=== PATIENT | male | born 1955 | race Caucasian/White ===

== ENCOUNTER 2023-10-15 09:10 | Emergency (ER) | payer MEDICARE, OTHER, SELFPAY ==
[2023-10-15] VITALS (14 sets, daily range): BP systolic 119–156; BP diastolic 63–76; PULSE 56–73; RESP 12–16; TEMP 36.8–36.9; O2SAT 98–100
--- NOTE | ~2023-10-15 | XR_ITS ---
EXAMINATION: XR ankle LT min 3V DATE: 10/15/2023 12:26 INDICATION: Left ankle injury. Fall. TECHNIQUE: 4 views of left ankle were obtained. COMPARISON: None. FINDINGS: Bone alignment is normal. No fracture. There is mild osteoarthritis of talonavicular joint. There are enthesophytes at the posterior and plantar aspects of calcaneal tuberosity. IMPRESSION: 1. No fracture. Reviewed, dictated and finalized at location A. IMPRESSION: 1. No fracture.
--- NOTE | ~2023-10-15 | CT_ITS ---
NAME: Gigi Cortes DATE OF : 59 EXAMINATION: HEAD CT WO DATE: 10/15/2023 at 9:45 AM INDICATION: Seizure. Fall. Head injury. TECHNIQUE: Computed tomography (CT) of the head was performed without intravenous contrast. The mA wa s adjusted according to patient size. Iterative reconstruction technique was employed. The dose-lengt h product was 605 mGy-cm. COMPARISON: None FINDINGS: There is no intracranial hemorrhage, acute infarction, or abnormal intracranial mass lesion . The ventricles are normal in size. The orbits are normal. There is mild mucosal thickening in the p aranasal sinuses. The mastoid air cells are normal. There is right frontal scalp soft tissue swelling . IMPRESSION: 1. Normal brain. Reviewed, dictated and finalized at location A. IMPRESSION: 1. Normal brain.
--- NOTE | ~2023-10-15 | CT_ITS ---
NAME: Gigi Cortes DATE OF : 59 EXAMINATION: CT CERVICAL SPINE WO DATE: 10/15/2023 at 9:47 AM INDICATION: Head injury. TECHNIQUE: Computed tomography (CT) of the cervical spine was performed without intravenous contrast. Automated exposure control and iterative reconstruction technique were employed. The dose-length pro duct was 476 mGy-cm. COMPARISON: None FINDINGS: There is 2 mm anterolisthesis of C7 on T1. Vertebral body heights are normal. There is inte rbody fusion at C3-C4. There is severely decreased disc height from C4-C5 through C6-C7 and mildly de creased disc height at C7-T1. There is mucous in the trachea. The following disc levels are specifica lly discussed: C2-C3: There is moderate right and severe left uncovertebral joint osteoarthritis. There is severe bi lateral facet joint osteoarthritis. There is mild left neural foraminal stenosis. There is no central canal stenosis. C3-C4: There is mild bilateral uncovertebral joint hypertrophy. There is ankylosis of the facet joint s with mild right and moderate left hypertrophy. There is mild bilateral neural foraminal stenosis. T here is mild central canal stenosis. C4-C5: There is severe bilateral uncovertebral joint osteoarthritis. There is severe bilateral facet joint osteoarthritis. There is moderate right and mild left neural foraminal stenosis. There is mild central canal stenosis. C5-C6: There is severe bilateral uncovertebral joint osteoarthritis. There is moderate right and mild left facet joint osteoarthritis. There is mild right neural foraminal stenosis. There is mild centra l canal stenosis. C6-C7: There is severe bilateral uncovertebral joint osteoarthritis. There is moderate right and mild left facet joint osteoarthritis. There is mild bilateral neural foraminal stenosis. There is mild ce ntral canal stenosis. C7-T1: There is no uncovertebral joint osteoarthritis. There is severe left facet joint osteoarthriti s.. There is ankylosis of the right facet joint with moderate hypertrophy. There is mild bilateral ne ural foraminal stenosis. There is no central canal stenosis. IMPRESSION: 1. No fracture. 2. Severe cervical spondylosis. Reviewed, dictated and finalized at location A.
--- NOTE | 2023-10-15 09:14 | ECG_ITS ---
Measurements Intervals [place] Rate: 68 P: 11 MD: 147 QRS: 48 QRSD: 99 T: 65 QT: 419 QTc: 447 Interpretive Statements SINUS RHYTHM ATRIAL COUPLET AND ATRIAL PREMATURE COMPLEXES VOLTAGE CRITERIA FOR LVH ABNORMAL ECG NO PREVIOUS ECG AVAILABLE FOR COMPARISON Electronically Signed On 10-15-2023 11:07:24 CDT by Sony Delong D.O.
[2023-10-15 09:26] LABS: Basophils Percent Auto 0.5 % (0.2-1.2); Eosinophils Absolute Auto 0.5 K/mm3 (0-0.3); Eosinophils Percent Auto 8.6 % (0-4.4); Hematocrit 42.7 % (42.0-52.0); Hemoglobin 14.1 g/dL (14.0-18.0); Immature Granulocyte Absolute 0.02 K/mm3 (0.00-0.031); Immature Granulocyte Percent A 0.3 % (0-0.5); Lymphocytes Percent Auto 24.5 % (18.3-44.2); Mean Corpuscular Hemoglobin 30.9 pg (26-34); Mean Corpuscular Volume 93.6 fl (80-100); Mean Platelet Volume 10.8 fl (7.4-10.4); Monocytes Absolute Auto 0.4 K/mm3 (0.1-0.6); Monocytes Percent Auto 7.7 % (2.6-8.5); Neutrophils Absolute Auto 3.3 K/mm3 (1.3-6.7); Neutrophils Percent Auto 58.4 % (45.5-73.1); Platelet Count Result 184 k/mm3 (150-375); Red Blood Count 4.56 M/mm3 (4.6-6.20); Red Cell Distribution Width 11.8 % (11.5-14.5); White Blood Count 5.7 K/mm3 (4.5-10.0)
[2023-10-15 09:37] LABS: Alanine Aminotransferase 34 U/L (6-50); Albumin Level 4.3 g/dL (3.5-5.1); Alkaline Phosphatase 80 U/L (38-126); Anion Gap 10 mmol/L (8-16); Aspartate Amino Transferase 41 U/L (17-59); Bilirubin,Total 0.8 mg/dL (0.2-1.3); Blood Urea Nitrogen 19 mg/dL (9-20); Calcium 9.1 mg/dL (8.4-10.2); Carbon Dioxide 25 mmol/L (22-30); Chloride 99 mmol/L (98-107); Estimated CRCL calculation 86 ml/min; Estimated Glomerular Filt Rate > 60; Glucose 138 mg/dL (65-110); Potassium 3.7 mmol/L (3.4-5.0); Sodium 134 mmol/L (137-145)
[2023-10-15] MEDS: levETIRAcetam 1000MG/NACL100ML 1,000 MG/100 ML BAG 400 MG IVPB (09:37)
[2023-10-15] MEDS: LORazepam INJ (*CRX) 2 MG/ML VIAL IV PUSH (09:38)
--- NOTE | 2023-10-15 15:10 | ED.SEIZURE ---
HPI - Seizure General Chief Complaint: Seizure Stated Complaint: fall, seizure Time Seen by Provider: 10/15/23 09:14 Source: EMS Mode of arrival: EMS Limitations: clinical condition History of Present Illness HPI Narrative: 68-year-old otherwise healthy was brought in by EMS with complaints of fall from a ladder. This patient had a 3 minute seizure soon after the fall upon arrival to the ER patient was in a postictal state few minutes after that he had another tonic-clonic seizure lasted for few minutes. As per the family there is no previous history of seizure disorder. MD complaint: seizure Onset (ago): minute(s) Description of Episode: loss of consciousness and tonic-clonic movement Witnessed: Yes - by Bystander Seizure History: No Place: work Possible Precipitating Event: none Associated symptoms: denies other symptoms Treatments prior to arrival: none Related Data Allergies Allergy/AdvReac Type Severity Reaction Status Date / Time NA Allergy Uncoded 11/14/08 12:28 Review of Systems Review of Systems: ROS unobtainable: Yes unobtainable due to mental status Exam Narrative: GENERAL:, well-nourished, unresponsive post ictal HEAD: Normocephalic, atraumatic. small lac on the forehead EYES: PERRLA and EOMI. ENT: Nares clear, no rhinorrhea or epistaxis. Mucous membranes moist. NECK: Supple. CHEST: Clear to auscultation. No respiratory distress. HEART: Regular rate and rhythm. No murmur heard. Normal peripheral pulses. ABDOMEN: Soft, nontender, nondistended, normal active bowel sounds. EXTREMITIES: Normal range of motion. No edema. SKIN: Warm, dry, no rash. NEURO: No focal deficits. . Course Course Emergency Course: Patient had another seizure soon after arrival he was given 2 mg of Ativan and IV Keppra 1000 mg. About 1/2 hour later patient became alert complaining of left ankle pain and did obtain an x-ray which showed no evidence of fracture informed patient and the family about his lab work, CT findings. Agreeable with transfer with [facility] do not have Neurology discussed with Dr. Felix at [facility] accepted the pt in transfer Reevaluation(s) Reevaluation #1: Patient resting well no further seizure activity. Informed patient about the lab work, CT findings agreeable for transfer to [facility] Vital Signs Vital signs: Vital Signs Temperature 36.8 C 10/15/23 09:10 Pulse Rate 66 10/15/23 09:10 Respiratory Rate 13 10/15/23 09:10 Blood Pressure 156/66 H 10/15/23 09:10 Pulse Oximetry 100 10/15/23 09:10 Oxygen Delivery Room Air 10/15/23 09:10 Temperature 36.9 C 10/15/23 12:31 Pulse Rate 59 L 10/15/23 12:31 Respiratory Rate 13 10/15/23 12:31 Blood Pressure 126/73 10/15/23 12:31 Pulse Oximetry 98 10/15/23 12:31 Oxygen Delivery Room Air 10/15/23 09:41 MDM - Seizure MDM Narrative Medical decision making narrative: 68-year-old posttraumatic the obvious head injury with seizures will obtain CT of the head and C-spine and labwork control his seizures with IV Keppra. Differential Diagnosis Differential diagnosis: Likely new onset seizure and other (Head injury) Medical Records Attestation: I reviewed the patient's medical records. Lab Data Attestation: I reviewed the patient's lab results. 10/15/23 09:20 10/15/23 09:20 Labs: Lab Results 10/15/23 Range/Units 09:20 WBC 5.7 (4.5-10.0) K/mm3 RBC 4.56 L (4.6-6.20) M/mm3 Hgb 14.1 (14.0-18.0) g/dL Hct 42.7 (42.0-52.0) % MCV 93.6 (80-100) fl MCH 30.9 (26-34) pg MCHC 33.0 (32-36) g/dl RDW 11.8 (11.5-14.5) % Plt Count 184 (150-375) k/mm3 MPV 10.8 H (7.4-10.4) fl Immature Gran % (Auto) 0.3 (0-0.5) % Neut % (Auto) 58.4 (45.5-73.1) % Lymph % (Auto) 24.5 (18.3-44.2) % [place] % (Auto) 7.7 (2.6-8.5) % Eos % (Auto) 8.6 H (0-4.4) % Baso % (Auto) 0.5 (0.2-1.2) % Lymph # (Auto) 1.40 (0.9-3.2) K/mm3 [place] # (Auto) 0.4 (0.1-0.6) K/mm3 Eos # (Auto) 0.5 H (0-0.3) K/mm3 Baso # (Auto) 0.0 (0.0-0.1) K/mm3 Abs Immat Gran (auto) 0.02 (0.00-0.031) K/mm3 Absolute Neuts (auto) 3.3 (1.3-6.7) K/mm3 Absolute Nucleated RBC 0.000 (0.0-0.012) K/mm3 Nucleated RBC % 0.0 (0.0-0.2) % Sodium 134 L (137-145) mmol/L Potassium 3.7 (3.4-5.0) mmol/L Chloride 99 (98-107) mmol/L Carbon Dioxide 25 (22-30) mmol/L Anion Gap 10 (8-16) mmol/L BUN 19 (9-20) mg/dL Creatinine 0.70 (0.7-1.3) mg/dL Estim Creat Clear Calc 86 ml/min Estimated GFR > 60 (59 - ) Glucose 138 H (65-110) mg/dL Calcium 9.1 (8.4-10.2) mg/dL Total Bilirubin 0.8 (0.2-1.3) mg/dL AST 41 (17-59) U/L ALT 34 (6-50) U/L Alkaline Phosphatase 80 (38-126) U/L Total Protein 7.0 (6.3-8.2) g/dL Albumin 4.3 (3.5-5.1) g/dL Imaging Data Radiologist's impression: ITS Impressions Head CT 10/15/23 10:31 IMPRESSION: 1. Normal brain. Cervical Spine CT 10/15/23 10:33 IMPRESSION: 1. No fracture. 2. Severe cervical spondylosis. Ankle X-Ray 10/15/23 12:29 IMPRESSION: 1. No fracture. ECG Data EKG #1: ECG completion date: 10/15/23 ECG completion time: 09:15 EKG Interpretation: normal rate (69), sinus rhythm, no ectopy, no ST changes and no acute changes Discharge Plan Discharge Clinical Impression: Head injury, New onset seizure Patient Disposition: Acute Care Hospital Condition: Stable Follow-up/Referrals: PHYSICIAN,AGRONOMY TEACHER [Primary Care Provider] - Time of Disposition: 15:19
--- NOTE | 2023-10-15 15:27 | PC.NURSE ---
Patient accepted to [facility]. Report given to Terri CAMARENA in [facility].
== END 2023-10-15 15:57 | disposition short-term general hospital (02) ==
PROVIDERS: Emergency Provider Family Medicine
DX: S09.90XA Unspecified injury of head, initial encounter (principal); R56.9 Unspecified convulsions; S99.912A Unspecified injury of left ankle, initial encounter; M47.812 Spondylosis without myelopathy or radiculopathy, cervical region; R00.8 Other abnormalities of heart beat; I49.1 Atrial premature depolarization; W11.XXXA Fall on and from ladder, initial encounter
CPT/HCPCS: 36415; 70450; 72125; 73610; 80053; 85025; 93005; 96374; 96375; 99285; J1953; J2060

== ENCOUNTER 2024-04-12 15:10 | Outpatient (CLI) | payer MEDICARE, OTHER, SELFPAY ==
[2024-04-12 15:23] LABS: Basophils Percent Auto 0.2 % (0.2-1.2); Eosinophils Percent Auto 0.1 % (0-4.4); Hematocrit 37.6 % (42.0-52.0); Hemoglobin 12.5 g/dL (14.0-18.0); Immature Granulocyte Absolute 0.21 K/mm3 (0.00-0.031); Immature Granulocyte Percent A 2.1 % (0-0.5); Lymphocytes Absolute Auto 0.72 K/mm3 (0.9-3.2); Lymphocytes Percent Auto 7.3 % (18.3-44.2); Mean Corpuscular HGB Conc 33.2 g/dl (32-36); Mean Corpuscular Hemoglobin 31.6 pg (26-34); Mean Corpuscular Volume 95.2 fl (80-100); Mean Platelet Volume 9.6 fl (7.4-10.4); Monocytes Absolute Auto 0.7 K/mm3 (0.1-0.6); Monocytes Percent Auto 6.7 % (2.6-8.5); Neutrophils Absolute Auto 8.2 K/mm3 (1.3-6.7); Neutrophils Percent Auto 83.6 % (45.5-73.1); Platelet Count Result 183 k/mm3 (150-375); Red Blood Count 3.95 M/mm3 (4.6-6.20); Red Cell Distribution Width 13.8 % (11.5-14.5); White Blood Count 9.8 K/mm3 (4.5-10.0)
[2024-04-12 15:27] LABS: Blood Urea Nitrogen 25 mg/dL (8-26); Carbon Dioxide 26 mmol/L (22-30); Chloride 99 mmol/L (98-109); Estimated Glomerular Filt Rate > 60; Glucose 139 mg/dL (70-105); Ionized Calcium (POC) 1.19 mmol/L (1.11-1.31); Sodium 137 mmol/L (138-146)
[2024-04-12 16:33] LABS: Alanine Aminotransferase 46 U/L (6-50); Albumin Level 3.5 g/dL (3.5-5.1); Alkaline Phosphatase 55 U/L (38-126); Anion Gap 4 mmol/L (4-12); Aspartate Amino Transferase 33 U/L (17-59); Bilirubin,Total 0.3 mg/dL (0.2-1.3); Blood Urea Nitrogen 26 mg/dL (9-20); Calcium 8.9 mg/dL (8.4-10.2); Carbon Dioxide 30 mmol/L (22-30); Chloride 99 mmol/L (98-107); Estimated Glomerular Filt Rate > 60; Glucose 135 mg/dL (65-110); Potassium 3.9 mmol/L (3.4-5.0); Sodium 133 mmol/L (137-145)
== END 2024-04-12 15:11 | disposition home or self-care (01) ==
LOC: ANHLAB 15:12
PROVIDERS: Visit Provider Internal Medicine Hematology & Oncology
DX: C71.9 Malignant neoplasm of brain, unspecified (principal)
CPT/HCPCS: 36415; 80047; 80053; 85025

== ENCOUNTER 2024-05-01 09:53 | Outpatient (CLI) | payer MEDICARE, OTHER, SELFPAY ==
[2024-05-01 10:10] LABS: Basophils Percent Auto 0.5 % (0.2-1.2); Eosinophils Absolute Auto 0.1 K/mm3 (0-0.3); Eosinophils Percent Auto 2.8 % (0-4.4); Hematocrit 37.5 % (42.0-52.0); Hemoglobin 12.6 g/dL (14.0-18.0); Immature Granulocyte Absolute 0.02 K/mm3 (0.00-0.031); Immature Granulocyte Percent A 0.5 % (0-0.5); Lymphocytes Percent Auto 22.6 % (18.3-44.2); Mean Corpuscular HGB Conc 33.6 g/dl (32-36); Mean Corpuscular Hemoglobin 31.3 pg (26-34); Mean Corpuscular Volume 93.3 fl (80-100); Mean Platelet Volume 8.9 fl (7.4-10.4); Monocytes Absolute Auto 0.4 K/mm3 (0.1-0.6); Monocytes Percent Auto 8.8 % (2.6-8.5); Neutrophils Absolute Auto 2.6 K/mm3 (1.3-6.7); Neutrophils Percent Auto 64.8 % (45.5-73.1); Platelet Count Result 187 k/mm3 (150-375); Red Blood Count 4.02 M/mm3 (4.6-6.20); Red Cell Distribution Width 12.6 % (11.5-14.5)
[2024-05-01 11:32] LABS: Anion Gap 2 mmol/L (4-12); Blood Urea Nitrogen 18 mg/dL (9-20); Calcium 8.8 mg/dL (8.4-10.2); Carbon Dioxide 34 mmol/L (22-30); Chloride 101 mmol/L (98-107); Estimated Glomerular Filt Rate > 60; Glucose 96 mg/dL (65-110); Potassium 4.3 mmol/L (3.4-5.0); Sodium 137 mmol/L (137-145)
== END 2024-05-01 09:54 | disposition home or self-care (01) ==
LOC: ANHLAB 09:57
PROVIDERS: Visit Provider Internal Medicine Hematology & Oncology
DX: C71.9 Malignant neoplasm of brain, unspecified (principal)
CPT/HCPCS: 36415; 80048; 85025

== ENCOUNTER 2024-05-24 13:07 | Outpatient (CLI) | payer MEDICARE, OTHER, SELFPAY ==
[2024-05-24 13:59] LABS: Basophils Percent Auto 0.7 % (0.2-1.2); Eosinophils Absolute Auto 0.3 K/mm3 (0-0.3); Eosinophils Percent Auto 4.4 % (0-4.4); Hematocrit 38.4 % (42.0-52.0); Hemoglobin 12.9 g/dL (14.0-18.0); Immature Granulocyte Absolute 0.02 K/mm3 (0.00-0.031); Immature Granulocyte Percent A 0.3 % (0-0.5); Immature Platelet Fraction Pct 2.9 % (0.9-11.2); Lymphocytes Percent Auto 15.7 % (18.3-44.2); Mean Corpuscular HGB Conc 33.6 g/dl (32-36); Mean Corpuscular Hemoglobin 30.8 pg (26-34); Mean Corpuscular Volume 91.6 fl (80-100); Mean Platelet Volume 11.9 fl (7.4-10.4); Monocytes Absolute Auto 0.6 K/mm3 (0.1-0.6); Monocytes Percent Auto 10.8 % (2.6-8.5); Neutrophils Absolute Auto 3.9 K/mm3 (1.3-6.7); Neutrophils Percent Auto 68.1 % (45.5-73.1); Platelet Count Result 206 k/mm3 (150-375); Red Blood Count 4.19 M/mm3 (4.6-6.20); Red Cell Distribution Width 12.6 % (11.5-14.5); White Blood Count 5.7 K/mm3 (4.5-10.0)
[2024-05-24 17:04] LABS: Potassium 3.5 mmol/L (3.4-5.0)
[2024-05-24 17:08] LABS: Anion Gap 10 mmol/L (4-12); Blood Urea Nitrogen 12 mg/dL (9-20); Calcium 9.6 mg/dL (8.4-10.2); Carbon Dioxide 30 mmol/L (22-30); Chloride 98 mmol/L (98-107); Estimated Glomerular Filt Rate > 60; Glucose 91 mg/dL (65-110); Sodium 138 mmol/L (137-145)
== END 2024-05-24 13:08 | disposition home or self-care (01) ==
PROVIDERS: Visit Provider Internal Medicine Hematology & Oncology
DX: C71.9 Malignant neoplasm of brain, unspecified (principal)
CPT/HCPCS: 36415; 80048; 85025; 85055

== ENCOUNTER 2024-06-14 09:59 | Outpatient (CLI) | payer MEDICARE, OTHER, SELFPAY ==
[2024-06-14 10:15] LABS: Basophils Percent Auto 0.6 % (0.2-1.2); Eosinophils Absolute Auto 0.2 K/mm3 (0-0.3); Eosinophils Percent Auto 4.9 % (0-4.4); Hematocrit 35.7 % (42.0-52.0); Hemoglobin 11.9 g/dL (14.0-18.0); Lymphocytes Absolute Auto 0.62 K/mm3 (0.9-3.2); Mean Corpuscular HGB Conc 33.3 g/dl (32-36); Mean Corpuscular Hemoglobin 30.5 pg (26-34); Mean Corpuscular Volume 91.5 fl (80-100); Mean Platelet Volume 9.4 fl (7.4-10.4); Monocytes Absolute Auto 0.3 K/mm3 (0.1-0.6); Monocytes Percent Auto 9.5 % (2.6-8.5); Neutrophils Absolute Auto 2.2 K/mm3 (1.3-6.7); Platelet Count Result 138 k/mm3 (150-375); Red Cell Distribution Width 12.5 % (11.5-14.5); White Blood Count 3.3 K/mm3 (4.5-10.0)
[2024-06-14 10:21] LABS: Blood Urea Nitrogen 15 mg/dL (8-26); Carbon Dioxide 29 mmol/L (22-30); Chloride 101 mmol/L (98-109); Estimated Glomerular Filt Rate > 60; Glucose 94 mg/dL (70-105); Ionized Calcium (POC) 1.19 mmol/L (1.11-1.31); Potassium 4.2 mmol/L (3.5-4.9); Sodium 140 mmol/L (138-146)
== END 2024-06-14 10:00 | disposition home or self-care (01) ==
LOC: ANHLAB 10:00
PROVIDERS: Visit Provider Internal Medicine Hematology & Oncology
DX: C71.9 Malignant neoplasm of brain, unspecified (principal)
CPT/HCPCS: 36415; 80047; 85025

== ENCOUNTER 2024-06-15 06:51 | Outpatient (CLI) | payer MEDICARE, OTHER, SELFPAY ==
--- NOTE | ~2024-06-15 | MR_ITS ---
EXAMINATION: MR brain/brain stem wo/w con DATE: 06/15/2024 07:30 INDICATION: Glioblastoma. TECHNIQUE: Magnetic resonance imaging (MRI) of the brain and brainstem was performed without and with 13 mL MultiHance intravenous contrast. COMPARISON: Head CT 10/15/2023 FINDINGS: There is chronic encephalomalacia in anterior left temporal lobe. There are scattered areas of nonspecific increased T2-weighted signal intensity in the cerebral white matter, which is within normal limits for the patient's age. There is no intracranial hemorrhage, acute infarction, or abnorm al intracranial mass lesion. There is ex vacuo dilatation of temporal horn of left lateral ventricle. There are changes of left-sided craniotomy. There is mucosal thickening in the paranasal sinuses. Th e orbits are normal. There is a trace left mastoid effusion. IMPRESSION: 1. Chronic encephalomalacia in anterior left temporal lobe. Reviewed, dictated and finalized at location A. AL NURSE
== END 2024-06-15 06:52 | disposition home or self-care (01) ==
PROVIDERS: PCP Internal Medicine Hematology & Oncology; Visit Provider Radiology Radiation Oncology
DX: C71.0 Malignant neoplasm of cerebrum, except lobes and ventricles (principal); G93.89 Other specified disorders of brain
CPT/HCPCS: 70553; A9577

== ENCOUNTER 2024-08-09 08:57 | Outpatient (CLI) | payer MEDICARE, OTHER, SELFPAY ==
[2024-08-09 09:09] LABS: Basophils Percent Auto 0.7 % (0.2-1.2); Eosinophils Absolute Auto 0.1 K/mm3 (0-0.3); Eosinophils Percent Auto 4.8 % (0-4.4); Hematocrit 37.9 % (42.0-52.0); Hemoglobin 12.6 g/dL (14.0-18.0); Lymphocytes Absolute Auto 0.83 K/mm3 (0.9-3.2); Lymphocytes Percent Auto 28.4 % (18.3-44.2); Mean Corpuscular HGB Conc 33.2 g/dl (32-36); Mean Corpuscular Hemoglobin 30.5 pg (26-34); Mean Corpuscular Volume 91.8 fl (80-100); Mean Platelet Volume 9.6 fl (7.4-10.4); Monocytes Absolute Auto 0.3 K/mm3 (0.1-0.6); Monocytes Percent Auto 8.9 % (2.6-8.5); Neutrophils Absolute Auto 1.7 K/mm3 (1.3-6.7); Neutrophils Percent Auto 57.2 % (45.5-73.1); Platelet Count Result 126 k/mm3 (150-375); Red Blood Count 4.13 M/mm3 (4.6-6.20); Red Cell Distribution Width 11.9 % (11.5-14.5); White Blood Count 2.9 K/mm3 (4.5-10.0)
[2024-08-09 09:19] LABS: Blood Urea Nitrogen 16 mg/dL (8-26); Carbon Dioxide 28 mmol/L (22-30); Chloride 100 mmol/L (98-109); Estimated Glomerular Filt Rate > 60; Glucose 88 mg/dL (70-105); Ionized Calcium (POC) 1.23 mmol/L (1.11-1.31); Potassium 4.3 mmol/L (3.5-4.9); Sodium 138 mmol/L (138-146)
== END 2024-08-09 08:58 | disposition home or self-care (01) ==
LOC: ANHLAB 08:58
PROVIDERS: PCP Internal Medicine Hematology & Oncology; Visit Provider Internal Medicine Hematology & Oncology
DX: C71.9 Malignant neoplasm of brain, unspecified (principal)
CPT/HCPCS: 36415; 80047; 85025

== ENCOUNTER 2024-08-21 13:18 | Outpatient (CLI) | payer MEDICARE, OTHER, SELFPAY ==
--- NOTE | ~2024-08-21 | MR_ITS ---
EXAMINATION: MR brain/brain stem wo/w con DATE: 08/21/2024 14:26 INDICATION: Glioblastoma. TECHNIQUE: Magnetic resonance imaging (MRI) of the brain and brainstem was performed without and with 13 mL MultiHance intravenous contrast. COMPARISON: Brain MRI 06/15/2024, head CT 10/15/2023 FINDINGS: There are changes of left-sided craniotomy. There is chronic encephalomalacia in anterior l eft temporal lobe. There are scattered areas of nonspecific increased T2-weighted signal intensity in the cerebral white matter, which is within normal limits for the patient's age. There is no intracra nial hemorrhage, acute infarction, or abnormal intracranial mass lesion. There is ex vacuo dilatation of temporal horn of left lateral ventricle. The orbits are normal. There is mucosal thickening in th e paranasal sinuses. There is a trace left mastoid effusion. IMPRESSION: 1. Chronic encephalomalacia in anterior left temporal lobe. Reviewed, dictated and finalized at location B. [facility] SOCIAL WORKER
== END 2024-08-21 13:19 | disposition home or self-care (01) ==
LOC: MICIMG 13:19
PROVIDERS: PCP Internal Medicine Hematology & Oncology; Visit Provider Internal Medicine Hematology & Oncology
DX: C71.9 Malignant neoplasm of brain, unspecified (principal)
CPT/HCPCS: 70553; A9577

== ENCOUNTER 2024-09-06 12:22 | Outpatient (CLI) | payer MEDICARE, OTHER, SELFPAY ==
[2024-09-06 12:50] LABS: Blood Urea Nitrogen 11 mg/dL (8-26); Carbon Dioxide 30 mmol/L (22-30); Chloride 99 mmol/L (98-109); Estimated Glomerular Filt Rate > 60; Glucose 94 mg/dL (70-105); Ionized Calcium (POC) 1.25 mmol/L (1.11-1.31); Sodium 138 mmol/L (138-146)
[2024-09-06 12:50] LABS: Basophils Percent Auto 0.7 % (0.2-1.2); Eosinophils Absolute Auto 0.1 K/mm3 (0-0.3); Eosinophils Percent Auto 3.8 % (0-4.4); Hematocrit 39.4 % (42.0-52.0); Hemoglobin 13.4 g/dL (14.0-18.0); Immature Granulocyte Absolute 0.01 K/mm3 (0.00-0.031); Immature Granulocyte Percent A 0.3 % (0-0.5); Immature Platelet Fraction Pct 2.6 % (0.9-11.2); Lymphocytes Absolute Auto 0.69 K/mm3 (0.9-3.2); Lymphocytes Percent Auto 23.9 % (18.3-44.2); Mean Corpuscular Volume 88.1 fl (80-100); Monocytes Absolute Auto 0.3 K/mm3 (0.1-0.6); Monocytes Percent Auto 9.3 % (2.6-8.5); Neutrophils Absolute Auto 1.8 K/mm3 (1.3-6.7); Platelet Count Result 157 k/mm3 (150-375); Red Blood Count 4.47 M/mm3 (4.6-6.20); Red Cell Distribution Width 11.8 % (11.5-14.5); White Blood Count 2.9 K/mm3 (4.5-10.0)
--- OUTSIDE RECORDS SUMMARY | 2024-09-06 13:29 | XMS_ITS | Encounter Summary ---
Author Organization [facility] Address [address] [place] [address] Care Team Providers Care Diagnostic Sales Specialist Name Role Phone Ajay Rhodes MD Primary Care Provider [phone] Encounter Details Date Type Department Care Team (Late Contact Info) Description 10/25/[address] 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 Oncology and Hematology - [place] [address] [place] [address] [facility] [address] [place] [address] [place] [address] [place] [address] [address] [place] [address] 12/13/2024 10:00 AM CDT Office Visit [facility] Primary Care [address] [place] [address] Ajay Rhodes MD [address] [place] [address] documented as of this encounter Visit Diagnoses Not on filedocumented in this encounter Care Teams Diagnostic Sales Specialist Relationship Specialty Start Date End Date Ajay Rhodes MD PCP - General 01/19/08 documented as of this encounter
--- OUTSIDE RECORDS SUMMARY | 2024-09-06 13:29 | XMS_ITS | Encounter Summary ---
Author Organization [facility] Address 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 Gender Identity Not on file Sexual Orientation Not on file documented as of this encounter Last Filed Vital Signs Vital Sign Reading Time Taken Comments Blood Pressure 130/78 04/06/2007 2:45 PM CDT Pulse - - Temperature - - Respiratory Rate - - Oxygen Saturation - - Inhaled Oxygen Concentration - - Weight 97.1 kg (214 lb) 04/06/2007 2:45 PM CDT Height - - Body Mass Index - - documented in this encounter Plan of Treatment Upcoming Encounters Date Type Department Care Team (Late Contact Info) Description 10/09/2024 1:00 PM CDT Office Visit [facility] Oncology and Hematology - [place] [address] [facility] [address] [place] [address] Randall Triplett MD 9 [facility] [address] [place] [phone] 12/13/2024 10:00 AM CDT Office Visit [facility] Primary Care [address] [place] [address] Ajya Rhodes MD [address] [place] [address] [address] [place] [address] documented as of this encounter Visit Diagnoses Not on filedocumented in this encounter Care Teams Activities Attendant Relationship Specialty Start Date End Date Ajay Rhodes MD PCP - General 01/19/08 documented as of this encounter
--- OUTSIDE RECORDS SUMMARY | 2024-09-06 13:29 | XMS_ITS | Encounter Summary ---
Author Organization [facility] Address 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 CHIEF COMPLAINT follow up neck pain. HISTORY: sinus worse around mold at work some improvement with zyrtec, still needing vicodin PHYSICAL EXAMINATION: CONSTITUTIONAL: GENERAL APPEARANCE: Healthy appearing patient in no distress. EARS, NOSE, MOUTH AND THROAT: EARS: EFFUSION PRESENT BILATERALLY. ORAL: Inspection of gums, lips, palate, and teeth normal. No scars, lesions, or masses. Oral mucosaunremarkable with non-inflamed posterior pharynx. NECK/THYROID: Trachea midline. No thyroid enlargement, tenderness, or mass. No supraclavicular or cervical adenopathy. RESPIRATORY: Clear to auscultation and percussion. Normal respiratory effort. CARDIOVASCULAR: CARDIAC: Regular rhythm. No murmurs, rubs, or gallops. ARTERIAL: No aortic bruits. EDEMA/VARICOSITIES OF EXTREMITIES: No edema or varicosities. GASTROINTESTINAL: ABDOMEN: Soft, non-tender, without masses. Bowel sounds active. LIVER/SPLEEN/KIDNEY: No hepatosplenomegaly, tenderness or nodularity. Kidneys not palpable. ASSESSMENT/PLAN: 461.9-SINUSITIS UNSPECIFIED add med MEDICATIONS: FLONASE NASAL SUSPENSION 50 MCG/ACT, 2 Every Morning, 1 Dispensed, 6 Fills, status: NEW PRESCRIPTION, 10/25/2007. ASTELIN NASAL SOLUTION 137 MCG/SPRAY, 2 Two Times A Day, 1 Dispensed, 6 Fills, status: NEW PRESCRIPTION, 10/25/2007. 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 LAB ORDERS: 3 mo Order number: [id number] Test Ordered: COMPREHENSIVE METABOLIC PANEL & GFR 1112 Order number: [id number] Test Ordered: LIPID PANEL 1078 Order number: [id number] Test Ordered: PSA, TOTAL 1002 Patient Education: Risks, benefits, and possible side effects of medication(s) were reviewed with the patient. The patient was allowed to ask questions to stated satisfaction. RETURN VISIT : Patient instructed to return in 3 months. Electronically Signed by: Ajay Rhodes MD on Thursday, October 25, 2007 documented in this encounter Plan of Treatment Upcoming Encounters Date Type Department Care Team (Late st Contact Info) Description 10/09/2024 1:00 PM CDT Office Visit [facility] Oncology and Hematology [place] [address] [place] [address] [address] [place] [address] Randall Triplett MD [address] [facility] [address] [place] [address] 12/13/2024 10:00 AM CDT Office Visit [facility] Primary Care [address] [place] [address] Ajay Rhodes MD [address] [place] [address] [place] [address] documented as of this encounter Visit Diagnoses Not on filedocumented in this encounter Care Teams Cover Machine Operator Relationship Specialty Start Date End Date Ajay Rhodes MD PCP - General 01/19/08 documented as of this encounter
--- OUTSIDE RECORDS SUMMARY | 2024-09-06 13:29 | XMS_ITS | Encounter Summary ---
Author Organization [facility] Address 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 PHARMACY NUMBER: [phone] 02/04/07 request refill of Hydrocodone/APAP 7.5/750 mg #60 LF 12/28/06 SECTION 1: DOCTOR`S RESPONSE: debby 02/04/07 at 09:32 am MEDICATIONS: VICODIN ES ORAL TABLET 7.5-750 MG, 1 Every Six Hours, As Needed, 90 Dispensed, status: CONTINUED, 02/04/2007. FINAL ACTION: licasl 02/04/07 at 12:27 pm Called pharmacy at 02/04/07 at 12:27 pm. Electronically Signed by: Meagan Lechuga on Sunday, February 04, 2007 documented in this encounter Plan of Treatment Upcoming Encounters Date Type Department Care Team (Late st Contact Info) Description 10/09/2024 1:00 PM CDT Office Visit [facility] Oncology and Hematology - [place] [address] [facility] [address] [place] [phone] Randall Triplett MD [address] [facility] [address] [place] [address] 12/13/2024 10:00 AM CDT Office Visit [facility] Primary Care [address] [place] [address] Ajay Rhodes MD [address] [place] [address] [address] [place] [address] documented as of this encounter Visit Diagnoses Not on filedocumented in this encounter Care Teams Outside Property Agent Relationship Specialty Start Date End Date Ajay Rhodes MD PCP - General 01/19/08 documented as of this encounter
--- OUTSIDE RECORDS SUMMARY | 2024-09-06 13:29 | XMS_ITS | Encounter Summary ---
Author Organization [facility] Address 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 Gender Identity Not on file Sexual Orientation Not on file documented as of this encounter Plan of Treatment Upcoming Encounters Date Type Department Care Team (Late st Contact Info) Description 10/09/2024 1:00 PM CDT Office Visit [facility] Oncology and Hematology - [place] [address] [place] [address] [facility] [address] [place] [address] [place] [address] [place] [address] [address] [place] [address] 12/13/2024 10:00 AM CDT Office Visit [facility] Primary Care [address] [place] [address] Ajay Rhodes MD [address] [place] [address] documented as of this encounter Visit Diagnoses Not on filedocumented in this encounter Care Teams Agricultural And Forestry Supervisor Relationship Specialty Start Date End Date Ajay Rhodes MD PCP - General 01/19/08 documented as of this encounter
--- OUTSIDE RECORDS SUMMARY | 2024-09-06 13:29 | XMS_ITS | Encounter Summary ---
Author Organization [facility] Address 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 [address] D.O.B: 1955 SSN: [id number] Parent/Guardian if applicable: Patient Insurance: [facility] Policy#: [id number] Group #: Best To Call : [phone] Best Time to Call : ANYTIME. May We Leave Message At That Number : YES, LEAVE MESSAGE. Referring to: GASTROENTEROLOGY Dr. Khanh Hatfield ph: [phone] fax: [phone]. Dr. Rosana Noyola ph: [phone] fax: [phone]. Reason for referral: colonoscopy ORDERING PHYSICIAN : PHIL HANCOCK MD PRIORITY OF REFERRAL: AT PATIENT'S CONVENIENCE. OFFICE CHIEF ENGINEER RESEARCH & PHONE: Seema Jiang C FOR SCHEDULING USE ONLY FIRST ATTEMPT Date:AUG 08, 2007 Sharif Farah J 02:54 p Spoke with Patient.and he wants us to call back at 4pm SECOND ATTEMPT: Date:AUG 09, 2007 Macy Haley 09:29 a Spoke with Patient. on cell. Called Specialist office - they request that referral request be faxed directly to their office and they will have one of their schedulers call pt directly to schedule appointment. Pt aware that he will be getting a call directly from the Specialist office to schedule. Wrote on request to please contact pt before 3:00pm today to schedule (per pt request). LETTER SENT: Date AUG 12, 2007 Dilma Benton L 12:34 p Letter Sent to Patient. test was completed on 08-19-07. * Phil Hancock MD - 12/14/2007 4:48 PM CDT WEIGHT: 215lbs BLOOD PRESSURE: 120/70 Right Arm Sitting NURSE NAME: Priyanka Marcelino R TOBACCO USE Patient does not currently use tobacco. CHIEF COMPLAINT back pain. HISTORY: flare djd back, chronic sinus --improved with claritin PHYSICAL EXAMINATION: CONSTITUTIONAL: GENERAL APPEARANCE: Healthy appearing patient in no distress. NECK/THYROID: Trachea midline. No thyroid enlargement, tenderness, or mass. No supraclavicular or cervical adenopathy. RESPIRATORY: Clear to auscultation and percussion. Normal respiratory effort. CARDIOVASCULAR: CARDIAC: Regular rhythm. No murmurs, rubs, or gallops. ARTERIAL: No aortic bruits. EDEMA/VARICOSITIES OF EXTREMITIES: No edema or varicosities. GASTROINTESTINAL: ABDOMEN: Soft, non-tender, without masses. Bowel sounds active. LIVER/SPLEEN/KIDNEY: No hepatosplenomegaly, tenderness or nodularity. Kidneys not palpable. MUSCULOSKELETAL EXAM: ls tender ASSESSMENT/PLAN: 461.9-SINUSITIS UNSPECIFIED ok claritin 715.90-OSTEOARTHROSIS UNSPECIFIED try celebrex, cont med MEDICATIONS: VICODIN ES ORAL TABLET 7.5-750 MG, 1 Every Six Hours, As Needed, 90 Dispensed, 2 Fills, status: CONTINUED, 08/05/2007. CELEBREX ORAL CAPSULE CONVENTIONAL 200 MG, 1 Every Day, 30 Dispensed, 3 Fills, status: NEW PRESCRIPTION, 08/05/2007. SPECIALTY REFERRAL: GASTROENTEROLOGY Dr. Rosana Noyola ph: [phone] fax: [phone]. Dr[address] Khanh Hatfield ph: [phone] fax: [phone].colonoscopy Patient Education: Risks, benefits, and possible side effects of medication(s) were reviewed with the patient. The patient was allowed to ask questions to stated satisfaction. RETURN VISIT : Patient instructed to return in 3 months. Electronically Signed by: Phil Hancock MD on Sunday, August 05, 2007 documented in this encounter Plan of Treatment Upcoming Encounters Date Type Department Care Team (Late st Contact Info) Description 10/09/2024 1:00 PM CDT Office Visit [facility] Oncology and Hematology - [place] [address] [place] [address] [address] [place] [address] [place] [address] [place] [address] [address] [place] [address] 12/13/2024 10:00 AM CDT Office Visit [facility] Primary Care [place] [address] [place] [address] Phil Hancock MD [address] [place] [address] [address] [place] [address] documented as of this encounter Visit Diagnoses Not on filedocumented in this encounter Care Teams Dam Worker Relationship Specialty Start Date End Date Phil Hancock MD PCP - General 01/19/08 documented as of this encounter
--- OUTSIDE RECORDS SUMMARY | 2024-09-06 13:29 | XMS_ITS | Encounter Summary ---
Author Organization [facility] Address 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 Gender Identity Not on file Sexual Orientation Not on file documented as of this encounter Plan of Treatment Upcoming Encounters Date Type Department Care Team (Late st Contact Info) Description 10/09/2024 1:00 PM CDT Office Visit [facility] Oncology and Hematology - [place] [address] [place] [address] [facility] [address] [place] [address] [place] [address] [place] [address] [address] [place] [address] 12/13/2024 10:00 AM CDT Office Visit [facility] Primary Care [address] [place] [address] Ajay Rhodes MD [address] [place] [address] documented as of this encounter Visit Diagnoses Not on filedocumented in this encounter Care Teams Fountain Supervisor Relationship Specialty Start Date End Date Ajay Rhodes MD PCP - General 01/19/08 documented as of this encounter
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
--- OUTSIDE RECORDS SUMMARY | 2024-09-06 13:29 | XMS_ITS | Encounter Summary ---
Author Organization [facility] Address 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 Gender Identity Not on file Sexual Orientation Not on file documented as of this encounter Plan of Treatment Upcoming Encounters Date Type Department Care Team (Late st Contact Info) Description 10/09/2024 1:00 PM CDT Office Visit [facility] Oncology and Hematology - [place] [address] [place] [address] [facility] [address] [place] [address] [place] [address] [place] [address] [address] [place] [address] 12/13/2024 10:00 AM CDT Office Visit [facility] Primary Care [address] [place] [address] Ajay Rhodes MD [address] [place] [address] documented as of this encounter Visit Diagnoses Not on filedocumented in this encounter Care Teams Supervising Nurse Relationship Specialty Start Date End Date Ajay Rhodes MD PCP - General 01/19/08 documented as of this encounter
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
--- OUTSIDE RECORDS SUMMARY | 2024-09-06 13:29 | XMS_ITS | Encounter Summary ---
Author Organization [facility] Address 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 PHARMACY NUMBER: [phone] SECTION 1: REQUESTED ACTION issa 02/28/07 at 10:41 am: MEDICATION REQUEST: MEDICATION REQUEST: Patient requests a refill. gen vicodin #60 LF 02/04/07 DOCTOR`S RESPONSE: debby 02/28/07 at 12:40 pm prev note * Ajay Rhodes MD - 12/21/2007 1:22 PM CDT TIME:11:57 am PATIENT`S HOME PHONE: PATIENT`S WORK PHONE: PATIENT`S INSURANCE: [employer] WHO TOOK THE CALL: Lorrie Lynch C GENERAL INFORMATION WHO CALLED: Patient called. PHARMACY NUMBER: [phone] SECTION 1: PT NEVER TOOK SCRIPT IN OF VICODEN #90 WITH 2 REFILLS in Pt still has it REQUESTED ACTION sylvester 02/28/07 at 11:57 am: MEDICATION REQUEST: MEDICATION REQUEST: Patient requests a refill. Also Pt would like Viagra called in was given samples DOCTOR`S RESPONSE: debby 02/28/07 at 12:19 pm MEDICATIONS: VICODIN ES ORAL TABLET 7.5-750 MG, 1 Every Six Hours, As Needed, 90 Dispensed, status: CONTINUED, 02/28/2007. VIAGRA ORAL TABLET 50 MG, 1 Every Day, 5 Dispensed, 6 Fills, status: CONTINUED, 02/28/2007. Electronically Signed by: Lorrie Lynch on Wednesday, February 28, 2007 documented in this encounter Plan of Treatment Upcoming Encounters Date Type Department Care Team (Late st Contact Info) Description 10/09/2024 1:00 PM CDT Office Visit [facility] Oncology and Hematology - [place] [address] [place] [address] [address] [place] [address] [place] [address] [place] [address] [address] [place] [address] 12/13/2024 10:00 AM CDT Office Visit [facility] Primary Care [address] [place] [address] Ajay Rhodes MD [address] [place] [address] [address] [place] [address] documented as of this encounter Visit Diagnoses Not on filedocumented in this encounter Care Teams Accountant Auditor Relationship Specialty Start Date End Date Ajay Rhodes MD PCP - General 01/19/08 documented as of this encounter
--- OUTSIDE RECORDS SUMMARY | 2024-09-06 13:29 | XMS_ITS | Encounter Summary ---
Author Organization [facility] Address 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 FACILITY 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 Gender Identity Not on file Sexual Orientation Not on file documented as of this encounter Last Filed Vital Signs Vital Sign Reading Time Taken Comments Blood Pressure 122/72 01/20/2007 2:15 PM CDT Pulse - - Temperature - - Respiratory Rate - - Oxygen Saturation - - Inhaled Oxygen Concentration - - Weight 93.4 kg (206 lb) 01/20/2007 2:15 PM CDT Height - - Body Mass Index - - documented in this encounter Plan of Treatment Upcoming Encounters Date Type Department Care Team (Late Contact Info) Description 10/09/2024 1:00 PM CDT Office Visit [facility] Oncology and Hematology - [place] [address] [facility] [address] [place] [address] Randall Triplett MD [address] [facility] [address] [place] [address] 12/13/2024 10:00 AM CDT Office Visit [facility] Primary Care [address] [place] [address] Ajay Rhodes MD [address] [place] [address] [address] [place] [address] documented as of this encounter Visit Diagnoses Not on filedocumented in this encounter Care Teams Bicycle Messenger Relationship Specialty Start Date End Date Ajay Rhodes MD PCP - General 01/19/08 documented as of this encounter
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
--- OUTSIDE RECORDS SUMMARY | 2024-09-06 13:30 | XMS_ITS | Clinical Summary ---
Author Organization [facility] Address [address] [place] [address] Care Team Providers Care Health Promotion Specialist Name Role Phone Ajay Rhodes MD Primary Care Provider [phone] Allergies Active Allergy Reactions Criticality Noted Date Comments No Known Allergies 05/12/2004 Medications azelastine (ASTELIN) 137 mcg/actuation nasal spray ADMINISTER 2 SPRAYS IN EACH NOSTRIL 2 TIMES DAILY. 30 mL 3 023 Active sildenafiL (VIAGRA) 100 mg tablet TAKE 1 TABLET BY MOUTH 1 TIME DAILY NEEDED FOR ERECTILE DYSFUNCTION. 6 Tablet 3 024 Active pantoprazole (PROTONIX) 40 mg Tablet, Delayed Release (E.C.) Take 1 Tablet (40 mg) by mouth daily. 90 Tablet 3 024 Active cyclobenzaprine (FLEXERIL) 10 mg tablet TAKE 1 TABLET BY MOUTH 3 TIMES DAILY NEEDED FOR SPASM. 30 Tablet 3 024 Active levETIRAcetam (KEPPRA) 1,000 mg tabletIndication s:Seizures (CMS/HCC),Gliobl astoma multiforme of brain (CMS/HCC) Take 1 Tablet (1,000 mg) by mouth 2 times daily. 60 Tablet 3 024 Active ondansetron (ZOFRAN ODT) 8 mg Tablet, Rapid Dissolve Dissolve 1 tablet on top of tongue then swallow with saliva every 8 hours as needed for nausea or vomiting 30 Tablet 1 024 Active mometasone (ELOCON) 0.1 % Cream Apply to affected area daily. 45 Gram 1 Active neomycin-bacitra veto-polymyxin (Triple Antibiotic) 3.5mg-400 unit- 5,000 unit/gram Ointment Apply to affected area 2 times daily. Active azelastine (ASTELIN) 137 mcg/actuation nasal spray Administer 2 Sprays in each nostril 2 times daily. 30 mL 6 Active temozolomide (TEMODAR) 20 mg capsule Take 1 capsule (20 mg) by mouth daily before breakfast with 2 other temozolomide prescriptions for 275 mg total. Take for 5 days every 28 day cycle. 5 Capsule 5 Active temozolomide (TEMODAR) 5 mg capsule Take 1 capsule (5 mg) by mouth daily before breakfast with 2 other temozolomide prescriptions for 275 mg total. Take for 5 days every 4 weeks. 5 Capsule 5 Active temozolomide (TEMODAR) 250 mg capsule Take 1 capsule (250 mg) by mouth daily before breakfast with 2 other temozolomide prescriptions for 275 mg total. Take for 5 days every 28 days. 5 Capsule 5 Active silver sulfADIAZINE (SILVADENE) 1 % Cream Apply to affected area daily. 50 Gram 3 Active HYDROcodone-acet aminophen (NORCO) 10-325 mg TabletIndication s:Other osteoarthritis involving multiple joints Take 1 Tablet by mouth every 4 hours as needed (as needed for pain). DX Osteoarthritis multiple joints Max Daily Amount: 6 Tablets 180 Tablet Active temozolomide (TEMODAR) 5 mg capsule Take 1 capsule (5 mg) by mouth daily before breakfast with 2 other temozolomide prescriptions for 275 mg total. Take for 5 days every 4 weeks. 5 Capsule 5 07/24/20 24 3:16 PM FIELD MARKETER 024 2024 Discontinued temozolomide (TEMODAR) 20 mg capsule Take 1 capsule (20 mg) by mouth daily before breakfast with 2 other temozolomide prescriptions for 275 mg total. Take for 5 days every 28 day cycle. 5 Capsule 5 07/24/20 24 3:16 PM FIELD MARKETER 024 2024 Discontinued(R eorder) temozolomide (TEMODAR) 250 mg capsule Take 1 capsule (250 mg) by mouth daily before breakfast with 2 other temozolomide prescriptions for 275 mg total. Take for 5 days every 28 days. 5 Capsule 5 07/24/20 24 3:16 PM FIELD MARKETER 024 2024 Discontinued HYDROcodone-acet aminophen (NORCO) 10-325 mg TabletIndication s:Other osteoarthritis involving multiple joints Take 1 Tablet by mouth every 6 hours as needed (as needed for pain). DX Osteoarthritis multiple joints Max Daily Amount: 4 Tablets 120 Tablet 024 2024 Discontinued(R eorder) respiratory syncytial virus recombinant,adju vanted vaccine (Arexvy, PF,) 120 mcg/0.5 mL Suspension for Reconstitution Inject 0.5 mL (120 mcg) by intramuscular injection one time only for 1 dose. 1 Each 025 2024 Active Problems Patient Care Coordination No te Formatting of this note migh t be different from the original. [id number] 08/15/24 Problem Noted Date Diagnosed Date Palliative care encounter 03/06/2024 Seizures 03/04/2024 Brain mass 02/29/2024 Vasogenic edema 02/29/2024 Combined receptive and expressive aphasia 2023 Esophagitis 11/23/2022 Complex tear of medial menis cus of left knee as current injury 02/23/2020 Atherosclerosis of aorta 10/13/2017 Other hyperlipidemia 10/13/2017 Cervicalgia 01/20/2007 Allergic sinusitis 01/20/2007 Calculus of kidney 07/05/2006 Osteoarthritis 05/12/2004 Impotence of organic origin 05/12/2004 Resolved Problems Problem Noted Date Diagnosed Date Resolved Date Routine general medical exam ination at a health care facility 07/05/2006 06/16/2010 Screening for thyroid disorder 07/05/2006 06/16/2010 Screening for lipoid disorders 07/05/2006 06/16/2010 Screening for malignant neop lasm of the rectum 07/05/2006 06/16/2010 Encounters Date Type Department Care Team Description 09/06/2024 1:00 PM FIELD MARKETER Office Visit [facility] [place] [address] [place] [address] Randall Triplett MD GBM (glioblastoma multiforme) ([facility]) (Primary Dx) 08/29/2024 External Device Data STL ABSTRACTION Provider, Abstract 08/29/2024 Chart Note [facility] Emergency Department - [address] [place] [phone] Gume Dailey MD 08/24/2024 External Device Data STL ABSTRACTION Provider, Abstract 08/22/2024 Orders Only [facility] - [place] [address] [place] [address] Randall Triplett MD 08/18/2024 Results Follow-Up [facility] Primary [address] [place] [phone] Ajay Rhodes MD COMPREHENSIVE METABOLIC PANEL, LIPID PANEL, TSH, Additional followed-up results: 3 08/18/2024 Orders Only [facility] [address] [place] [address] [address] [place] [phone] Ajay Rhodes MD Other osteoarthritis involving multiple joints 08/15/2024 10:00 AM FIELD MARKETER Office Visit [facility] [address] [facility] [address] [place] [phone] Ajay Rhodes MD Glioblastoma multiforme of brain (CMS/HCC) (Primary Dx); Vitamin D deficiency; Other hyperlipidemia; Seizure-like activity (CMS/HCC); Myalgia; Abnormal glucose; Need for assistance with personal care 08/15/2024 External Device Data STL ABSTRACTION Provider, Abstract 08/15/2024 External Device Data STL ABSTRACTION Provider, Abstract 08/10/2024 Specialty Pharmacy [facility] [place] [phone] Marguerite Lemus, PHARMACIST 08/10/2024 Refill [facility] [place] [address] [place] [phone] Randall Triplett MD 08/09/2024 9:30 AM FIELD MARKETER Office Visit [facility] [place] [address] [place] [address] Randall Triplett MD GBM (glioblastoma multiforme) ([facility]) (Primary Dx) 08/07/2024 Telephone [facility] [address] [place] [address] [place] [phone] Ajay Rhodes MD Medication Assistance 07/21/2024 Refill [facility] [address] [facility] [address] [place] [address] Ajay Rhodes MD Other osteoarthritis involving multiple joints 07/18/2024 Specialty Pharmacy [facility] [address] [place] [address] Bernadine Strauss, PHARMACIST Specialty Pharmacy Refill Coordination 07/06/2024 Orders Only [facility] Rad[facility] Therapy [address] [place] [phone] Bri Steele MD 07/04/2024 External Device Data STL ABSTRACTION Provider, Abstract 07/03/2024 Refill [facility] [address] [place] [address] Randall Triplett MD 06/26/2024 4:30 PM FIELD MARKETER Telephone Check Up [facility] [address] [place] [address] Randall Triplett MD GBM (glioblastoma multiforme) ([facility]) (Primary Dx) 06/26/2024 Specialty Pharmacy [facility] [address] [place] [phone] Elma Oliveira, PHARMACIST Specialty Pharmacy Refill Coordination 06/23/2024 Specialty Pharmacy [facility] [address] [place] [phone] Bernadine Strauss PHARMACIST 06/23/2024 Refill [facility] [address] [place] [address] Randall Triplett MD 06/21/2024 4:30 PM FIELD MARKETER Telephone Check Up [facility] [address] [place] [address] Randall Triplett MD 06/16/2024 Orders Only [facility] [address] [place] [address] Randall Triplett MD 06/16/2024 Refill [facility] - [facility] [address] [facility] [address] [place] [address] Chelsey Bowens MD Seizures ([facility]); Glioblastoma multiforme of brain ([facility]); Other osteoarthritis involving multiple joints 06/14/2024 10:15 AM FIELD MARKETER Office Visit [facility] [address] [place] [address] Randall Triplett MD GBM (glioblastoma multiforme) ([facility]) (Primary Dx) 06/12/2024 Refill [facility] [address] [address] Ajay Rhodes MD from Last 3 Months Immunizations Immunization Administration Dates Next Due (ACTHIB/HIBERIX)(2 MOS-5 YRS /6 WKS-4 YRS) HAEMOPHILUS INFLUENZAE TYPE B VACCINE (HIB), PRP-T CONJUGATE, 4 DOSE, 0.5 ML IM 03/19/2021 (ADACEL/BOOSTRIX)(10 YR UP) TDAP VACCINE, 0.5ML, IM 03/24/2021,08/27/2011 (BEXSERO)(10-25 YR) MENINGOC OCCAL RECOMBIANT PROTEIN AND OUTER MEMBRANE VESICLE VACCINE, SEROGROUP B MENB-4C, 2 DOSE IM 03/19/2021 (PFIZER)(12 YR UP) COVID-19 VACCINE - EMERGENCY USE AUTHORIZATION, MRNA, [id number](PF) 30 MCG/0.3 ML IM SUSP 03/22/2021,11/18/2020 12/09/2020 (PREVNAR 20)(6 WKS UP) PNEUM OCOCCAL CONJUGATE VACCINE 20-VALENT (PCV20), POLYSACCHARIDE [id number] CONJUGATE, ADJUVANT 0.5 ML (PF) IM 05/25/2022 (SHINGRIX)(50 YRS UP) ZOSTER VACCINE RECOMBINANT, 0.5 ML, IM 03/15/2023,11/26/2018 INFLUENZA VACCINE HIGH DOSE QUADRIVALENT 65 YR UP PF IM 03/31/2023,05/25/2022 INFLUENZA VACCINE HIGH DOSE TRIVALENT SPLIT VIRUS, (65 YR UP), 0.5ML (PF), IM 04/11/2024 INFLUENZA VACCINE QUADRIVALENT 3 YR UP PF IM INFLUENZA VACCINE QUADRIVALENT 6 MOS UP PF IM ,05/03/2019 Influenza Seasonal Unspecified Formulation IM Influenza, Unspecified Formulation 05/02/2021 Meningococcal A Conjugate Vaccine IM 03/19/2021 Pneumococcal Polysaccharide Vacc 23-kristen IM SCHIP 03/19/2021 Family History Medical History Relation Name Comments Skin Cancer Neg Hx Social History Tobacco Use Types Packs/Day Years Used Date Smoking Tobacco: Never Passive Smoke Exposure: Never Smokeless Tobacco: Never Tobacco Cessation:Counseling Given: Not Answered Alcohol Use Standard Drinks/Week Comments Yes 0 [...] on file Legal Sex Male 4:14 AM FIELD MARKETER Gender Identity Not on file Sexual Orientation Not on file Last Filed Vital Signs Vital Sign Reading Time Taken Comments Blood Pressure 126/73 09/06/2024 1:05 PM FIELD MARKETER Pulse 55 09/06/2024 1:05 PM FIELD MARKETER Temperature 37.6 ??C (99.7 ??F) 09/06/2024 1:05 PM CS T Respiratory Rate 16 09/06/2024 1:05 PM FIELD MARKETER Oxygen Saturation 96% 09/06/2024 1:05 PM FIELD MARKETER Inhaled Oxygen Concentration - - Weight 69.9 kg (154 lb) 09/06/2024 1:05 PM FIELD MARKETER Height 177.8 cm (5' 10 ) 08/15/2024 9:33 AM FIELD MARKETER Body Mass Index 22.1 08/15/2024 9:33 AM FIELD MARKETER Plan of Treatment Upcoming Encounters Date Type Department Care Team (Late st Contact Info) Description 10/09/2024 1:00 PM CDT Office Visit [facility] [place] [address] [place] [address] [address] [place] [address] Randall Triplett MD [address] [facility] [address] [place] [address] 12/13/2024 10:00 AM CDT Office Visit [facility] [place] [address] [place] [address] Ajay Rhodes MD [address] [place] [address] [address] [place] [address] Health Maintenance Due Date Last Done Comments FIT-DNA Q 3 years 2002 Flex Sig/CT Colonography Q 5 years 2002 FIT/FOBT Q 1 year 06/16/2011 06/16/2010, 07/05/2006 RSV VACCINE (60+ or ) (1 - Risk 60-74 years 1-dose series) 2017 COVID-19 Vaccine (3 - 2023-2 5 season) 2024 03/22/2021, 11/18/2020 COLORECTAL SCREENING 06/21/2025 06/21/2015, 06/21/2015, 06/21/2015, Additional history exists Colorectal Cancer Screening 06/21/2025 DTAP/TDAP/TD VACCINES (3 - T d or Tdap) 03/24/2031 03/24/2021, 08/27/2011 PNEUMOCOCCAL VACCINE 65+ YEARS Completed 05/25/2022 , 03/19/2021 ZOSTER VACCINE Completed 03/15/2023, 11/26/2018 INFLUENZA VACCINE Completed 04/11/2024, , 05/25/2022, Additional history exists Medical Devices Implanted Type Area Roustabout Crew Pusher Device Identifier Shelf Expiration Date Model / Serial / Lot Duragen + 3x3in Dp-1033 - [id number] Implanted:Qty : 1 on 03/02/2024 by Chelsey Bowens MD at [facility] Graft Left: Cranial [employer] [id number] 09/29/2026 [id number] / / [id number] Hemostatic Surgiflo 8ml W/ Thrombin 2994 - [id number] Implanted:Qty : 1 on 03/02/2024 by Chelsey Bowens MD at [facility] Hemostatic Left: Brain J&J- [employer] [id number] 05/01/2025 2994 / / [id number] Hemostatic Surgiflo 8ml W/ Thrombin 2994 - [id number] Implanted:Qty : 1 on 03/02/2024 by Chelsey Bowens MD at [facility] Hemostatic Left: Brain J&J- [employer] [id number] 04/01/2025 2994 / / [id number] Agent Hemostat Surgicel 4x8in 1952s - [id number] Implanted:Qty : 1 on 03/02/2024 by Chelsey Bowens MD at [facility] Hemostatic Left: Brain J&J- [employer] 07/01/2028 1952S / / [id number] Hemostatic Surgicel 1x2in 1960 - [id number] Implanted:Qty : 1 on 03/02/2024 by Chelsey Bowens MD at [facility] Hemostatic Left: Brain J&J- [employer] 09/01/20261960 / / [id number] Hemostatic Surgifoam Sz100 1973 - [id number] Implanted:Qty : 1 on 03/02/2024 by Chelsey Bowens MD at [facility] Hemostatic Left: Brain J&J- [employer] 12/02/20271973 / / [id number] Mesh Ventralex 1.7in Sm Circ [id number] - [id number] Implanted:Qty : 1 on 01/21/2024 by Jimenez Linares MD at [facility] Mesh N/A: Umbilical BARD DAVOL [id number] 08/29/2025 [id number] / / [id number] Plate Matrxneuro Bur Hl Cvr 04.502.021 - Sno Load Or Sterilized Date On [place] Implanted:Qty : 1 on 03/02/2024 by Chelsey Bowens MD at [facility] Plate Left: Cranial J&J- DEPUY SYNTHES 04.502.021 / NO LOAD OR STERILIZED DATE ON TRINIDAD / Plate Matrxneuro Cranial 04.502.062 - Sno Load Or Sterilized Date On [place] Implanted:Qty : 2 on 03/02/2024 by Chelsey Bowens MD at [facility] Plate Left: Cranial J&J- DEPUY SYNTHES 04.502.062 / NO LOAD OR STERILIZED DATE ON TRINIDAD / Screw Matrixneuro Sd 04.503.103.01 - Sno Load Or Sterilized Date On [place] Implanted:Qty : 2 on 03/02/2024 by Chelsey Bowens MD at [facility] Screw Left: Cranial J&J- DEPUY SYNTHES 04.503.103. 01 / NO LOAD OR STERILIZED DATE ON TRINIDAD / Description:All Synthes cran ial hardware, Requisition, [id number]. Screw Matrixneuro Sd 04.503.104.01 - Sno Load Or Sterilized Date On [place] Implanted:Qty : 4 on 03/02/2024 by Chelsey Bowens MD at [facility] Screw Left: Cranial J&J- DEPUY SYNTHES 04.503.104. 01 / NO LOAD OR STERILIZED DATE ON TRINIDAD / Procedures Procedure Name Priority Date/Time Associated Diagnosis Comments MRI BRAIN W WO CONTRAST Routine 08/21/2024 7:54 AM FIELD MARKETER HEMOGLOBIN A1C Routine 08/17/2024 10:10 AM FIELD MARKETER Abnormal glucose VITAMIN B12 LEVEL Routine 08/17/2024 10: 10 AM FIELD MARKETER Myalgia VITAMIN D 25 HYDROXY Routine 08/17/2024 10:10 AM FIELD MARKETER Vitamin D deficiency TSH Routine 08/17/2024 10:10 AM FIELD MARKETER Other hyperlipidemia LIPID PANEL Routine 08/17/2024 10:10 AM FIELD MARKETER Other hyperlipidemia COMPREHENSIVE METABOLIC PANEL Routine 08/17/2024 10:10 AM FIELD MARKETER Other hyperlipidemia MRI BRAIN W WO CONTRAST Routine 06/15/2024 12:01 PM FIELD MARKETER ENDOSCOPY, COLON, SCREENING Routine 06/21/2015 POC OCCULT BLOOD UP TO 3 CARDS Routine 06/16/2010 Abdominal pain from Last 3 Months or Most Recently Relevant to Health Maintenance Results * MRI BRAIN W WO CONTRAST (08/21/2024 7:54 AM FIELD MARKETER) Only the most recent of2 resultswithin the time period is included. Anatomical Region Laterality Modality Head Other Randall Triplett MD MR ORDERABLES Final Result * (ABNORMAL) VITAMIN D 25 HYDROXY (08/17/2024 10:10 AM FIELD MARKETER) VITAMIN D, 25 OH, TOTAL 26(L) 30 - 100 ng/mL [facility] Comment: Vitamin D Status ? 25-OH Vitamin D: Deficiency: ?<20 ng/mL Insufficiency: ? 20 - 29 ng/mL Optimal: ? > or = 30 ng/mL For 25-OH Vitamin D testing on patients on D2-supplementation and patients for whom quantitation of D2 and D3 fractions is required, the Quest[facility](TM) 25-OH VIT D, (D2,D3), LC/MS/MS is recommended: order code 71227 (patients >2yrs). See Note 1 Note 1 For additional information, please refer to http://education.PayEase/faq/RLT402 (This link is being provided for informational/ educational purposes only.) FASTING:YES FASTING: YES Test [facility]formed at: [facility] ??[phone] Vik Ceja MD Blood 08/17/2024 10:1 0 AM FIELD MARKETER 08/17/2024 10:11 AM FIELD MARKETER Ajay Rhodes MD CHEMISTRY ORDERABLES Final Re sult Performing Organization Address City/[facility] Co de Phone Number [facility] [phone] [address] * TSH (08/17/2024 10:10 AM FIELD MARKETER) Pathologist [facility] TSH 1.58 0.40 - 4.50 mIU/L [facility] Comment: Test Performed at: [facility] [address] [place] [address] ??[phone] Vik Ceja MD Blood 08/17/2024 10:1 0 AM FIELD MARKETER 08/17/2024 10:11 AM FIELD MARKETER Ajay Rhodes MD CHEMISTRY ORDERABLES Final Re sult Performing Organization Address City/[facility]/ZIP Co de Phone Number [facility] [phone] [address] * HEMOGLOBIN A1C (08/17/2024 10:10 AM FIELD MARKETER) HEMOGLOBIN A1C 5.5 <5.7 % of total Hgb [facility] Comment: For the purpose of screening for the presence of diabetes: <5.7% ? Consistent with the absence of diabetes 5.7-6.4% ?Consistent with increased risk for diabetes ?(prediabetes) > or =6.5% ??Consistent with diabetes This assay result is consistent with a decreased risk of diabetes. Currently, no consensus exists regarding use of hemoglobin A1c for diagnosis of diabetes in children. According to [place] Diabetes Association (ADA) guidelines, hemoglobin A1c <7.0% represents optimal control in non- diabetic patients. Different metrics may apply to specific patient populations. Standards of Medical Care in Diabetes(ADA). ?? ESTIMATED AVERAGE GLUCOSE (MG/DL) 111 mg/dL [facility] ESTIMATED AVERAGE GLUCOSE (MMOL/L) 6.2 mmol/L [facility] Comment: FASTING:YES FASTING: YES Test Performed at: [facility] [address] [place] ??[address] Vik Ceja Blood 08/17/2024 10:1 0 AM FIELD MARKETER 08/17/2024 10:11 AM FIELD MARKETER us Ajay Rhodes MD CHEMISTRY ORDERABLES Final Re sult [facility] [phone] [facility] [address] [place] [address] * VITAMIN B12 LEVEL (08/17/2024 10:10 AM FIELD MARKETER) VITAMIN B12 283 200 - 1100 pg/mL [facility] Comment: Please Note: Although the reference range for vitamin B12 is 200-1100 pg/mL, it has been reported that between 5 and 10% of patients with values between 200 and 400 pg/mL may experience neuropsychiatric and hematologic abnormalities due to occult B12 deficiency; less than 1% of patients with values above 400 pg/mL will have symptoms. FASTING:YES FASTING: YES Test Performed at: [facility] [address] ??[phone] Vik Ceja MD Blood 08/17/2024 10:1 0 AM FIELD MARKETER 08/17/2024 10:11 AM FIELD MARKETER Ajay Rhodes MD CHEMISTRY ORDERABLES Final Re sult [facility] [phone] [facility] [address] [place] [address] * (ABNORMAL) LIPID PANEL (08/17/2024 10:10 AM FIELD MARKETER) CHOLESTEROL 214(H) <200 mg/dL [facility] HDL 66 > OR = 40 mg/dL [facility] TRIGLYCERIDE 55 <150 mg/dL [facility] LDL CALCULATED 133(H) mg/dL (calc) [facility] Comment: Reference range: <100 Desirable range <100 mg/dL for primary prevention; ?? <70 mg/dL for patients with CHD or diabetic patients with > or = 2 CHD risk factors. LDL-C is now calculated using the Lico-Shah calculation, which is a validated novel method providing better accuracy than the Friedewald equation in the estimation of LDL-C. Lico SS et al. AVEL. 2013;310(19): 3812-0475 (http://education.PayEase/faq/MBJ317) CHOL/HDL RATIO 3.2 <5.0 (calc) [facility] NON-HDL CHOLESTEROL 148(H) <130 mg/dL (calc) [facility] Comment: For patients with diabetes plus 1 major ASCVD risk factor, treating to a non-HDL-C goal of <100 mg/dL (LDL-C of <70 mg/dL) is considered a therapeutic option. Test Performed at: [facility] [address] [place] ??[phone] Vik Ceja MD Blood 08/17/2024 10:1 0 AM FIELD MARKETER 08/17/2024 10:11 AM FIELD MARKETER Ajay Rhodes MD CHEMISTRY ORDERABLES Final Re sult [facility] [phone] [facility] [address] [place] [address] * (ABNORMAL) COMPREHENSIVE METABOLIC PANEL (08/17/2024 10:10 AM FIELD MARKETER) GLUCOSE 84 65 - 99 mg/dL [facility] Comment: ? Fasting reference interval BUN 14 7 - 25 mg/dL [facility] CREATININE 0.83 0.70 - 1.35 mg/dL [facility] GFR 96 > OR = 60 mL/min/1. 73m2 [facility] BUN/CREAT RATIO SEE NOTE: 6 - (calc) [facility] Comment: ?? Not Reported: BUN and Creatinine are within ?? reference range. ? SODIUM 140 135 - 146 mmol/L [facility] POTASSIUM 4.2 3.5 - 5.3 mmol/L [facility] CHLORIDE 102 98 - 110 mmol/L [facility] CO2 33(H) 20 - 32 mmol/L [facility] CALCIUM 9.2 8.6 - 10.3 mg/dL [facility] TOTAL PROTEIN 6.4 6.1 - 8.1 g/dL [facility] ALBUMIN 4.3 3.6 - 5.1 g/dL [facility] GLOBULIN 2.1 1.9 - 3.7 g/dL (calc) [facility] ALBUMIN/GLOBULIN RATIO 2.0 1.0 - 2.5 (calc) [facility] BILIRUBIN TOTAL 0.5 0.2 - 1.2 mg/dL [facility] ALKALINE PHOSPHATASE 85 35 - 144 U/L [facility] AST 14 10 - 35 U/L [facility] ALT 11 9 - 46 U/L [facility] Comment: FASTING:YES FASTING: YES Test Performed at: [facility] [address] [place] ??[phone] Vik Ceja MD Blood 08/17/2024 10:1 0 AM FIELD MARKETER 08/17/2024 10:11 AM FIELD MARKETER Ajay Rhodes MD CHEMISTRY ORDERABLES Final Re sult [facility] [phone] [facility] [address] [place] [address] * ENDOSCOPY, COLON, SCREENING (06/21/2015) Abstract Provider GI PROCEDURE ORDERABLES Edited Result - Final [facility] * POC OCCULT BLOOD UP TO 3 CARDS (06/16/2010) OCCULT BLOOD #1 [facility] OCCULT BLOOD #2 [facility] OCCULT BLOOD #3 [facility] Stool specimen (specimen) us Ajay Rhodes MD POINT OF CARE TESTING Final R esult Performing Organization Address City/[facility]/ZIP Co de Phone Number [facility] from Last 3 Months or Most Recently Relevant to Health Maintenance Insurance MEDICARE PART A AND B [facility] [place] [address] RX [employer]ES PLANS (INTERNAL) [facility] RX GENERIC COMMERCIAL Commercial RX ALLWIN DATA Medicare Part B MEDICARE PART A AND B [facility] SUPP Advance Directives For more information, please contact: [phone] Documents on File Type Date Recorded Patient Farmer Diversified Crops Expl anation Advance Directive POA 03/07/2024 1:53 PM Ad gee Directive POA * NO CPR (In Event of Cardiopulmonary Arrest) (Latest Code Status on File) Date Activated Date Inactivated Comments 04/11/2024 9:21 AM Question Answer Comments Mechanical Ventilation (for respiratory distress) - Invasive (i.e. intubation): No * Full Code Date Activated Date Inactivated Comments 02/29/2024 6:24 PM 03/06/2024 5:17 PM * Full Code Date Activated Date Inactivated Comments 01/21/2024 8:05 AM 01/21/2024 12:21 PM * Full Code Date Activated Date Inactivated Comments 01/21/2024 6:00 AM 01/21/2024 8:05 AM * Full Code Date Activated Date Inactivated Comments 03/18/2020 6:59 AM 03/18/2020 2:16 PM Care Teams Health Promotion Specialist Relationship Specialty Start Date End Date Ajay Rhodes MD PCP - General 01/19/08
--- OUTSIDE RECORDS SUMMARY | 2024-09-06 13:30 | XMS_ITS | Encounter Summary ---
Author Organization [facility] Address 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 Gender Identity Not on file Sexual Orientation Not on file documented as of this encounter Miscellaneous Notes * Telephone Encounter - Chelsey Singleton RN - 02/28/2024 11:53 AM CDT Date of last visit addressing condition(s) being treated: 02/23/24 Recent Visits Date Type Provider Dept 02/23/24 Office Visit Ajay Rhodes MD [facility] 10/21/23 Office Visit Ajay Rhodes MD [facility] 10/04/23 Office Visit Ajay Rhodes MD [facility] 03/31/23 Office Visit Ajay Rhodes MD [facility] 11/23/22 Office Visit Ajay Rhodes MD [facility] Showing recent visits within past 540 days with a meds authorizing provider and meeting all other requirements Future Appointments Date Type Provider Dept 04/11/24 Appointment Ajay Rhodes MD [facility] 05/17/24 Appointment Ajay Rhodes MD [facility] Showing future appointments within next 365 days with a meds authorizing provider and meeting all other requirements Correct Pharmacy: Yes Medication below pended for you. Medication (Ask patient/caregiver to spell if possible): HYDROcodone- acetaminophen (NORCO) 10-325 mg Tablet Preferred Pharmacy: [facility] [id number] [place] [address] Patient/Caregiver Callback Number: [phone] (home) Call Notes: Requesting refill early will be leaving to go out of town this Wednesday please advise request HYDROcodone-acetaminophen (NORCO) 10-325 mg Tablet [facility] [id number] [place] [address] only this location Chelsey Singleton, RN * Telephone Encounter - Maira Lopez - 02/28/2024 11:24 AM CDT Copied from [facility] #[id number]. Topic: Medication Request >> Feb 28, 2024 11:22 AM Maira Yeh wrote: Caller is requesting: Medication - New Request (Not Currently Taking) Medication (Ask patient/caregiver to spell if possible): HYDROcodone- acetaminophen (NORCO) 10-325 mg Tablet Preferred Pharmacy: [facility] [id number] [place] [address] Patient/Caregiver Callback Number: [phone] (home) Call Notes: Requesting refill early will be leaving to go out of town this Wednesday please advise request HYDROcodone-acetaminophen (NORCO) 10-325 mg Tablet [facility] [address] [place] [address] only this location documented in this encounter Plan of Treatment Upcoming Encounters Date Type Department Care Team (Late st Contact Info) Description 10/09/2024 1:00 PM CDT Office Visit [facility] Oncology and Hematology [place] [address] [place] [address] [address] [place] [phone] Randall Triplett MD [address] [facility] [address] [place] [address] 12/13/2024 10:00 AM CDT Office Visit [facility] Primary Care [address] [place] [address] Ajay Rhodes MD [address] [place] [address] documented as of this encounter Visit Diagnoses Diagnosis Other osteoarthritis involving multiple joints documented in this encounter Care Teams Signing Teacher Relationship Specialty Start Date End Date Ajay Rhodes MD PCP - General 01/19/08 documented as of this encounter
--- OUTSIDE RECORDS SUMMARY | 2024-09-06 13:30 | XMS_ITS | Encounter Summary ---
Author Organization [facility] Address [address] [place] [address] Care Team Providers Care Senior Research Executive Name Role Phone Ajay Rhodes MD Primary Care Provider [phone] Reason for Visit * Reason Comments Cancer Chemotherapy Encounter Details Date Type Department Care Team (Late st Contact Info) Description 09/06/2024 1:00 PM SLAB PULLER Office Visit [facility] Oncology and Hematology - [place] [address] [place] [address] [facility] [address] [place] [address] Randall Triplett MD [address] [facility] [address] [place] [address] GBM (glioblastoma multiforme) (CMS/HCC) (Primary Dx) Social History Tobacco Use Types Packs/Day Years [...] on file 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 Gender Identity Not on file Sexual Orientation Not on file documented as of this encounter Last Filed Vital Signs Vital Sign Reading Time Taken Comments Blood Pressure 126/73 09/06/2024 1:05 PM SLAB PULLER Pulse 55 09/06/2024 1:05 PM SLAB PULLER Temperature 37.6 ??C (99.7 ??F) 09/06/2024 1:05 PM CS T Respiratory Rate 16 09/06/2024 1:05 PM SLAB PULLER Oxygen Saturation 96% 09/06/2024 1:05 PM SLAB PULLER Inhaled Oxygen Concentration - - Weight 69.9 kg (154 lb) 09/06/2024 1:05 PM SLAB PULLER Height - - Body Mass Index 22.1 08/15/2024 9:33 AM SLAB PULLER documented in this encounter Progress Notes * Randall Triplett MD - 09/06/2024 12:54 PM CST HEMATOLOGY / ONCOLOGY PROGRESS NOTE Patient Identification: Name: Gigi Cortes Age: 69 y.o. 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 MGMT gene promoter methylation detected CURRENT TREATMENT Maintenance treatment with Temodar started cycle 1 in June 2024. TREATMENT HISTORY Concurrent chemoradiation therapy with Temodar started April 04, 2024. Completed on May 15, 2024. SUBJECTIVE Patient came to the office for follow-up visit after the brain MRI was performed. He denies any headaches and seizures. He has generalized arthralgia especially in the knee joint. Denies any other new complaints. Review of system Constitutional: Patient did not mention fevers, sweats, weight and appetite stable, denies any tiredness and fatigue HEENT: Patient did not mention sinus congestion, hearing or vision problems Respiratory: Patient did not mention cough, dyspnea, wheeze Cardiovascular: Patient did not mention chest pain, exertional chest pressure/discomfort, nausea, syncope, shortness of breath GI: Patient did not mention constipation, diarrhea, dsyphagia, reflux symptoms, vomiting, melena : Patient did not mention dysuria, frequency, incontinence, urgency Integumentary system: no lymphadenopathy, sweats, flushing Musculoskeletal: Patient not mention: myalgia, complain of knee arthralgia Neurological: Patient did not mention blurry or disturbed vision, numbness/weakness, dizziness Skin: No lumps, bumps or rashes. 12 point review of system was reviewed Objective: Vital signs in last 24 hours: As per nursing note Exam: General appearance: alert, cooperative, no distress, appears stated age Head: normocephalic, without obvious abnormality, atraumatic Eyes: conjunctivae/corneas clear, EOM's intact Ears: normal external ear canals AU Nose: Nares normal. Septum midline. Mucosa normal. No drainage or sinus tenderness Throat: Lips, mucosa, and tongue normal. Teeth and gums normal Neck: supple, symmetrical, trachea midline. Lungs: clear to auscultation bilaterally Heart: regular rate and rhythm, S1, S2 normal, no murmur, click, rub or gallop Abdomen: soft, non-tender. Bowel sounds normal. No masses, No organomegaly Extremities: extremities normal, atraumatic, no cyanosis or edema Skin: Skin color, texture, turgor normal. No rashes or lesions Lymph nodes: No lymphadenopathy Neuro: No obvious focal deficit Exam as above PATH LABS Labs from April 12 showed WBC 9.8 hemoglobin 12.5 platelet 183,000 creatinine 0.9 Labs from May 01 showed creatinine 0.7 WBC 4.0 hemoglobin 12.6 platelet 187,000 Labs from 14 June showed WBC 3.3 hemoglobin 11.9 platelet 138,000 creatinine 0.8 Labs from August 09 showed WBC 2.9 hemoglobin 12.6 platelet 126,000 creatinine 0.8 Labs from September 06 showed hemoglobin 13.4 WBC 2.9 platelet 1 57,000 neutrophils 62% Assessment: Plan: Patient Active Problem List Diagnosis Date Noted Palliative care encounter 03/06/2024 Seizures (CMS/HCC) 03/04/2024 Brain mass 02/29/2024 Vasogenic edema (CMS/HCC) 02/29/2024 Combined receptive and expressive aphasia 02/29/2024 Esophagitis 11/23/2022 Complex tear of medial meniscus of left knee as current injury 02/23/2020 Atherosclerosis of aorta 10/13/2017 Other hyperlipidemia 10/13/2017 Cervicalgia 01/20/2007 Allergic sinusitis 01/20/2007 Calculus of kidney 07/05/2006 Osteoarthritis 05/12/2004 Impotence of organic origin 05/12/2004 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 MGMT gene promoter methylation detected.. Patient started concurrent chemoradiation therapy in an adjuvant setting with Temodar on April 04, 2024. Patient completed concurrent chemoradiation therapy with Temodar on May 15, 2024. MRI brain done on June 15 showed chronic encephalomalacia with no evidence of recurrence of disease. Patient started maintenance treatment with Temodar cycle 1 in June 2024. Labs noted. WBC count is slightly low secondary to chemotherapy. Brain MRI done on August 21, 2024showed no evidence of relapse of disease. Repeat brain MRI will be done in 2 months. He will start maintenance chemotherapy with Temodar cycle #4 in 3 weeks. Follow-up with me in 4 weeks. Seizure prophylaxis. Patient is asymptomatic. I will reduce Keppra dose to 500 mg once a day until next visit and then we will discontinue. Follow-up in 4 weeks. 09/06/2024 Randall Triplett MD PULLER documented in this encounter Plan of Treatment Upcoming Encounters Date Type Department Care Team (Late st Contact Info) Description 10/09/2024 1:00 PM CDT Office Visit [facility] Oncology and Hematology - [place] [address] [facility] [address] [place] [address] Randall Triplett MD [address] [facility] [address] [place] [address] 12/13/2024 10:00 AM CDT Office Visit [facility] Primary Care [facility] [address] [place] [address] [address] [place] [address] Ajay Rhodes MD [address] [facility] [address] [place] [address] Scheduled Orders Name Type Priority Associated Diagnoses Orde r Schedule CBC WITH DIFFERENTIAL Lab Stat GBM (glioblastoma multiforme) (CMS/HCC) Expected: 10/14/2024, Expires: 09/06/2025 COMPREHENSIVE METABOLIC PANEL Lab Stat GBM (glioblastoma multiforme) (CMS/HCC) Expected: 10/14/2024, Expires: 09/06/2025 BASIC METABOLIC PANEL Lab Stat GBM (glioblastoma multiforme) (CMS/HCC) Expected: 10/04/2024, Expires: 09/06/2025 CBC WITH DIFFERENTIAL Lab Stat GBM (glioblastoma multiforme) (CMS/HCC) Expected: 10/04/2024, Expires: 09/06/2025 documented as of this encounter Visit Diagnoses Diagnosis GBM (glioblastoma multiforme) (CMS/HCC)- Primary Malignant neoplasm of brain, unspecified site documented in this encounter Care Teams Senior Research Executive Relationship Specialty Start Date End Date Ajay Rhodes MD PCP - General 01/19/08 documented as of this encounter
--- OUTSIDE RECORDS SUMMARY | 2024-09-06 13:30 | XMS_ITS | Encounter Summary ---
Author Organization [facility] Address [address] [place] [address] Care Team Providers Care Entry Writer Name Role Phone Ajay Rhodes MD Primary Care Provider [phone] Reason for Visit * Reason Comments Question Encounter Details Date Type Department Care Team (Late st Contact Info) Description 02/17/2024 Telephone [facility] Primary Care [address] [place] [address] Ajay Rhodes MD [address] [facility] [address] [place] [address] Question Social History Tobacco Use Types Packs/Day Years [...] emotionally and/or physically? 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 Topic: Patient or Caregiver Communication Request >> Feb 17, 2024 9:25 AM Tiffanie Sapp wrote: Patient or Caregiver requesting advice Caller: Vinita gentile Patient/Caregiver Callback Number: [phone] Call Notes: Caller states the patient had hernia procedure January 20 and after that his memory has not been the same the daughter n law is concerned and she is not on PHI. She would like to know if he can be seen sooner than his appointment in April. She does not want him to know that she is calling. Memory is fuzzy. documented in this encounter Plan of Treatment Upcoming Encounters Date Type Department Care Team (Late st Contact Info) Description 10/09/2024 1:00 PM CDT Office Visit [facility] Oncology and Hematology - [place] [address] [facility] [address] [place] [address] Randall Triplett MD [address] [facility] [address] [place] [address] 12/13/2024 10:00 AM CDT Office Visit [facility] Primary Care [address] [place] [address] [place] [address] Ajay Rhodes MD [address] [place] [address] documented as of this encounter Visit Diagnoses Not on filedocumented in this encounter Care Teams Entry Writer Relationship Specialty Start Date End Date Ajay Rhodes MD PCP - General 01/19/08 documented as of this encounter
--- OUTSIDE RECORDS SUMMARY | 2024-09-06 13:30 | XMS_ITS | Encounter Summary ---
Author Organization [facility] Address 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 pain. 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 Current treatments include: phosphodiesterase inhibitor. 715.90-OSTEOARTHROSIS UNSPECIFIED The patient has had a recent flare, denies inflammation of the joints, has mild joint pain, has moderate limitation of motion, has moderate stiffness. Currently the patient is off all medication. 592.0-KIDNEY STONE reccent 8/10 pain occ worse, lower abd discomfort, suprapubic discomfirt V70.0-ROUTINE GENERAL MEDICAL EXAMINATION ROS: ENDOCRINE: No heat or cold intolerance, no excessive thirst. CARDIAC: No chest pain, palpitations, orthopnea, dyspnea on exertion, or paroxysmal nocturnal dyspnea. RESPIRATORY: No dyspnea, cough, hemoptysis or wheezing. : See HISTORY OF PRESENT ILLNESS. GI: See HISTORY OF PRESENT ILLNESS. MUSCULOSKELETAL: See HISTORY OF PRESENT ILLNESS. PAST MEDICAL HISTORY: reviewed SOCIAL HISTORY: TOBACCO USE: Has no significant smoking history. OCCUPATION: . [employer] ALCOHOL: Does not give any significant history of alcohol usage. PHYSICAL EXAMINATION: CONSTITUTIONAL: GENERAL APPEARANCE: Healthy appearing [...] hepatosplenomegaly, tenderness or nodularity. Kidneys not palpable. RECTAL: STOOL/HEMOCCULT: Stool is hemoccult negative. Stool is normal. GENITOURINARY: PROSTATE: 1+ ENLARGED, BOGGY. MUSCULOSKELETAL EXAM: SPINE/RIBS/PELVIS: ls spine tenderness SKIN: SKIN: Warm, dry, no diaphoresis, no significant lesions, irritation, rashes or ulcers. No induration, obvious subcutaneous nodules or tightening. OFFICE PROCEDURES: URINALYSIS RESULTS WBC: WBC`s were negative. NITRITE: nitrites were negative. UROBILINOGEN urobilinogen was normal. PROTEIN: protein was negative. pH: . U/A BLOOD: blood was non-hem moderate. SPECIFIC GRAVITY: specific gravity was 1.020. KETONES: ketones were negative. BILIRUBIN: bilirubin was negative. GLUCOSE: glucose was negative. 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 715.90-OSTEOARTHROSIS UNSPECIFIED med prn 592.0-KIDNEY STONE discussed, CT if sx x 48 hrs MEDICATIONS: CIPRO ORAL TABLET 500 MG, 1 Two Times A Day, 14 Dispensed, status: NEW PRESCRIPTION, 07/05/2006. VICODIN ES ORAL TABLET 7.5-750 MG, 1 Every Six Hours, As Needed, 60 Dispensed, 1 Fills, status: NEWPRESCRIPTION, 07/05/2006. LAB ORDERS: 1 week Order number: [id number] Test Ordered: COMPREHENSIVE METABOLIC PANEL W/ GLOMERULAR FILTRATION RATE, ESTIMATED (EGFR) 45223 Order number: [id number] Test Ordered: LIPID PANEL 7600 Order number: [id number] Test Ordered: PSA 5363 Order number: [id number] Test Ordered: TSH 899 Order number: [id number] Test Ordered: CBC (INCLUDES DIFF/PLT) 6399 Order number: [id number] Test Ordered: URINALYSIS, COMPLETE W/REFLEX TO CULTURE 3020 Order number: [id number] Test Ordered: HEMOCCULT SINGLE 33169 Order number: [id number] Test Ordered: URINALYSIS W/O MICRO 25895 V70.0-ROUTINE GENERAL MEDICAL EXAMINATION discussed, check lab RETURN VISIT : Instructed to call if not improving. Electronically Signed by: Ajay Rhodes MD on Wednesday, July 05, 2006 * Ajay Rhodes MD - 2008 1:44 AM CDT NURSE NAME: Luisa Brown J documented in this encounter Plan of Treatment Upcoming Encounters Date Type Department Care Team (Late st Contact Info) Description 10/09/2024 1:00 PM CDT Office Visit [facility] Oncology and Hematology - [place] [address] [place] [address] [address] [place] [address] Randall Triplett MD [address] [facility] [address] [place] [address] 12/13/2024 10:00 AM CDT Office Visit [facility] Primary Care [place] [address] [place] [address] Ajay Rhodes MD [address] [place] [id number] documented as of this encounter Visit Diagnoses Not on filedocumented in this encounter Care Teams Regulatory Product Manager Relationship Specialty Start Date End Date Ajay Rhodes MD PCP - General 01/19/08 documented as of this encounter
--- OUTSIDE RECORDS SUMMARY | 2024-09-06 13:30 | XMS_ITS | Encounter Summary ---
Author Organization [facility] Address [address] [place] [address] Care Team Providers Care Set Up Mechanic Stamping Machines Name Role Phone Ajay Rhodes MD Primary Care Provider [phone] Reason for Visit * Auth/Cert Specialty Diagnoses / Procedures Referred By Nithin t Referred [place] [address] [place] [address] Phone: tel: fax: [facility] Injury Unit [address] [place] [address] Phone: tel: fax: Referral ID Status Reason Start Date Expiration Date Visits Re quested Visits Authorized [id number] 1 1 Encounter Details Date Type Department Care Team (Late st Contact Info) Description 03/05/2024 Hospital Encounter [facility] Brain Injury Unit [address] [place] [address] [place] [address] [place] [address] Social History Tobacco Use Types Packs/Day Years [...] on file Legal Sex Male 4:14 AM [employer] Gender Identity Not on file Sexual Orientation Not on file documented as of this encounter Consult Notes * Siri Denis NP - 03/06/2024 9:45 AM CDT [facility] PALLIATIVE CARE INITIAL ASSESSMENT Patient Name: Gigi Cortes : 1955 Hospital Day #: LOS: 0 days Primary Care Physician: Ajay Rhodes MD Reason for Consultation: We are asked to see patient by Dr. Machado for symptom management and to discuss future goals of care. Assessment: Gigi Cortes is a 68 y.o. gentleman with ~1 mo progressive word finding/speech issues, behavioral outbursts, SNELL's who was admitted on 02/29/24 for incidental bleeding brain tumor identified on MRI. Recommendations based on goals of care, assessment of risk/benefit of treatments, best evidence, and pt/family preferences. Discussed with patient, family (, children) and staff.. Problems Being Addressed & Management Recommendations: Elise guided Resection of L-sided Temporal Lobe Brain Tumor: Underwent surgery on 03/[address] Bowens and seen by Oncologist, Dr. 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 Pathology is pending.Pt anticipating to follow up with OP Rad Onc/Oncologist for chemoradiation at [facility] Fatigue, weakness: PT/OT involved; mobility has improved since surgery. Pt/family working with for discharge today - home with to follow/24-h supervision Assessment of decision-making capacity Palliative care encounter: Educated pt/family on IP vs OP Palliative Care.Information on OP [facility] if desired Advance care planning and goals of care discussion: Encouraged creation of advance directive. Goals of care discussion: - Gigi perceives feeling better - speech/mobility improved since his surgery. He/family has been told that his brain cancer is likely advanced. He is anticipating discharge home to [place] today and to follow up with his cancer treatment at [facility] for chemoradiation once this is coordinated. In meantime, we talked about the importance of creating a adv directive. Gigi is interested in creating this and provided him a adv directive form to review. Code Status: Full Code Advance Directive: - Patient does not have an advanced directive but expressing an interest in completing this document while hospitalized. Discussed with patient/family. MPOA/relationship: Abner Cortes (): [phone] Social History/ Caregiver Assessment: . Has two children -All emotionally involved and available to support Gigi as needed. 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 How to contact our staff during and after business hours. Community resources that are available to meet their health care needs as appropriate Disease process, prognosis and treatment options as appropriate Chief Complaint: Encounter for Palliative Care Primary Palliative Diagnosis: Malignancy, Non-hematologic is the primary palliative care diagnosis HPI and Subjective Assessment: Gigi Cortes is a 68 year old gentleman with HLD, OA, PUD, renal calculi with ~1 mo s/s of progressive word finding/speech issues, behavioral outbursts, SNELL's following his recent umbilical hernia surgery who was admitted on 02/29/24 for incidental bleeding brain tumor identified on MRI. Neurosurgery consulted and underwent left sided teporal Current medications reviewed. Allergies Allergen Reactions No Known Allergies Opioid requirement: patient required a total of 30 mg PO Morphine equivalent dose over the past 24 hours for pain control. Bowel regimen: Last BM constipation Active Problems: Brain Mass Fatigue Constipation Palliative Care encounter HISTORY Past Medical History: Diagnosis Date Chronic, continuous use of opioids chronic shoulder pain Hyperlipidemia Kidney calculus Osteoarthritis PUD (peptic ulcer disease) 01/2020 GASTRIC Tonic clonic seizures [id number] 2023-CT NEG/TESTING @ [place] Past Surgical History: Procedure Laterality Date HX COLONOSCOPY AGE 61 HX CRANIOTOMY FOR STEREOTACTIC GUIDED SURGERY Left 03/02/2024 CRANIOTOMY STEREOTACTIC performed by Chelsey Bowens MD at [facility] OR [facility] HX KNEE ARTHROSCOPY W/ MENISCAL REPAIR Right 2018 HX VASECTOMY OK ARTHROSCOPY KNEE SYNOVECTOMY LIMITED SPX 03/18/2020 KNEE SYNOVECTOMY ARTHROSCOPIC performed by Pancho Barfield MD at [facility] OR [facility] [place] ARTHRS KNE SURG W/MENISCECTOMY MED/LAT W/SHVG Left 03/18/2020 KNEE ARTHROSCOPY performed by Pancho Barfield MD at [facility] OR [facility] [place] ARTHRS KNE SURG W/MENISCECTOMY MED/LAT W/SHVG 03/18/2020 PARTIAL MEDIAL MENISCECTOMY KNEE ARTHROSCOPIC performed by Pancho Barfield MD at [facility] OR [facility] ARTHRS KNEE ABRASION ARTHRP/ZANJERO DRLG/MICROFX 03/18/2020 KNEE CHONDROPLASTY ARTHROSCOPIC performed by Pancho Barfield MD at [facility] OR [facility] [place] RPR AA HERNIA 1ST 3-10 CM REDUCIBLE N/A 01/21/2024 HERNIA UMBILICAL REPAIR performed by Jimenez Linares MD at [facility] OR [facility] Family History Problem Relation Name Age of Onset Skin Cancer Neg Hx Social History Socioeconomic History Marital status: Spouse name: Not on file Number of children: Not on file Years of education: Not on file Highest education level: Not on file Occupational History Not on file Tobacco Use Smoking status: Never Passive exposure: Never Smokeless tobacco: Never Vaping Use Vaping status: Never Used Substance and Sexual Activity Alcohol use: Yes Alcohol/week: 0.0 - 0.8 standard drinks of alcohol Drug use: Never Sexual activity: Not Currently Other Topics Concern Not on file Social History Narrative Not on file Social Determinants of Health Financial Resource Strain: Low Risk (05/25/2022) Financial Resource Strain Difficulty of Paying Living Expenses: Not hard at all Food Insecurity: No Food Insecurity (02/29/2024) Food Insecurity Patient needs follow up regarding:: No concerns Transportation Needs: No Transportation Needs (02/29/2024) Transportation Needs Patient needs follow up regarding:: No concerns Social Connections: Not on file Intimate Partner Violence: Patient Unable To Answer (03/02/2024) Intimate Partner Violence Patient has indicated abuse: : Patient unable to answer Housing Stability: Low Risk (02/29/2024) Housing Stability Patient needs follow up regarding:: No concerns [place] Symptom Assessment Scale (ESAS-r) Pain: 0 (03/06/24999) Tiredness: 2 (03/06/24999) Drowsiness: 0 - no drowsiness (03/06/24999) Nausea: 0 - no nausea (03/06/24999) Lack of Appetite: 0 - no lack of appetite (03/06/24999) Shortness of Breath: 0 - normal respiration with no distress (03/06/24999) Depression: 0 - no symptom(s) of depression (03/06/24999) Anxiety: 0 - no signs or symptoms of anxiety (03/06/24999) Wellbein - no symptoms(s) or signs of distress related to maladaptive coping (03/06/24999) Completed by: Patient (03/06/24999) ECOG ECOG Status (0 - 5): 2, Ambulatory and capable of all selfcare but unable to carry out any work activities. Up and about more than 50% of waking hours (03/06/24999) Spiritual: Pastoral Care following patient and will complete detailed assessment as part of palliative care consult. Psychosocial Assessment The following patient/family concerns have been identified: 1. Emotional distress: no 2. Social distress: no 3. Caregiver Distress: yes 4. Cognitive or intellectual impairment: no 5. Cultural factors affecting care: no 6. Spiritual distress: no 7. History or current substance abuse: no 8. Pre-existing psychological/psychiatric diagnoses: no 9. Assistance with Advance Directive: yes Based on assessment, no PCSW intervention needed at this time. Plan to continue to discuss patient status during IDT rounds and PCSW is available for consultation as further needs arise. Chart was reviewed, patient examined with family/caregiver present. ROS History obtained from chart review, the patient, and General: Fatigue HEENT: No recent vision change, no nasal congestion, no difficulty swallowing Respiratory: No shortness of breath, no cough, no hemoptysis Cardiovascular: No chest pain, no palpitations, no edema Gastrointestinal: Normal PO intake, no nausea, no diarrhea, no constipation Genito-Urinary: No dysuria, no hematuria Musculoskeletal: No joint pain, no joint swelling Neurological: No headaches, no numbness/tingling, no focal weakness Dermatological: No rashes, no ulcerations, no pressure sores Hematological and Lymphatic: No anemia, no abnormal bruising, no bleeding Endocrine: No thyroid disease, blood sugars normal. Psychological: Mood stable, no anxiety, no depression. All other systems are negative except as noted above or in the history of present illness PHYSICAL EXAM There were no vitals taken for this visit. General: Ill appearing Head: Normocephalic; scalp wound EENT: conjunctiva clear, no scleral icterus, no nasal congestion, MMM. Neck: trachea midline, no JVD. Lungs: normal respiratory rate and effort, lungs clear to auscultation bilaterally. Heart: RRR, no murmur Abdomen: soft, non-tender, non-distended, bowel sounds normal Extremities: warm, well-perfused, no edema Skin: warm and dry Neurologic: alert, speech clear and fluent, moves all extremities spontaneously, no obvious focal deficits Psych: mood and affect appropriate for situation Pertinent lab and diagnostic studies reviewed. Interdisciplinary collaboration was completed with the appropriate clinical staff. Thank you for allowing us to participate in the care of this patient. Siri Denis NP [facility] Palliative Care [phone] Routed to: Ajay Rhodes MD Total time spent with patient/family face to face care today, including examination, review of results, discussion with IDT team, nursing and/or consultants, symptom management, care planning and care coordination was 65 minutes . Additional 16 minutes spent on Advance Care Planning, including discussions of GOC with patient/family. Advance Care Planning Primary Emergency Contact: ABNER CORTES, Relation: Spouse Is the person(s) listed above who you would want to be your trusted decision maker? Yes Have you discussed your healthcare wishes with them? yes TREATMENT WISHES Gigi perceives feeling better - speech/mobility improved since his surgery. He/family has been told that his brain cancer is likely advanced. He is anticipating discharge home to [place] today and to follow up with his cancer treatment at [facility] for chemoradiation once this is coordinated to extend his life as long as possible to be/interact/participate in family activities. In meantime, we talked about the importance of creating a adv directive. Gigi is interested in creating this and provided him a adv directive form to review. CODE STATUS @CODESTATUS@ Most Recent Code Statuses Not Including Current Date Active Date Inactive Code Status Order ID Comments User Context 02/29/2024 1824 03/06/2024 1717 Full Code [id number] Shun Youngblood MD ED 01/21/2024 0805 01/21/2024 1221 Full Code [id number] Jimenez Linares MD Inpatient Only showing the last 2 code statuses. Active code status is correct, no changes. Discussed 03/09/2024 with patient and . Participation was voluntary, and the nature of Advance Directives was part of the discussion. Next steps : Revisit this discussion if there is a new diagnosis, decline in functional abilities, or hospitalization Siri Denis NP Cosigned by Ruben White MD at 03/09/2024 10:24 PM CDT documented in this encounter Plan of Treatment Upcoming Encounters Date Type Department Care Team (Late st Contact Info) Description 10/09/2024 1:00 PM CDT Office Visit [facility] Oncology and Hematology - [place] [address] [place] [address] [address] [place] [address] Randall Triplett MD [address] [facility] [address] [place] [address] 12/13/2024 10:00 AM CDT Office Visit [facility] Primary Care [address] [place] [address] Ajay Rhodes MD [address] [place] [address] [place] [place] [address] documented as of this encounter Visit Diagnoses Not on filedocumented in this encounter Care Teams Set Up Mechanic Stamping Machines Relationship Specialty Start Date End Date Ajay Rhodes MD PCP - General 01/19/08 documented as of this encounter
--- OUTSIDE RECORDS SUMMARY | 2024-09-06 13:30 | XMS_ITS | Clinical Summary ---
Author Organization [facility] Address [address] [place] [address] Care Team Providers Care Distance Learning Unit Leader Name Role Phone Ajay Rhodes MD Primary Care Provider + Rosana Noyola MD Unavailable [phone] Allergies No known active allergies Medications fentaNYL (DURAGESIC) 25 mcg/hrIndicatio ns:Chronic Pain with Opioid Tolerance Place 1 patch on the skin every third day Applied home patch Wednesday12/19/19 Active montelukast (SINGULAIR) 10 mg tabletIndicatio ns:Seasonal Allergic Rhinitis Take 10 mg by mouth nightly 04/29/2021 Active oxyCODONE (ROXICODONE) 5 mg immediate release tabletIndicatio ns:Pain Take 1 tablet (5 mg total) by mouth every 4 (four) hours as needed for pain 40 tablet 06/03/2021 Active Active Problems Problem Noted Date Diagnosed Date Syncope, unspecified syncope type 10/15/2023 Assessment & Plan (10/17/2023 9:26 AM CDT): Patient with new onset syncope x2 without prodromal nor post-ictal symptoms. Suspicion of cardiogenic syncope vs less likely orthostatic vs neurocardiogenic. EKG initial with sinus bradycardia to 46 with occasional PAC's and notched P waves, but no overt blocks or intraventricular conduction abnormalities Orthostatic vitals negative, sinus arrhythmia on telemetry otherwise NSR, no significant findings on echocardiogram, 30 day case monitor on discharge HLD (hyperlipidemia) 06/02/2021 Risk factors for obstructive sleep apnea 021 Primary osteoarthritis, left shoulder 04/30/2021 Overview (04/30/2021): Added automatically from request for surgery [id number] Multiple closed fractures of ribs of left side 0 03/17/2021 OA (osteoarthritis) 12/20/2019 Assessment & Plan (10/16/2023 5:19 AM CDT): History of osteoarthritis of shoulders s/p replacement. On chronic pain medications at baseline. - Home fentanyl patch 12mcg/h (last replaced 10/14) - APAP 1g q8h scheduled, oxycodone 5mg QID PRN Leukocytosis 12/20/2019 Acute blood loss anemia 12/20/2019 Mild protein-calorie malnutrition (CMS/HCC) 12/01 Upper GI bleed 12/19/2019 Overview (12/19/2019): Added automatically from request for surgery [id number] Arthralgia of shoulder 08/26/2012 Duodenal ulcer Immunizations Name Administration Dates Next Due Hib (PRP-T) 03/19/2021 Influenza, Unspecified 05/02/2021 Meningococcal B, OMV (Bexsero) 03/19/2021 Meningococcal Conjugate (Menveo) 03/19/2021 Pneumococcal Polysaccharide PPV23 03/19/2021 Surgical History Surgery Date Site/Laterality Comments EMBOLIZATION VASCULAR EXTRAV ASATION ARTERIAL VENOUS OR LYMPHATIC 03/17/2021 N/A Medical History Medical History Date Comments History of right knee surgery Arthritis Umbilical hernia Social History Tobacco Use Types Packs/Day Years Used Date Smoking Tobacco: Never Smokeless Tobacco: Never Tobacco Cessation:Counseling Given: Not Answered Alcohol Use Standard Drinks/Week Comments Yes 0 (1 standard drink = 0.6 oz pur e alcohol) AUDIT-C Answer Date Recorded Q1: How often do you have a drink containing alc ohol? 2-3 times a week 06/03/2021 Q2: How many drinks containi ng alcohol do you have on a typical day when you are drinking? 1 or 2 06/03/2021 Q3: How often do you have si x or more drinks on one occasion? Never 06/03/2021 Personal Safety Answer Date Recorded Have you ever been in or are you currently in a harmful physical or emotional relationship or is someone making you feel afraid or unsafe? 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 Gender Identity Not on file Sexual Orientation Not on file Obstetrics History Last Filed Vital Signs Vital Sign Reading Time Taken Comments Blood Pressure 156/83 10/18/2023 6:05 AM CDT Pulse 72 10/18/2023 6:05 AM CDT Temperature 36.6 ??C (97.9 ??F) 10/18/2023 6:05 AM CD T Respiratory Rate 18 10/18/2023 6:05 AM CDT Oxygen Saturation 98% 10/18/2023 6:05 AM CDT Inhaled Oxygen Concentration - - Weight 65.7 kg (144 lb 12.8 oz) 024 12:55 PM CDT Height 177.8 cm (5' 10 ) 10/16/2023 12: 55 PM CDT Body Mass Index 20.78 10/16/2023 12:55 PM CDT Plan of Treatment Health Maintenance Due Date Last Done Comments Depression Screening 1955 Fall Risk Assessment 1955 Hepatitis C Screening 1955 Prostate Cancer Screening-PSA 1955 Hepatitis B Screening 1975 Pneumococcal vaccine 65+ (2 of 2 - PCV) 2022 03/19/2021 Well Visit 65+ 2022 Covid-19 Vaccine (3 - 2023-2 5 season) 2024 03/25/2021, 11/18/2020 Influenza Vaccine (#1) 2024 , 04/24/2021, 04/09/2020, Additional history exists Colon Cancer Screening-Colonoscopy 06/21/2025 06/21/2015, 06/21/2015 DTaP/Tdap/Td Vaccine (3 - Td or Tdap) 03/24/2031 03/24/2021, 08/27/2011 Colon Cancer Screening-CT Colonography Discontinued 06/21/2015, 06/21/2015 Colon Cancer Screening-DNA Stool Discontinued 06/21/20 15, 06/21/2015 Colon Cancer Screening-FIT Discontinued 06/21/2015, Colon Cancer Screening-Sigmoidoscopy Discontinued 06/21/2015, 06/21/2015 Zoster Vaccine Completed 03/15/2023, 11/26/2018 Medical Devices Implanted Type Area Solar Energy Engineer Device Identifier Shelf Expiration Date Model / Serial / Lot [employer] 6191-1-010 Simplex P Radiopaque Full Dose Cement Bone Sterile - [id number] Implanted:Qty: 1 on 06/03/2021 by Lino Granger MD at [facility] Bone Cement Left: Shoulder [employer] 09/01/2022 6191-1-0 10 / / [id number] Sldr 27x6mm Pegs Circular Glenoid W/ In-Line Peripheral - [id number] Implanted:Qty: 1 on 06/03/2021 by Lino Granger MD at [facility] Other - see comments Left: Shoulder Shoulder Vitryn [id number] 10/10/2025 [id number] / / [id number] Plug Azur Vascular Embolization Medium - [id number] Implanted:Qty: 1 on 03/17/2021 at [facility] [employer] [id number] 09/01/2023 [id number] / / [id number] Rabixo [id number] Debby Pod 8mm 60cm Complex Occulusion Device Coil Embolization - [id number] Implanted:Qty: 1 on 03/17/2021 at [facility] Rabixo 04/23/2028 [id number] / / [id number] [employer] Kclt-06 Device 6fr Closure Celt Acd Vascular Sterile Latex Free Disposable Ashkan - [id number] Implanted:Qty: 1 on 03/17/2021 at [facility] [employer] [id number] 08/12/2023 KCLT -06 / / [id number] Shoulder Ikonopedia [id number] Head Shoulder Offset Humeral 18mm X 44mm - [id number] Implanted:Qty: 1 on 06/03/2021 by Lino Granger MD at [facility] Left: Shoulder Shoulder [employer]ations [employer] [id number] 09/26/2025 [id number] / / [id number] Shoulder Innovations Llc [id number] Stem Shoulder Porous Titanium Humeral Small - [id number] Implanted:Qty: 1 on 06/03/2021 by Lino Granger MD at [facility] Left: Shoulder Shoulder [employer] [id number] 03/10/2026 [id number] / / [id number] Procedures Procedure Name Priority Date/Time Associated Diagnosis Comments COLONOSCOPY IMAGES 06/21/2015 from Last 3 Months or Most Recently Relevant to Health Maintenance Results * COLONOSCOPY IMAGES (06/21/2015) Anatomical Region Laterality Modality Other Narrative 06/21/2015 Ordered by an unspecified provider. us Historical Provider GI PROCEDURE ORDERABLES F inal Result from Last 3 Months or Most Recently Relevant to Health Maintenance Insurance [facility] MEDICARE [facility] MEDICARE [facility] Advance Directives For more information, please contact: [phone] * Full Code (Latest Code Status on File) Date Activated Date Inactivated Comments 10/16/2023 5:04 AM 10/18/2023 2:01 PM * Full Code Date Activated Date Inactivated Comments 06/03/2021 1:51 PM 06/04/2021 3:16 PM * Full Code Date Activated Date Inactivated Comments 03/17/2021 6:55 AM 03/19/2021 8:08 PM * Full Code Date Activated Date Inactivated Comments 12/20/2019 10:02 AM 12/21/2019 7:52 PM * Full Code Date Activated Date Inactivated Comments 12/19/2019 6:44 PM 12/20/2019 10:02 AM Care Teams Distance Learning Unit Leader Relationship Specialty Start Date End Date Ajay Rhodes MD [address] [place] [address] PCP - General 12/19/19 Rosana Noyola MD [address] [place] [address] Consulting Physician Gastroenterology 12/21/19
--- OUTSIDE RECORDS SUMMARY | 2024-09-06 13:30 | XMS_ITS | Encounter Summary ---
Author Organization [facility] Address 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 Gender Identity Not on file Sexual Orientation Not on file documented as of this encounter Plan of Treatment Upcoming Encounters Date Type Department Care Team (Late st Contact Info) Description 10/09/2024 1:00 PM CDT Office Visit [facility] Oncology and Hematology - [place] [address] [place] [address] [facility] [address] [place] [address] [place] [address] [place] [address] [address] [place] [address] 12/13/2024 10:00 AM CDT Office Visit [facility] Primary Care [address] [place] [address] Ajay Rhodes MD [address] [place] [address] documented as of this encounter Visit Diagnoses Not on filedocumented in this encounter Care Teams Splunk Dashboard Developer Relationship Specialty Start Date End Date Ajay Rhodes MD PCP - General 01/19/08 documented as of this encounter
--- OUTSIDE RECORDS SUMMARY | 2024-09-06 13:30 | XMS_ITS | Encounter Summary ---
Author Organization [facility] Address 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 Gender Identity Not on file Sexual Orientation Not on file documented as of this encounter Plan of Treatment Upcoming Encounters Date Type Department Care Team (Late st Contact Info) Description 10/09/2024 1:00 PM CDT Office Visit [facility] [place] Oncology and Hematology - [place] [address] [place] [address] [facility] [address] [place] [address] [place] [address] [place] [address] [address] [place] [address] 12/13/2024 10:00 AM CDT Office Visit [facility] [place] Primary Care [address] [place] [address] Ajay Rhodes MD [address] [place] [address] documented as of this encounter Visit Diagnoses Not on filedocumented in this encounter Care Teams Condenser Winder Relationship Specialty Start Date End Date Ajay Rhodes MD PCP - General 01/19/08 documented as of this encounter
--- OUTSIDE RECORDS SUMMARY | 2024-09-06 13:30 | XMS_ITS | Referral Summary ---
Author Organization [facility] Address [address] [place] [address] Care Team Providers Care Brand Inspector Name Role Phone Ajay Rhodes MD Primary Care Provider + Rosana Noyola MD Unavailable [phone] Allergies No known active allergies Medications fentaNYL [...] no significant findings on echocardiogram, 30 day clinical research monitor on discharge HLD (hyperlipidemia) 06/02/2021 Risk factors for obstructive sleep apnea 021 Primary osteoarthritis, left shoulder 04/30/2021 Overview (04/30/2021): Added automatically from request for surgery [id number] Multiple closed fractures of ribs of left [...] (12/19/2019): Added automatically from request for surgery [id number] Arthralgia of shoulder 08/26/2012 Duodenal ulcer Immunizations Name Administration Dates Next Due Hib (PRP-T) 03/19/2021 Influenza, Unspecified 05/02/2021 Meningococcal B, OMV (Bexsero) 03/19/2021 Meningococcal Conjugate (Menveo) 03/19/2021 Pneumococcal Polysaccharide PPV23 03/19/2021 Social History Tobacco Use Types Packs/Day Years [...] on file 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 Gender Identity Not on file Sexual Orientation [...] 10/16/2023 12:55 PM CDT Plan of Treatment Not on file Medical Devices Implanted Type Area Ship Self Defense System Mk1 Operator Device Identifier Shelf Expiration Date Model / Serial / Lot [employer] 6191-1-010 Simplex P Radiopaque Full Dose Cement Bone Sterile - [id number] Implanted:Qty: 1 on 06/03/2021 by Lino Granger MD at [facility] Bone Cement Left: Shoulder [employer] 09/01/2022 6191-1-0 10 / / [id number] Sldr 27x6mm Pegs Circular Glenoid W/ In-Line Peripheral - [id number] Implanted:Qty: 1 on 06/03/2021 by Lino Granger MD at [facility] Other - see comments Left: Shoulder Shoulder [employer] [id number] 10/10/2025 [id number] / / [id number] Plug Azur Vascular Embolization Medium - [id number] Implanted:Qty: 1 on 03/17/2021 at [facility] [employer] [id number] 09/01/2023 [id number] 0 / / [id number] Pen[employer] Inc Rbypod8 Debby Pod 8mm 60cm Complex Occulusion Device Coil Embolization - [id number] Implanted:Qty: 1 on 03/17/2021 at [facility] [employer] 04/23/2028 [id number] / / [id number] Vas[employer] Ltd Kclt-06 Device 6fr Closure Celt Acd Vascular Sterile Latex Free Disposable Ashkan - [id number] Implanted:Qty: 1 on 03/17/2021 at [facility] [employer] [id number] 08/12/2023 KCLT -06 / / [id number] Shoulder [employer]ations Llc [id number] Head Shoulder Offset Humeral 18mm X 44mm - [id number] Implanted:Qty: 1 on 06/03/2021 by Lino Granger MD at [facility] Left: Shoulder Shoulder [employer] [id number] 09/26/2025 [id number] / / [id number] Shoulder [employer] [id number] Stem Shoulder Porous Titanium Humeral Small - [id number] Implanted:Qty: 1 on 06/03/2021 by Lino Granger MD at [facility] Left: Shoulder Shoulder [employer] [id number] 03/10/2026 [id number] / / [id number] Procedures Procedure Name [...] Most Recently Relevant to Health Maintenance Insurance [facility] MEDICARE [employer] [place] MEDICARE [employer] [place] Advance Directives For more information, please contact: [phone] * Full Code (Latest Code Status on [...] 6:44 PM 12/20/2019 10:02 AM Care Teams Brand Inspector Relationship Specialty Start Date End Date Ajay Rhodes MD [address] [facility] [place] [phone] PCP - General 12/19/19 Rosana Noyola MD [address] [place], [place] [address] [place] [phone] Consulting Physician Gastroenterology 12/21/19
--- OUTSIDE RECORDS SUMMARY | 2024-09-06 13:30 | XMS_ITS | Encounter Summary ---
Author Organization [facility] Address 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 Gender Identity Not on file Sexual Orientation Not on file documented as of this encounter Last Filed Vital Signs Vital Sign Reading Time Taken Comments Blood Pressure 130/80 11/18/2006 4:30 PM CDT Pulse - - Temperature - - Respiratory Rate - - Oxygen Saturation - - Inhaled Oxygen Concentration - - Weight 96.2 kg (212 lb) 11/18/2006 4:30 PM CDT Height - - Body Mass Index - - documented in this encounter Plan of Treatment Upcoming Encounters Date Type Department Care Team (Late Contact Info) Description 10/09/2024 1:00 PM CDT Office Visit [facility] Oncology and Hematology - [place] [address] [facility] [address] [place] [address] Randall Triplett MD 6 [facility] [address] [place] [address] 12/13/2024 10:00 AM CDT Office Visit [facility] Primary Care [address] [place] [address] Ajay Rhodes MD [address] [place] [address] [address] [place] [address] documented as of this encounter Visit Diagnoses Not on filedocumented in this encounter Care Teams Chief Of Staff Doctor Relationship Specialty Start Date End Date Ajay Rhodes MD PCP - General 01/19/08 documented as of this encounter
== END 2024-09-06 12:23 | disposition home or self-care (01) ==
LOC: ANHLAB 12:23
PROVIDERS: PCP Internal Medicine Hematology & Oncology; Visit Provider Internal Medicine Hematology & Oncology
DX: C71.9 Malignant neoplasm of brain, unspecified (principal)
CPT/HCPCS: 36415; 80047; 85025; 85055

== ENCOUNTER 2024-10-09 12:15 | Outpatient (CLI) | payer MEDICARE, OTHER, SELFPAY ==
[2024-10-09 12:23] LABS: Basophils Percent Auto 0.6 % (0.2-1.2); Eosinophils Absolute Auto 0.1 K/mm3 (0-0.3); Eosinophils Percent Auto 2.9 % (0-4.4); Hematocrit 39.6 % (42.0-52.0); Hemoglobin 13.2 g/dL (14.0-18.0); Immature Granulocyte Absolute 0.01 K/mm3 (0.00-0.031); Immature Granulocyte Percent A 0.3 % (0-0.5); Lymphocytes Absolute Auto 0.68 K/mm3 (0.9-3.2); Lymphocytes Percent Auto 19.8 % (18.3-44.2); Mean Corpuscular HGB Conc 33.3 g/dl (32-36); Mean Corpuscular Hemoglobin 29.7 pg (26-34); Mean Corpuscular Volume 89.2 fl (80-100); Monocytes Absolute Auto 0.3 K/mm3 (0.1-0.6); Monocytes Percent Auto 8.2 % (2.6-8.5); Neutrophils Absolute Auto 2.3 K/mm3 (1.3-6.7); Neutrophils Percent Auto 68.2 % (45.5-73.1); Platelet Count Result 131 k/mm3 (150-375); Red Blood Count 4.44 M/mm3 (4.6-6.20); Red Cell Distribution Width 11.9 % (11.5-14.5); White Blood Count 3.4 K/mm3 (4.5-10.0)
[2024-10-09 12:26] LABS: Blood Urea Nitrogen 16 mg/dL (8-26); Carbon Dioxide 29 mmol/L (22-30); Chloride 99 mmol/L (98-109); Estimated Glomerular Filt Rate > 60; Glucose 99 mg/dL (70-105); Ionized Calcium (POC) 1.22 mmol/L (1.11-1.31); Potassium 4.1 mmol/L (3.5-4.9); Sodium 138 mmol/L (138-146)
--- OUTSIDE RECORDS SUMMARY | 2024-10-09 14:08 | XMS_ITS | Encounter Summary ---
Author Organization [facility] Address 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 Gender Identity Not on file Sexual Orientation [...] Department Care Team (Late Contact Info) Description 11/13/2024 1:00 PM CDT Office Visit [facility] Oncology and Hematology - [place] [address] [facility] [address] [place] [address] Randall Triplett MD 0 [facility] [address] [place] [address] 12/13/2024 10:00 AM CDT Office Visit [facility] Primary Care [address] [place] [address] Ajay Rhodes MD [address] [place] [address] [address] [place] [address] documented as of this encounter Visit Diagnoses Not on filedocumented in this encounter Care Teams Diversity Intern Relationship Specialty Start Date End Date Ajay Rhodes MD PCP - General 01/19/08 documented as of this encounter
--- OUTSIDE RECORDS SUMMARY | 2024-10-09 14:08 | XMS_ITS | Encounter Summary ---
Author Organization [facility] Address 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 PHARMACY NUMBER: [phone] 04/06/07 Request refill of Hydrocodone 7.5/750 mg. [...] p Patient Name : LIBERTAD CORTES [address]: [address] [place] [address] D.O.B: 1955 SSN: [id number] Parent/Guardian if applicable: Patient Insurance: [facility] Policy#: [id number] Group #: Best To Call : [phone] Best Time to Call : ANYTIME. May We Leave Message At That Number : YES, LEAVE MESSAGE. Referring to: PHYSICAL THERAPY/REHAB [facility]- PH: [phone] PATIENT DIAGNOSIS: . 723.1-NECK PAIN ORDERING PHYSICIAN : PHIL HANCOCK MD PRIORITY OF REFERRAL: AT PATIENT'S CONVENIENCE. OFFICE CHEMICAL PLANT WORKER & PHONE: Seema Jiang C FOR SCHEDULING [...] mri's try PT SPECIALTY REFERRAL: PHYSICAL THERAPY/REHAB [place] [facility] Patient Education: Risks, benefits, and possible side effects of medication(s) were reviewed with the patient. RETURN VISIT : Instructed to call if not improving. Electronically Signed by: Phil Hancock MD on Friday, April 06, 2007 documented in this encounter Plan of Treatment Upcoming Encounters Date Type Department Care Team (Late st Contact Info) Description 11/13/2024 1:00 PM CDT Office Visit [facility] Oncology and Hematology - [place] [address] [facility] 200 [place] [address] Randall Triplett MD [address] [facility] [address] [place] [phone] 12/13/2024 10:00 AM CDT Office Visit [facility] Primary Care [address] [place] [address] Phil Hancock MD [address] [place] [address] [place] [address] [place] [address] documented as of this encounter Visit Diagnoses Not on filedocumented in this encounter Care Teams Internal Communications Writer Relationship Specialty Start Date End Date Phil Hancock MD PCP - General 01/19/08 documented as of this encounter
--- OUTSIDE RECORDS SUMMARY | 2024-10-09 14:08 | XMS_ITS | Encounter Summary ---
Author Organization [facility] Address [address] [place] [address] Care Team Providers Care Wireless Store Manager Name Role Phone Phil Hancock MD Primary Care Provider [phone] Encounter Details Date Type Department Care Team (Late st Contact Info) Description 08/05/[address] 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 [address] D.O.B: 1955 SSN: [id number] Parent/Guardian if applicable: Patient Insurance: [facility] Policy#: [id number] Group #: Best To Call : [phone] Best Time to Call : ANYTIME. May We Leave Message At That Number : YES, LEAVE MESSAGE. Referring to: GASTROENTEROLOGY Dr. Khanh Hatfield ph: [phone] fax: [phone]. Dr. Rosana Noyola ph: [phone] fax: [phone]. Reason for referral: colonoscopy ORDERING PHYSICIAN : PHIL HANCOCK MD PRIORITY OF REFERRAL: AT PATIENT'S CONVENIENCE. OFFICE OUT PATIENT THERAPIST & PHONE: Seema Jiang C FOR SCHEDULING [...] SPECIALTY REFERRAL: GASTROENTEROLOGY Dr. Rosana Noyola ph: [phone] fax: [phone]. Dr. Khanh Hatfield ph: [phone] fax: [phone].colonoscopy Patient Education: Risks, benefits, and possible side [...] Description 11/13/2024 1:00 PM CDT Office Visit [facility] Oncology and Hematology - [place] [address] [place] [address] 200 [place] [address] [place] [address] [place] [address] [address] [place] [address] 12/13/2024 10:00 AM CDT Office Visit [facility] Primary Care [address] [place] [address] Phil Hancock MD [address] [place] [address] [address] [place] [address] documented as of this encounter Visit Diagnoses Not on filedocumented in this encounter Care Teams Wireless Store Manager Relationship Specialty Start Date End Date Phil Hancock MD PCP - General 01/19/08 documented as of this encounter
--- OUTSIDE RECORDS SUMMARY | 2024-10-09 14:08 | XMS_ITS | Encounter Summary ---
Author Organization [facility] Address [address] [place] [address] Care Team Providers Care Hat Block Maker Name Role Phone Ajay Rhodes MD Primary Care Provider [phone] Encounter Details Date Type Department Care Team (Late st Contact Info) Description 02/28/2007 Orders Only [facility] Internal Medicine [address] [address] Ajay Rhoeds MD [address] [place] [address] Social History Tobacco Use Types Packs/Day Years Used Date Smoking Tobacco: Never Assessed Sex and Gender Information Value Date Recorded Sex Assigned at Not on file Legal Sex Male 4:14 AM DOCTOR OF AUDIOLOGY Gender Identity Not on file Sexual Orientation Not on file documented as of this encounter Progress Notes * Ajay Rhodes MD - 12/21/2007 1:25 PM CDT TIME:10:40 am PATIENT`S HOME PHONE: PATIENT`S WORK PHONE: PATIENT`S INSURANCE: [place] [employer] BL[employer] [facility] WHO TOOK THE CALL: Luisa Brown J GENERAL INFORMATION LAST VISIT: 01/20/07 WHO CALLED: Pharmacy called. PHARMACY NUMBER: [phone] SECTION 1: REQUESTED ACTION issa 02/28/07 at 10:41 am: MEDICATION REQUEST: MEDICATION REQUEST: Patient requests a refill. gen vicodin #[id number] 02/04/07 DOCTOR`S RESPONSE: debby 02/28/07 at 12:40 pm prev note * Ajay Rhodes MD - 12/21/2007 1:22 PM CDT TIME:11:57 am PATIENT`S HOME PHONE: PATIENT`S WORK PHONE: PATIENT`S INSURANCE: [employer] WHO TOOK THE CALL: Lorrie Lynch C GENERAL INFORMATION WHO CALLED: Patient called. PHARMACY NUMBER: [phone] SECTION 1: PT NEVER TOOK SCRIPT IN [...] Description 11/13/2024 1:00 PM CDT Office Visit [facility] Oncology and Hematology - [place] [address] [place] [address] 200 [place] [address] [place] [address] [place] [address] [address] [place] [address] 12/13/2024 10:00 AM CDT Office Visit [facility] Primary Care [address] [place] [address] Ajay Rhodes MD [address] [place] [address] [address] [place] [address] documented as of this encounter Visit Diagnoses Not on filedocumented in this encounter Care Teams Hat Block Maker Relationship Specialty Start Date End Date Ajay Rhodes MD PCP - General 01/19/08 documented as of this encounter
--- OUTSIDE RECORDS SUMMARY | 2024-10-09 14:08 | XMS_ITS | Encounter Summary ---
Author Organization [facility] Address 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 PHARMACY NUMBER: [phone] 02/04/07 request refill of Hydrocodone/APAP 7.5/750 mg [...] Description 11/13/2024 1:00 PM CDT Office Visit [facility] Oncology and Hematology - [place] [address] [facility] 200 [place] [address] Randall Triplett MD [address] [facility] [address] [place] [address] 12/13/2024 10:00 AM CDT Office Visit [facility] Primary Care [address] [place] [address] Ajay Rhodes MD [address] [place] [address] [address] [place] [address] documented as of this encounter Visit Diagnoses Not on filedocumented in this encounter Care Teams Senior Procurement Manager Relationship Specialty Start Date End Date Ajay Rhodes MD PCP - General 01/19/08 documented as of this encounter
--- OUTSIDE RECORDS SUMMARY | 2024-10-09 14:08 | XMS_ITS | Encounter Summary ---
Author Organization [facility] Address 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 Gender Identity Not on file Sexual Orientation Not on file documented as of this encounter Plan of Treatment Upcoming Encounters Date Type Department Care Team (Late st Contact Info) Description 11/13/2024 1:00 PM CDT Office Visit [facility] Oncology and Hematology - [place] [address] [place] [address] [facility] 200 [place] [address] [place] [address] [place] [address] [address] [place] [address] 12/13/2024 10:00 AM CDT Office Visit [facility] Primary Care [address] [place] [address] Ajay Rhodes MD [address] [place] [address] documented as of this encounter Visit Diagnoses Not on filedocumented in this encounter Care Teams Tube Builder Relationship Specialty Start Date End Date Ajay Rhodes MD PCP - General 01/19/08 documented as of this encounter
--- OUTSIDE RECORDS SUMMARY | 2024-10-09 14:08 | XMS_ITS | Encounter Summary ---
Author Organization [facility] Address [address] [place] [address] Care Team Providers Care Mathematician Name Role Phone Phil Hancock MD Primary Care Provider [phone] Encounter Details Date Type Department Care Team (Late st Contact Info) Description 01/20/2007 Orders Only [facility] Internal Medicine [address] [address] Phil Hancock MD [address] [place] [address] Social History Tobacco Use Types Packs/Day Years Used Date Smoking Tobacco: Never Assessed Sex and Gender Information Value Date Recorded Sex Assigned at Not on file Legal Sex Male 4:14 AM MANAGER FINE Gender Identity Not on file Sexual Orientation Not on file documented as of this encounter Progress Notes * Phil Hancock MD - 12/21/2007 4:44 PM CDT CENTRAL TEST SCHEDULING DATE: JAN 20, 2007 Note created by: Shruthi Hart E 03:13 p Patient Name : LIBERTAD CORTES Address: [address] [place] [address] [facility]. [address] D.O.B: 1955 SSN: [id number] Parent/Guardian if applicable: Patient Insurance: BLUE CROSS BLUE SHIELD ID#: [id number] Group#: ORDER(S) #: [id number] mri c spine BEST TO CALL CELL. [phone] BEST TIME TO CALL: ANYTIME. MAY WE LEAVE MESSAGE AT THAT NUMBER: YES, LEAVE MESSAGE. PLEASE SCHEDULE THE APPOINTMENT AT THE FOLLOWING LOCATION: [place] [phone]. TEST PRIORITY: 2 - 7 DAYS. SPECIAL SCHEDULING INSTRUCTIONS: needs prep ORDERING PHYSICIAN: PHIL HANCOCK MD OFFICE SUPERVISOR DRIED YEAST & PHONE: Shruthi Hart E ORDER PRINTED BY: Courtney Meza L FOR SCHEDULING USE ONLY: FIRST ATTEMPT Date:JAN 24, 2007 Norma Medrano T 03:02 p Left message on Recorder. SECOND ATTEMPT: Date:JAN 25, 2007 Noa Valentino 01:31 p Spoke with Patient. [place] [phone]. APPOINTMENT DATE : 02/03/2007 ( @ 4:00 pm) The appointment was scheduled by Noa Valentino at [phone] [facility] * Phil Hancock MD - 12/21/2007 4:44 PM CDT SPECIALIST REFERRAL REQUEST DATE: JAN 20, 2007 Note created by: Seema Jiang C 03:16 p Patient Name : LIBERTAD CORTES Address: [address] [place] [address]. [address] D.O.B: 1955 SSN: [id number] Parent/Guardian if applicable: Patient Insurance: [employer] Policy#: [id number] Group #: Best To Call : [phone] Best Time to Call : ANYTIME. May We Leave Message At That Number : YES, LEAVE MESSAGE. Referring to: PAIN MANAGEMENT Dr. Marcos Gorman ph: [phone]. Dr. Edmund Manriquez ph: [phone]. PATIENT DIAGNOSIS: . 723.1-NECK PAIN ORDERING PHYSICIAN : PHIL HANCOCK MD PRIORITY OF REFERRAL: AT PATIENT'S CONVENIENCE. OFFICE SUPERVISOR DRIED YEAST & PHONE: Seema Jiang C FOR SCHEDULING [...] PRESSURE: 122/72 Right Arm Sitting NURSE NAME: Lillian Lg, N CHIEF COMPLAINT Shoulders and lower [...] palpable. 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 LAB ORDERS: Order number: [id number] Test Ordered: MRI [facility] 461.9-SINUSITIS UNSPECIFIED add med MEDICATIONS: ZYRTEC ORAL TABLET 10 MG, 1 Every Day, 20 Dispensed, status: NEW PRESCRIPTION, 01/20/2007. NASONEX NASAL SUSPENSION 50 MCG/ACT, 2 Every Morning, 2 Dispensed, status: NEW PRESCRIPTION, 01/20/2007. SPECIALTY REFERRAL: PAIN MANAGEMENT Dr. Marcos Gorman ph: [phone]. Dr. Edmund Manriquez ph: [phone].[facility] RETURN VISIT : Instructed to call if not improving. Electronically Signed by: Phil Hancock MD on December documented in this encounter Plan of Treatment Upcoming Encounters Date Type Department Care Team (Late st Contact Info) Description 11/13/2024 1:00 PM CDT Office Visit [facility] Oncology and Hematology [place] [address] [place] [address] [address] [place] [address] [place] [address] [place] [address] [address] [place] [address] 12/13/2024 10:00 AM CDT Office Visit [facility] Primary Care [place] [address] [place] [address] Phil Hancock MD [address] [place] [address] [address] [place] [address] documented as of this encounter Visit Diagnoses Not on filedocumented in this encounter Care Teams Mathematician Relationship Specialty Start Date End Date Phil Hancock MD PCP - General 01/19/08 documented as of this encounter
--- OUTSIDE RECORDS SUMMARY | 2024-10-09 14:08 | XMS_ITS | Encounter Summary ---
Author Organization [facility] Address 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 Gender Identity Not on file Sexual Orientation Not on file documented as of this encounter Plan of Treatment Upcoming Encounters Date Type Department Care Team (Late st Contact Info) Description 11/13/2024 1:00 PM CDT Office Visit [facility] Oncology and Hematology [place] [address] [place] [address] [facility] [address] [place] [address] [place] [address] [place] [address] [address] [place] [address] 12/13/2024 10:00 AM CDT Office Visit [facility] Primary Care [address] [place] [address] Ajay Rhodes MD [address] [place] [address] documented as of this encounter Visit Diagnoses Not on filedocumented in this encounter Care Teams Mine Foreman Relationship Specialty Start Date End Date Ajay Rhodes MD PCP - General 01/19/08 documented as of this encounter
--- OUTSIDE RECORDS SUMMARY | 2024-10-09 14:08 | XMS_ITS | Encounter Summary ---
Author Organization [facility] Address 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 Gender Identity Not on file Sexual Orientation Not on file documented as of this encounter Plan of Treatment Upcoming Encounters Date Type Department Care Team (Late st Contact Info) Description 11/13/2024 1:00 PM CDT Office Visit [facility] Oncology and Hematology [place] [address] [place] [address] [facility] [address] [place] [address] [place] [address] [place] [address] [address] [place] [address] 12/13/2024 10:00 AM CDT Office Visit [facility] Primary Care [address] [place] [address] Ajay Rhodes MD [address] [place] [address] documented as of this encounter Visit Diagnoses Not on filedocumented in this encounter Care Teams Car Restorer Relationship Specialty Start Date End Date Ajay Rhodes MD PCP - General 01/19/08 documented as of this encounter
--- OUTSIDE RECORDS SUMMARY | 2024-10-09 14:08 | XMS_ITS | Encounter Summary ---
Author Organization [facility] Address 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 Gender Identity Not on file Sexual Orientation [...] Description 11/13/2024 1:00 PM CDT Office Visit [facility] Oncology and Hematology - [place] [address] [facility] [address] [place] [address] Randall Triplett MD 5 [facility] [address] [place] [address] 12/13/2024 10:00 AM CDT Office Visit [facility] Primary Care [address] [place] [address] Ajay Rhodes MD [address] [place] [address] [address] [place] [address] documented as of this encounter Visit Diagnoses Not on filedocumented in this encounter Care Teams File Keeper Relationship Specialty Start Date End Date Ajay Rhodes MD PCP - General 01/19/08 documented as of this encounter
--- OUTSIDE RECORDS SUMMARY | 2024-10-09 14:08 | XMS_ITS | Encounter Summary ---
Author Organization [facility] Address 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 LAB ORDERS: 3 mo Order number: [id number] Test Ordered: COMPREHENSIVE METABOLIC PANEL & GFR 1112 Order number: [id number] Test Ordered: LIPID PANEL 1078 Order number: [id number] Test Ordered: PSA, TOTAL 1002 Patient Education: [...] Description 11/13/2024 1:00 PM CDT Office Visit [facility] Oncology and Hematology [place] [address] [place] [address] Dr [address] [place] [address] Randall Triplett MD [address] [facility] [address] [place] [address] 12/13/2024 10:00 AM CDT Office Visit [facility] Primary Care [address] [place] [address] Ajay Rhodes MD [address] [place] [address] [place] [address] documented as of this encounter Visit Diagnoses Not on filedocumented in this encounter Care Teams Php Web Developer Relationship Specialty Start Date End Date Ajay Rhodes MD PCP - General 01/19/08 documented as of this encounter
--- OUTSIDE RECORDS SUMMARY | 2024-10-09 14:08 | XMS_ITS | Encounter Summary ---
Author Organization [facility] Address 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 Gender Identity Not on file Sexual Orientation Not on file documented as of this encounter Plan of Treatment Upcoming Encounters Date Type Department Care Team (Late st Contact Info) Description 11/13/2024 1:00 PM CDT Office Visit [facility] Oncology and Hematology [place] [address] [place] [address] [facility] [address] [place] [address] [place] [address] [place] [address] [address] [place] [address] 12/13/2024 10:00 AM CDT Office Visit [facility] Primary Care [address] [place] [address] [place] [address] Ajay Rhodes MD [address] [place] [address] documented as of this encounter Visit Diagnoses Not on filedocumented in this encounter Care Teams Extrusion Supervisor Relationship Specialty Start Date End Date Ajay Rhodes MD PCP - General 01/19/08 documented as of this encounter
--- OUTSIDE RECORDS SUMMARY | 2024-10-09 14:09 | XMS_ITS | Encounter Summary ---
Author Organization [facility] Address 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 [address] D.O.B: 1955 SSN: [id number] Parent/Guardian if applicable: Patient Insurance: [employer] CROSS BLUE SHIELD ID#: [id number] Group#: ORDER(S) #: [id number] xray c spine PLEASE SCHEDULE THE APPOINTMENT AT THE FOLLOWING LOCATION: [facility] [phone]. SPECIAL SCHEDULING INSTRUCTIONS: walkin ORDERING PHYSICIAN: PHIL HANCOCK MD OFFICE SENIOR VISUAL DESIGNER & PHONE: Shruthi Hart E * Phil [...] NECK: lat m tender, no central tender, online marketing manager ok EXTREMITIES: BILATERAL LOWER EXTREMITIES: No misalignment [...] status: CONTINUED, 11/18/2006. LAB ORDERS: Order number: [id number] Test Ordered: XRAY C SPINES, ROUTINE (5 VIEWS) W/OBL V70.0-ROUTINE GENERAL MEDICAL EXAMINATION check lab discussed LAB ORDERS: Order number: [id number] Test Ordered: CBC W/ DIFFERENTIAL 3150 Order number: [id number] Test Ordered: COMPREHENSIVE METABOLIC PANEL & GFR 1112 Order number: [id number] Test Ordered: LIPID PANEL 1078 Order number: [id number] Test Ordered: TSH 1720 Order number: [id number] Test Ordered: PSA, TOTAL 1002 RETURN VISIT : Instructed to call if not improving. Electronically Signed by: Phil Hancock MD on October documented in this encounter Plan of Treatment Upcoming Encounters Date Type Department Care Team (Late st Contact Info) Description 11/13/2024 1:00 PM CDT Office Visit [facility] Oncology and Hematology - [place] [address] [facility] [facility] [address] [place] [address] Randall Triplett MD [address] [facility] [address] [place] [address] 12/13/2024 10:00 AM CDT Office Visit [facility] Primary Care [address] [place] [place] [place] [address] Phil Hancock MD [address] [place] [address] [place] [address] documented as of this encounter Visit Diagnoses Not on filedocumented in this encounter Care Teams Crew Dispatcher Relationship Specialty Start Date End Date Phil Hancock MD PCP - General 01/19/08 documented as of this encounter
--- OUTSIDE RECORDS SUMMARY | 2024-10-09 14:09 | XMS_ITS | Referral Summary ---
Author Organization [facility] Address [address] [place] [address] Care Team Providers Care Produce Service Team Member Name Role Phone Ajay Rhodes MD Primary Care Provider + Rosana Noyola MD Unavailable [phone] Allergies No known active allergies Medications fentaNYL [...] no significant findings on echocardiogram, 30 day monitor technician on discharge HLD (hyperlipidemia) 06/02/2021 Risk factors for obstructive sleep apnea 021 Primary osteoarthritis, left shoulder 04/30/2021 Overview (04/30/2021): Added automatically from request for surgery [id number] Multiple closed fractures of ribs of left [...] (12/19/2019): Added automatically from request for surgery [id number] Arthralgia of shoulder 08/26/2012 Duodenal ulcer Immunizations Immunization Administration Dates Next Due Hib (PRP-T) 03/19/2021 [...] on file Legal 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 Male 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 Gender Identity Not on file Sexual Orientation Not on file Last Filed Vital Signs Vital Sign Reading Time Taken Comments Blood Pressure 156/83 10/18/2023 6:05 AM CDT Pulse 72 10/18/2023 6:05 AM CDT Temperature 36.6 C (97.9 F) 10/18/2023 6:05 AM CDT Respiratory Rate 18 10/18/2023 6:05 AM CDT Oxygen Saturation 98% 10/18/2023 6:05 AM CDT Inhaled Oxygen Concentration - - Weight 65.7 kg (144 lb 12.8 oz) 024 12:55 PM CDT Height 177.8 cm (5' 10 ) 10/16/2023 12: 55 PM CDT Body Mass Index 20.78 10/16/2023 12:55 PM CDT Plan of Treatment Not on file Medical Devices Implanted Type Area Diver Pumper Device Identifier Shelf Expiration Date Model / Serial / Lot [employer] 6191-1-010 Simplex P Radiopaque Full Dose Cement Bone Sterile - [id number] Implanted:Qty: 1 on 06/03/2021 by Lino Granger MD at [facility] Bone Cement Left: Shoulder [employer] 09/01/2022 6191-1-0 10 / / [id number] Sldr 27x6mm Pegs Circular Glenoid W/ In-Line Peripheral - [id number] Implanted:Qty: 1 on 06/03/2021 by Lino Granger MD at [facility] Other - see comments Left: Shoulder Shoulder [employer] [id number] 10/10/2025 [id number] 06 / / [id number] Plug Azur Vascular Embolization Medium - [id number] Implanted:Qty: 1 on 03/17/2021 at [facility] [employer] [id number] 09/01/2023 [id number] 0 / / [id number] [employer] Rbypod8 Debby Pod 8mm 60cm Complex Occulusion Device Coil Embolization - [id number] Implanted:Qty: 1 on 03/17/2021 at [facility] [employer] 04/23/2028 [id number] / / [id number] [employer] Kclt-06 Device 6fr Closure Celt Acd Vascular Sterile Latex Free Disposable Ashkan - [id number] Implanted:Qty: 1 on 03/17/2021 at [facility] [employer] [id number] 08/12/2023 KCLT -06 / / [id number] Shoulder [employer] [id number] Head Shoulder Offset Humeral 18mm X 44mm - [id number] Implanted:Qty: 1 on 06/03/2021 by Lino Granger MD at [facility] Left: Shoulder Shoulder [employer] [id number] 09/26/2025 [id number] 44 / / [id number] Shoulder [employer] [id number] Stem Shoulder Porous Titanium Humeral Small - [id number] Implanted:Qty: 1 on 06/03/2021 by Lino Granger MD at [facility] Left: Shoulder Shoulder [employer] [id number] 03/10/2026 [id number] 20 / / [id number] Procedures Procedure Name [...] Most Recently Relevant to Health Maintenance Insurance [employer] [place] [employer] [place] Advance Directives For more information, please contact: [phone] * Full Code (Latest Code Status on [...] 6:44 PM 12/20/2019 10:02 AM Care Teams Produce Service Team Member Relationship Specialty Start Date End Date Ajay Rhodes MD PCP - General 12/19/19 Rosana Noyola MD Consulting Physician Gastroenterology 12/21/19
--- OUTSIDE RECORDS SUMMARY | 2024-10-09 14:09 | XMS_ITS | Encounter Summary ---
Author Organization [facility] Address 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 Gender Identity Not on file Sexual Orientation Not on file documented as of this encounter Plan of Treatment Upcoming Encounters Date Type Department Care Team (Late st Contact Info) Description 11/13/2024 1:00 PM CDT Office Visit [facility] Oncology and Hematology - [place] [address] [place] [address] [facility] [address] [place] [address] [place] [address] [place] [address] [address] [place] [address] 12/13/2024 10:00 AM CDT Office Visit [facility] Primary Care [address] [place] [address] Ajay Rhodes MD [address] [place] [address] documented as of this encounter Visit Diagnoses Not on filedocumented in this encounter Care Teams Registered Occupational Therapist Relationship Specialty Start Date End Date Ajay Rhodes MD PCP - General 01/19/08 documented as of this encounter
--- OUTSIDE RECORDS SUMMARY | 2024-10-09 14:09 | XMS_ITS | Encounter Summary ---
Author Organization [facility] Address [address] [place] [address] Care Team Providers Care Scrap Worker Name Role Phone Ajay Rhodes MD Primary Care Provider Reason for Visit * Auth/Cert Specialty Diagnoses / Procedures Referred By Nithin t [place]erred [place] [address] [place] [address] Phone: tel: fax: [facility] [address] [facility] [address] [place] [address] Phone: tel: fax: Referral ID Status Reason Start Date Expiration Date Visits Re quested Visits Authorized [id number] 1 1 Encounter Details Date Type Department Care Team (Late st Contact Info) Description 03/05/2024 Hospital Encounter [facility] [address] [facility] [address] [place] [address] [place] [address] [place] [address] Social History Tobacco Use Types [...] on file 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 He is anticipating discharge home to [place] today and to follow up with his cancer treatment at [facility] for chemoradiation once this is coordinated. In [...] Discussed with patient/family. MPOA/relationship: Abner Cortes (): [phone] Social History/ Caregiver Assessment: . Has two children -All emotionally involved and available to support Gigi as needed. 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 Education provided on: Palliative Care and services [...] ulcer disease) 01/2020 GASTRIC Tonic clonic seizures A5EWNON 2023-CT NEG/TESTING @ [facility] Past Surgical History: Procedure Laterality Date HX COLONOSCOPY AGE 61 HX CRANIOTOMY FOR STEREOTACTIC GUIDED SURGERY Left 03/02/2024 CRANIOTOMY STEREOTACTIC performed by Chelsey Bowens MD at [facility] [[email or web address] OR [facility] HX KNEE ARTHROSCOPY W/ MENISCAL REPAIR Right 2018 HX VASECTOMY ND ARTHROSCOPY KNEE SYNOVECTOMY LIMITED SPX 03/18/2020 KNEE SYNOVECTOMY ARTHROSCOPIC performed by Pancho Barfield MD at [facility] [[email or web address]] OR [facility] ND ARTHRS KNE SURG W/MENISCECTOMY MED/LAT W/SHVG Left 03/18/2020 KNEE ARTHROSCOPY performed by Pancho Barfield MD at [facility] [[email or web address]] OR [facility] ND ARTHRS KNE SURG W/MENISCECTOMY MED/LAT W/SHVG 03/18/2020 PARTIAL MEDIAL MENISCECTOMY KNEE ARTHROSCOPIC performed by Pancho Barfield MD at [facility] [[email or web address]] OR [facility] ARTHRS KNEE ABRASION ARTHRP/BOTTLE WASHER MACHINE DRLG/MICROFX 03/18/2020 KNEE CHONDROPLASTY ARTHROSCOPIC performed by Pancho Barfield MD at [facility] [[email or web address]] OR [facility] ND RPR AA HERNIA 1ST 3-10 CM REDUCIBLE N/A 01/21/2024 HERNIA UMBILICAL REPAIR performed by Jimenez Linares MD at [facility] [[email or web address]] OR [facility] Family History Problem Relation Name Age [...] Patient needs follow up regarding:: No concerns [place] Symptom Assessment Scale (ESAS-r) Pain: 0 (03/06/24999) [...] care of this patient. Siri Denis NP [facility] Palliative Care [phone] Routed to: Ajay Rhodes MD Total time [...] advanced. He is anticipating discharge home to [place] today and to follow up with his cancer treatment at [facility] for chemoradiation once this is coordinated to [...] Context 02/29/2024 1824 03/06/2024 1717 Full Code [id number] Shun Youngblood MD ED 01/21/2024 0805 01/21/2024 1221 Full Code [id number] Jimenez Linares MD Inpatient Only showing the last 2 code statuses. Active code status is correct, no changes. Discussed 03/09/2024 with patient and . Participation was voluntary, and the nature of Advance Directives was part of the discussion. Next steps : Revisit this discussion if there is a new diagnosis, decline in functional abilities, or hospitalization Siri Densi NP Cosigned by Ruben White MD at 03/09/2024 10:24 PM CDT documented in this encounter Plan of Treatment Upcoming Encounters Date Type Department Care Team (Late st Contact Info) Description 11/13/2024 1:00 PM CDT Office Visit [facility] Oncology and Hematology [place] [address] [place] [address] [address] [place] [address] Randall Triplett MD [address] [facility] [address] [place] [address] 12/13/2024 10:00 AM CDT Office Visit [facility] Primary Care [address] [place] [address] Ajay Rhodes MD [address] [place] [address] [place] [address] [place] [address] documented as of this encounter Visit Diagnoses Not on filedocumented in this encounter Care Teams Scrap Worker Relationship Specialty Start Date End Date Ajay Rhodes MD PCP - General 01/19/08 documented as of this encounter
--- OUTSIDE RECORDS SUMMARY | 2024-10-09 14:09 | XMS_ITS | Encounter Summary ---
Author Organization [facility] Address 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 Gender Identity Not on file Sexual Orientation Not on file documented as of this encounter Plan of Treatment Upcoming Encounters Date Type Department Care Team (Late st Contact Info) Description 11/13/2024 1:00 PM CDT Office Visit [facility] Oncology and Hematology [place] [address] [place] [address] [facility] [address] [place] [address] [place] [address] [place] [address] [address] [place] [address] 12/13/2024 10:00 AM CDT Office Visit [facility] Primary Care [address] [place] [address] Ajay Rhodes MD [address] [place] [address] documented as of this encounter Visit Diagnoses Not on filedocumented in this encounter Care Teams Skate Maker Relationship Specialty Start Date End Date Ajay Rhodes MD PCP - General 01/19/08 documented as of this encounter
--- OUTSIDE RECORDS SUMMARY | 2024-10-09 14:09 | XMS_ITS | Encounter Summary ---
Author Organization [facility] Address 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 OCCUPATION: . [employer] ALCOHOL: Does not give any significant history [...] 07/05/2006. LAB ORDERS: 1 week Order number: [id number] Test Ordered: COMPREHENSIVE METABOLIC PANEL W/ GLOMERULAR FILTRATION RATE, ESTIMATED (EGFR) 55514 Order number: [id number] Test Ordered: LIPID PANEL 7600 Order number: [id number] Test Ordered: PSA 5363 Order number: [id number] Test Ordered: TSH 899 Order number: [id number] Test Ordered: CBC (INCLUDES DIFF/PLT) 6399 Order number: [id number] Test Ordered: URINALYSIS, COMPLETE W/REFLEX TO CULTURE 3020 Order number: [id number] Test Ordered: HEMOCCULT SINGLE 48567 Order number: [id number] Test Ordered: URINALYSIS W/O MICRO 59672 V70.0-ROUTINE GENERAL MEDICAL EXAMINATION discussed, check lab [...] Description 11/13/2024 1:00 PM CDT Office Visit [facility] Oncology and Hematology [place] [address] [place] [address] [address] [place] [address] Randall Triplett MD [address] [facility] [address] [place] [address] 12/13/2024 10:00 AM CDT Office Visit [facility] Primary Care [address] [place] [address] Ajay Rhodes MD [address] [place] [address] documented as of this encounter Visit Diagnoses Not on filedocumented in this encounter Care Teams Buckle Strap Drum Operator Relationship Specialty Start Date End Date Ajay Rhodes MD PCP - General 01/19/08 documented as of this encounter
--- OUTSIDE RECORDS SUMMARY | 2024-10-09 14:09 | XMS_ITS | Encounter Summary ---
Author Organization [id number] Address [address] [place] [address] Care Team Providers Care Azure Architect Name Role Phone Ajay Rhodes MD Primary Care Provider [phone] Reason for Referral * MRI (Routine) - Closed Specialty Diagnoses / Procedures Referred By Contac t Referred To Contact Diagnoses GBM (glioblastoma multiforme) (CMS/HCC) Procedures [place] [address] [place] [address] [employer] [address] [address] Phone: tel: fax: [address] [address] Phone: tel: fax: Referral ID Status Reason Start Date Expiration Date V isits Requested Visits Authorized [id number] Closed [facility] CTS 10/09/2024 11/09/2025 1 1 Encounter Details Date Type Department Care Team (Late st Contact Info) Description 10/09/2024 1:00 PM CDT Office Visit [facility] Oncology and Hematology - [place] [facility] Ajay Carroll [address] [address] Randall Triplett MD [address] [facility] [address] [place] [address] GBM (glioblastoma multiforme) (CMS/HCC) (Primary [...] on file 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 Gender Identity Not on file Sexual Orientation Not on file documented as of this encounter Last Filed Vital Signs Vital Sign Reading Time Taken Comments Blood Pressure 137/74 10/09/2024 1:08 PM CDT Pulse 53 10/09/2024 1:08 PM CDT Temperature 36.6 C (97.9 F) 10/09/2024 1:08 PM CDT Respiratory Rate 15 10/09/2024 1:08 PM CDT Oxygen Saturation 97% 10/09/2024 1:08 PM CDT Inhaled Oxygen Concentration - - Weight 66.3 kg (146 lb 3.2 oz) 10/09/2024 1:08 P M CDT Height - - Body Mass Index 20.98 08/15/2024 9:33 AM CHIEF PETROLEUM ENGINEER documented in this encounter Plan of Treatment Upcoming Encounters Date Type Department Care Team (Late st Contact Info) Description 11/13/2024 1:00 PM CDT Office Visit [facility] Oncology and Hematology - [place] [address] [facility] [address] [place] [address] Randall Triplett MD [address] [facility] [address] [place] [address] 12/13/2024 10:00 AM CDT Office Visit [facility] Primary Care [facility] [address] [place] [address] [address] [place] [address] Ajay Rhodes MD [address] [facility] [place] [address] [place] [address] Scheduled Orders Name Type Priority Associated Diagnoses Orde r Schedule CBC WITH DIFFERENTIAL Lab Stat GBM (glioblastoma multiforme) (CMS/HCC) Expected: 11/06/2024, Expires: 10/09/2025 COMPREHENSIVE METABOLIC PANEL Lab Stat GBM (glioblastoma multiforme) (CMS/HCC) Expected: 11/06/2024, Expires: 10/09/2025 MRI BRAIN W WO CONTRAST Imaging Routine GBM (glioblastoma multiforme) (CMS/HCC) Expected: 10/30/2024, Expires: 10/09/2025 documented as of this encounter Visit Diagnoses Diagnosis GBM (glioblastoma multiforme) (CMS/HCC)- Primary Malignant neoplasm of brain, unspecified site documented in this encounter Care Teams Azure Architect Relationship Specialty Start Date End Date Ajay Rhodes MD PCP - General 01/19/08 documented as of this encounter
--- OUTSIDE RECORDS SUMMARY | 2024-10-09 14:09 | XMS_ITS | Encounter Summary ---
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 Gender Identity Not on file Sexual Orientation Not on file documented as of this encounter Plan of Treatment Upcoming Encounters Date Type Department Care Team (Late st Contact Info) Description 11/13/2024 1:00 PM CDT Office Visit [facility] Oncology and Hematology - [place] [address] [facility] [address] [place] [address] Randall Triplett MD [address] [facility] [address] [place] [address] 12/13/2024 10:00 AM CDT Office Visit [facility] Primary Care [address] [place] [address] Ajay Rhodes MD [address] [place] [address] [address] [place] [address] documented as of this encounter Visit Diagnoses Not on filedocumented in this encounter Care Teams Hand Spring Repairer Relationship Specialty Start Date End Date Ajay Rhodes MD PCP - General 01/19/08 documented as of this encounter
--- OUTSIDE RECORDS SUMMARY | 2024-10-09 14:09 | XMS_ITS | Encounter Summary ---
Author Organization [facility] Address 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 Topic: Patient or Caregiver Communication Request >> Feb 17, 2024 9:25 AM Tiffanie Sapp wrote: Patient or Caregiver requesting advice Caller: Vinita gentile Patient/Caregiver Callback Number: [phone] Call Notes: Caller states the patient had [...] Description 11/13/2024 1:00 PM CDT Office Visit [facility] Oncology and Hematology - [place] [address] [facility] [address] [place] [address] Randall Triplett MD [address] [facility] [address] [place] [address] 12/13/2024 10:00 AM CDT Office Visit [facility] Primary Care [address] [place] [place] [address] Ajay Rhodes MD [address] [place] [address] documented as of this encounter Visit Diagnoses Not on filedocumented in this encounter Care Teams Granulator Machine Operator Relationship Specialty Start Date End Date Ajay Rhodes MD PCP - General 01/19/08 documented as of this encounter
--- OUTSIDE RECORDS SUMMARY | 2024-10-09 14:09 | XMS_ITS | Clinical Summary ---
Author Organization 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 HLD (hyperlipidemia) 06/02/2021 Risk factors for obstructive sleep apnea 021 Primary osteoarthritis, left shoulder 04/30/2021 Overview (04/30/2021): Added automatically from request for surgery [id number] Multiple closed fractures of ribs of left [...] (12/19/2019): Added automatically from request for surgery [id number] Arthralgia of shoulder 08/26/2012 Duodenal ulcer Immunizations [...] on file Legal Sex Male 6:15 PM RN PACU Gender Identity Not on file Sexual Orientation [...] Date Last Done Comments Depression Screening 1957 Hepatitis C Screening 1957 Prostate Cancer Screening-PSA 1957 Hepatitis B Screening 1975 Pneumococcal vaccine 65+ (2 of 2 - PCV) 03/19/2022 03/19/2021 Well Visit 65+ 2022 Covid-19 Vaccine (3 - 2023-2 5 season) 2024 03/25/2021, 11/18/2020 Influenza Vaccine (#1) 2024 , 04/24/2021, 04/09/2020, Additional history exists Fall Risk Assessment 10/17/2024 10/18/2023 Colon Cancer Screening-Colonoscopy 06/21/2025 06/21/2015, 06/21/2015 DTaP/Tdap/Td Vaccine (3 - Td or Tdap) 03/24/2031 03/24/2021, 08/27/2011 Colon Cancer Screening-CT Colonography Discontinued 06/21/2015, 06/21/2015 Colon Cancer Screening-DNA Stool Discontinued 06/21/20 15, 06/21/2015 Colon Cancer Screening-FIT Discontinued 06/21/2015, Colon Cancer Screening-Sigmoidoscopy Discontinued 06/21/2015, 06/21/2015 Zoster Vaccine Completed 03/15/2023, 11/26/2018 Medical Devices Implanted Type Area Trail Construction Worker Device Identifier Shelf Expiration Date Model / Serial / Lot [employer] 6191-1-010 Simplex P Radiopaque Full Dose Cement Bone Sterile - [id number] Implanted:Qty: 1 on 06/03/2021 by Lino Granger MD at [facility] Bone Cement Left: Shoulder [employer] 09/01/2022 6191-1-0 10 / / [id number] Sldr 27x6mm Pegs Circular Glenoid W/ In-Line Peripheral - [id number] Implanted:Qty: 1 on 06/03/2021 by Lino Granger MD at [facility] Other - see comments Left: Shoulder Shoulder [employer] [id number] 10/10/2025 [id number] / / [id number] Plug Azur Vascular Embolization Medium - [id number] Implanted:Qty: 1 on 03/17/2021 at [facility] [employer] [id number] 09/01/2023 [id number] 0 / / [id number] [employer]ista [id number] Debby Pod 8mm 60cm Complex Occulusion Device Coil Embolization - [id number] Implanted:Qty: 1 on 03/17/2021 at [facility] [employer] 04/23/2028 [id number] / / [id number] [employer] Kclt-06 Device 6fr Closure Celt Acd Vascular Sterile Latex Free Disposable Ashkan - [id number] Implanted:Qty: 1 on 03/17/2021 at [facility] [employer] [id number] 08/12/2023 KCLT -06 / / [id number] Shoulder Bass Manager [id number] Head Shoulder Offset Humeral 18mm X 44mm - [id number] Implanted:Qty: 1 on 06/03/2021 by Lino Granger MD at [facility] Left: Shoulder Shoulder [employer] [id number] 09/26/2025 [id number] / / [id number] Shoulder Innovations Llc [id number] Stem Shoulder Porous Titanium Humeral Small - [id number] Implanted:Qty: 1 on 06/03/2021 by Lino Granger MD at [facility] Left: Shoulder Shoulder [employer] [id number] 03/10/2026 [id number] 20 / / [id number] Procedures Procedure Name [...] Most Recently Relevant to Health Maintenance Insurance [facility]ICARE [facility]ICARE [facility] Advance Directives For more information, please contact: [phone] * Full Code (Latest Code Status on [...] 6:44 PM 12/20/2019 10:02 AM Care Teams Residential Designer Relationship Specialty Start Date End Date Ajay Rhodes MD PCP - General 12/19/19 Rosana Noyola MD Consulting Physician Gastroenterology 12/21/19
--- OUTSIDE RECORDS SUMMARY | 2024-10-09 14:09 | XMS_ITS | Encounter Summary ---
Author Organization [facility] Address 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 Gender Identity Not on file Sexual [...] [facility] [place] - [place] [address] Ajay [address] [facility] [address] [place] [address] Randall Triplett MD 0 [facility] [address] [place] [address] 12/13/2024 10:00 AM CDT Office Visit [facility] Primary Care [address] [place] [address] Ajay Rhodes MD [address] [place] [address] [address] [place] [address] documented as of this encounter Visit Diagnoses Not on filedocumented in this encounter Care Teams Artillery Officer Relationship Specialty Start Date End Date Ajay Rhodes MD PCP - General 01/19/08 documented as of this encounter
--- OUTSIDE RECORDS SUMMARY | 2024-10-09 14:09 | XMS_ITS | Encounter Summary ---
Author Organization [facility] Address 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 Gender Identity Not on file Sexual Orientation Not on file documented as of this encounter Plan of Treatment Upcoming Encounters Date Type Department Care Team (Late st Contact Info) Description 11/13/2024 1:00 PM CDT Office Visit [facility] Oncology and Hematology - [place] [address] [place] [address] [facility] [address] [place] [address] [place] [address] [place] [address] [address] [place] [address] 12/13/2024 10:00 AM CDT Office Visit [facility] Primary Care [address] [place] [address] Ajay Rhodes MD [address] [place] [address] documented as of this encounter Visit Diagnoses Not on filedocumented in this encounter Care Teams Final Inspector Movement Assembly Relationship Specialty Start Date End Date Ajay Rhodes MD PCP - General 01/19/08 documented as of this encounter
--- OUTSIDE RECORDS SUMMARY | 2024-10-09 14:09 | XMS_ITS | Encounter Summary ---
Author Organization [facility] Address 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 Gender Identity Not on file Sexual Orientation Not on file documented as of this encounter Last Filed Vital Signs Vital Sign Reading Time Taken Comments Blood Pressure 130/70 05/12/2004 1:30 PM CDT Pulse - - Temperature - - Respiratory Rate - - Oxygen Saturation - - Inhaled Oxygen Concentration - - Weight 94.3 kg (208 lb) 05/12/2004 1:30 PM CDT Height - - Body Mass Index - - documented in this encounter Plan of Treatment Upcoming Encounters Date Type Department Care Team (Late Contact Info) Description 11/13/2024 1:00 PM CDT Office Visit [facility] Oncology and Hematology - [place] [address] [facility] [address] [place] [address] Randall Triplett MD 4 [facility] [address] [place] [phone] 12/13/2024 10:00 AM CDT Office Visit [facility] Primary Care [address] [place] [address] Ajay Rhodes MD [address] [place] [address] [address] [place] [address] documented as of this encounter Visit Diagnoses Not on filedocumented in this encounter Care Teams Clinical Account Liaison Relationship Specialty Start Date End Date Ajay Rhodes MD PCP - General 01/19/08 documented as of this encounter
--- OUTSIDE RECORDS SUMMARY | 2024-10-09 14:09 | XMS_ITS | Clinical Summary ---
Author Organization [facility] Address [address] [place] [address] Care Team Providers Care Engineer Geophysical Laboratory Name Role Phone Ajay Rhodes MD Primary Care Provider [phone] Allergies Active Allergy Reactions Criticality Noted Date [...] mouth daily. 90 Tablet 3 024 Active ondansetron (ZOFRAN ODT) 8 mg Tablet, Rapid Dissolve Dissolve 1 tablet on top of tongue then swallow with saliva every 8 hours as needed for nausea or vomiting 30 Tablet 1 024 Active mometasone (ELOCON) 0.1 % Cream Apply to affected area daily. 45 Gram 1 024 Active neomycin-bacitra veto-polymyxin (Triple Antibiotic) 3.5mg-400 unit- 5,000 unit/gram Ointment Apply to affected area 2 times daily. 024 Active azelastine (ASTELIN) 137 mcg/actuation nasal spray Administer 2 Sprays in each nostril 2 times daily. 30 mL 6 025 Active temozolomide (TEMODAR) 20 mg capsule Take 1 capsule (20 mg) by mouth daily before breakfast with 2 other temozolomide prescriptions for 275 mg total. Take for 5 days every 28 day cycle. 5 Capsule 5 025 Active temozolomide (TEMODAR) 5 mg capsule Take 1 capsule (5 mg) by mouth daily before breakfast with 2 other temozolomide prescriptions for 275 mg total. Take for 5 days every 4 weeks. 5 Capsule 5 025 Active temozolomide (TEMODAR) 250 mg capsule Take 1 capsule (250 mg) by mouth daily before breakfast with 2 other temozolomide prescriptions for 275 mg total. Take for 5 days every 28 days. 5 Capsule 5 025 Active HYDROcodone-acet aminophen (NORCO) 10-325 mg TabletIndication s:Other osteoarthritis involving multiple joints Take 1 Tablet by mouth every 4 hours as needed (as needed for pain). DX Osteoarthritis multiple joints Max Daily Amount: 6 Tablets 180 Tablet 025 Active silver sulfADIAZINE (SILVADENE) 1 % Cream Apply to affected area daily. 50 Gram 3 025 Active cyclobenzaprine (FLEXERIL) 10 mg tablet TAKE 1 TABLET BY MOUTH 3 TIMES DAILY NEEDED FOR SPASM. 30 Tablet 3 025 Active levETIRAcetam (KEPPRA) 1,000 mg tabletIndication s:Seizures (CMS/HCC),Gliobl astoma multiforme of brain (CMS/HCC) TAKE 1 TABLET BY MOUTH TWICE A DAY 180 Tablet 1 025 Active cyclobenzaprine (FLEXERIL) 10 mg tablet TAKE 1 TABLET BY MOUTH 3 TIMES DAILY NEEDED FOR SPASM. 30 Tablet 3 024 2024 Discontinued levETIRAcetam (KEPPRA) 1,000 mg tabletIndication s:Seizures (CMS/HCC),Gliobl astoma multiforme of brain (CMS/HCC) Take 1 Tablet (1,000 mg) by mouth 2 times daily. 60 Tablet 3 024 2024 Discontinued silver sulfADIAZINE (SILVADENE) 1 % Cream Apply to affected area daily. 50 Gram 3 025 2024 Discontinued(R eorder) HYDROcodone-acet aminophen (NORCO) 10-325 mg TabletIndication s:Other osteoarthritis involving multiple joints Take 1 Tablet by mouth every 4 hours as needed (as needed for pain). DX Osteoarthritis multiple joints Max Daily Amount: 6 Tablets 180 Tablet 025 2024 Discontinued(R eorder) Active Problems Patient Care Coordination No te [...] Encounters Date Type Department Care Team Description 10/09/2024 1:00 PM CDT Office Visit [facility]cology [facility] [place] [address] [place] [phone] Randall Triplett MD GBM (glioblastoma multiforme) ([facility]) (Primary Dx) 10/03/2024 External Device Data STL ABSTRACTION Provider, Abstract 09/29/2024 [facility] Neurosurgery - [facility] [address] [facility] [address] [place] [address] Gali Cyr PA-C Seizures ([facility]); Glioblastoma multiforme of brain ([facility]) 09/26/2024 External Device Data STL ABSTRACTION Provider, Abstract 09/26/2024 External Device Data STL ABSTRACTION Provider, Abstract 09/22/2024 Refill [facility] [address] [facility]1] [address] [place] [address] Ajay Rhodes MD 09/19/2024 External Device Data STL ABSTRACTION Provider, Abstract 09/18/2024 Refill [facility] [address] [facility]] [address] [place] [address] Ajay Rhodes MD Other osteoarthritis involving multiple joints 09/06/2024 1:00 PM EXTRACTOR TENDER RAW STOCK Office Visit [facility] - [place] [address] [place] [address] Randall Triplett MD GBM (glioblastoma multiforme) (CMS/HCC) (Primary Dx) 08/29/2024 External Device Data STL ABSTRACTION Provider, Abstract 08/29/[address] [facility] Emergency Department - [address] [phone] Gume Dailey MD 08/24/2024 External Device Data STL ABSTRACTION Provider, Abstract 08/22/2024 Orders Only [facility] [place] [address] [place] [address] Randall Triplett MD 08/18/2024 Results Follow-Up [address] [place] [phone] Ajay Rhodes MD COMPREHENSIVE METABOLIC PANEL, LIPID PANEL, TSH, Additional followed-up results: 3 08/18/2024 Orders Only [facility] [address] [place] [address] [address] [place] [address] Ajay Rhodes MD Other osteoarthritis involving multiple joints 08/15/2024 10:00 AM EXTRACTOR TENDER RAW STOCK Office Visit [address] [place] [address] Ajay Rhodes MD Glioblastoma multiforme of brain (CMS/HCC) (Primary Dx); Vitamin D deficiency; Other hyperlipidemia; Seizure-like activity (CMS/HCC); Myalgia; Abnormal glucose; Need for assistance with personal care 08/15/2024 External Device Data STL ABSTRACTION Provider, Abstract 08/15/2024 External Device Data STL ABSTRACTION Provider, Abstract 08/10/[address] [facility] [address] [place] [address] [place] [phone] Marguerite Lemus, PHARMACIST 08/10/2024 Refill [facility] [address] [place] [address] Randall Triplett MD 08/09/2024 9:30 AM EXTRACTOR TENDER RAW STOCK Office Visit [facility] [address] [place] [phone] Randall Triplett MD GBM (glioblastoma multiforme) ([facility]) (Primary Dx) 08/07/2024 Telephone [facility] [address] [phone] Ajay Rhodes MD Medication Assistance 07/21/2024 Refill [facility] [address] [phone] Ajay Rhodes MD Other osteoarthritis involving multiple joints 07/18/[address] [facility] [address] [place] [address] [place] [phone] Bernadine Strauss, PHARMACIST Specialty Pharmacy Refill Coordination from Last 3 Months Immunizations Immunization Administration [...] COVID-19 VACCINE - EMERGENCY USE AUTHORIZATION, MRNA, [id number](PF) 30 MCG/0.3 ML IM SUSP 03/22/2021,11/18/2020 12/09/2020 (PREVNAR 20)(6 WKS UP) PNEUM OCOCCAL CONJUGATE VACCINE 20-VALENT (PCV20), POLYSACCHARIDE [id number] CONJUGATE, ADJUVANT 0.5 ML (PF) IM 05/25/2022 [...] on file Legal Sex Male 4:14 AM EXTRACTOR TENDER RAW STOCK Gender Identity Not on file Sexual Orientation [...] oz) 10/09/2024 1:08 P M CDT Height 177.8 cm (5' 10 ) 08/15/2024 9:33 AM EXTRACTOR TENDER RAW STOCK Body Mass Index 20.98 08/15/2024 9:33 AM EXTRACTOR TENDER RAW STOCK Plan of Treatment Upcoming Encounters Date Type Department Care Team (Late st Contact Info) Description 11/13/2024 1:00 PM CDT Office Visit [facility]ology - [place] [address] [facility] [address] [place] [phone] Randall Triplett MD [address] [facility] [address] [place] [address] 12/13/2024 10:00 AM CDT Office Visit [facility] [address] [place] [address] Ajay Rhodes MD [address] [place] [address] [address] [place] [address] Health Maintenance Due Date Last Done Comments FIT-DNA Q 3 years 2002 Flex Sig/CT Colonography Q 5 years 2002 FIT/FOBT Q 1 year 06/16/2011 06/16/2010, 07/05/2006 RSV VACCINE (60+ or ) (1 - Risk 60-74 years 1-dose series) 2017 COVID-19 Vaccine ( - 2023-2 5 season) 2024 03/22/2021, 11/18/2020 COLORECTAL SCREENING 06/21/2025 06/21/2015, 06/21/2015, 06/21/2015, Additional history exists Colorectal Cancer Screening 06/21/2025 DTAP/TDAP/TD VACCINES (3 - T d or Tdap) 03/24/2031 03/24/2021, 08/27/2011 PNEUMOCOCCAL VACCINE 50+ YEARS Completed 05/25/2022 , 03/19/2021 ZOSTER VACCINE Completed 03/15/2023, 11/26/2018 INFLUENZA VACCINE Completed 04/11/2024, , 05/25/2022, Additional history exists Medical Devices Implanted Type Area Machine Tack Puller Device Identifier Shelf Expiration Date Model / Serial / Lot Duragen + 3x3in Dp-1033 - [id number] Implanted:Qty : 1 on 03/02/2024 by Chelsey Bowens MD at [facility] Graft Left: Cranial [employer] [id number] 09/29/2026 [id number] / / [id number] Hemostatic Surgiflo 8ml W/ Thrombin 2994 - [id number] Implanted:Qty : 1 on 03/02/2024 by Chelsey Bowens MD at [facility] Hemostatic Left: Brain [employer] [id number] 05/01/2025 2994 / / [id number] Hemostatic Surgiflo 8ml W/ Thrombin 2994 - [id number] Implanted:Qty : 1 on 03/02/2024 by Chelsey Bowens MD at [facility] Hemostatic Left: Brain [employer]- [employer] [id number] 04/01/2025 2994 / / [id number] Agent Hemostat Surgicel 4x8in 1952s - [id number] Implanted:Qty : 1 on 03/02/2024 by Chelsey Bowens MD at [facility] Hemostatic Left: Brain J&J- [employer] 07/01/2028 1952S / / [id number] Hemostatic Surgicel 1x2in 1960 - [id number] Implanted:Qty : 1 on 03/02/2024 by Chelsey Bowens MD at [facility] Hemostatic Left: Brain [employer]- [employer] 09/01/20261960 / / [id number] Hemostatic Surgifoam Sz100 1973 - [id number] Implanted:Qty : 1 on 03/02/2024 by Chelsey Bowens MD at [facility] Hemostatic Left: Brain [employer]- [employer] 12/02/20271973 / / [id number] Mesh Ventralex 1.7in Sm Circ [id number] - [id number] Implanted:Qty : 1 on 01/21/2024 by Jimenez Linares MD at [facility] Mesh N/A: Umbilical BARD DAVOL [id number] 08/29/2025 [id number] / / [id number] Plate Matrxneuro Bur Hl Cvr 04.502.021 - Sno Load Or Sterilized Date On [place] Implanted:Qty : 1 on 03/02/2024 by Chelsey Bowens MD at [facility] Plate Left: Cranial J&J- DEPUY SYNTHES 04.502.021 / NO LOAD OR STERILIZED DATE ON TRINIDAD / Plate Matrxneuro Cranial 04.502.062 - Sno Load Or Sterilized Date On [place] Implanted:Qty : 2 on 03/02/2024 by Chelsey Bowens MD at [facility] Plate Left: Cranial J&J- DEPUY SYNTHES 04.502.062 / NO LOAD OR STERILIZED DATE ON [place]ID[place] / Screw Matrixneuro Sd 04.503.103.01 - Sno Load Or Sterilized Date On [place] Implanted:Qty : 2 on 03/02/2024 by Chelsey Bowens MD at [facility] Screw Left: Cranial J&J- DEPUY SYNTHES .503.103. 01 / NO LOAD OR STERILIZED DATE ON TRINIDAD / Description:All Synthes cran ial hardware, Requisition, [id number]. Screw Matrixneuro Sd . - Sno Load Or Sterilized Date On [place] Implanted:Qty : 4 on 03/02/2024 by Chelsey Bowens MD at [facility] Screw Left: Cranial J&J- DEPUY SYNTHES . 01 / NO LOAD OR STERILIZED DATE ON TRINIDAD / Procedures Procedure Name Priority Date/Time Associated Diagnosis Comments MRI BRAIN W WO CONTRAST Routine 08/21/2024 7:54 AM EXTRACTOR TENDER RAW STOCK HEMOGLOBIN A1C Routine 08/17/2024 10:10 AM EXTRACTOR TENDER RAW STOCK Abnormal glucose VITAMIN B12 LEVEL Routine 08/17/2024 10: 10 AM EXTRACTOR TENDER RAW STOCK Myalgia VITAMIN D 25 HYDROXY Routine 08/17/2024 10:10 AM EXTRACTOR TENDER RAW STOCK Vitamin D deficiency TSH Routine 08/17/2024 10:10 AM EXTRACTOR TENDER RAW STOCK Other hyperlipidemia LIPID PANEL Routine 08/17/2024 10:10 AM EXTRACTOR TENDER RAW STOCK Other hyperlipidemia COMPREHENSIVE METABOLIC PANEL Routine 08/17/2024 10:10 AM EXTRACTOR TENDER RAW STOCK Other hyperlipidemia ENDOSCOPY, COLON, SCREENING Routine 06/21/2015 POC OCCULT BLOOD UP TO 3 CARDS Routine 06/16/2010 Abdominal pain from Last 3 Months or Most Recently Relevant to Health Maintenance Results * MRI BRAIN W WO CONTRAST (08/21/2024 7:54 AM EXTRACTOR TENDER RAW STOCK) Anatomical Region Laterality Modality Head Other Randall Triplett MD MR ORDERABLES Final Result * (ABNORMAL) VITAMIN D 25 HYDROXY (08/17/2024 10:10 AM EXTRACTOR TENDER RAW STOCK) VITAMIN D, 25 OH, TOTAL 26(L) 30 - 100 ng/mL [facility] Comment: Vitamin D Status 25-OH Vitamin D: Deficiency: <20 ng/mL Insufficiency: 20 - 29 ng/mL Optimal: > or = 30 ng/mL For 25-OH Vitamin D testing on patients on D2-supplementation and patients for whom quantitation of D2 and D3 fractions is required, the [facility]() 25-OH VIT D, (D2,D3), LC/MS/MS is recommended: order code 82787 (patients >2yrs). See Note 1 Note 1 For additional information, please refer to http://education.Varthana/faq/HGD398 (This link is being provided for informational/ educational purposes only.) FASTING:YES FASTING: YES Test Performed at: [facility] [address] Vik Ceja MD Blood 08/17/2024 10:1 0 AM EXTRACTOR TENDER RAW STOCK 08/17/2024 10:11 AM EXTRACTOR TENDER RAW STOCK Ajay Rhodes MD CHEMISTRY ORDERABLES Final Re sult Performing Organization Address [facility] Co de Phone Number [facility] [phone] [address] * TSH (08/17/2024 10:10 AM EXTRACTOR TENDER RAW STOCK) TSH 1.58 0.40 - 4.50 mIU/L [facility] Comment: Test Performed at: [facility] [address] Vik Ceja MD Blood 08/17/2024 10:1 0 AM EXTRACTOR TENDER RAW STOCK 08/17/2024 10:11 AM EXTRACTOR TENDER RAW STOCK Ajay Rhodes MD CHEMISTRY ORDERABLES Final Re sult Performing Organization Address [facility]/ZIP Co de Phone Number [facility] [phone] [address] * HEMOGLOBIN A1C (08/17/2024 10:10 AM EXTRACTOR TENDER RAW STOCK) HEMOGLOBIN A1C 5.5 <5.7 % of total Hgb [facility] Comment: For the purpose of screening for the presence of diabetes: <5.7% Consistent with the absence of diabetes 5.7-6.4% Consistent with increased risk for diabetes (prediabetes) > or =6.5% Consistent with diabetes This assay result is consistent with a decreased risk of diabetes. Currently, no consensus exists regarding use of hemoglobin A1c for diagnosis of diabetes in children. According to [place] Diabetes Association (ADA) guidelines, hemoglobin A1c <7.0% represents optimal control in non- diabetic patients. Different metrics may apply to specific patient populations. Standards of Medical Care in Diabetes(ADA). ESTIMATED AVERAGE GLUCOSE (MG/DL) 111 mg/dL [facility] ESTIMATED AVERAGE GLUCOSE (MMOL/L) 6.2 mmol/L [facility] Comment: FASTING:YES FASTING: YES Test Performed at: [place] [address] [place] [address] Vik Ceja Blood 08/17/2024 10:1 0 AM EXTRACTOR TENDER RAW STOCK 08/17/2024 10:11 AM EXTRACTOR TENDER RAW STOCK Ajay Rhodes MD CHEMISTRY ORDERABLES Final Re sult Performing Organization Address City/[facility] Code Phone Number [facility] [phone] [facility] [address] [place] [address] * VITAMIN B12 LEVEL (08/17/2024 10:10 AM EXTRACTOR TENDER RAW STOCK) VITAMIN B12 283 200 - 1100 pg/mL [facility] Comment: Please Note: Although the reference range for vitamin B12 is 200-1100 pg/mL, it has been reported that between 5 and 10% of patients with values between 200 and 400 pg/mL may experience neuropsychiatric and hematologic abnormalities due to occult B12 deficiency; less than 1% of patients with values above 400 pg/mL will have symptoms. FASTING:YES FASTING: YES Test Performed at: [facility] [address] [address] Vik Ceja MD Blood 08/17/2024 10:1 0 AM EXTRACTOR TENDER RAW STOCK 08/17/2024 10:11 AM EXTRACTOR TENDER RAW STOCK Ajay Rhodes MD CHEMISTRY ORDERABLES Final Re sult [facility] [phone] [facility] [address] [address] * (ABNORMAL) LIPID PANEL (08/17/2024 10:10 AM EXTRACTOR TENDER RAW STOCK) CHOLESTEROL 214(H) <200 mg/dL [facility] HDL 66 > OR = 40 mg/dL [facility] TRIGLYCERIDE 55 <150 mg/dL [facility] LDL CALCULATED 133(H) mg/dL (calc) [facility] Comment: Reference range: <100 Desirable range <100 mg/dL for primary prevention; <70 mg/dL for patients with CHD or diabetic patients with > or = 2 CHD risk factors. LDL-C is now calculated using the Lico-Pablo calculation, which is a validated novel method providing better accuracy than the Friedewald equation in the estimation of LDL-C. Lico SS et al. AVEL. 2013;310(19): 0790-4617 (http://education.Varthana/faq/NWC543) CHOL/HDL RATIO 3.2 <5.0 (calc) [facility] NON-HDL CHOLESTEROL 148(H) <130 mg/dL (calc) [facility] Comment: For patients with diabetes plus 1 major ASCVD risk factor, treating to a non-HDL-C goal of <100 mg/dL (LDL-C of <70 mg/dL) is considered a therapeutic option. Test Performed at: [facility] [address] [address] Vik Ceja MD Blood 08/17/2024 10:1 0 AM EXTRACTOR TENDER RAW STOCK 08/17/2024 10:11 AM EXTRACTOR TENDER RAW STOCK us Ajay Rhodes MD CHEMISTRY ORDERABLES Final Re sult [facility] [phone] [facility] [address] [address] [address] * (ABNORMAL) COMPREHENSIVE METABOLIC PANEL (08/17/2024 10:10 AM EXTRACTOR TENDER RAW STOCK) GLUCOSE 84 65 - 99 mg/dL [facility] Comment: Fasting reference interval BUN 14 7 - 25 mg/dL [facility] CREATININE 0.83 0.70 - 1.35 mg/dL [facility] GFR 96 > OR = 60 mL/min/1. 73m2 [facility] BUN/CREAT RATIO SEE NOTE: 6 - 22 (calc) [facility] Comment: Not Reported: BUN and Creatinine are within reference range. SODIUM 140 135 - 146 mmol/L [facility] [...] Comment: FASTING:YES FASTING: YES Test Performed at: [facility] [address] [place] [address] Vik Ceja MD Blood 08/17/2024 10:1 0 AM EXTRACTOR TENDER RAW STOCK 08/17/2024 10:11 AM EXTRACTOR TENDER RAW STOCK us Ajay Rhodes MD CHEMISTRY ORDERABLES Final Re sult [facility] [phone] [facility] [address] [place] [address] * ENDOSCOPY, COLON, SCREENING (06/21/2015) us Abstract Provider GI PROCEDURE ORDERABLES Edited Result - Final [facility] * POC OCCULT BLOOD UP TO 3 CARDS (06/16/2010) OCCULT BLOOD #1 [facility] OCCULT BLOOD #2 [facility] OCCULT BLOOD #3 [facility] Stool specimen (specimen) Ajay Rhodes MD POINT OF CARE TESTING Final R esult [facility] from Last 3 Months or Most Recently Relevant to Health Maintenance Insurance MEDICARE PART A AND B [facility] RX [employer] PLANS (INTERNAL) [facility] Plans RX GENERIC COMMERCIAL Commercial RX ALLWIN DATA Medicare Part B MEDICARE PART A AND [place] [id number] Advance Directives For more information, please contact: [phone] Documents on File Type Date Recorded 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
--- OUTSIDE RECORDS SUMMARY | 2024-10-09 14:09 | XMS_ITS | Encounter Summary ---
Author Organization [facility] Address [address] [place] [address] Care Team Providers Care Mirror Maker Name Role Phone Ajay Rhodes MD Primary Care Provider [phone] Reason for Visit * Reason Comments Medication Assistance Encounter Details Date Type Department Care Team (Late st Contact Info) Description 02/28/2024 Telephone [facility] Primary Care [address] [place] [address] Ajay Rhodes MD [address] [facility] [address] [place] [address] Medication Assistance Social History Tobacco [...] on file Legal Sex Male 4:14 AM FINISHING WIRE SAWYER Gender Identity Not on file Sexual Orientation Not on file documented as of this encounter Miscellaneous Notes * Telephone Encounter - Chelsey Singleton RN - 02/28/2024 11:53 AM CDT Date of last visit addressing condition(s) being treated: 02/23/24 Recent Visits Date Type Provider Dept 02/23/24 Office Visit Ajay Rhodes MD [facility] 10/21/23 Office Visit Ajay Rhodes MD [facility] 10/04/23 Office Visit Ajay Rhodes MD [facility] 03/31/23 Office Visit Ajay Rhodes MD [facility] 11/23/22 Office Visit Ajay Rhodes MD [facility] Showing recent visits within past 540 days with a meds authorizing provider and meeting all other requirements Future Appointments Date Type Provider Dept 04/11/24 Appointment Ajay Rhodes MD [facility] 05/17/24 Appointment Ajay Rhodes MD [facility] Showing future appointments within next 365 days with a meds authorizing provider and meeting all other requirements Correct Pharmacy: Yes Medication below pended for you. Medication (Ask patient/caregiver to spell if possible): HYDROcodone- acetaminophen (NORCO) 10-325 mg Tablet Preferred Pharmacy: [place] [id number] [place] [address] Patient/Caregiver Callback Number: [phone] (home) Call Notes: Requesting refill early will be leaving to go out of town this Wednesday please advise request HYDROcodone-acetaminophen (NORCO) 10-325 mg Tablet [facility] [id number] [place] [address] only this location Chelsey Singleton, RN * Telephone Encounter - Maira Lopez - 02/28/2024 11:24 AM CDT Copied from [facility] #[id number]. Topic: Medication Request >> Feb 28, 2024 11:22 AM Maira Yeh wrote: Caller is requesting: Medication - New Request (Not Currently Taking) Medication (Ask patient/caregiver to spell if possible): HYDROcodone- acetaminophen (NORCO) 10-325 mg Tablet Preferred Pharmacy: [facility] [id number] [place] [address] Patient/Caregiver Callback Number: [phone] (home) Call Notes: Requesting refill early will be leaving to go out of town this Wednesday please advise request HYDROcodone-acetaminophen (NORCO) 10-325 mg Tablet [facility] [id number] [place] [address] only this location documented in this encounter Plan of Treatment Upcoming Encounters Date Type Department Care Team (Late st Contact Info) Description 11/13/2024 1:00 PM CDT Office Visit [facility] Oncology and Hematology - [place] [address] [place] [address] [address] [place] [address] Randall Triplett MD [address] [facility] [address] [place] [address] 12/13/2024 10:00 AM CDT Office Visit [facility] Primary Care [address] [place] [address] Ajay Rhodes MD [address] [place] [address] documented as of this encounter Visit Diagnoses Diagnosis Other osteoarthritis involving multiple joints documented in this encounter Care Teams Mirror Maker Relationship Specialty Start Date End Date Ajay Rhodes MD PCP - General 01/19/08 documented as of this encounter
== END 2024-10-09 12:16 | disposition home or self-care (01) ==
LOC: ANHLAB 12:16
PROVIDERS: PCP Internal Medicine Hematology & Oncology; Visit Provider Internal Medicine Hematology & Oncology
DX: C71.9 Malignant neoplasm of brain, unspecified (principal)
CPT/HCPCS: 36415; 80047; 85025

== ENCOUNTER 2024-11-06 12:58 | Outpatient (CLI) | payer MEDICARE, OTHER, SELFPAY ==
--- NOTE | ~2024-11-06 | MR_ITS ---
EXAMINATION: MR brain/brain stem wo/w con DATE: 11/06/2024 13:58 INDICATION: Glioblastoma multiforme. TECHNIQUE: Magnetic resonance imaging (MRI) of the brain and brainstem was performed without and with 12 mL ProHance intravenous contrast. Sequences included sagittal and axial T1-weighted SE, axial dif fusion-weighted FS SE, , axial T2-weighted FLAIR, and axial T2-weighted FSE. Postcontrast axial, sagi ttal and coronal T1-weighted SE was obtained. Apparent diffusion coefficient (ADC) maps were created. COMPARISON: 08/21/2024 and 06/15/2024 FINDINGS: Postoperative change of prior left frontotemporal craniotomy with encephalomalacia in the anterior le ft temporal lobe. Associated ex vacuo dilation of the temporal horn of the left lateral ventricle. Th ere are no areas of restricted diffusion to suggest acute infarction. No intracranial hemorrhage or a bnormal intracranial mass lesion. Stable appearance of additional mild scattered nonspecific increase d T2-weighted signal intensity in the cerebral white matter, predominantly involving the deep and per iventricular white matter which is within normal chest for age. There are no intraparenchymal signal abnormalities seen on the other pulse sequences. The ventricles are symmetric and normal in size. The re are no abnormal extra-axial fluid collections. Flow voids are seen in the cerebral arteries on the T2-weighted sequences consistent with their expected patency. Visualized orbits and soft tissues are unremarkable. There are no areas of abnormal enhancement on the post contrast images. IMPRESSION: 1. 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 No acute intracr anial process or abnormally enhancing brain lesions. Reviewed, dictated and finalized at location A. IMPRESSION: 1. 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 No acute intracranial process or abnormally enhancing brain lesions.
--- OUTSIDE RECORDS SUMMARY | 2024-11-06 14:45 | XMS_ITS | Clinical Summary ---
Author Organization [facility] Address [address] [place] [address] Care Team Providers Care Manager Garage Name Role Phone Ajay Rhodes MD Primary Care Provider + Rosana Noyola MD Unavailable [phone] Allergies No known active allergies Medications fentaNYL [...] no significant findings on echocardiogram, 30 day cardiac technologist on discharge HLD (hyperlipidemia) 06/02/2021 Risk factors for obstructive sleep apnea 021 Primary osteoarthritis, left shoulder 04/30/2021 Overview (04/30/2021): Added automatically from request for surgery [id number] Multiple closed fractures of ribs of left [...] (12/19/2019): Added automatically from request for surgery [id number] Arthralgia of shoulder 08/26/2012 Duodenal ulcer Immunizations [...] on file Legal Sex 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 Gender Identity Not on file Sexual [...] (2 of 2 - PCV) 03/19/2022 03/19/2021 Abdominal Aortic Aneurysm (A AA) Screen 2022 03/16/2021 Well Visit 65+ 2022 Covid-19 Vaccine (3 - 2023-2 5 season) 2024 03/25/2021, 11/18/2020 Fall Risk Assessment 10/17/2024 10/18/2023 Influenza Vaccine (Season Ended) 2025 05/02/2021, 04/24/2021, 04/09/2020, Additional history exists Colon Cancer Screening-Colonoscopy 06/21/2025 06/21/2015, 06/21/2015 DTaP/Tdap/Td Vaccine (3 - Td or Tdap) 03/24/2031 03/24/2021, 08/27/2011 Colon Cancer Screening-CT Colonography Discontinued 06/21/2015, 06/21/2015 Colon Cancer Screening-DNA Stool Discontinued 06/21/20 15, 06/21/2015 Colon Cancer Screening-FIT Discontinued 06/21/2015, Colon Cancer Screening-Sigmoidoscopy Discontinued 06/21/2015, 06/21/2015 Zoster Vaccine Completed 03/15/2023, 11/26/2018 Medical Devices Implanted Type Area Artisan Plasterer Device Identifier Shelf Expiration Date Model / Serial / Lot [employer]gie [employer] 6191-1-010 Simplex P Radiopaque Full Dose Cement Bone Sterile - [id number] Implanted:Qty: 1 on 06/03/2021 by Lino Granger MD at [facility] Bone Cement Left: Shoulder [employer] 09/01/2022 6191-1-0 10 / / [id number] Sldr 27x6mm Pegs Circular Glenoid W/ In-Line Peripheral - [id number] Implanted:Qty: 1 on 06/03/2021 by Lino Granger MD at [facility] Other - see comments Left: Shoulder Shoulder [employer] [id number] 10/10/2025 [id number] 06 / / [id number] Plug Azur Vascular Embolization Medium - [id number] Implanted:Qty: 1 on 03/17/2021 at [facility] FD9 [employer] [id number] 09/01/2023 [id number] 0 / / [id number] Penumbra Inc Rbypod8 Debby Pod 8mm 60cm Complex Occulusion Device Coil Embolization - [id number] Implanted:Qty: 1 on 03/17/2021 at [facility] [employer] Inc 04/23/2028 [id number] / / [id number] Vasorum Ltd Kclt-06 Device 6fr Closure Celt Acd Vascular Sterile Latex Free Disposable Ashkan - [id number] Implanted:Qty: 1 on 03/17/2021 at [facility] VAS[employer]UM LTD [id number] 08/12/2023 KCLT -06 / / [id number] Shoulder Innovations Llc [id number] Head Shoulder Offset Humeral 18mm X 44mm - [id number] Implanted:Qty: 1 on 06/03/2021 by Lino Granger MD at [facility] Left: Shoulder Shoulder Innovations LLC [id number] 09/26/2025 [id number] 44 / / [id number] Shoulder Innovations Llc [id number] Stem Shoulder Porous Titanium Humeral Small - [id number] Implanted:Qty: 1 on 06/03/2021 by Lino Granger MD at [facility] Left: Shoulder Shoulder Innovations LLC [id number] 03/10/2026 [id number] 20 / / [id number] Procedures Procedure Name Priority Date/Time Associated Diagnosis Comments CT CHEST ABDOMEN PELVIS W CONTRAST ED 03/16/2021 10:48 PM CDT COLONOSCOPY IMAGES 06/21/2015 from Last 3 Months or Most Recently Relevant to Health Maintenance Results * CT Chest Abdomen Pelvis W Contrast (03/16/2021 10:48 PM CDT) Anatomical Region Laterality Modality Body N/A Computed Tomogra phy 03/16/2021 11:1 6 PM CDT Narrative 03/16/2021 11:27 PM CDT EXAM DESCRIPTION: CT CHEST ABDOMEN PELVIS W CONTRAST REASON FOR STUDY: Xkwsy-fnxyvoh-sximqc trauma, blunt, Trauma, left-sided thoracic/LUQ pain Pt arrives by [facility]. Pt was working outside and slid in wet grass. Pt stated he tried to catch himself and ran down a hill and fell. Pt complains of rib pain and neck pain. Pt arrives by [facility]. Pt was working outside and slid in wet grass. Pt stated he tried to catch himself and ran down a hill and fell. Pt complains of bilateral rib pain and neck pain. TECHNIQUE: CT scan of the chest, abdomen, and pelvis performed with intravenous and without oral contrast using helical scanning technique with dynamic intravenous contrast injection. Reconstructed coronal and sagittal MPR images reviewed. All images stored on PACS. Automated exposure control was used as a dose optimization technique for this examination. CONTRAST TYPE/DOSE: 100mL of IOVERSOL 320 MG IODINE/ML INTRAVENOUS SYRINGE injected via intravenous COMPARISON: None FINDINGS: LUNGS: Clear. Trachea and major airways are patent. HEART/MEDIASTINUM/CAMERON: Heart size normal. No enlarged lymph node. Thyroid gland and thoracic inlet unremarkable. CHEST MSK: Rtup-zc-fubhyvdc multilevel disc disease. Moderate shoulder arthritis. Nondisplaced left posterior 7th, 8th rib fractures, left lateral 6th rib fracture. CHEST WALL: Unremarkable. LIVER/BILIARY: Liver unremarkable. Biliary tree normal in caliber. GALLBLADDER: Well distended. No wall thickening or internal debris. SPLEEN: Atrophy with extensive irregularity, presumably laceration of the lower aspect accounting for moderate surrounding hematoma. PANCREAS: Normal. ADRENAL GLANDS: Normal. KIDNEYS/URINARY TRACT: Small cyst upper pole left kidney. Ureters and bladder appear normal. GI: Stomach and small bowel appear normal. Extensive noninflamed sigmoid diverticulosis. Normal appendix. OTHER ABDOMINAL/PELVIS: Major vascular structures are grossly patent and normal in caliber. Small to moderate volume of mixed attenuation free fluid in the pelvis. 4 cm fat containing periumbilical hernia. MSK: Moderate disc disease and facet arthropathy. BODY WALL: Normal. IMPRESSION: 1. Nondisplaced left posterolateral 6th, 7th, 8th rib fractures. No pneumothorax. 2. Splenic laceration with moderate surrounding hematoma extending along left pericolic gutter. Small to moderate volume of mixed attenuation serosanguineous fluid in the pelvis. Findings called at the time of interpretation. THIS IS AN ELECTRONICALLY VERIFIED FINAL REPORT 03/16/2021 11:27 PM - Electronically signed by Rafael Gaona M.D. AR: AFIA Report ID: [id number] Reading Location: [id number] Procedure Note Rafael Gaona MD - 03/16/2021 EXAM DESCRIPTION: CT CHEST ABDOMEN PELVIS W CONTRAST REASON FOR STUDY: Apikw-lsokvoh-apxycs trauma, blunt, Trauma, left-sided thoracic/LUQ pain Pt arrives by [facility]. Pt was working outside and slid in wet grass. Pt stated he tried to catch himself and ran down ahill and fell. Pt complains of rib pain and neck pain. Pt arrives by [facility]. Pt was working outside and slid in wet grass. Pt stated he tried to catch himself and ran down a hill and fell. Pt complains of bilateralrib pain and neck pain. TECHNIQUE: CT scan of the chest, abdomen, and pelvis performed with intravenous and without oral contrast using helical scanning techniquewith dynamic intravenous contrast injection. Reconstructed coronal and sagittalMPR images reviewed. All images stored on PACS. Automated exposure control was used as a dose optimization technique forthis examination. CONTRAST TYPE/DOSE: 100mL of IOVERSOL 320 MG IODINE/ML INTRAVENOUSSYRINGE injected via intravenous COMPARISON: None FINDINGS: LUNGS: Clear. Trachea and major airways are patent. HEART/MEDIASTINUM/CAMERON: Heart size normal. No enlarged lymph node. Thyroid gland and thoracic inlet unremarkable. CHEST MSK: Hfps-tr-ayaaldru multilevel disc disease. Moderate shoulder arthritis. Nondisplaced left posterior 7th, 8th rib fractures, leftlateral 6th rib fracture. CHEST WALL: Unremarkable. LIVER/BILIARY: Liver unremarkable. Biliary tree normal in caliber. GALLBLADDER: Well distended. No wall thickening or internal debris. SPLEEN: Atrophy with extensive irregularity, presumably laceration of the lower aspect accounting for moderate surrounding hematoma. PANCREAS: Normal. ADRENAL GLANDS: Normal. KIDNEYS/URINARY TRACT: Small cyst upper pole left kidney. Ureters andbladder appear normal. GI: Stomach and small bowel appear normal. Extensive noninflamed sigmoid diverticulosis. Normal appendix. OTHER ABDOMINAL/PELVIS: Major vascular structures are grossly patent and normal in caliber. Small to moderate volume of mixed attenuation freefluid in the pelvis. 4 cm fat containing periumbilical hernia. MSK: Moderate disc disease and facet arthropathy. BODY WALL: Normal. IMPRESSION: 1. Nondisplaced left posterolateral 6th, 7th, 8th rib fractures. No pneumothorax. 2. Splenic laceration with moderate surrounding hematoma extending alongleft pericolic gutter. Small to moderate volume of mixed attenuation serosanguineous fluid in the pelvis. Findings called at the time of interpretation. THIS IS AN ELECTRONICALLY VERIFIED FINAL REPORT 03/16/2021 11:27 PM - Electronically signed by Rafael Gaona M.D. AR: AFIA Report ID: [id number] Reading Location: [place] [address] Alexandrea Castano MD IM CT PROCEDURES Final Result * COLONOSCOPY IMAGES (06/21/2015) Anatomical Region Laterality Modality Other Narrative 06/21/2015 Ordered by an unspecified provider. us Historical Provider GI PROCEDURE ORDERABLES F inal Result from Last 3 Months or Most Recently Relevant to Health Maintenance Insurance [facility] MEDICARE [employer] [facility] [place] [id number] Advance Directives For more information, please contact: [phone] * Full Code (Latest Code Status on [...] 6:44 PM 12/20/2019 10:02 AM Care Teams Manager Garage Relationship Specialty Start Date End Date Ajay Rhodes MD PCP - General 12/19/19 Rosana Noyola MD Consulting Physician Gastroenterology 12/21/19
--- OUTSIDE RECORDS SUMMARY | 2024-11-06 14:45 | XMS_ITS | Encounter Summary ---
Author Organization [facility] Address [address] [place] [address] Care Team Providers Care Aviation Program Manager Name Role Phone Ajay Rhodes MD Primary Care Provider Encounter Details Date Type Department Care Team (Late Contact Info) Description 08/05/2007 Outpatient Historical [facility]3] Internal Medicine [address] [address] Ajay Rhodes MD [address] [place] [address] [address] [place] [address] Social History Tobacco Use Types Packs/Day Years Used Date Smoking Tobacco: Never Assessed Sex and Gender Information Value Date Recorded Sex Assigned at Not on file 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 Gender Identity Not on file Sexual Orientation Not on file documented as of this encounter Plan of Treatment Upcoming Encounters Date Type Department Care Team (Late st Contact Info) Description 11/13/2024 1:00 PM CDT Office Visit [facility]3] Oncology and Hematology - [place] [address] [place] [address] [facility] [address] [place] [address] [place] [address] [place] [address] [address] [place] [address] 03/15/2025 10:00 AM CDT Office Visit [facility]3] Primary Care [address] [place] [address] Ajay Rhodes MD [address] [place] [address] documented as of this encounter Visit Diagnoses Not on filedocumented in this encounter Care Teams Aviation Program Manager Relationship Specialty Start Date End Date Ajay Rhodes MD PCP - General 01/19/08 documented as of this encounter
--- OUTSIDE RECORDS SUMMARY | 2024-11-06 14:45 | XMS_ITS | Encounter Summary ---
Author Organization [facility] Address 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 [address] D.O.B: 1955 SSN: [id number] Parent/Guardian if applicable: Patient Insurance: [facility] Policy#: [id number] Group #: Best To Call : [phone] Best Time to Call : ANYTIME. May We Leave Message At That Number : YES, LEAVE MESSAGE. Referring to: GASTROENTEROLOGY Dr. Khanh [place] ph: [phone] fax: [phone]. Dr. Rosana Noyola ph: [phone] fax: [phone]. Reason for referral: colonoscopy ORDERING PHYSICIAN : PHIL HANCOCK MD PRIORITY OF REFERRAL: AT PATIENT'S CONVENIENCE. OFFICE JITTERBUG OPERATOR & PHONE: Seema Jiang C FOR SCHEDULING [...] SPECIALTY REFERRAL: GASTROENTEROLOGY Dr. Rosana Noyola ph: [phone]: [phone]. [address] Khanh [place] ph: [phone] fax: [phone].colonoscopy Patient Education: Risks, benefits, and possible side [...] Description 11/13/2024 1:00 PM CDT Office Visit [facility] Oncology and Hematology - [place] [address] [place] [address] [address] [place] [address] [place] [address] [place] [address] [address] [place] [address] 03/15/2025 10:00 AM CDT Office Visit [facility] Primary Care [place] [address] [place] [address] Phil Hancock MD [address] [place] [address] [address] [place] [address] documented as of this encounter Visit Diagnoses Not on filedocumented in this encounter Care Teams Dredge Pumper Relationship Specialty Start Date End Date Phil Hancock MD PCP - General 01/19/08 documented as of this encounter
--- OUTSIDE RECORDS SUMMARY | 2024-11-06 14:45 | XMS_ITS | Encounter Summary ---
Author Organization [facility] Address 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 Gender Identity Not on file Sexual Orientation Not on file documented as of this encounter Plan of Treatment Upcoming Encounters Date Type Department Care Team (Late st Contact Info) Description 11/13/2024 1:00 PM CDT Office Visit [facility] Oncology and Hematology - [place] [address] [place] [address] [facility] [address] [place] [address] [place] [address] [place] [address] [address] [place] [address] 03/15/2025 10:00 AM CDT Office Visit [facility] Primary Care [address] [place] [address] Ajay Rhodes MD [address] [place] [address] documented as of this encounter Visit Diagnoses Not on filedocumented in this encounter Care Teams Drywall Carrier Relationship Specialty Start Date End Date Ajay Rhodes MD PCP - General 01/19/08 documented as of this encounter
--- OUTSIDE RECORDS SUMMARY | 2024-11-06 14:45 | XMS_ITS | Encounter Summary ---
Author Organization [facility] Address 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 Gender Identity Not on file Sexual Orientation Not on file documented as of this encounter Plan of Treatment Upcoming Encounters Date Type Department Care Team (Late st Contact Info) Description 11/13/2024 1:00 PM CDT Office Visit [facility] Oncology and Hematology - [place] [address] [place] [address] [facility] [address] [place] [address] [place] [address] [place] [address] [address] [place] [address] 03/15/2025 10:00 AM CDT Office Visit [facility] Primary Care [address] [place] [address] Ajay Rhodes MD [address] [place] [address] documented as of this encounter Visit Diagnoses Not on filedocumented in this encounter Care Teams Guest Experience Specialist Relationship Specialty Start Date End Date Ajay Rhodes MD PCP - General 01/19/08 documented as of this encounter
--- OUTSIDE RECORDS SUMMARY | 2024-11-06 14:45 | XMS_ITS | Encounter Summary ---
Author Organization [facility] Address 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 Topic: Patient or Caregiver Communication Request >> Feb 17, 2024 9:25 AM Tiffanie Sapp wrote: Patient or Caregiver requesting advice Caller: Vinita gentile Patient/Caregiver Callback Number: [phone] Call Notes: Caller states the patient had [...] Description 11/13/2024 1:00 PM CDT Office Visit [facility] Oncology and Hematology - [place] [address] [place] [address] Randall Triplett MD [address] [facility] [address] [place] [address] 03/15/2025 10:00 AM CDT Office Visit [facility] Primary Care [address] [place] [address] [place] [address] Ajay Rhodes MD [address] [place] [address] documented as of this encounter Visit Diagnoses Not on filedocumented in this encounter Care Teams Fisheries Officer Relationship Specialty Start Date End Date Ajay Rhodes MD PCP - General 01/19/08 documented as of this encounter
--- OUTSIDE RECORDS SUMMARY | 2024-11-06 14:45 | XMS_ITS | Encounter Summary ---
Author Organization [facility] [place] Address 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 [address] D.O.B: 1955 SSN: [id number] Parent/Guardian if applicable: Patient Insurance: [employer] CROSS BLUE SHIELD ID#: [id number] Group#: ORDER(S) #: [id number] xray c spine PLEASE SCHEDULE THE APPOINTMENT AT THE FOLLOWING LOCATION: [facility] [phone]. SPECIAL SCHEDULING INSTRUCTIONS: walkin ORDERING PHYSICIAN: PHIL HANCOCK MD OFFICE CORNCOB PIPES ASSEMBLER & PHONE: Shruthi Hart E * Phil [...] NECK: lat m tender, no central tender, real estate agency principal ok EXTREMITIES: BILATERAL LOWER EXTREMITIES: No misalignment [...] status: CONTINUED, 11/18/2006. LAB ORDERS: Order number: [id number] Test Ordered: XRAY C SPINES, ROUTINE (5 VIEWS) W/OBL V70.0-ROUTINE GENERAL MEDICAL EXAMINATION check lab discussed LAB ORDERS: Order number: [id number] Test Ordered: CBC W/ DIFFERENTIAL 3150 Order number: [id number] Test Ordered: COMPREHENSIVE METABOLIC PANEL & GFR 1112 Order number: [id number] Test Ordered: LIPID PANEL 1078 Order number: [id number] Test Ordered: TSH 1720 Order number: [id number] Test Ordered: PSA, TOTAL 1002 RETURN VISIT : Instructed to call if not improving. Electronically Signed by: Phil Hancock MD on October documented in this encounter Plan of Treatment Upcoming Encounters Date Type Department Care Team (Late st Contact Info) Description 11/13/2024 1:00 PM CDT Office Visit [facility] Oncology and Hematology - [place] [address] [facility] [address] [place] [address] Randall Triplett MD [address] [facility] [address] [place] [address] 03/15/2025 10:00 AM CDT Office Visit [facility] Primary Care [address] [place] [address] Phil Hancock MD [address] [place] [address] [place] [address] documented as of this encounter Visit Diagnoses Not on filedocumented in this encounter Care Teams Mold Technician Relationship Specialty Start Date End Date Phil Hancock MD PCP - General 01/19/08 documented as of this encounter
--- OUTSIDE RECORDS SUMMARY | 2024-11-06 14:45 | XMS_ITS | Encounter Summary ---
Author Organization [facility] Address 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 Gender Identity Not on file Sexual Orientation Not on file documented as of this encounter Plan of Treatment Upcoming Encounters Date Type Department Care Team (Late st Contact Info) Description 11/13/2024 1:00 PM CDT Office Visit [facility] Oncology and Hematology - [place] [address] [place] [address] [facility] [address] [place] [address] [place] [address] [place] [address] [address] [place] [address] 03/15/2025 10:00 AM CDT Office Visit [facility] Primary Care [address] [place] [address] Ajay Rhodes MD [address] [place] [address] documented as of this encounter Visit Diagnoses Not on filedocumented in this encounter Care Teams Ex Assistant/Program Director Relationship Specialty Start Date End Date Ajay Rhodes MD PCP - General 01/19/08 documented as of this encounter
--- OUTSIDE RECORDS SUMMARY | 2024-11-06 14:45 | XMS_ITS | Encounter Summary ---
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 Gender Identity Not on file Sexual Orientation Not on file documented as of this encounter Plan of Treatment Upcoming Encounters Date Type Department Care Team (Late st Contact Info) Description 11/13/2024 1:00 PM CDT Office Visit [facility] Oncology and Hematology - [place] [address] [facility] 200 [place] [address] Randall Triplett MD [address] [facility] [address] [place] [address] 03/15/2025 10:00 AM CDT Office Visit [facility] Primary Care [address] [place] [address] Ajay Rhodes MD [address] [place] [address] [address] [place] [address] documented as of this encounter Visit Diagnoses Not on filedocumented in this encounter Care Teams Nozzle Worker Relationship Specialty Start Date End Date Ajay Rhodes MD PCP - General 01/19/08 documented as of this encounter
--- OUTSIDE RECORDS SUMMARY | 2024-11-06 14:45 | XMS_ITS | Encounter Summary ---
Author Organization [facility] Address 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 Gender Identity Not on file Sexual Orientation Not on file documented as of this encounter Plan of Treatment Upcoming Encounters Date Type Department Care Team (Late st Contact Info) Description 11/13/2024 1:00 PM CDT Office Visit [facility] Oncology and Hematology - [place] [address] [place] [address] [facility] [address] [place] [address] [place] [address] [place] [address] [address] [place] [address] 03/15/2025 10:00 AM CDT Office Visit [facility] Primary Care [address] [place] [address] Ajay Rhodes MD [address] [place] [address] documented as of this encounter Visit Diagnoses Not on filedocumented in this encounter Care Teams Optometry Teacher Relationship Specialty Start Date End Date Ajay Rhodes MD PCP - General 01/19/08 documented as of this encounter
--- OUTSIDE RECORDS SUMMARY | 2024-11-06 14:45 | XMS_ITS | Encounter Summary ---
Author Organization [facility] Address 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 Gender Identity Not on file Sexual Orientation [...] Description 11/13/2024 1:00 PM CDT Office Visit [facility] Oncology and Hematology - [place] [address] [facility] [address] [place] [address] Randall Triplett MD 1 [facility] [address] [place] [address] 03/15/2025 10:00 AM CDT Office Visit [facility] Primary Care [address] [place] [address] Ajay Rhodes MD [address] [place] [address] [address] [place] [address] documented as of this encounter Visit Diagnoses Not on filedocumented in this encounter Care Teams Application Systems Architect Relationship Specialty Start Date End Date Ajay Rhodes MD PCP - General 01/19/08 documented as of this encounter
--- OUTSIDE RECORDS SUMMARY | 2024-11-06 14:45 | XMS_ITS | Encounter Summary ---
Author Organization [facility] Address [address] [place] [address] Care Team Providers Care Methods Specialist Engineer Name Role Phone Ajay Rhodes MD Primary Care Provider Encounter Details Date Type Department Care Team (Late Contact Info) Description 10/25/[address] 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 Oncology and Hematology - [place] [address] [place] [address] [facility] [address] [place] [address] [place] [address] [place] [address] [address] [place] [address] 03/15/2025 10:00 AM CDT Office Visit [facility] Primary Care [address] [place] [address] Ajay Rhodes MD [address] [place] [address] documented as of this encounter Visit Diagnoses Not on filedocumented in this encounter Care Teams Methods Specialist Engineer Relationship Specialty Start Date End Date Ajay Rhodes MD PCP - General 01/19/08 documented as of this encounter
--- OUTSIDE RECORDS SUMMARY | 2024-11-06 14:45 | XMS_ITS | Encounter Summary ---
Author Organization [facility] Address 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 Gender Identity Not on file Sexual [...] Description 11/13/2024 1:00 PM CDT Office Visit [facility] Oncology and Hematology - [place] [address] [facility] 200 [place] [address] Randall Triplett MD 0 [facility] [address] [place] [address] 03/15/2025 10:00 AM CDT Office Visit [facility] Primary Care [address] [place] [address] Ajay Rhodes MD [address] [place] [address] [address] [place] [address] documented as of this encounter Visit Diagnoses Not on filedocumented in this encounter Care Teams Automobile Detailer Relationship Specialty Start Date End Date Ajay Rhodes MD PCP - General 01/19/08 documented as of this encounter
--- OUTSIDE RECORDS SUMMARY | 2024-11-06 14:45 | XMS_ITS | Encounter Summary ---
Author Organization [facility] Address 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 Gender Identity Not on file Sexual Orientation Not on file documented as of this encounter Plan of Treatment Upcoming Encounters Date Type Department Care Team (Late st Contact Info) Description 11/13/2024 1:00 PM CDT Office Visit [facility] Oncology and Hematology - [place] [address] [place] [address] [facility] 200 [place] [address] [place] [address] [place] [address] [address] [place] [address] 03/15/2025 10:00 AM CDT Office Visit [facility] Primary Care [address] [place] [address] Ajay Rhodes MD [address] [place] [address] documented as of this encounter Visit Diagnoses Not on filedocumented in this encounter Care Teams Evp Chief Exploration Officer Relationship Specialty Start Date End Date Ajay Rhodes MD PCP - General 01/19/08 documented as of this encounter
--- OUTSIDE RECORDS SUMMARY | 2024-11-06 14:45 | XMS_ITS | Encounter Summary ---
Author Organization [facility] Address [address] [place] [address] Care Team Providers Care Bean Snapper Name Role Phone Ajay Rhodes MD Primary Care Provider [phone] Reason for Visit * Auth/Cert Specialty Diagnoses / Procedures Referred By Nithin t [place] [address] [place] [address] Phone: tel: fax: [facility] [address] [facility] [address] [place] [address] Phone: tel: fax: Referral ID Status Reason Start Date Expiration Date Visits Re quested Visits Authorized [id number] 1 1 Encounter Details Date Type Department Care Team (Late st Contact Info) Description 03/05/2024 Hospital Encounter 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 Fatigue, weakness: PT/OT involved; mobility has [...] advanced. He is anticipating discharge home to [place] today and to follow up with his cancer treatment at [facility] for chemoradiation once this is coordinated. In [...] Discussed with patient/family. MPOA/relationship: Abner Cortes (): [phone] Social History/ Caregiver Assessment: . Has two children -All emotionally involved and available to support Gigi as needed. 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 2023-CT NEG/TESTING @ [facility] Past Surgical History: Procedure Laterality Date HX COLONOSCOPY AGE 61 HX CRANIOTOMY FOR STEREOTACTIC GUIDED SURGERY Left 03/02/2024 CRANIOTOMY STEREOTACTIC performed by Chelsey Bowens MD at [facility] HX KNEE ARTHROSCOPY W/ MENISCAL REPAIR Right 2018 HX VASECTOMY ND ARTHROSCOPY KNEE SYNOVECTOMY LIMITED SPX 03/18/2020 KNEE SYNOVECTOMY ARTHROSCOPIC performed by Pancho Barfield MD at [facility] OR [facility] ND ARTHRS KNE SURG W/MENISCECTOMY MED/LAT W/SHVG Left 03/18/2020 KNEE ARTHROSCOPY performed by Pancho Barfield MD at [facility] OR [facility] ND ARTHRS KNE SURG W/MENISCECTOMY MED/LAT W/SHVG 03/18/2020 PARTIAL MEDIAL MENISCECTOMY KNEE ARTHROSCOPIC performed by Pancho Barfield MD at [facility] OR [facility] ARTHRS KNEE ABRASION ARTHRP/MACROECONOMICS PROFESSOR DRLG/MICROFX 03/18/2020 KNEE CHONDROPLASTY ARTHROSCOPIC performed by Pancho Barfield MD at [facility] OR [facility] ND RPR AA HERNIA 1ST 3-10 CM REDUCIBLE N/A 01/21/2024 HERNIA UMBILICAL REPAIR performed by Jimenez Linares MD at [facility] Family History Problem Relation Name Age of [...] Patient needs follow up regarding:: No concerns [place] Symptom Assessment Scale (ESAS-r) Pain: 0 (03/06/24999) [...] care of this patient. Siri Denis NP [facility]iative [facility] [phone] Routed to: Ajay Rhodes MD Total time [...] advanced. He is anticipating discharge home to [place] today and to follow up with his cancer treatment at [facility] for chemoradiation once this is coordinated to [...] Context 02/29/2024 1824 03/06/2024 1717 Full Code [id number] Shun Youngblood MD ED 01/21/2024 0805 01/21/2024 1221 Full Code [id number] Jimenez Linares MD Inpatient Only showing the [...] [facility] Oncology and Hematology - [place] [address] [place] [address] 200 [place] [address] Randall Triplett MD [address] [facility] [address] [place] [address] 03/15/2025 10:00 AM CDT Office Visit [facility] Primary Care [address] [place] [address] Ajay Rhodes MD [address] [place] [address] [address] [place] [address] documented as of this encounter Visit Diagnoses Not on filedocumented in this encounter Care Teams Bean Snapper Relationship Specialty Start Date End Date Ajay Rhodes MD PCP - General 01/19/08 documented as of this encounter
--- OUTSIDE RECORDS SUMMARY | 2024-11-06 14:45 | XMS_ITS | Encounter Summary ---
Author Organization [facility] Address 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 [address] [place] [address] 03/15/2025 10:00 AM CDT Office Visit [facility] Primary Care [address] [place] [address] Ajay Rhodes MD [address] [place] [address] [address] [place] [address] documented as of this encounter Visit Diagnoses Not on filedocumented in this encounter Care Teams Desk Clerk Relationship Specialty Start Date End Date Ajay Rhodes MD PCP - General 01/19/08 documented as of this encounter
--- OUTSIDE RECORDS SUMMARY | 2024-11-06 14:45 | XMS_ITS | Encounter Summary ---
Author Organization [facility] Address 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 LAB ORDERS: 3 mo Order number: [id number] Test Ordered: COMPREHENSIVE METABOLIC PANEL & GFR 1112 Order number: [id number] Test Ordered: LIPID PANEL 1078 Order number: [id number] Test Ordered: PSA, TOTAL 1002 Patient Education: [...] [facility] [place] [address] [place] [address] [address] [place] [address] Randall Triplett MD [address] [facility] [address] [place] [address] 03/15/2025 10:00 AM CDT Office Visit [facility] Primary Care [address] [place] [address] Ajay Rhodes MD [address] [place] [address] [place] [address] documented as of this encounter Visit Diagnoses Not on filedocumented in this encounter Care Teams Primary Care Pediatrician Relationship Specialty Start Date End Date Ajay Rhodes MD PCP - General 01/19/08 documented as of this encounter
--- OUTSIDE RECORDS SUMMARY | 2024-11-06 14:45 | XMS_ITS | Clinical Summary ---
Author Organization [facility] Address [address] [place] [address] Care Team Providers Care Finance Executive Name Role Phone Ajay Rhodes MD Primary Care Provider [phone] Allergies Active Allergy Reactions Criticality Noted Date Comments No Known Allergies 05/12/2004 Medications azelastine (ASTELIN) 137 mcg/actuation nasal spray ADMINISTER 2 SPRAYS IN EACH NOSTRIL 2 TIMES DAILY. 30 mL 3 06/14/20 23 Active sildenafiL (VIAGRA) 100 mg tablet TAKE 1 TABLET BY MOUTH 1 TIME DAILY NEEDED FOR ERECTILE DYSFUNCTION. 6 Tablet 3 12/03/19 24 Active pantoprazole (PROTONIX) 40 mg Tablet, Delayed Release (E.C.) Take 1 Tablet (40 mg) by mouth daily. 90 Tablet 3 02/23/20 24 Active ondansetron (ZOFRAN ODT) 8 mg Tablet, Rapid Dissolve Dissolve 1 tablet on top of tongue then swallow with saliva every 8 hours as needed for nausea or vomiting 30 Tablet 1 07/03/20 24 Active mometasone (ELOCON) 0.1 % Cream Apply to affected area daily. 45 Gram 1 07/06/20 24 Active neomycin-bacitrac in-polymyxin (Triple Antibiotic) 3.5mg-400 unit- 5,000 unit/gram Ointment Apply to affected area 2 times daily. 07/06/20 24 Active azelastine (ASTELIN) 137 mcg/actuation nasal spray Administer 2 Sprays in each nostril 2 times daily. 30 mL 6 08/07/19 25 Active temozolomide (TEMODAR) 20 mg capsule Take 1 capsule (20 mg) by mouth daily before breakfast with 2 other temozolomide prescriptions for 275 mg total. Take for 5 days every 28 day cycle. 5 Capsule 5 08/10/19 25 Active temozolomide (TEMODAR) 5 mg capsule Take 1 capsule (5 mg) by mouth daily before breakfast with 2 other temozolomide prescriptions for 275 mg total. Take for 5 days every 4 weeks. 5 Capsule 5 08/10/19 25 Active temozolomide (TEMODAR) 250 mg capsule Take 1 capsule (250 mg) by mouth daily before breakfast with 2 other temozolomide prescriptions for 275 mg total. Take for 5 days every 28 days. 5 Capsule 5 08/10/19 25 Active silver sulfADIAZINE (SILVADENE) 1 % Cream Apply to affected area daily. 50 Gram 3 09/18/19 25 Active cyclobenzaprine (FLEXERIL) 10 mg tablet TAKE 1 TABLET BY MOUTH 3 TIMES DAILY NEEDED FOR SPASM. 30 Tablet 3 09/22/19 25 Active levETIRAcetam (KEPPRA) 1,000 mg tabletIndications :Seizures (CMS/HCC),Gliobla stoma multiforme of brain (CMS/HCC) TAKE 1 TABLET BY MOUTH TWICE A DAY 180 Tablet 1 09/29/19 25 Active HYDROcodone-aceta minophen (NORCO) 10-325 mg TabletIndications :Other osteoarthritis involving multiple joints Take 1 Tablet by mouth every 4 hours as needed (as needed for pain). DX Osteoarthritis multiple joints Max Daily Amount: 6 Tablets 180 Tablet 10/17/19 25 Active azelastine (ASTELIN) 137 mcg/actuation nasal spray Administer 2 Sprays in each nostril 2 times daily. 30 mL 3 10/26/19 25 Active HYDROcodone-aceta minophen (NORCO) 10-325 mg TabletIndications :Other osteoarthritis involving multiple joints Take 1 Tablet by mouth every 4 hours as needed (as needed for pain). DX Osteoarthritis multiple joints Max Daily Amount: 6 Tablets 180 Tablet 09/18/19 25 025 Disconti nued(Reo rder) Active Problems Patient Care Coordination No te Formatting of this note migh t be different from the original. [id number] 08/15/24 Problem Noted Date Diagnosed Date Frail elderly 10/25/2024 Palliative care encounter 03/06/2024 Seizures 03/04/2024 Brain [...] Encounters Date Type Department Care Team Description 10/25/2024 3:40 PM CDT Office Visit [place] [address] [place] [address] Ajay Rhodes MD Rotator cuff disorder, right (Primary Dx); Glioblastoma multiforme of brain (CMS/HCC); Other hyperlipidemia; Vitamin D deficiency; Seizures (CMS/HCC); Frail elderly; Atherosclerosis of aorta; Allergic sinusitis 10/23/2024 Telephone [place] [address] [place] [phone] Ajay Rhodes MD Clinical Consult Before Scheduling 10/17/2024 External Device Data STL ABSTRACTION Provider, Abstract 10/16/2024 Refill [place] [address] [place] [address] Ajay Rhdoes MD Other osteoarthritis involving multiple joints 10/10/2024 Orders Only [facility]ology - [place] [address] [place] [address] Randall Triplett MD 10/09/2024 1:00 PM CDT Office Visit [facility] - [place] [address] [place] [address] Randall Triplett MD GBM (glioblastoma multiforme) ([facility]) (Primary Dx) 10/03/2024 External Device Data STL ABSTRACTION Provider, Abstract 09/29/2024 Refill [facility] Neurosurgery - [facility] [address] [facility] [address] [place] [address] Gali Cyr PA-C Seizures ([facility]); Glioblastoma multiforme of brain ([facility]) 09/26/2024 External Device Data STL ABSTRACTION Provider, Abstract 09/26/2024 External Device Data STL ABSTRACTION Provider, Abstract 09/22/2024 Refill [facility] [address] [facility] [address] [place] [phone] Ajay Rhodes MD 09/19/2024 External Device Data STL ABSTRACTION Provider, Abstract 09/18/2024 Refill [facility] [address], [place] [address] Ajay Rhodes MD Other osteoarthritis involving multiple joints 09/06/2024 1:00 PM OPERATING SYSTEM DESIGNER Office Visit [facility]ematology - [place] [address] [place] [phone] Randall Triplett MD GBM (glioblastoma multiforme) ([facility]) (Primary Dx) 08/29/2024 External Device Data STL ABSTRACTION Provider, Abstract 08/29/2024 Chart Note [facility] Emergency Department - [address] [phone] Gume Dailey MD 08/24/2024 External Device Data STL ABSTRACTION Provider, Abstract 08/22/2024 Orders Only [facility] Oncology and Hematology [facility] [address] [place] [address] Randall Triplett MD 08/18/2024 Results Follow-Up [place] [address] [place] [address] Ajay Rhodes MD COMPREHENSIVE METABOLIC PANEL, LIPID PANEL, TSH, Additional followed-up results: 3 08/18/2024 Orders Only [address] [facility] [address] [place] [address] Ajay Rhodes MD Other osteoarthritis involving multiple joints 08/15/2024 10:00 AM OPERATING SYSTEM DESIGNER Office Visit [address] [place] [phone] Ajay Rhodes MD Glioblastoma multiforme of brain (CMS/HCC) (Primary Dx); Vitamin D deficiency; Other hyperlipidemia; Seizure-like activity (CMS/HCC); Myalgia; Abnormal glucose; Need for assistance with personal care 08/15/2024 External Device Data STL ABSTRACTION Provider, Abstract 08/15/2024 External Device Data STL ABSTRACTION Provider, Abstract 08/10/2024 Specialty Pharmacy [facility] [address] [place] [address] Marguerite Lemus, PHARMACIST 08/10/2024 Refill [facility] [place] [address] [place] [address] Randall Triplett MD 08/09/2024 9:30 AM OPERATING SYSTEM DESIGNER Office Visit [facility]ematology [facility] [address] [place] [address] Randall Triplett MD GBM (glioblastoma multiforme) ([facility]/H[facility]) (Primary Dx) from Last 3 Months Immunizations Immunization Administration [...] COVID-19 VACCINE - EMERGENCY USE AUTHORIZATION, MRNA, [id number](PF) 30 MCG/0.3 ML IM SUSP 03/22/2021,11/18/2020 12/09/2020 (PREVNAR 20)(6 WKS UP) PNEUM OCOCCAL CONJUGATE VACCINE 20-VALENT (PCV20), POLYSACCHARIDE [id number] CONJUGATE, ADJUVANT 0.5 ML (PF) IM 05/25/2022 [...] Never Smokeless Tobacco: Never Tobacco Cessation:Counseling Given: No Alcohol Use Standard Drinks/Week Comments Yes 0 [...] on file Legal Sex Male 4:14 AM OPERATING 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 DESIGNER Gender Identity Not on file Sexual Orientation Not on file Last Filed Vital Signs Vital Sign Reading Time Taken Comments Blood Pressure 139/63 10/25/2024 3:03 PM CDT Pulse 73 10/25/2024 3:03 PM CDT Temperature 36.6 C (97.9 F) 10/09/2024 1:08 PM CDT Respiratory Rate 15 10/09/2024 1:08 PM CDT Oxygen Saturation 97% 10/25/2024 3:03 PM CDT Inhaled Oxygen Concentration - - Weight 68 kg (150 lb) 10/25/2024 3:03 PM CDT Height 177.8 cm (5' 10 ) 10/25/2024 3:03 PM CDT Body Mass Index 21.52 10/25/2024 3:03 PM CDT Plan of Treatment Upcoming Encounters Date Type Department Care Team (Late st Contact Info) Description 11/13/2024 1:00 PM CDT Office Visit [facility] Hematology [place] [address] [place] [address] [address] [place] [phone] Randall Triplett MD [address] [facility] [address] [place] [address] 03/15/2025 10:00 AM CDT Office Visit [facility] Primary [facility] [address] [place] [address] Ajay Rhodes MD [address] [place] [address] [address] [place] [address] Health Maintenance Due Date Last Done Comments FIT-DNA Q 3 years 2002 Flex Sig/CT Colonography Q 5 years 2002 FIT/FOBT Q 1 year 06/16/2011 06/16/2010, 07/05/2006 RSV VACCINE (60+ or ) (1 - Risk 60-74 years 1-dose series) 2017 COVID-19 Vaccine (2023-2 5 season) 2024 03/22/2021, 11/18/2020 COLORECTAL SCREENING 06/21/2025 06/21/2015, 06/21/2015, 06/21/2015, Additional history exists Colorectal Cancer Screening 06/21/2025 DTAP/TDAP/TD VACCINES (3 - T d or Tdap) 03/24/2031 03/24/2021, 08/27/2011 PNEUMOCOCCAL VACCINE 50+ YEARS Completed 05/25/2022 , 03/19/2021 ZOSTER VACCINE Completed 03/15/2023, 11/26/2018 INFLUENZA VACCINE Completed 04/11/2024, , 05/25/2022, Additional history exists Medical Devices Implanted Type Area Digital Marketing Intern Device Identifier Shelf Expiration Date Model / Serial / Lot Duragen + 3x3in Dp-1033 - [id number] Implanted:Qty : 1 on 03/02/2024 by Chelsey Bowens MD at [facility] Graft Left: Cranial [employer] [id number] 09/29/2026 [id number] / / [id number] Hemostatic Surgiflo 8ml W/ Thrombin 2994 - [id number] Implanted:Qty : 1 on 03/02/2024 by Chelsey Bowens MD at [facility] Hemostatic Left: Brain J[employer]J- [employer] [id number] 05/01/2025 2994 / / [id number] Hemostatic Surgiflo 8ml W/ Thrombin 2994 - [id number] Implanted:Qty : 1 on 03/02/2024 by Chelsey Bowens MD at [facility] Hemostatic Left: Brain J[employer]- [employer] [id number] 04/01/2025 2994 / / [id number] Agent Hemostat Surgicel 4x8in - [id number] Implanted:Qty : 1 on 03/02/2024 by Chelsey Bowens MD at [facility] Hemostatic Left: Brain J&J- [employer] 07/01/2028 1952S / / [id number] Hemostatic Surgicel 1x2in 1960 - [id number] Implanted:Qty : 1 on 03/02/2024 by Chelsey Bowens MD at [facility] Hemostatic Left: Brain J&J- [employer] 09/01/20261 / / [id number] Hemostatic Surgifoam Sz100 1973 - [id number] Implanted:Qty : 1 on 03/02/2024 by Chelsey Bowens MD at [facility] Hemostatic Left: Brain J&J- [employer] 12/02/2027 1974 / / [id number] Mesh Ventralex 1.7in Sm Circ [id number] - [id number] Implanted:Qty : 1 on 01/21/2024 by Jimenez Linares MD at [facility] Mesh N/A: Umbilical BARD DAVOL [id number] 08/29/2025 [id number] / / [id number] Plate Matrxneuro Bur Hl Cvr .502.021 - Sno Load Or Sterilized Date On [place] Implanted:Qty : 1 on 03/02/2024 by Chelsey Bowens MD at [facility] Plate Left: Cranial J&J- DEPUY SYNTHES 04.502.021 / NO LOAD OR STERILIZED DATE ON TRINIDAD / Plate Matrxneuro Cranial 04.502.062 - Sno Load Or Sterilized Date On [place] Implanted:Qty : 2 on 03/02/2024 by Chelsey Bowens MD at [facility] Plate Left: Cranial J&J- DEPUY SYNTHES 04.502.062 / NO LOAD OR STERILIZED DATE ON [place]IDAD / Screw Matrixneuro Sd 503.103.01 - Sno Load Or Sterilized Date On [place] Implanted:Qty : 2 on 03/02/2024 by Chelsey Bowens MD at [facility] Screw Left: Cranial J&J- DEPUY SYNTHES 503103. 01 / NO LOAD OR STERILIZED DATE ON TR[place]IDAD / Description:All Synthes cran ial hardware, Requisition, [id number]. Screw Matrixneuro Sd .01 - Sno Load Or Sterilized Date On [place] Implanted:Qty : 4 on 03/02/2024 by Chelsey Bowens MD at [facility] Screw Left: Cranial J&J- DEPUY SYNTHES . 01 / NO LOAD OR STERILIZED DATE ON TRINIDAD / Procedures Procedure Name Priority Date/Time Associated Diagnosis Comments CBC WITH AUTODIFFERENTIAL Routine 10/09/2024 11:03 AM CDT MRI BRAIN W WO CONTRAST Routine 08/21/19 7:54 AM OPERATING SYSTEM DESIGNER HEMOGLOBIN A1C Routine 08/17/2024 10:10 AM OPERATING SYSTEM DESIGNER Abnormal glucose VITAMIN B12 LEVEL Routine 08/17/2024 10: 10 AM OPERATING SYSTEM DESIGNER Myalgia VITAMIN D 25 HYDROXY Routine 08/17/2024 10:10 AM OPERATING SYSTEM DESIGNER Vitamin D deficiency TSH Routine 08/17/2024 10:10 AM OPERATING SYSTEM DESIGNER Other hyperlipidemia LIPID PANEL Routine 08/17/2024 10:10 AM OPERATING SYSTEM DESIGNER Other hyperlipidemia COMPREHENSIVE METABOLIC PANEL Routine 08/17/2024 10:10 AM OPERATING SYSTEM DESIGNER Other hyperlipidemia ENDOSCOPY, COLON, SCREENING Routine 06/21/2015 POC OCCULT BLOOD UP TO 3 CARDS Routine 06/16/2010 Abdominal pain from Last 3 Months or Most Recently Relevant to Health Maintenance Results * CBC WITH AUTODIFFERENTIAL (10/09/2024 11:03 AM CDT) Blood us Randall Triplett MD HEMATOLOGY ORDERABLES Final Res ult * MRI BRAIN W WO CONTRAST (08/21/2024 7:54 AM OPERATING SYSTEM DESIGNER) Anatomical Region Laterality Modality Head Magnetic Resonan ce us Randall Triplett MD MR ORDERABLES Final Result * (ABNORMAL) VITAMIN D 25 HYDROXY (08/17/2024 10:10 AM OPERATING SYSTEM DESIGNER) VITAMIN D, 25 OH, TOTAL 26(L) 30 [...] D, (D2,D3), LC/MS/MS is recommended: order code 30455 (patients >2yrs). See Note 1 Note 1 For additional information, please refer to http://education.Talenta/faq/EFK583 (This link is being provided for informational/ educational purposes only.) FASTING:YES FASTING: YES Test Performed at: [facility] [address] [place] [address] Vik Ceja MD Blood 08/17/2024 10:1 0 AM OPERATING SYSTEM DESIGNER 08/17/2024 10:11 AM OPERATING SYSTEM DESIGNER us Ajay Rhodes MD CHEMISTRY ORDERABLES Final Re sult Performing Organization Address City/[facility]/ZIP Co de Phone Number [facility] [phone] [facility] [address] [place] [address] * TSH (08/17/2024 10:10 AM OPERATING SYSTEM DESIGNER) Pathologist [facility] TSH 1.58 0.40 - 4.50 mIU/L [facility] Comment: Test Performed at: [facility] [address] [place] [address] Vik Ceja MD Blood 08/17/2024 10:1 0 AM OPERATING SYSTEM DESIGNER 08/17/2024 10:11 AM OPERATING SYSTEM DESIGNER Ajay Rhodes MD CHEMISTRY ORDERABLES Final Re sult [facility] [phone] [facility] [address] [place] [address] * HEMOGLOBIN A1C (08/17/2024 10:10 AM OPERATING SYSTEM DESIGNER) Pathologist [facility] HEMOGLOBIN A1C 5.5 <5.7 % of total Hgb [facility] Comment: For the purpose of screening for the presence of diabetes: <5.7% Consistent with the absence of diabetes 5.7-6.4% Consistent with increased risk for diabetes (prediabetes) > or =6.5% Consistent with diabetes This assay result is consistent with a decreased risk of diabetes. Currently, no consensus exists regarding use of hemoglobin A1c for diagnosis of diabetes in children. According to [place] Diabetes Association (ADA) guidelines, hemoglobin A1c <7.0% represents optimal control in non- diabetic patients. Different metrics may apply to specific patient populations. Standards of Medical Care in Diabetes(ADA). ESTIMATED AVERAGE GLUCOSE (MG/DL) 111 mg/dL [facility] [place] ESTIMATED AVERAGE GLUCOSE (MMOL/L) 6.2 mmol/L [facility] [place] Comment: FASTING:YES FASTING: YES Test Performed at: [facility] [address] [place] [address] Vik Ceja Blood 08/17/2024 10:1 0 AM OPERATING SYSTEM DESIGNER 08/17/2024 10:11 AM OPERATING SYSTEM DESIGNER us Ajay Rhodes MD CHEMISTRY ORDERABLES Final Re sult [facility] [phone] [facility] [address] [place] [address] * VITAMIN B12 LEVEL (08/17/2024 10:10 AM OPERATING SYSTEM DESIGNER) Pathologist [facility] VITAMIN B12 283 200 - 1100 pg/mL [facility] Comment: Please Note: Although the reference range for vitamin B12 is 200-1100 pg/mL, it has been reported that between 5 and 10% of patients with values between 200 and 400 pg/mL may experience neuropsychiatric and hematologic abnormalities due to occult B12 deficiency; less than 1% of patients with values above 400 pg/mL will have symptoms. FASTING:YES FASTING: YES Test Performed at: [facility] [address] [facility] [place] [address] Vik Ceja MD Blood 08/17/2024 10:1 0 AM OPERATING SYSTEM DESIGNER 08/17/2024 10:11 AM OPERATING SYSTEM DESIGNER us Ajay Rhodes MD CHEMISTRY ORDERABLES Final Re sult [facility] [phone] [facility] [address] * (ABNORMAL) LIPID PANEL (08/17/2024 10:10 AM OPERATING SYSTEM DESIGNER) CHOLESTEROL 214(H) <200 mg/dL [facility] HDL 66 > OR = 40 mg/dL [facility] TRIGLYCERIDE 55 <150 mg/dL [facility] LDL CALCULATED 133(H) mg/dL (calc) [...] LDL-C. Lico SS et al. AVEL. 2013;310(19): 0426-3313 (http://education.Talenta/faq/QGI080) CHOL/HDL RATIO 3.2 <5.0 (calc) [facility] NON-HDL CHOLESTEROL 148(H) <130 mg/dL (calc) [facility] Comment: For patients with diabetes plus 1 major ASCVD risk factor, treating to a non-HDL-C goal of <100 mg/dL (LDL-C of <70 mg/dL) is considered a therapeutic option. Test Performed at: [facility] [address] [facility] [place] [address] Vik Ceja MD Blood 08/17/2024 10:1 0 AM OPERATING SYSTEM DESIGNER 08/17/2024 10:11 AM OPERATING SYSTEM DESIGNER us Ajay Rhodes MD CHEMISTRY ORDERABLES Final Re sult [facility] [phone] [facility] [address], [place] [address] * (ABNORMAL) COMPREHENSIVE METABOLIC PANEL (08/17/2024 10:10 AM OPERATING SYSTEM DESIGNER) GLUCOSE 84 65 - 99 mg/dL [facility] [...] Comment: FASTING:YES FASTING: YES Test Performed at: [facility] [address] [place] [address] Vik Ceja MD Blood 08/17/2024 10:1 0 AM OPERATING SYSTEM DESIGNER 08/17/2024 10:11 AM OPERATING SYSTEM DESIGNER Ajay Rhodes MD CHEMISTRY ORDERABLES Final Re sult Performing Organization Address [facility]/ZIP Co de Phone Number [facility] [phone] [facility] [address] [place] [address] * ENDOSCOPY, COLON, SCREENING (06/21/2015) Abstract Provider GI PROCEDURE ORDERABLES Edited Result - Final Performing Organization Address [facility] Co de Phone Number [facility] * POC OCCULT BLOOD UP TO 3 CARDS (06/16/2010) OCCULT BLOOD #1 NEG [facility] OCCULT BLOOD #2 [facility] OCCULT BLOOD #3 [facility] Stool specimen (specimen) us Ajay Rhodes MD POINT OF CARE TESTING Final R esult Performing Organization Address [facility] Co de Phone Number [facility] from Last 3 Months or Most Recently Relevant to Health Maintenance Insurance MEDICARE PART A AND B [facility] [place] [address] RX [employer]ES PLANS (INTERNAL) [facility] Plans RX GENERIC COMMERCIAL Commercial RX ALLWIN DATA Medicare Part B MEDICARE PART A AND B [facility] Advance Directives For more information, please contact: [phone] Documents on File Type Date Recorded Patient Sports Medicine Specialist Expl anation Advance Directive POA 03/07/2024 1:53 [...] 6:59 AM 03/18/2020 2:16 PM Care Teams Finance Executive Relationship Specialty Start Date End Date Ajay Rhodes MD PCP - General 01/19/08
--- OUTSIDE RECORDS SUMMARY | 2024-11-06 14:45 | XMS_ITS | Encounter Summary ---
Author Organization [facility] Address 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 OCCUPATION: . [employer] ALCOHOL: Does not give any significant history [...] 07/05/2006. LAB ORDERS: 1 week Order number: [id number] Test Ordered: COMPREHENSIVE METABOLIC PANEL W/ GLOMERULAR FILTRATION RATE, ESTIMATED (EGFR) 65673 Order number: [id number] Test Ordered: LIPID PANEL 7600 Order number: [id number] Test Ordered: PSA 5363 Order number: [id number] Test Ordered: TSH 899 Order number: [id number] Test Ordered: CBC (INCLUDES DIFF/PLT) 6399 Order number: [id number] Test Ordered: URINALYSIS, COMPLETE W/REFLEX TO CULTURE 3020 Order number: [id number] Test Ordered: HEMOCCULT SINGLE 98972 Order number: [id number] Test Ordered: URINALYSIS W/O MICRO 45537 V70.0-ROUTINE GENERAL MEDICAL EXAMINATION discussed, check lab [...] [facility] [place] [address] [place] [address] [address] [place] [phone] Randall Triplett MD [address] [facility] [address] [place] [address] 03/15/2025 10:00 AM CDT Office Visit [facility] [place] [address] [place] [address] Ajay Rhodes MD [address] [place] [phone] documented as of this encounter Visit Diagnoses Not on filedocumented in this encounter Care Teams Linker Up Relationship Specialty Start Date End Date Ajay Rhodes MD PCP - General 01/19/08 documented as of this encounter
--- OUTSIDE RECORDS SUMMARY | 2024-11-06 14:45 | XMS_ITS | Encounter Summary ---
Author Organization [facility] Address 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 Gender Identity Not on file Sexual Orientation Not on file documented as of this encounter Miscellaneous Notes * Telephone Encounter - Chelsey Singleton RN - 02/28/2024 11:53 AM CDT Date of last visit addressing condition(s) being treated: 02/23/24 Recent Visits Date Type Provider Dept 02/23/24 Office Visit Ajay Rhodes MD [facility] 10/21/23 Office Visit Ajya Rhodes MD [facility] 10/04/23 Office Visit Ajay Rhodes MD [facility] 03/31/23 Office Visit Ajay Rhodes MD [facility] 11/23/22 Office Visit Ajay Rhodes MD [facility] Showing recent visits within past 540 days with a meds authorizing provider and meeting all other requirements Future Appointments Date Type Provider Dept 04/11/24 Appointment Ajay Rhodes MD [facility] 05/17/24 Appointment Ajay Rhodes MD [facility] Showing future appointments within next 365 days with a meds authorizing provider and meeting all other requirements Correct Pharmacy: Yes Medication below pended for you. Medication (Ask patient/caregiver to spell if possible): HYDROcodone- acetaminophen (NORCO) 10-325 mg Tablet Preferred Pharmacy: [place] [id number] [place] [address] Patient/Caregiver Callback Number: [phone] (home) Call Notes: Requesting refill early will be leaving to go out of town this Wednesday please advise request HYDROcodone-acetaminophen (NORCO) 10-325 mg Tablet [facility] [id number] [place] [address] only this location Chelsey Singleton, RN * Telephone Encounter - Maira Lopez - 02/28/2024 11:24 AM CDT Copied from [facility] #[id number]. Topic: Medication Request >> Feb 28, 2024 11:22 AM Maira Yeh wrote: Caller is requesting: Medication - New Request (Not Currently Taking) Medication (Ask patient/caregiver to spell if possible): HYDROcodone- acetaminophen (NORCO) 10-325 mg Tablet Preferred Pharmacy: [facility] [id number] [place] [address] Patient/Caregiver Callback Number: [phone] (home) Call Notes: Requesting refill early will be leaving to go out of town this Wednesday please advise request HYDROcodone-acetaminophen (NORCO) 10-325 mg Tablet [facility] [id number] [place] [address] only this location documented in this encounter Plan of Treatment Upcoming Encounters Date Type Department Care Team (Late st Contact Info) Description 11/13/2024 1:00 PM CDT Office Visit [facility] Oncology and Hematology - [place] [address] [place] [address] [address] [place] [phone] Randall Triplett MD [address] [facility] [address] [place] [address] 03/15/2025 10:00 AM CDT Office Visit [facility] Primary Care [address] [place] [address] Ajay Rhodes MD [address] [place] [address] documented as of this encounter Visit Diagnoses Diagnosis Other osteoarthritis involving multiple joints documented in this encounter Care Teams Drying Frame Operator Relationship Specialty Start Date End Date Ajay Rhodes MD PCP - General 01/19/08 documented as of this encounter
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
--- OUTSIDE RECORDS SUMMARY | 2024-11-06 14:45 | XMS_ITS | Encounter Summary ---
Author Organization [facility] Address 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 PHARMACY NUMBER: [phone] SECTION 1: REQUESTED ACTION issa 02/28/07 at 10:41 am: MEDICATION REQUEST: MEDICATION REQUEST: Patient requests a refill. gen vicodin #[id number] 02/04/07 DOCTOR`S RESPONSE: debby 02/28/07 at 12:40 pm prev note * Ajay Rhodes MD - 12/21/2007 1:22 PM CDT TIME:11:57 am PATIENT`S HOME PHONE: PATIENT`S WORK PHONE: PATIENT`S INSURANCE: [employer] WHO TOOK THE CALL: Lorire Lynch C GENERAL INFORMATION WHO CALLED: Patient called. PHARMACY NUMBER: [phone] SECTION 1: PT NEVER TOOK SCRIPT IN [...] Description 11/13/2024 1:00 PM CDT Office Visit [facility] Oncology and Hematology - [place] [address] [place] [address] [address] [place] [address] [place] [address] [place] [address] [address] [place] [address] 03/15/2025 10:00 AM CDT Office Visit [facility] Primary Care [address] [place] [address] Ajay Rhodes MD [address] [place] [address] [address] [place] [address] documented as of this encounter Visit Diagnoses Not on filedocumented in this encounter Care Teams Marketing Manager Health Communications Relationship Specialty Start Date End Date Ajay Rhodes MD PCP - General 01/19/08 documented as of this encounter
--- OUTSIDE RECORDS SUMMARY | 2024-11-06 14:45 | XMS_ITS | Encounter Summary ---
Author Organization [facility] Address 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 Gender Identity Not on file Sexual Orientation [...] and Hematology - [place] [address] [facility] [address] [place] [address] Randall Triplett MD 0 [facility] [address] [place] [address] 03/15/2025 10:00 AM CDT Office Visit [facility] Primary Care [address] [place] [address] Ajay Rhodes MD [address] [place] [address] [address] [place] [address] documented as of this encounter Visit Diagnoses Not on filedocumented in this encounter Care Teams Account Support Rep Relationship Specialty Start Date End Date Ajay Rhodes MD PCP - General 01/19/08 documented as of this encounter
--- OUTSIDE RECORDS SUMMARY | 2024-11-06 14:45 | XMS_ITS | Encounter Summary ---
Author Organization [facility] Address 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 PHARMACY NUMBER: [phone] 02/04/07 request refill of Hydrocodone/APAP 7.5/750 mg [...] Description 11/13/2024 1:00 PM CDT Office Visit [facility] Oncology and Hematology - [place] [address] [facility] 200 [place] [phone] Randall Triplett MD [address] [facility] [address] [place] [address] 03/15/2025 10:00 AM CDT Office Visit [facility] Primary Care [place] [address] [place] [address] Ajay Rhodes MD [address] [place] [address] [address] [place] [address] documented as of this encounter Visit Diagnoses Not on filedocumented in this encounter Care Teams Building Equipment Operator Relationship Specialty Start Date End Date Ajay Rhodes MD PCP - General 01/19/08 documented as of this encounter
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
== END 2024-11-06 12:59 | disposition home or self-care (01) ==
PROVIDERS: PCP Internal Medicine Hematology & Oncology; Visit Provider Radiology Radiation Oncology
DX: C71.9 Malignant neoplasm of brain, unspecified (principal)
CPT/HCPCS: 70553; A9579

== ENCOUNTER 2024-11-13 12:20 | Outpatient (CLI) | payer MEDICARE, OTHER, SELFPAY ==
[2024-11-13 12:34] LABS: Basophils Percent Auto 0.3 % (0.2-1.2); Eosinophils Absolute Auto 0.1 K/mm3 (0-0.3); Eosinophils Percent Auto 2.4 % (0-4.4); Hematocrit 36.6 % (42.0-52.0); Hemoglobin 12.2 g/dL (14.0-18.0); Immature Granulocyte Absolute 0.01 K/mm3 (0.00-0.031); Immature Granulocyte Percent A 0.3 % (0-0.5); Lymphocytes Absolute Auto 0.79 K/mm3 (0.9-3.2); Lymphocytes Percent Auto 20.8 % (18.3-44.2); Mean Corpuscular HGB Conc 33.3 g/dl (32-36); Mean Corpuscular Volume 90.1 fl (80-100); Mean Platelet Volume 9.3 fl (7.4-10.4); Monocytes Absolute Auto 0.3 K/mm3 (0.1-0.6); Monocytes Percent Auto 7.4 % (2.6-8.5); Neutrophils Absolute Auto 2.6 K/mm3 (1.3-6.7); Neutrophils Percent Auto 68.8 % (45.5-73.1); Platelet Count Result 131 k/mm3 (150-375); Red Blood Count 4.06 M/mm3 (4.6-6.20); Red Cell Distribution Width 12.9 % (11.5-14.5); White Blood Count 3.8 K/mm3 (4.5-10.0)
[2024-11-13 12:38] LABS: Blood Urea Nitrogen 20 mg/dL (8-26); Carbon Dioxide 28 mmol/L (22-30); Chloride 100 mmol/L (98-109); Estimated Glomerular Filt Rate > 60; Glucose 96 mg/dL (70-105); Ionized Calcium (POC) 1.23 mmol/L (1.11-1.31); Potassium 3.7 mmol/L (3.5-4.9); Sodium 139 mmol/L (138-146)
--- OUTSIDE RECORDS SUMMARY | 2024-11-13 13:34 | XMS_ITS | Encounter Summary ---
Author Organization [facility] Address 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 [address] [place] [address] [place] [address] [place] [address] [address] [place] [address] 03/15/2025 10:00 AM CDT Office Visit [facility] Primary Care [address] [place] [address] Ajay Rhodes MD [address] [place] [address] documented as of this encounter Visit Diagnoses Not on filedocumented in this encounter Care Teams Bartender Manager Relationship Specialty Start Date End Date Ajay Rhodes MD PCP - General 01/19/08 documented as of this encounter
--- OUTSIDE RECORDS SUMMARY | 2024-11-13 13:34 | XMS_ITS | Encounter Summary ---
Author Organization [facility] Address 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 LAB ORDERS: 3 mo Order number: [id number] Test Ordered: COMPREHENSIVE METABOLIC PANEL & GFR 1112 Order number: [id number] Test Ordered: LIPID PANEL 1078 Order number: [id number] Test Ordered: PSA, TOTAL 1002 Patient Education: [...] Description 01/01/2025 10:00 AM CDT Office Visit [facility] Oncology and Hematology - [place] [address] [place] [address] [address] [place] [address] Randall Triplett MD [address] [facility] [address] [place] [address] 03/15/2025 10:00 AM CDT Office Visit [facility] Primary Care [address] [place] [address] Ajay Rhodes MD [address] [place] [address] [place] [address] documented as of this encounter Visit Diagnoses Not on filedocumented in this encounter Care Teams Tiller Man Relationship Specialty Start Date End Date Ajay Rhodes MD PCP - General 01/19/08 documented as of this encounter
--- OUTSIDE RECORDS SUMMARY | 2024-11-13 13:34 | XMS_ITS | Encounter Summary ---
Author Organization [facility] Address [address] [place] [address] Care Team Providers Care Nutrition Teacher Name Role Phone Ajay Rhodes MD Primary Care Provider Encounter Details Date Type Department Care Team (Late Contact Info) Description 07/05/2006 Outpatient Historical [facility] Internal Medicine [address] [address] Ajay Rhodes MD [address] [place] [address] [address] [place] [address] Social History Tobacco Use Types Packs/Day Years Used Date Smoking Tobacco: Never Assessed Sex and Gender Information Value Date Recorded Sex Assigned at Not on file 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 [address] [place] [address] [place] [address] [place] [address] [address] [place] [address] 03/15/2025 10:00 AM CDT Office Visit [facility] Primary Care [address] [place] [address] Ajay Rhodes MD [address] [place] [address] documented as of this encounter Visit Diagnoses Not on filedocumented in this encounter Care Teams Nutrition Teacher Relationship Specialty Start Date End Date Ajay Rhodes MD PCP - General 01/19/08 documented as of this encounter
--- OUTSIDE RECORDS SUMMARY | 2024-11-13 13:34 | XMS_ITS | Encounter Summary ---
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 Gender Identity Not on file Sexual Orientation Not on file documented as of this encounter Plan of Treatment Upcoming Encounters Date Type Department Care Team (Late st Contact Info) Description 01/01/2025 10:00 AM CDT Office Visit [facility] Oncology and Hematology - [place] [address] [facility] [address] [place] [address] Randall Triplett MD [address] [facility] [address] [place] [address] 03/15/2025 10:00 AM CDT Office Visit [facility] Primary Care [address] [place] [address] Ajay Rhodes MD [address] [place] [address] [address] [place] [address] documented as of this encounter Visit Diagnoses Not on filedocumented in this encounter Care Teams Operations Tech Relationship Specialty Start Date End Date Ajay Rhodes MD PCP - General 01/19/08 documented as of this encounter
--- OUTSIDE RECORDS SUMMARY | 2024-11-13 13:34 | XMS_ITS | Clinical Summary ---
Author Organization 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 HLD (hyperlipidemia) 06/02/2021 Risk factors for obstructive sleep apnea 021 Primary osteoarthritis, left shoulder 04/30/2021 Overview (04/30/2021): Added automatically from request for surgery [id number] Multiple closed fractures of ribs of left [...] (12/19/2019): Added automatically from request for surgery [id number] Arthralgia of shoulder 08/26/2012 Duodenal ulcer Immunizations [...] on file 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 Gender Identity Not on file Sexual Orientation [...] 03/15/2023, 11/26/2018 Medical Devices Implanted Type Area Mop Worker Device Identifier Shelf Expiration Date Model / Serial / Lot [employer] 6191-1-010 Simplex P Radiopaque Full Dose Cement Bone Sterile - [id number] Implanted:Qty: 1 on 06/03/2021 by Lino Granger MD at [facility] Bone Cement Left: Shoulder [employer] 09/01/2022 6191-1-0 10 / / [id number] Sldr 27x6mm Pegs Circular Glenoid W/ In-Line Peripheral - [id number] Implanted:Qty: 1 on 06/03/2021 by Lino Granger MD at [facility] Other - see comments Left: Shoulder Shoulder [employer] [id number] 10/10/2025 [id number] / / [id number] Plug Azur Vascular Embolization Medium - [id number] Implanted:Qty: 1 on 03/17/2021 at [facility] [employer] [id number] 09/01/2023 [id number] / / [id number] [employer] Rbypod8 Debby Pod 8mm 60cm Complex Occulusion Device Coil Embolization - [id number] Implanted:Qty: 1 on 03/17/2021 at [facility] [employer] Inc 04/23/2028 [id number] / / [id number] Vas[employer] Kclt-06 Device 6fr Closure Celt Acd Vascular Sterile Latex Free Disposable Ashkan - [id number] Implanted:Qty: 1 on 03/17/2021 at [facility] [employer] [id number] 08/12/2023 KCLT -06 / / [id number] Shoulder Innovations Llc [id number] Head Shoulder Offset Humeral 18mm X 44mm - [id number] Implanted:Qty: 1 on 06/03/2021 by Lino Granger MD at [facility] Left: Shoulder Shoulder [employer] [id number] 09/26/2025 [id number] / / [id number] Shoulder [employer]ations Llc [id number] Stem Shoulder Porous Titanium Humeral Small - [id number] Implanted:Qty: 1 on 06/03/2021 by Lino Granger MD at [facility] Left: Shoulder Shoulder [employer] [id number] 03/10/2026 [id number] / / [id number] Procedures Procedure Name [...] ABDOMEN PELVIS W CONTRAST REASON FOR STUDY: Biptz-mqvrvdk-dkvqxx trauma, blunt, Trauma, left-sided thoracic/LUQ pain Pt arrives by [facility]. Pt was working outside and slid in wet grass. Pt stated he tried to catch himself and ran down a hill and fell. Pt complains of rib pain and neck pain. Pt arrives by [facility]. Pt was working outside and slid [...] gland and thoracic inlet unremarkable. CHEST MSK: Mesj-rx-mejxemao multilevel disc disease. Moderate shoulder arthritis. Nondisplaced [...] Rafael Gaona M.D. [place]: AFIA Report ID: [id number] Reading Location: [id number] Procedure Note Rafael Gaona MD - 03/16/2021 EXAM DESCRIPTION: CT CHEST ABDOMEN PELVIS W CONTRAST REASON FOR STUDY: Dzgkq-hkryexx-ezwbqf trauma, blunt, Trauma, left-sided thoracic/LUQ pain Pt arrives by [facility]. Pt was working outside and slid in wet grass. Pt stated he tried to catch himself and ran down ahill and fell. Pt complains of rib pain and neck pain. Pt arrives by [facility]. Pt was working outside and [...] gland and thoracic inlet unremarkable. CHEST MSK: Ppmk-mj-kvqllnqv multilevel disc disease. Moderate shoulder arthritis. Nondisplaced [...] Rafael Gaona M.D. AR: AFIA Report ID: [id number] Reading Location: [place] [address] Alexandrea Castano MD IM CT PROCEDURES Final Result * COLONOSCOPY IMAGES (06/21/2015) Anatomical Region Laterality Modality Other Narrative 06/21/2015 Ordered by an unspecified provider. us Historical Provider GI PROCEDURE ORDERABLES F inal Result from Last 3 Months or Most Recently Relevant to Health Maintenance Insurance [facility] MEDICARE [facility] MEDICARE [employer] [facility] [place] [id number] Advance Directives For more information, please contact: [phone] * Full Code (Latest Code Status on [...] 6:44 PM 12/20/2019 10:02 AM Care Teams Permit Agent Relationship Specialty Start Date End Date Ajay Rhodes MD PCP - General 12/19/19 Rosana Noyola MD Consulting Physician Gastroenterology 12/21/19
--- OUTSIDE RECORDS SUMMARY | 2024-11-13 13:34 | XMS_ITS | Encounter Summary ---
Author Organization [facility] Address 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 [address] D.O.B: 1955 SSN: [id number] Parent/Guardian if applicable: Patient Insurance: Resource [employer] CROSS BLUE SHIELD ID#: [id number] Group#: ORDER(S) #: [id number] xray c spine PLEASE SCHEDULE THE APPOINTMENT AT THE FOLLOWING LOCATION: [facility] [phone]. 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 LAB ORDERS: Order number: [id number] Test Ordered: XRAY C SPINES, ROUTINE (5 VIEWS) W/OBL V70.0-ROUTINE GENERAL MEDICAL EXAMINATION check lab discussed LAB ORDERS: Order number: [id number] Test Ordered: CBC W/ DIFFERENTIAL 3150 Order number: [id number] Test Ordered: COMPREHENSIVE METABOLIC PANEL & GFR 1112 Order number: [id number] Test Ordered: LIPID PANEL 1078 Order number: [id number] Test Ordered: TSH 1720 Order number: [id number] Test Ordered: PSA, TOTAL 1002 RETURN VISIT : Instructed to call if not improving. Electronically Signed by: Phil Hancock MD on October documented in this encounter Plan of Treatment Upcoming Encounters Date Type Department Care Team (Late st Contact Info) Description 01/01/2025 10:00 AM CDT Office Visit [facility] Oncology and Hematology - [place] [address] [facility] [address] [place] [address] Randall Triplett MD [address] [facility] [address] [place] [address] 03/15/2025 10:00 AM CDT Office Visit [facility] Primary Care [address] [place] [address] Phil Hancock MD [address] [place] [address] [place] [address] documented as of this encounter Visit Diagnoses Not on filedocumented in this encounter Care Teams Operations Research Scientist Relationship Specialty Start Date End Date Phil Hancock MD PCP - General 01/19/08 documented as of this encounter
--- OUTSIDE RECORDS SUMMARY | 2024-11-13 13:34 | XMS_ITS | Encounter Summary ---
Author Organization [facility] Address 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 PHARMACY NUMBER: [phone] 02/04/07 request refill of Hydrocodone/APAP 7.5/750 mg [...] Description 01/01/2025 10:00 AM CDT Office Visit [facility] Oncology and Hematology - [place] [address] [facility] [address] [place] [address] Randall Triplett MD [address] [facility] [address] [place] [address] 03/15/2025 10:00 AM CDT Office Visit [facility] Primary Care [address] [place] [address] Ajay Rhodes MD [address] [place] [address] [address] [place] [address] documented as of this encounter Visit Diagnoses Not on filedocumented in this encounter Care Teams Boiler Blower Relationship Specialty Start Date End Date Ajay Rhodes MD PCP - General 01/19/08 documented as of this encounter
--- OUTSIDE RECORDS SUMMARY | 2024-11-13 13:34 | XMS_ITS | Encounter Summary ---
Author Organization [facility] Address 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 Gender Identity Not on file Sexual Orientation Not on file documented as of this encounter Plan of Treatment Upcoming Encounters Date Type Department Care Team (Late st Contact Info) Description 01/01/2025 10:00 AM CDT Office Visit [facility] Oncology and Hematology - [place] [address] [place] [address] [facility] [address] [place] [address] [place] [address] [place] [address] [address] [place] [address] 03/15/2025 10:00 AM CDT Office Visit [facility] Primary Care [address] [place] [address] Ajay Rhodes MD [address] [place] [address] documented as of this encounter Visit Diagnoses Not on filedocumented in this encounter Care Teams Skeins Yarn Examiner Relationship Specialty Start Date End Date Ajay Rhodes MD PCP - General 01/19/08 documented as of this encounter
--- OUTSIDE RECORDS SUMMARY | 2024-11-13 13:34 | XMS_ITS | Encounter Summary ---
Author Organization [facility] Address [address] [place] [address] Care Team Providers Care Hawk Missile Air [employer]illery Name Role Phone Ajay Rhodes MD Primary Care Provider [phone] Reason for Visit * Auth/Cert Specialty Diagnoses / Procedures Referred By Nithin t [place]erred [place] [address] [place] [address] Phone: tel: fax: [facility] Brain Injury Unit [address] [facility] [address] [place] [address] Phone: tel: fax: Referral ID Status Reason Start Date Expiration Date Visits Re quested Visits Authorized [id number] 1 1 Encounter Details Date Type Department Care Team (Late st Contact Info) Description 03/05/2024 Hospital Encounter [facility] Unit [address] [facility] [address] [place] [address] [place] [address] [place] [address] Social History Tobacco Use Types [...] on file 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 He is anticipating discharge home to [place] today and to follow up with his cancer treatment at [facility] for chemoradiation once this is [...] Discussed with patient/family. MPOA/relationship: Abner Cortes (): [phone] Social History/ Caregiver Assessment: . Has two children -All emotionally involved and available to support Gigi as needed. 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 [id number] 2023-CT NEG/TESTING @ [facility] Past Surgical History: Procedure Laterality Date HX COLONOSCOPY AGE 61 HX CRANIOTOMY FOR STEREOTACTIC GUIDED SURGERY Left 03/02/2024 CRANIOTOMY STEREOTACTIC performed by Chelsey Bowens MD at [facility] OR [facility] HX KNEE ARTHROSCOPY W/ MENISCAL REPAIR Right 2018 HX VASECTOMY PA ARTHROSCOPY KNEE SYNOVECTOMY LIMITED SPX 03/18/2020 KNEE SYNOVECTOMY ARTHROSCOPIC performed by Pancho Barfield MD at [facility] OR [facility] PA ARTHRS KNE SURG W/MENISCECTOMY MED/LAT W/SHVG Left 03/18/2020 KNEE ARTHROSCOPY performed by Pancho Barfield MD at [facility] OR [facility] PA ARTHRS KNE SURG W/MENISCECTOMY MED/LAT W/SHVG 03/18/2020 PARTIAL MEDIAL MENISCECTOMY KNEE ARTHROSCOPIC performed by Pancho Barfield MD at [facility] OR [facility] ARTHRS KNEE ABRASION ARTHRP/YARD MOTOR OPERATOR DRLG/MICROFX 03/18/2020 KNEE CHONDROPLASTY ARTHROSCOPIC performed by Pancho Barfield MD at [facility] OR [facility] PA RPR AA HERNIA 1ST 3-10 CM REDUCIBLE N/A 01/21/2024 HERNIA UMBILICAL REPAIR performed by Jimenez Linares MD at [facility] OR [facility] Family History Problem Relation Name Age [...] Patient needs follow up regarding:: No concerns Iron Symptom Assessment Scale (ESAS-r) Pain: 0 (03/06/24999) [...] care of this patient. Siri Denis NP [facility] Palliative Care [phone] Routed to: Ajay Rhodes MD Total time [...] advanced. He is anticipating discharge home to [place] today and to follow up with his cancer treatment at [facility] for chemoradiation once this is [...] Context 02/29/2024 1824 03/06/2024 1717 Full Code [id number] Shun Youngblood MD ED 01/21/2024 0805 01/21/2024 1221 Full Code [id number] Jimenez Linares MD Inpatient Only showing the [...] Description 01/01/2025 10:00 AM CDT Office Visit [facility] Oncology and Hematology [place] [address] [place] [address] [address] [place] [address] Randall Triplett MD [address] [facility] [address] [place] [address] 03/15/2025 10:00 AM CDT Office Visit [facility] Primary Care [address] [place] [address] Ajay Rhodes MD [address] [place] [address] [place] [place] [address] documented as of this encounter Visit Diagnoses Not on filedocumented in this encounter Care Teams [employer] Relationship Specialty Start Date End Date Ajay Rhodes MD PCP - General 01/19/08 documented as of this encounter
--- OUTSIDE RECORDS SUMMARY | 2024-11-13 13:34 | XMS_ITS | Encounter Summary ---
Author Organization [facility] Address 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 PHARMACY NUMBER: [phone] 04/06/07 Request refill of Hydrocodone 7.5/750 mg. [...] p Patient Name : LIBERTAD CORTES Address: [address] [place] [address] D.O.B: 1955 SSN: [id number] Parent/Guardian if applicable: Patient Insurance: [facility] Policy#: [id number] Group #: Best To Call : [phone] Best Time to Call : ANYTIME. May We Leave Message At That Number : YES, LEAVE MESSAGE. Referring to: PHYSICAL THERAPY/REHAB fine physical therapy- PH: [phone] PATIENT DIAGNOSIS: . 723.1-NECK PAIN ORDERING PHYSICIAN : PHIL HANCOCK MD PRIORITY OF REFERRAL: AT PATIENT'S CONVENIENCE. OFFICE DATABASE SOFTWARE TECHNICIAN & PHONE: Seema Jiang C FOR SCHEDULING [...] mri's try PT SPECIALTY REFERRAL: PHYSICAL THERAPY/REHAB [place] PT Patient Education: Risks, benefits, and possible side effects of medication(s) were reviewed with the patient. RETURN VISIT : Instructed to call if not improving. Electronically Signed by: Phil Hancock MD on Friday, April 06, 2007 documented in this encounter Plan of Treatment Upcoming Encounters Date Type Department Care Team (Late st Contact Info) Description 01/01/2025 10:00 AM CDT Office Visit [facility] Oncology and Hematology - [place] [address] [facility] [address] [place] [address] Randall Triplett MD [address] [facility] [address] [place] [address] 03/15/2025 10:00 AM CDT Office Visit [facility] Primary Care [place] [address] [place] [address] Phil Hancock MD [address] [place] [address] [address] [place] [address] documented as of this encounter Visit Diagnoses Not on filedocumented in this encounter Care Teams Meal Temperer Relationship Specialty Start Date End Date Phil Hancock MD PCP - General 01/19/08 documented as of this encounter
--- OUTSIDE RECORDS SUMMARY | 2024-11-13 13:34 | XMS_ITS | Encounter Summary ---
Author Organization [facility] Address 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 Gender Identity Not on file Sexual Orientation Not on file documented as of this encounter Plan of Treatment Upcoming Encounters Date Type Department Care Team (Late st Contact Info) Description 01/01/2025 10:00 AM CDT Office Visit [facility] Oncology and Hematology - [place] [address] [place] [address] [facility] [address] [place] [address] [place] [address] [place] [address] [address] [place] [address] 03/15/2025 10:00 AM CDT Office Visit [facility] Primary Care [address] [place] [address] Ajay Rhodes MD [address] [place] [address] documented as of this encounter Visit Diagnoses Not on filedocumented in this encounter Care Teams Merchandise Handler Relationship Specialty Start Date End Date Ajay Rhodes MD PCP - General 01/19/08 documented as of this encounter
--- OUTSIDE RECORDS SUMMARY | 2024-11-13 13:34 | XMS_ITS | Encounter Summary ---
Author Organization [facility] Address 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 [address] D.O.B: 1955 SSN: [id number] Parent/Guardian if applicable: Patient Insurance: [employer] ID#: [id number] Group#: ORDER(S) #: [id number] mri c spine BEST TO CALL CELL. [phone] BEST TIME TO CALL: ANYTIME. MAY WE LEAVE MESSAGE AT THAT NUMBER: YES, LEAVE MESSAGE. PLEASE SCHEDULE THE APPOINTMENT AT THE FOLLOWING LOCATION: [place] [phone]. TEST PRIORITY: 2 - 7 DAYS. SPECIAL SCHEDULING INSTRUCTIONS: needs prep ORDERING PHYSICIAN: PHIL HANCOCK MD OFFICE FRUIT BAR MAKER & PHONE: Shruthi Hart E ORDER PRINTED BY: Courtney Meza L FOR SCHEDULING USE ONLY: FIRST ATTEMPT Date:JAN 24, 2007 Norma Medrano T 03:02 p Left message on Recorder. SECOND ATTEMPT: Date:JAN 25, 2007 Noa Valentino 01:31 p Spoke with Patient. [place] [phone]. APPOINTMENT DATE : 02/03/2007 ( @ 4:00 pm) The appointment was scheduled by Noa Valentino at [phone] [facility] * Phil Hancock MD - 12/21/2007 4:44 PM CDT SPECIALIST REFERRAL REQUEST DATE: JAN 20, 2007 Note created by: Seema Jiang C 03:16 p Patient Name : LIBERTAD CORTES Address: [address] [place] [address]. [address] D.O.B: 1955 SSN: [id number] Parent/Guardian if applicable: Patient Insurance: [employer] Policy#: [id number] Group #: Best To Call : [phone] Best Time to Call : ANYTIME. May We Leave Message At That Number : YES, LEAVE MESSAGE. Referring to: PAIN MANAGEMENT Dr. Marcos Gorman ph: [phone]. Dr. Edmund Manriquez ph: [phone]. PATIENT DIAGNOSIS: . 723.1-NECK PAIN ORDERING PHYSICIAN : PHIL HANCOCK MD PRIORITY OF REFERRAL: AT PATIENT'S CONVENIENCE. OFFICE FRUIT BAR MAKER & PHONE: Seema Jiang C FOR SCHEDULING [...] palpable. MUSCULOSKELETAL EXAM: post neck tender central, utilization review nurse ok, sensation ok, ls tender, left shoulder anttender but full rom ASSESSMENT/PLAN: 715.90-OSTEOARTHROSIS UNSPECIFIED discussed, check mri, pain mgt 723.1-NECK PAIN MEDICATIONS: VICODIN ES ORAL TABLET 7.5-750 MG, 1 Every Six Hours, As Needed, 90 Dispensed, 2 Fills, status: CONTINUED, 01/20/2007. LAB ORDERS: Order number: [id number] Test Ordered: MRI [facility] 461.9-SINUSITIS UNSPECIFIED add med MEDICATIONS: ZYRTEC ORAL TABLET 10 MG, 1 Every Day, 20 Dispensed, status: NEW PRESCRIPTION, 01/20/2007. NASONEX NASAL SUSPENSION 50 MCG/ACT, 2 Every Morning, 2 Dispensed, status: NEW PRESCRIPTION, 01/20/2007. SPECIALTY REFERRAL: PAIN MANAGEMENT Dr. Marcos Gorman ph: [phone]. Dr. Edmund Manriquez ph: [phone].[facility] RETURN VISIT : Instructed to call if not improving. Electronically Signed by: Phil Hancock MD on December documented in this encounter Plan of Treatment Upcoming Encounters Date Type Department Care Team (Late st Contact Info) Description 01/01/2025 10:00 AM CDT Office Visit [facility] Oncology and Hematology - [place] [address] [place] [address] [address] [place] [address] [place] [address] [place] [address] [address] [place] [address] 03/15/2025 10:00 AM CDT Office Visit [facility] Primary Care [address] [place] [address] Phil Hancock MD [address] [place] [address] [address] [place] [address] documented as of this encounter Visit Diagnoses Not on filedocumented in this encounter Care Teams Tour Narrator Relationship Specialty Start Date End Date Phil Hancock MD PCP - General 01/19/08 documented as of this encounter
--- OUTSIDE RECORDS SUMMARY | 2024-11-13 13:34 | XMS_ITS | Encounter Summary ---
Author Organization [facility] Address 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 Topic: Patient or Caregiver Communication Request >> Feb 17, 2024 9:25 AM Tiffanie Sapp wrote: Patient or Caregiver requesting advice Caller: Vinita gentile Patient/Caregiver Callback Number: [phone] Call Notes: Caller states the patient had [...] Center Oncology and Hematology - [place] [address] [facility] [address] [place] [address] Randall Triplett MD [address] [facility] [address] [place] [address] 03/15/2025 10:00 AM CDT Office Visit [facility] Primary Care [address] [place] [address] [place] [address] Ajay Rhodes MD [address] [place] [address] documented as of this encounter Visit Diagnoses Not on filedocumented in this encounter Care Teams Rcis Relationship Specialty Start Date End Date Ajay Rhodes MD PCP - General 01/19/08 documented as of this encounter
--- OUTSIDE RECORDS SUMMARY | 2024-11-13 13:34 | XMS_ITS | Referral Summary ---
Author Organization [facility] Address [address] [place] [address] Care Team Providers Care Guard Manager Name Role Phone Ajay Rhodes MD Primary Care Provider + Rosana Noyola MD Unavailable [phone] Allergies No known active allergies Medications fentaNYL [...] significant findings on echocardiogram, 30 day cardiac technician on discharge HLD (hyperlipidemia) 06/02/2021 Risk factors for obstructive sleep apnea 021 Primary osteoarthritis, left shoulder 04/30/2021 Overview (04/30/2021): Added automatically from request for surgery [id number] Multiple closed fractures of ribs of left [...] (12/19/2019): Added automatically from request for surgery [id number] Arthralgia of shoulder 08/26/2012 Duodenal ulcer Immunizations [...] on file 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 Gender Identity Not on file Sexual Orientation [...] on file Medical Devices Implanted Type Area Cotton Breeder Device Identifier Shelf Expiration Date Model / Serial / Lot [employer] 6191-1-010 Simplex P Radiopaque Full Dose Cement Bone Sterile - [id number] Implanted:Qty: 1 on 06/03/2021 by Lino Granger MD at [facility] Bone Cement Left: Shoulder [employer] 09/01/2022 6191-1-0 10 / / [id number] Sldr 27x6mm Pegs Circular Glenoid W/ In-Line Peripheral - [id number] Implanted:Qty: 1 on 06/03/2021 by Lino Granger MD at [facility] Other - see comments Left: Shoulder Shoulder [employer] [id number] 10/10/2025 [id number] / / [id number] Plug Azur Vascular Embolization Medium - [id number] Implanted:Qty: 1 on 03/17/2021 at [facility] [id number] 09/01/2023 [id number] / / [id number] [employer] Rbypod8 Debby Pod 8mm 60cm Complex Occulusion Device Coil Embolization - [id number] Implanted:Qty: 1 on 03/17/2021 at [facility] [employer] 04/23/2028 [id number] / / [id number] [employer] Kclt-06 Device 6fr Closure Celt Acd Vascular Sterile Latex Free Disposable Ashkan - [id number] Implanted:Qty: 1 on 03/17/2021 at [facility] [employer] [id number] 08/12/2023 KCLT -06 / / [id number] Shoulder [employer]ations [employer]c [id number] Head Shoulder Offset Humeral 18mm X 44mm - [id number] Implanted:Qty: 1 on 06/03/2021 by Lino Granger MD at [facility] Left: Shoulder Shoulder [employer] [id number] 09/26/2025 [id number] / / [id number] Shoulder [employer] [id number] Stem Shoulder Porous Titanium Humeral Small - [id number] Implanted:Qty: 1 on 06/03/2021 by Lino Granger MD at [facility] Left: Shoulder Shoulder [employer] [id number] 03/10/2026 [id number] 20 / / [id number] Procedures Procedure Name [...] ABDOMEN PELVIS W CONTRAST REASON FOR STUDY: Rcgst-sonngpn-fylnnk trauma, blunt, Trauma, left-sided thoracic/LUQ pain Pt [...] gland and thoracic inlet unremarkable. CHEST MSK: Qbgd-pr-pyirinig multilevel disc disease. Moderate shoulder arthritis. Nondisplaced [...] Rafael Gaona M.D. AR: AFIA Report ID: [id number] Reading Location: [id number] Procedure Note Rafael Gaona MD - 03/16/2021 EXAM DESCRIPTION: CT CHEST ABDOMEN PELVIS W CONTRAST REASON FOR STUDY: Udxgv-yzmiztf-mrqnlu trauma, blunt, Trauma, left-sided thoracic/LUQ pain Pt [...] gland and thoracic inlet unremarkable. CHEST MSK: Monm-xy-sqjomvaj multilevel disc disease. Moderate shoulder arthritis. Nondisplaced [...] Rafael Gaona M.D. AR: AFIA Report ID: [id number] Reading Location: [place] [address] Alexandrea Castano MD IMG CT PROCEDURES Final Result * COLONOSCOPY IMAGES (06/21/2015) Anatomical Region Laterality Modality Other Narrative 06/21/2015 Ordered by an unspecified provider. Historical Provider GI PROCEDURE ORDERABLES F inal Result from Last 3 Months or Most Recently Relevant to Health Maintenance Insurance [facility] MEDICARE [facility] Advance Directives For more information, please contact: [phone] * Full Code (Latest Code Status on [...] 6:44 PM 12/20/2019 10:02 AM Care Teams Guard Manager Relationship Specialty Start Date End Date Ajay Rhodes MD PCP - General 12/19/19 Rosana Noyola MD Consulting Physician Gastroenterology 12/21/19
--- OUTSIDE RECORDS SUMMARY | 2024-11-13 13:34 | XMS_ITS | Encounter Summary ---
Author Organization [facility] Address [address] [place] [address] Care Team Providers Care Manager Employee Relations Name Role Phone Ajay Rhodes MD Primary Care Provider [phone] Encounter Details Date Type Department Care Team (Late Contact Info) Description 01/20/2007 Outpatient Historical [facility] Internal Medicine [address] [address] Ajay Rhodes MD [address] [place] [address] Social History Tobacco Use Types Packs/Day Years Used Date Smoking Tobacco: Never Assessed Sex and Gender Information Value Date Recorded Sex Assigned at Not on file Legal Sex Male 4:14 AM MEDIA AID Gender Identity Not on file Sexual Orientation [...] Department Care Team (Late Contact Info) Description 01/01/2025 10:00 AM CDT Office Visit [facility] Oncology and Hematology - [place] [address] [facility] 200 [place] [address] Randall Triplett MD 0 [facility] [address] [place] [address] 03/15/2025 10:00 AM CDT Office Visit [facility] Primary Care [address] [place] [address] Ajay Rhodes MD [address] [place] [address] [address] [place] [address] documented as of this encounter Visit Diagnoses Not on filedocumented in this encounter Care Teams Manager Employee Relations Relationship Specialty Start Date End Date Ajay Rhodes MD PCP - General 01/19/08 documented as of this encounter
--- OUTSIDE RECORDS SUMMARY | 2024-11-13 13:34 | XMS_ITS | Encounter Summary ---
Author Organization [facility] Address 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 [address] [place] [address] [place] [address] [place] [address] [address] [place] [address] 03/15/2025 10:00 AM CDT Office Visit [facility] Primary Care [address] [place] [address] Ajay Rhodes MD [address] [place] [address] documented as of this encounter Visit Diagnoses Not on filedocumented in this encounter Care Teams Progressive Die Maker Relationship Specialty Start Date End Date Ajay Rhodes MD PCP - General 01/19/08 documented as of this encounter
--- OUTSIDE RECORDS SUMMARY | 2024-11-13 13:34 | XMS_ITS | Encounter Summary ---
Author Organization [facility] Address 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 OCCUPATION: . [employer] ALCOHOL: Does not give any significant history [...] 07/05/2006. LAB ORDERS: 1 week Order number: [id number] Test Ordered: COMPREHENSIVE METABOLIC PANEL W/ GLOMERULAR FILTRATION RATE, ESTIMATED (EGFR) 74612 Order number: [id number] Test Ordered: LIPID PANEL 7600 Order number: [id number] Test Ordered: PSA 5363 Order number: [id number] Test Ordered: TSH 899 Order number: [id number] Test Ordered: CBC (INCLUDES DIFF/PLT) 6399 Order number: [id number] Test Ordered: URINALYSIS, COMPLETE W/REFLEX TO CULTURE 3020 Order number: [id number] Test Ordered: HEMOCCULT SINGLE 77334 Order number: [id number] Test Ordered: URINALYSIS W/O MICRO 68176 V70.0-ROUTINE GENERAL MEDICAL EXAMINATION discussed, check lab [...] Description 01/01/2025 10:00 AM CDT Office Visit [facility] Oncology and Hematology - [place] [address] [facility] 200 [place] [address] Randall Triplett MD 2[address] [facility] [address] [place] [address] 03/15/2025 10:00 AM CDT Office Visit [facility] Primary Care [address] [place] [address] Ajay Rhodes MD [address] [place] [phone] documented as of this encounter Visit Diagnoses Not on filedocumented in this encounter Care Teams Test Desk Operator Relationship Specialty Start Date End Date Ajay Rhodes MD PCP - General 01/19/08 documented as of this encounter
--- OUTSIDE RECORDS SUMMARY | 2024-11-13 13:34 | XMS_ITS | Encounter Summary ---
Author Organization [facility] Address 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 Gender Identity Not on file Sexual [...] Description 01/01/2025 10:00 AM CDT Office Visit [facility] Oncology and Hematology - [place] [address] [facility] 200 [place] [address] Randall Triplett MD 2 [facility] [address] [place] [address] 03/15/2025 10:00 AM CDT Office Visit [facility] Primary Care [address] [place] [address] Ajay Rhodes MD [address] [place] [address] [address] [place] [address] documented as of this encounter Visit Diagnoses Not on filedocumented in this encounter Care Teams Dealer Development Manager Relationship Specialty Start Date End Date Ajay Rhodes MD PCP - General 01/19/08 documented as of this encounter
--- OUTSIDE RECORDS SUMMARY | 2024-11-13 13:34 | XMS_ITS | Encounter Summary ---
Author Organization [facility] Address 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 PHARMACY NUMBER: [phone] SECTION 1: REQUESTED ACTION issa 02/28/07 at 10:41 am: MEDICATION REQUEST: MEDICATION REQUEST: Patient requests a refill. gen vicodin #[id number] 02/04/07 DOCTOR`S RESPONSE: debby 02/28/07 at 12:40 pm prev note * Ajay Rhodes MD - 12/21/2007 1:22 PM CDT TIME:11:57 am PATIENT`S HOME PHONE: PATIENT`S WORK PHONE: PATIENT`S INSURANCE: [employer] WHO TOOK THE CALL: Lorrie Lynch C GENERAL INFORMATION WHO CALLED: Patient called. PHARMACY NUMBER: [phone] SECTION 1: PT NEVER TOOK SCRIPT IN [...] Description 01/01/2025 10:00 AM CDT Office Visit [facility] Oncology and Hematology - [place] [address] [place] [address] [address] [place] [address] [place] [address] [place] [address] [address] [place] [address] 03/15/2025 10:00 AM CDT Office Visit [facility] Primary Care [address] [place] [address] Ajay Rhodes MD [address] [place] [address] [address] [place] [address] documented as of this encounter Visit Diagnoses Not on filedocumented in this encounter Care Teams Electronic Data Processing Auditor Relationship Specialty Start Date End Date Ajay Rhodes MD PCP - General 01/19/08 documented as of this encounter
--- OUTSIDE RECORDS SUMMARY | 2024-11-13 13:34 | XMS_ITS | Encounter Summary ---
Author Organization [facility] Address 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 [address] D.O.B: 1955 SSN: [id number] Parent/Guardian if applicable: Patient Insurance: [facility] Policy#: [id number] Group #: Best To Call : [phone] Best Time to Call : ANYTIME. May We Leave Message At That Number : YES, LEAVE MESSAGE. Referring to: GASTROENTEROLOGY Dr. Khanh [place] ph: [phone] fax: [phone]. [address] Rosana Noyola ph: [phone] fax: [phone]. Reason for referral: colonoscopy ORDERING PHYSICIAN : PHIL HANCOCK MD PRIORITY OF REFERRAL: AT PATIENT'S CONVENIENCE. OFFICE DIRECTOR MERIT SYSTEM & PHONE: Seema Jiang C FOR SCHEDULING [...] SPECIALTY REFERRAL: GASTROENTEROLOGY Dr. Rosana Noyola ph: [phone] fax: [phone]. Dr. Khanh [place] ph: [phone] fax: [phone].colonoscopy Patient Education: Risks, benefits, and possible side [...] Description 01/01/2025 10:00 AM CDT Office Visit [facility] Oncology and Hematology - [place] [address] [place] [address] 200 [place] [phone] [place] [address] [place] [address] [address] [place] [address] 03/15/2025 10:00 AM CDT Office Visit [facility] Primary Care [address] [place] [address] Phil [place] MD [address] [place] [address] [address] [place] [address] documented as of this encounter Visit Diagnoses Not on filedocumented in this encounter Care Teams Travograph Operator Relationship Specialty Start Date End Date Phil [place] MD PCP - General 01/19/08 documented as of this encounter
--- OUTSIDE RECORDS SUMMARY | 2024-11-13 13:34 | XMS_ITS | Encounter Summary ---
Author Organization [facility] Address 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 Gender Identity Not on file Sexual Orientation [...] 01/01/2025 10:00 AM CDT Office Visit [facility] Oncology and Hematology - [place] [address] [facility] 200 [place] [address] Randall Triplett MD 2 [facility] [address] [place] [address] 03/15/2025 10:00 AM CDT Office Visit [facility] Primary Care [address] [place] [address] Ajay Rhodes MD [address] [place] [address] [address] [place] [address] documented as of this encounter Visit Diagnoses Not on filedocumented in this encounter Care Teams Dairy Nutritionist Relationship Specialty Start Date End Date Ajay Rhodes MD PCP - General 01/19/08 documented as of this encounter
--- OUTSIDE RECORDS SUMMARY | 2024-11-13 13:34 | XMS_ITS | Encounter Summary ---
Author Organization [facility] Address [address] [place] [address] Care Team Providers Care Engineering Director Name Role Phone Ajay Rhodes MD Primary Care Provider Encounter Details Date Type Department Care Team (Late Contact Info) Description 10/25/2007 Outpatient Historical [facility] Internal Medicine [address] [address] Ajay Rhodes MD [address] [place] [address] [address] [place] [address] Social History Tobacco Use Types Packs/Day Years Used Date Smoking Tobacco: Never Assessed Sex and Gender Information Value Date Recorded Sex Assigned at Not on file Legal Sex Male 4:14 AM PEDIATRIC CNS Gender Identity Not on file Sexual Orientation Not on file documented as of this encounter Plan of Treatment Upcoming Encounters Date Type Department Care Team (Late st Contact Info) Description 01/01/2025 10:00 AM CDT Office Visit [facility] Oncology and Hematology - [place] [address] [place] [address] [facility] 200 [place] [address] [place] [address] [place] [address] [address] [place] [address] 03/15/2025 10:00 AM CDT Office Visit [facility] Primary Care [address] [place] [address] Ajay Rhodes MD [address] [place] [address] documented as of this encounter Visit Diagnoses Not on filedocumented in this encounter Care Teams Engineering Director Relationship Specialty Start Date End Date Ajay Rhodes MD PCP - General 01/19/08 documented as of this encounter
--- OUTSIDE RECORDS SUMMARY | 2024-11-13 13:34 | XMS_ITS | Encounter Summary ---
Author Organization [facility] Address 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 Gender Identity Not on file Sexual Orientation Not on file documented as of this encounter Plan of Treatment Upcoming Encounters Date Type Department Care Team (Late st Contact Info) Description 01/01/2025 10:00 AM CDT Office Visit [facility] Oncology and Hematology - [place] [address] [place] [address] [facility] 200 [place] [address] [place] [address] [place] [address] [address] [place] [address] 03/15/2025 10:00 AM CDT Office Visit [facility] Primary Care [address] [place] [address] Ajay Rhodes MD [address] [place] [address] documented as of this encounter Visit Diagnoses Not on filedocumented in this encounter Care Teams Oracle Adf Consultant Relationship Specialty Start Date End Date Ajay Rhodes MD PCP - General 01/19/08 documented as of this encounter
--- OUTSIDE RECORDS SUMMARY | 2024-11-13 13:35 | XMS_ITS | Encounter Summary ---
Author Organization [facility] Address 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 Gender Identity Not on file Sexual Orientation Not on file documented as of this encounter Miscellaneous Notes * Telephone Encounter - Chelsey Singleton RN - 02/28/2024 11:53 AM CDT Date of last visit addressing condition(s) being treated: 02/23/24 Recent Visits Date Type Provider Dept 02/23/24 Office Visit Ajay Rhodes MD [facility] 10/21/23 Office Visit Ajay Rhodes MD [facility] 10/04/23 Office Visit Ajay Rhodes MD [facility] 03/31/23 Office Visit Ajay Rhodes MD [facility] 11/23/22 Office Visit Ajay Rhodes MD [facility] Showing recent visits within past 540 days with a meds authorizing provider and meeting all other requirements Future Appointments Date Type Provider Dept 04/11/24 Appointment Ajay Rhodes MD [facility] 05/17/24 Appointment Ajay Rhodes MD [facility] Showing future appointments within next 365 days with a meds authorizing provider and meeting all other requirements Correct Pharmacy: Yes Medication below pended for you. Medication (Ask patient/caregiver to spell if possible): HYDROcodone- acetaminophen (NORCO) 10-325 mg Tablet Preferred Pharmacy: [facility] [id number] [place] [address] Patient/Caregiver Callback Number: [phone] (home) Call Notes: Requesting refill early will be leaving to go out of town this Wednesday please advise request HYDROcodone-acetaminophen (NORCO) 10-325 mg Tablet [facility] [address] [place] [address] only this location Chelsey Singleton, RN * Telephone Encounter - Maira Lopez - 02/28/2024 11:24 AM CDT Copied from [facility] #[id number]. Topic: Medication Request >> Feb 28, 2024 11:22 AM Maira Yeh wrote: Caller is requesting: Medication - New Request (Not Currently Taking) Medication (Ask patient/caregiver to spell if possible): HYDROcodone- acetaminophen (NORCO) 10-325 mg Tablet Preferred Pharmacy: [facility] [id number] [place] [address] Patient/Caregiver Callback Number: [phone] (home) Call Notes: Requesting refill early will be leaving to go out of town this Wednesday please advise request HYDROcodone-acetaminophen (NORCO) 10-325 mg Tablet [facility] [address] [place] [address] only this location documented in this encounter Plan of Treatment Upcoming Encounters Date Type Department Care Team (Late st Contact Info) Description 01/01/2025 10:00 AM CDT Office Visit [facility] Oncology and Hematology - [place] [address] [place] [address] 200 [place] [address] Randall Triplett MD [address] [facility] [address] [place] [address] 03/15/2025 10:00 AM CDT Office Visit [facility] Primary Care [address] [place] [address] Ajay Rhodes MD [address] [place] [address] documented as of this encounter Visit Diagnoses Diagnosis Other osteoarthritis involving multiple joints documented in this encounter Care Teams Electrician Marine Relationship Specialty Start Date End Date Ajay Rhodes MD PCP - General 01/19/08 documented as of this encounter
--- OUTSIDE RECORDS SUMMARY | 2024-11-13 13:35 | XMS_ITS | Encounter Summary ---
Author Organization [facility] Address [address] [place] [address] Care Team Providers Care Coal Unloader Name Role Phone Ajay Rhodes MD Primary Care Provider [phone] Encounter Details Date Type Department Care Team (Late st Contact Info) Description 11/13/2024 1:00 PM CDT Office Visit [facility] Oncology and Hematology - [place] [address] [place] [address] [facility] 200 [place] [address] Randall Triplett MD [address] [facility] [address] [place] [address] GBM (glioblastoma multiforme) (CMS/HCC) (Primary [...] on file 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 Gender Identity Not on file Sexual Orientation Not on file documented as of this encounter Last Filed Vital Signs Vital Sign Reading Time Taken Comments Blood Pressure 127/71 11/13/2024 1:05 PM CDT Pulse 60 11/13/2024 1:05 PM CDT Temperature 36.9 C (98.5 F) 11/13/2024 1:05 PM CDT Respiratory Rate 15 11/13/2024 1:05 PM CDT Oxygen Saturation 97% 11/13/2024 1:05 PM CDT Inhaled Oxygen Concentration - - Weight 66.3 kg (146 lb 3.2 oz) 11/13/2024 1:05 P M CDT Height - - Body Mass Index 20.98 10/25/2024 3:03 PM CDT documented in this encounter Plan of Treatment Upcoming Encounters Date Type Department Care Team (Late st Contact Info) Description 01/01/2025 10:00 AM CDT Office Visit [facility] Oncology and Hematology - [place] [address] [facility] [address] [place] [address] Randall Triplett MD [address] [facility] [address] [place] [address] 03/15/2025 10:00 AM CDT Office Visit [facility] Primary Care [address] [place] [address] Ajay Rhodes MD [address] [place] [phone] Scheduled Orders Name Type Priority Associated Diagnoses Orde r Schedule CBC WITH DIFFERENTIAL Lab Stat GBM (glioblastoma multiforme) (CMS/HCC) Expected: 12/21/2024, Expires: 11/13/2025 BASIC METABOLIC PANEL Lab Stat GBM (glioblastoma multiforme) (CMS/HCC) Expected: 12/21/2024, Expires: 11/13/2025 documented as of this encounter Visit Diagnoses Diagnosis GBM (glioblastoma multiforme) (CMS/HCC)- Primary Malignant neoplasm of brain, unspecified site documented in this encounter Care Teams Coal Unloader Relationship Specialty Start Date End Date Ajay Rhodes MD PCP - General 01/19/08 documented as of this encounter
--- OUTSIDE RECORDS SUMMARY | 2024-11-13 13:35 | XMS_ITS | Encounter Summary ---
Author Organization [facility] Address [address] [place] [address] Care Team Providers Care Associate Software Developer Name Role Phone Ajay Rhodes MD Primary Care Provider [phone] Encounter Details Date Type Department Care Team (Late Contact Info) Description 05/12/2004 Outpatient Historical [facility] Internal Medicine [address] [address] Ajay Rhodes MD [address] [place] [address] Social History Tobacco Use Types Packs/Day Years Used Date Smoking Tobacco: Never Assessed Sex and Gender Information Value Date Recorded Sex Assigned at Not on file 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 Gender Identity Not on file Sexual [...] [facility] - [place] [address] [facility] 200 [place] [address] Randall Triplett MD 5 [facility] [address] [place] [address] 03/15/2025 10:00 AM CDT Office Visit [facility] Primary Care [address] [place] [address] Ajay Rhodes MD [address] [place] [address] [address] [place] [address] documented as of this encounter Visit Diagnoses Not on filedocumented in this encounter Care Teams Associate Software Developer Relationship Specialty Start Date End Date Ajay Rhodes MD PCP - General 01/19/08 documented as of this encounter
--- OUTSIDE RECORDS SUMMARY | 2024-11-13 13:35 | XMS_ITS | Clinical Summary ---
Author Organization [facility] Address [address] [place] [address] Care Team Providers Care Inside Finisher Name Role Phone Ajay Rhodes MD Primary Care Provider [phone] Allergies Active Allergy Reactions Criticality Noted Date [...] Encounters Date Type Department Care Team Description 11/13/2024 1:00 PM CDT Office Visit [facility] Oncology and Hematology [facility] [address] [place] [address] Randall Triplett MD GBM (glioblastoma multiforme) (CMS/HCC) (Primary Dx) 11/07/2024 External Device Data STL ABSTRACTION Provider, Abstract 11/07/2024 External Device Data STL ABSTRACTION Provider, Abstract 11/07/[address] [facility] Oncology and Hematology [facility] [address] [place] [address] Randall Triplett MD 10/25/2024 3:40 PM CDT Office Visit [place] [address] [place] [address] Ajay Rhodes MD Rotator cuff disorder, right (Primary Dx); Glioblastoma multiforme of brain (CMS/HCC); Other hyperlipidemia; Vitamin D deficiency; Seizures (CMS/HCC); Frail elderly; Atherosclerosis of aorta; Allergic sinusitis 10/23/2024 Telephone [facility] [address] [place] [address] Ajay Rhodes MD Clinical Consult Before Scheduling 10/17/2024 External Device Data STL ABSTRACTION Provider, Abstract 10/16/2024 [facility] [address] [facility] [address] [place] [address] Ajay Rhodes MD Other osteoarthritis involving multiple joints 10/10/[address] [facility] Oncology and Hematology [facility] [address] [place] [address] Randall Triplett MD 10/09/2024 1:00 PM CDT Office Visit [facility] Oncology and Hematology [facility] [address] [place] [address] Randall Triplett MD GBM (glioblastoma multiforme) ([facility]) (Primary Dx) 10/03/2024 External Device Data STL ABSTRACTION Provider, Abstract 09/29/2024 [facility] Neurosurgery - [facility] [address] [facility] [address] [place] [address] Gali Cyr PA-C Seizures ([facility]); Glioblastoma multiforme of brain ([facility]) 09/26/2024 External Device Data STL ABSTRACTION Provider, Abstract 09/26/2024 External Device Data STL ABSTRACTION Provider, Abstract 09/22/2024 [facility] [address] [facility] [address] [place] [address] jAay Rhodes MD 09/19/2024 External Device Data STL ABSTRACTION Provider, Abstract 09/18/2024 [facility] [address] [place] [address] Ajay Rhodes MD Other osteoarthritis involving multiple joints 09/06/2024 1:00 PM RECORDS SPECIALIST Office Visit [facility] Oncology and Hematology [facility] [address] [place] [address] Randall Triplett MD GBM (glioblastoma multiforme) ([facility]) (Primary Dx) 08/29/2024 External Device Data STL ABSTRACTION Provider, Abstract 08/29/2024 Chart Note [facility] Emergency Department - [address] [place] [address] Gume Dailey MD 08/24/2024 External Device Data STL ABSTRACTION Provider, Abstract 08/22/[address] [facility] Oncology and Hematology - [place] [address] [facility] [address] [place] [address] Randall Triplett MD 08/18/2024 Results Follow-Up [facility] Primary Care [facility] [address] [facility] [address] [place] [address] Ajay Rhodes MD COMPREHENSIVE METABOLIC PANEL, LIPID PANEL, TSH, Additional followed-up results: 3 08/18/2024 Orders Only [facility] [address] [facility] [address] [place] [address] Ajay Rhodes MD Other osteoarthritis involving multiple joints 08/15/2024 10:00 AM RECORDS SPECIALIST Office Visit [facility] [address] [facility] [address] [place] [address] Ajay Rhodes MD Glioblastoma multiforme of brain (CMS/HCC) (Primary Dx); Vitamin D deficiency; Other hyperlipidemia; Seizure-like activity (CMS/HCC); Myalgia; Abnormal glucose; Need for assistance with personal care 08/15/2024 External Device Data STL ABSTRACTION Provider, Abstract 08/15/2024 External Device Data STL ABSTRACTION Provider, Abstract from Last 3 Months Immunizations Immunization Administration [...] COVID-19 VACCINE - EMERGENCY USE AUTHORIZATION, MRNA, [id number](PF) 30 MCG/0.3 ML IM SUSP 03/22/2021,11/18/2020 12/09/2020 (PREVNAR 20)(6 WKS UP) PNEUM OCOCCAL CONJUGATE VACCINE 20-VALENT (PCV20), POLYSACCHARIDE [id number] CONJUGATE, ADJUVANT 0.5 ML (PF) IM 05/25/2022 [...] on file 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 Oncology and Hematology - [place] [address] [facility] [address] [place] [address] Randall Triplett MD [address] [facility] [address] [place] [address] 03/15/2025 10:00 AM CDT Office Visit [facility] Primary Care [address] [place] [address] Ajay Rhodes MD [address] [place] [address] [address] [place] [address] Health Maintenance Due Date Last Done [...] history exists Medical Devices Implanted Type Area Dust Sampler Device Identifier Shelf Expiration Date Model / Serial / Lot Duragen + 3x3in Dp-1033 - [id number] Implanted:Qty : 1 on 03/02/2024 by Chelsey Bowens MD at [facility] Graft Left: Cranial [employer] [id number] 09/29/2026 [id number] / / [id number] Hemostatic Surgiflo 8ml W/ Thrombin 2994 - [id number] Implanted:Qty : 1 on 03/02/2024 by Chelsey Bowens MD at [facility] Hemostatic Left: Brain J&J- [employer] [id number] 05/01/2025 2994 / / [id number] Hemostatic Surgiflo 8ml W/ Thrombin 2994 - [id number] Implanted:Qty : 1 on 03/02/2024 by Chelsey Bowens MD at [facility] Hemostatic Left: Brain J&J- [employer] [id number] 04/01/2025 2994 / / [id number] Agent Hemostat Surgicel 4x8in - [id number] Implanted:Qty : 1 on 03/02/2024 by Chelsey Bowens MD at [facility] Hemostatic Left: Brain J&J- [employer] 07/01/2028 1952S / / [id number] Hemostatic Surgicel 1x2in 1960 - [id number] Implanted:Qty : 1 on 03/02/2024 by Chelsey Bowens MD at [facility] Hemostatic Left: Brain J&J- [employer] 09/01/20261960 / / [id number] Hemostatic Surgifoam Sz100 1973 - [id number] Implanted:Qty : 1 on 03/02/2024 by Chelsey Bowens MD at [facility] Hemostatic Left: Brain J&J- [employer] 12/02/20271973 / / [id number] Mesh Ventralex 1.7in Sm Circ [id number] - [id number] Implanted:Qty : 1 on 01/21/2024 by Jimenez Linares MD at [facility] Mesh N/A: Umbilical BARD DAVOL [id number] 08/29/2025 [id number] / / [id number] Plate Matrxneuro Bur Hl Cvr 502.021 - Sno Load Or Sterilized Date On Trin[place] Implanted:Qty : 1 on 03/02/2024 by Chelsey Bowens MD at [facility] Plate Left: Cranial J&J- DEPUY SYNTHES .502.021 / NO LOAD OR STERILIZED DATE ON TRINIDAD / Plate Matrxneuro Cranial .502.062 - Sno Load Or Sterilized Date On Trin[place] Implanted:Qty : 2 on 03/02/2024 by Chelsey Bowens MD at [facility] Plate Left: Cranial J&J- DEPUY SYNTHES .502.062 / NO LOAD OR STERILIZED DATE ON TRINIDAD / Screw Matrixneuro Sd 503103.01 - Sno Load Or Sterilized Date On Trin[place] Implanted:Qty : 2 on 03/02/2024 by Chelsey Bowens MD at [facility] Screw Left: Cranial J&J- DEPUY SYNTHES 103. / NO LOAD OR STERILIZED DATE ON TRINIDAD / Description:All Synthes cran ial hardware, Requisition, [id number]. Screw Matrixneuro Sd .01 - Sno Load Or Sterilized Date On Trin[place] Implanted:Qty : 4 on 03/02/2024 by Chelsey Bowens MD at [facility] Screw Left: Cranial J&J- DEPUY SYNTHES . 01 / NO LOAD OR STERILIZED DATE ON TRINIDAD / Procedures Procedure Name Priority Date/Time Associated Diagnosis Comments MRI BRAIN W WO CONTRAST Routine 11/07/19 9:54 AM CDT CBC WITH AUTODIFFERENTIAL Routine 10/09/2024 11:03 AM CDT MRI BRAIN W WO CONTRAST Routine 08/21/19 7:54 AM RECORDS SPECIALIST HEMOGLOBIN A1C Routine 08/17/2024 10:10 AM RECORDS SPECIALIST Abnormal glucose VITAMIN B12 LEVEL Routine 08/17/2024 10: 10 AM RECORDS SPECIALIST Myalgia VITAMIN D 25 HYDROXY Routine 08/17/2024 10:10 AM RECORDS SPECIALIST Vitamin D deficiency TSH Routine 08/17/2024 10:10 AM RECORDS SPECIALIST Other hyperlipidemia LIPID PANEL Routine 08/17/2024 10:10 AM RECORDS SPECIALIST Other hyperlipidemia COMPREHENSIVE METABOLIC PANEL Routine 08/17/2024 10:10 AM RECORDS SPECIALIST Other hyperlipidemia ENDOSCOPY, COLON, SCREENING Routine 06/21/2015 POC OCCULT BLOOD UP TO 3 CARDS Routine 06/16/2010 Abdominal pain from Last 3 Months or Most Recently Relevant to Health Maintenance Results * MRI BRAIN W WO CONTRAST (11/06/2024 9:54 AM CDT) Only the most recent of2 resultswithin the time period is included. Anatomical Region Laterality Modality Head Magnetic Resonan ce us Randall Triplett MD MR ORDERABLES Final Result * CBC WITH AUTODIFFERENTIAL (10/09/2024 11:03 AM CDT) Blood us Randall Triplett MD HEMATOLOGY ORDERABLES Final Res ult * (ABNORMAL) VITAMIN D 25 HYDROXY (08/17/2024 10:10 AM RECORDS SPECIALIST) VITAMIN D, 25 OH, TOTAL 26(L) 30 - 100 ng/mL [facility] Comment: Vitamin D Status 25-OH Vitamin D: Deficiency: <20 ng/mL Insufficiency: 20 - 29 ng/mL Optimal: > or = 30 ng/mL For 25-OH Vitamin D testing on patients on D2-supplementation and patients for whom quantitation of D2 and D3 fractions is required, the QuestAssureD(TM) 25-OH VIT D, (D2,D3), LC/MS/MS is recommended: order code 06495 (patients >2yrs). See Note 1 Note 1 For additional information, please refer to http://education.[employer]/faq/UBV788 (This link is being provided for informational/ educational purposes only.) FASTING:YES FASTING: YES Test Performed at: [facility] [address] [place] [address] Vik Ceja MD Blood 08/17/2024 10:1 0 AM RECORDS SPECIALIST 08/17/2024 10:11 AM RECORDS SPECIALIST Ajay Rhodes MD CHEMISTRY ORDERABLES Final Re sult [facility] [phone] [facility]28 [place] [address] * TSH (08/17/2024 10:10 AM RECORDS SPECIALIST) Pathologist [facility] TSH 1.58 0.40 - 4.50 mIU/L [facility] [facility] Comment: Test Performed at: [facility] [address] [facility] [place] [address] Vik Ceja MD Blood 08/17/2024 10:1 0 AM RECORDS SPECIALIST 08/17/2024 10:11 AM RECORDS SPECIALIST Ajay Rhodes MD CHEMISTRY ORDERABLES Final Re sult Performing Organization Address City/State/ZIP Co ca Phone Number [facility] [phone] [facility] [address] [address] [address] * HEMOGLOBIN A1C (08/17/2024 10:10 AM RECORDS SPECIALIST) HEMOGLOBIN A1C 5.5 <5.7 % of total Hgb [facility] [place] Comment: For the purpose of screening for the presence of diabetes: <5.7% Consistent with the absence of diabetes 5.7-6.4% Consistent with increased risk for diabetes (prediabetes) > or =6.5% Consistent with diabetes This assay result is consistent with a decreased risk of diabetes. Currently, no consensus exists regarding use of hemoglobin A1c for diagnosis of diabetes in children. According to [place] Diabetes Association (ADA) guidelines, hemoglobin A1c <7.0% represents optimal control in non- diabetic patients. Different metrics may apply to specific patient populations. Standards of Medical Care in Diabetes(ADA). ESTIMATED AVERAGE GLUCOSE (MG/DL) 111 mg/dL [facility] [place] ESTIMATED AVERAGE GLUCOSE (MMOL/L) 6.2 mmol/L [facility] TE[facility] briseida [place] Comment: FASTING:YES FASTING: YES Test Performed at: [facility] [address] [address] [place] [address] Vik Hua Vo Blood 08/17/2024 10:1 0 AM RECORDS SPECIALIST 08/17/2024 10:11 AM RECORDS SPECIALIST Ajay Rhodes MD CHEMISTRY ORDERABLES Final Re sult [facility] [phone] [facility] [address] [address] [place] [address] * VITAMIN B12 LEVEL (08/17/2024 10:10 AM RECORDS SPECIALIST) VITAMIN B12 283 200 - 1100 pg/mL [facility] Comment: Please Note: Although the reference range for vitamin B12 is 200-1100 pg/mL, it has been reported that between 5 and 10% of patients with values between 200 and 400 pg/mL may experience neuropsychiatric and hematologic abnormalities due to occult B12 deficiency; less than 1% of patients with values above 400 pg/mL will have symptoms. FASTING:YES FASTING: YES Test Performed at: [facility] [address] [facility] [place] [address] Vik Ceja MD Blood 08/17/2024 10:1 0 AM RECORDS SPECIALIST 08/17/2024 10:11 AM RECORDS SPECIALIST us Ajay Rhodes MD CHEMISTRY ORDERABLES Final Re sult [facility] [phone] [facility] [address] [place] [address] [place] [address] * (ABNORMAL) LIPID PANEL (08/17/2024 10:10 AM RECORDS SPECIALIST) CHOLESTEROL 214(H) <200 mg/dL [facility] HDL 66 > OR = 40 mg/dL [facility] TRIGLYCERIDE 55 <150 mg/dL [facility] LDL CALCULATED 133(H) mg/dL (calc) [facility] Comment: Reference range: <100 Desirable range <100 mg/dL for primary prevention; <70 mg/dL for patients with CHD or diabetic patients with > or = 2 CHD risk factors. LDL-C is now calculated using the Lico-Shah calculation, which is a validated novel method providing better accuracy than the Friedewald equation in the estimation of LDL-C. Lico SS et al. AVEL. 2013;310(19): 1445-6486 (http://education.[employer]/faq/VKV758) CHOL/HDL RATIO 3.2 <5.0 (calc) [facility] NON-HDL CHOLESTEROL 148(H) <130 mg/dL (calc) [facility] Comment: For patients with diabetes plus 1 major ASCVD risk factor, treating to a non-HDL-C goal of <100 mg/dL (LDL-C of <70 mg/dL) is considered a therapeutic option. Test Performed at: [facility] [address] [facility] [place] [address] Vik Ceja MD Blood 08/17/2024 10:1 0 AM RECORDS SPECIALIST 08/17/2024 10:11 AM RECORDS SPECIALIST us Ajay Rhodes MD CHEMISTRY ORDERABLES Final Re sult [facility] [phone] [facility] [address] [facility] [place] [address] * (ABNORMAL) COMPREHENSIVE METABOLIC PANEL (08/17/2024 10:10 AM RECORDS SPECIALIST) GLUCOSE 84 65 - 99 mg/dL [facility] [...] [facility] ALT 11 9 - 46 U/L [facility] Comment: FASTING:YES FASTING: YES Test Performed at: [facility] [address] [facility] [place] [address] Vik Ceja MD Blood 08/17/2024 10:1 0 AM RECORDS SPECIALIST 08/17/2024 10:11 AM RECORDS SPECIALIST Ajay Rhodes MD CHEMISTRY ORDERABLES Final Re sult Performing Organization Address [facility]/ZIP Co de Phone Number [facility] [phone] [facility] [address] [facility] [place] [address] * ENDOSCOPY, COLON, SCREENING (06/21/2015) Abstract Provider GI PROCEDURE ORDERABLES Edited Result - Final Performing Organization Address [facility] Co de Phone Number [facility] * POC OCCULT BLOOD UP TO 3 CARDS (06/16/2010) OCCULT BLOOD #1 [facility]G [facility] OCCULT BLOOD #2 [facility] OCCULT BLOOD #3 [facility] Stool specimen (specimen) Ajay Rhodes MD POINT OF CARE TESTING Final R esult Performing Organization Address [facility] Co de Phone Number [facility] from Last 3 Months or Most Recently Relevant to Health Maintenance Insurance MEDICARE PART A AND B [facility] RX ALVARES PLANS (INTERNAL) [facility] RX GENERIC COMMERCIAL Commercial RX ALLWIN DATA Medicare Part B MEDICARE PART A AND B [facility] Advance Directives For more information, please contact: [phone] Documents on File Type Date Recorded Patient Barn Manager Expl anation Advance Directive POA 03/07/2024 1:53 [...] 6:59 AM 03/18/2020 2:16 PM Care Teams Inside Finisher Relationship Specialty Start Date End Date Ajay Rhodes MD PCP - General 01/19/08
[2024-11-13 14:17] LABS: Alanine Aminotransferase 24 U/L (6-50); Albumin Level 3.9 g/dL (3.5-5.1); Alkaline Phosphatase 70 U/L (38-126); Anion Gap 6 mmol/L (4-12); Aspartate Amino Transferase 27 U/L (17-59); Bilirubin,Total 0.6 mg/dL (0.2-1.3); Blood Urea Nitrogen 21 mg/dL (9-20); Calcium 9.5 mg/dL (8.4-10.2); Carbon Dioxide 30 mmol/L (22-30); Chloride 101 mmol/L (98-107); Estimated Glomerular Filt Rate > 60; Glucose 95 mg/dL (65-110); Potassium 3.8 mmol/L (3.4-5.0); Sodium 137 mmol/L (137-145)
== END 2024-11-13 12:21 | disposition home or self-care (01) ==
LOC: ANHLAB 12:21
PROVIDERS: PCP Internal Medicine Hematology & Oncology; Visit Provider Internal Medicine Hematology & Oncology
DX: C71.9 Malignant neoplasm of brain, unspecified (principal)
CPT/HCPCS: 36415; 80047; 80053; 85025

== ENCOUNTER 2025-01-01 09:17 | Outpatient (CLI) | payer MEDICARE, OTHER, SELFPAY ==
--- OUTSIDE RECORDS SUMMARY | 2025-01-01 09:36 | XMS_ITS | Encounter Summary ---
Author Organization [facility] Address 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 [address] D.O.B: 1955 SSN: [id number] Parent/Guardian if applicable: Patient Insurance: BLUE CROSS BLUE SHIELD ID#: [id number] Group#: ORDER(S) #: [id number] mri c spine BEST TO CALL CELL. [phone] BEST TIME TO CALL: ANYTIME. MAY WE LEAVE MESSAGE AT THAT NUMBER: YES, LEAVE MESSAGE. PLEASE SCHEDULE THE APPOINTMENT AT THE FOLLOWING LOCATION: [place] [phone]. TEST PRIORITY: 2 - 7 DAYS. SPECIAL SCHEDULING INSTRUCTIONS: needs prep ORDERING PHYSICIAN: PHIL HANCOCK MD OFFICE INTERCHANGE AGENT & PHONE: Shruthi Hart E ORDER PRINTED BY: Courtney Meza L FOR SCHEDULING USE ONLY: FIRST ATTEMPT Date:JAN 24, 2007 Norma Medrano T 03:02 p Left message on Recorder. SECOND ATTEMPT: Date:JAN 25, 2007 Noa Valentino 01:31 p Spoke with Patient. [place] [phone]. APPOINTMENT DATE : 02/03/2007 ( @ 4:00 pm) The appointment was scheduled by Noa Valentino at [phone] [facility] * Phil Hancock MD - 12/21/2007 4:44 PM CDT SPECIALIST REFERRAL REQUEST DATE: JAN 20, 2007 Note created by: Seema Jiang C 03:16 p Patient Name : LIBERTAD CORTES Address: [address] [place] [address] D.O.B: 1955 SSN: [id number] Parent/Guardian if applicable: Patient Insurance: [employer] Policy#: [id number] Group #: Best To Call : [phone] Best Time to Call : ANYTIME. May We Leave Message At That Number : YES, LEAVE MESSAGE. Referring to: PAIN MANAGEMENT Dr. Marcos Gorman ph: [phone]. Dr. Edmund Manriquez ph: [phone]. PATIENT DIAGNOSIS: . 723.1-NECK PAIN ORDERING PHYSICIAN : PHIL HANCOCK MD PRIORITY OF REFERRAL: AT PATIENT'S CONVENIENCE. OFFICE INTERCHANGE AGENT & PHONE: Seema Jiang C FOR SCHEDULING [...] PRESSURE: 122/72 Right Arm Sitting NURSE NAME: Lg Snyder N CHIEF COMPLAINT Shoulders and lower back [...] palpable. MUSCULOSKELETAL EXAM: post neck tender central, paleologist ok, sensation ok, ls tender, left shoulder anttender but full rom ASSESSMENT/PLAN: 715.90-OSTEOARTHROSIS UNSPECIFIED discussed, check mri, pain mgt 723.1-NECK PAIN MEDICATIONS: VICODIN ES ORAL TABLET 7.5-750 MG, 1 Every Six Hours, As Needed, 90 Dispensed, 2 Fills, status: CONTINUED, 01/20/2007. LAB ORDERS: Order number: [id number] Test Ordered: MRI CSPINE [facility] 461.9-SINUSITIS UNSPECIFIED add med MEDICATIONS: ZYRTEC ORAL TABLET 10 MG, 1 Every Day, 20 Dispensed, status: NEW PRESCRIPTION, 01/20/2007. NASONEX NASAL SUSPENSION 50 MCG/ACT, 2 Every Morning, 2 Dispensed, status: NEW PRESCRIPTION, 01/20/2007. SPECIALTY REFERRAL: PAIN MANAGEMENT Dr. Marcos Gorman ph: [phone]. Dr. Edmund Manriquez ph: [phone].[facility] RETURN VISIT : Instructed to call if not improving. Electronically Signed by: Phil Hancock MD on December documented in this encounter Plan of Treatment Upcoming Encounters Date Type Department Care Team (Late st Contact Info) Description 01/01/2025 10:00 AM CDT Office Visit [facility] Oncology and Hematology - [place] [address] [place] [address] [address] [place] [address] [place] [address] [place] [address] [address] [place] [address] Arrived 03/15/2025 10:00 AM CDT Office Visit [facility] Primary Care [place] [address] [place] [address] Phil Hancock MD [address] [place] [address] [address] [place] [address] documented as of this encounter Visit Diagnoses Not on filedocumented in this encounter Care Teams Photography Coordinator Relationship Specialty Start Date End Date Phil Hancock MD PCP - General 01/19/08 documented as of this encounter
--- OUTSIDE RECORDS SUMMARY | 2025-01-01 09:36 | XMS_ITS | Encounter Summary ---
Author Organization [facility] Address 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 Gender Identity Not on file Sexual Orientation [...] Center Oncology and Hematology - [place] [address] [place] [address] Randall Triplett MD [address] [facility] [address] [place] [address] Arrived 03/15/2025 10:00 AM CDT Office Visit [facility] Primary Care [address] [place] [address] Ajay Rhodes MD [address] [place] [address] [address] [place] [address] documented as of this encounter Visit Diagnoses Not on filedocumented in this encounter Care Teams Customer Experience Consultant Relationship Specialty Start Date End Date Ajay Rhodes MD PCP - General 01/19/08 documented as of this encounter
--- OUTSIDE RECORDS SUMMARY | 2025-01-01 09:36 | XMS_ITS | Clinical Summary ---
Author Organization [facility] Address [address] [place] [address] Care Team Providers Care Farmworker Rice Name Role Phone Ajay Rhodes MD Primary Care Provider + Rosana Noyola MD Unavailable [phone] Allergies No known active allergies Medications fentaNYL (DURAGESIC) 25 mcg/hrIndications: Chronic Pain with Opioid Tolerance Place 1 patch on the skin every third day Applied home patch Wednesday12/19/19 Active montelukast (SINGULAIR) 10 mg tabletIndications: Seasonal Allergic Rhinitis Take 1 tablet (10 mg total) by mouth nightly 1 Active oxyCODONE (ROXICODONE) 5 mg immediate release tabletIndications: Pain Take 1 tablet (5 mg total) by mouth every 4 (four) hours as needed for pain 40 tablet 1 Active azelastine (ASTELIN) 137 mcg (0.1 %) nasal spray Administer 2 sprays into affected nostril(s) 2 (two) times a day 3 Active cyclobenzaprine (FLEXERIL) 10 mg tablet TAKE 1 TABLET BY MOUTH 3 TIMES DAILY NEEDED FOR SPASM. 5 Active levETIRAcetam (KEPPRA) 1,000 mg tablet Take 1 tablet (1,000 mg total) by mouth 2 (two) times a day 5 Active mometasone (ELOCON) 0.1 % cream Apply topically daily 4 Active silver sulfadiazine (SILVADENE, SSD) 1 % cream Apply topically daily 5 Active temozolomide (TEMODAR) 20 mg capsule Take 1 capsule (20 mg) by mouth daily before breakfast. 5 Active bacitracin-neomyci n-polymyxin B (Triple Antibiotic) ointment Apply topically 2 (two) times a day 4 Active ondansetron ODT (ZOFRAN-ODT) 8 mg disintegrating tablet Dissolve 1 tablet on top of tongue then swallow with saliva every 8 hours as needed for nausea or vomiting [address] (PROTONIX) 40 mg EC tablet Take 1 tablet (40 mg total) by mouth daily 4 Active Hospital, Clinic, or Other Facility Administered Medication Ordered Dose Route Frequency Start Date End Date Status lidocaine (XYLOCAINE) 20 mg/mL (2 %) injection 3 mLIndications:Admi nistration of Local Anesthesia 3 mL One-Time Injection 12/04/2024 12/04/2024 Ended methylPREDNISolone acetate (DEPO-medrol) injection 80 mgIndications:Rota tor cuff arthropathy, right 80 mg intra-artic One-Time Injection 12/04/2024 12/04/2024 Ended Active Problems Problem Noted Date Diagnosed Date [...] no significant findings on echocardiogram, 30 day site monitor on discharge HLD (hyperlipidemia) 06/02/2021 Risk factors for obstructive sleep apnea 021 Primary osteoarthritis, left shoulder 04/30/2021 Overview (04/30/2021): Added automatically from request for surgery [id number] Multiple closed fractures of ribs of left [...] (12/19/2019): Added automatically from request for surgery [id number] Arthralgia of shoulder 08/26/2012 Duodenal ulcer Encounters Date Type Department Care Team Description 12/04/2024 9:30 AM CDT Office Visit [facility] Orthopedics and Sports Medicine [address] [place] [address] [address] [place] [address] Shun Burns NP Right shoulder pain, unspecified chronicity (Primary Dx); Rotator cuff arthropathy, right 12/04/2024 7:44 AM CDT - 12/04/2024 11:59 PM CDT Hospital Encounter [facility] Orthopedics and Sports Medicine [address] [place] [address] [address] [place] [address] Discharge Disposition: Discharge to home or self care from Last 3 Months Immunizations Immunization Administration Dates Next Due Hib [...] often do you have a drink containing alcohol? Never 12/04/2024 Q2: How many drinks containi ng alcohol do you have on a typical day when you are drinking? Patient does not drink Q3: How often do you have si x or more drinks on one occasion? Never 12/04/2024 Personal Safety Answer Date Recorded Have you ever been in or are you currently in a harmful physical or emotional relationship or is someone making you feel afraid or unsafe? 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 Gender Identity Not on file Sexual Orientation Not on file Obstetrics History Last Filed Vital Signs Vital Sign Reading Time Taken Comments Blood Pressure 126/75 12/04/2024 9:34 AM CDT Pulse 76 12/04/2024 9:34 AM CDT Temperature 36.6 C (97.9 F) 10/18/2023 6:05 AM CDT Respiratory Rate 18 10/18/2023 6:05 AM CDT Oxygen Saturation 98% 10/18/2023 6:05 AM CDT Inhaled Oxygen Concentration - - Weight 67.1 kg (148 lb) 12/04/2024 9:34 AM CDT Height 177.8 cm (5' 10) 12/04/2024 9:34 AM CDT Body Mass Index 21.24 12/04/2024 9:34 AM CDT Plan of Treatment Health Maintenance Due Date Last Done Comments Depression Screening 1955 Hepatitis C Screening 1955 Prostate Cancer Screening-PSA 1955 Hepatitis B Screening 1975 Covid-19 Vaccine (3 - Pfizer risk series) 04/22/2021 03/25/2021, 11/18/2020 Pneumococcal vaccine 65+ (2 of 2 - PCV) 03/19/2022 03/19/2021 Well Visit 65+ 2022 Fall Risk Assessment 10/17/2024 10/18/2023 Colon Cancer Screening-Colonoscopy 06/21/2025 06/21/2015, 06/21/2015 DTaP/Tdap/Td Vaccine (3 - Td or Tdap) 03/24/2031 03/24/2021, 08/27/2011 Colon Cancer Screening-CT Colonography Discontinued 06/21/2015, 06/21/2015 Colon Cancer Screening-DNA Stool Discontinued 06/21/20 15, 06/21/2015 Colon Cancer Screening-FIT Discontinued 06/21/2015, Colon Cancer Screening-Sigmoidoscopy Discontinued 06/21/2015, 06/21/2015 Zoster Vaccine Completed 03/15/2023, 11/26/2018 Influenza Vaccine Completed 04/11/2024, , 04/24/2021, Additional history exists Medical Devices Implanted Type Area Fiber Product Cutting Machine Operator Device Identifier Shelf Expiration Date Model / Serial / Lot [employer] 6191-1-010 Simplex P Radiopaque Full Dose Cement Bone Sterile - [id number] Implanted:Qty: 1 on 06/03/2021 by Lino Granger MD at [facility] Bone Cement Left: Shoulder [employer] 09/01/2022 6191-1-0 10 / / [id number] Sldr 27x6mm Pegs Circular Glenoid W/ In-Line Peripheral - [id number] Implanted:Qty: 1 on 06/03/2021 by Lino Granger MD at [facility] Other - see comments Left: Shoulder Shoulder [employer] [id number] 10/10/2025 [id number] / / [id number] Plug Azur Vascular Embolization Medium - [id number] Implanted:Qty: 1 on 03/17/2021 at [facility] [id number] 09/01/2023 [id number] / / [id number] [employer] Rbypod8 Debby Pod 8mm 60cm Complex Occulusion Device Coil Embolization - [id number] Implanted:Qty: 1 on 03/17/2021 at [facility] [employer] 04/23/2028 [id number] / / [id number] [employer] Kclt-06 Device 6fr Closure Celt Acd Vascular Sterile Latex Free Disposable Ashkan - [id number] Implanted:Qty: 1 on 03/17/2021 at [facility] [employer] [id number] 08/12/2023 KCLT -06 / / [id number] Shoulder Innovations [employer] [id number] Head Shoulder Offset Humeral 18mm X 44mm - [id number] Implanted:Qty: 1 on 06/03/2021 by Lino Granger MD at [facility] Left: Shoulder Shoulder [employer] [id number] 09/26/2025 [id number] / / [id number] Shoulder [employer] Llc [id number] Stem Shoulder Porous Titanium Humeral Small - [id number] Implanted:Qty: 1 on 06/03/2021 by Lino Granger MD at [facility] Left: Shoulder Shoulder [employer] [id number] 03/10/2026 [id number] 20 / / [id number] Procedures Procedure Name Priority Date/Time Associated Diagnosis Comments MA ARTHROCENTESIS ASPIR&/INJ MAJOR JT/BURSA W/O US Routine 12/04/2024 9:30 AM CDT Rotator cuff arthropathy, right XR SHOULDER RIGHT 2 OR MORE VIEWS Routine 12/04/2024 9:18 AM CDT Right shoulder pain, unspecified chronicity COLONOSCOPY IMAGES 06/21/2015 from Last 3 Months or Most Recently Relevant to Health Maintenance Results * MA ARTHROCENTESIS ASPIR&/INJ MAJOR JT/BURSA W/O US (12/04/2024 9:30 AM CDT) Narrative Shun Burns NP - 12/04/2024 9:30 AM CDT Shun Burns NP 12/04/2024 12:00 PM Large Joint (Hip, Knee, Shoulder) Injection: R glenohumeral Performed by: Shun Burns NP Authorized by: Shun Burns NP Large Joint Injection/Aspiration: Consent Given by: Patient Timeout: prior to procedure the correct patient, procedure, and site was verified Verbal consent obtained: Yes Supporting Documentation: Indications: Pain Procedure Details: Location: Shoulder Site: R glenohumeral Prep: patient was prepped using a clean technique Needle Size: 22 G Approach: Posterior Ultrasound guided: No Fluroscopic guidance: No Medications: 3 mL lidocaine 20 mg/mL (2 %); 80 mg methylPREDNISolone acetate 80 mg/mL Patient tolerance: Patient tolerated the procedure well with no immediate complications Shun Burns WASHER ASSEMBLER IN CLINIC/BEDSIDE ORDERA BLES Final Result * XR Shoulder Right 2 or More Views (12/04/2024 9:18 AM CDT) Anatomical Region Laterality Modality Upper Extremities, Shoulder Right Digi sae Radiography Narrative 12/04/2024 11:56 AM CDT X-rays of the right shoulder are viewed and interpreted in clinic today. These demonstrate no fracture subluxation or osseous lesions. Rotator cuff arthropathy changes noted with superior elevation of the humeral head, osteophyte formation, and subchondral sclerosis. Shun Burns WASHER ASSEMBLER IMG XR PROCEDURES Final Result * COLONOSCOPY IMAGES (06/21/2015) Anatomical Region Laterality Modality Other Narrative 06/21/2015 Ordered by an unspecified provider. Historical Provider GI PROCEDURE ORDERABLES F inal Result from Last 3 Months or Most Recently Relevant to Health Maintenance Insurance [facility] MEDICARE [facility] MEDICARE [facility] Advance Directives For more information, please contact: [phone] * Full Code (Latest Code Status on [...] 6:44 PM 12/20/2019 10:02 AM Care Teams Farmworker Rice Relationship Specialty Start Date End Date Ajay Rhodes MD PCP - General 12/19/19 Rosana Noyola MD Consulting Physician Gastroenterology 12/21/19
--- OUTSIDE RECORDS SUMMARY | 2025-01-01 09:36 | XMS_ITS | Encounter Summary ---
Author Organization [facility] Address 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 Gender Identity Not on file Sexual Orientation Not on file documented as of this encounter Plan of Treatment Upcoming Encounters Date Type Department Care Team (Late st Contact Info) Description 01/01/2025 10:00 AM CDT Office Visit [facility] Oncology and Hematology - [place] [address] [facility] [address] [place] [address] [place] [address] [place] [address] [address] [place] [address] Arrived 03/15/2025 10:00 AM CDT Office Visit [facility] Primary Care [address] [place] [address] Ajay Rhodes MD [address] [place] [address] [place] [address] documented as of this encounter Visit Diagnoses Not on filedocumented in this encounter Care Teams Family Dentist Relationship Specialty Start Date End Date Ajay Rhodes MD PCP - General 01/19/08 documented as of this encounter
--- OUTSIDE RECORDS SUMMARY | 2025-01-01 09:36 | XMS_ITS | Encounter Summary ---
Author Organization [facility] Address [address] [place] [address] Care Team Providers Care Shotgun Shell Reprinting Unit Operator Name Role Phone Ajay Rhodes MD Primary Care Provider [phone] Encounter Details Date Type Department Care Team (Late st Contact Info) Description 07/05/2006 Outpatient Historical [facility] Internal Medicine [address] [address] Ajay Rhodes MD [address] [place] [address] [address] [place] [address] Social History Tobacco Use Types Packs/Day Years Used Date Smoking Tobacco: Never Assessed Sex and Gender Information Value Date Recorded Sex Assigned at Not on file Legal 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 Male 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 Gender Identity Not on file Sexual Orientation Not on file documented as of this encounter Plan of Treatment Upcoming Encounters Date Type Department Care Team (Late st Contact Info) Description 01/01/2025 10:00 AM CDT Office Visit [facility] Oncology and Hematology - [place] [address] [facility] [address] [place] [address] [place] [address] [place] [address] [address] [place] [address] Arrived 03/15/2025 10:00 AM CDT Office Visit [facility] Primary Care [address] [place] [address] Ajay Rhodes MD [address] [place] [address] [place] [address] documented as of this encounter Visit Diagnoses Not on filedocumented in this encounter Care Teams Shotgun Shell Reprinting Unit Operator Relationship Specialty Start Date End Date Ajay Rhodes MD PCP - General 01/19/08 documented as of this encounter
--- OUTSIDE RECORDS SUMMARY | 2025-01-01 09:36 | XMS_ITS | Encounter Summary ---
Author Organization [facility] Address 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 [address] D.O.B: 1955 N: [id number] Parent/Guardian if applicable: Patient Insurance: [employer] [facility] Policy#: [id number] Group #: Best To Call : [phone] Best Time to Call : ANYTIME. May We Leave Message At That Number : YES, LEAVE MESSAGE. Referring to: GASTROENTEROLOGY Dr. Khanh Hatfield ph: [phone] fax: [phone]. Dr. Rosana Noyola ph: [phone] fax: [phone]. Reason for referral: colonoscopy ORDERING PHYSICIAN : PHIL HANCOCK MD PRIORITY OF REFERRAL: AT PATIENT'S CONVENIENCE. OFFICE FABRIC AWNING REPAIRER & PHONE: Seema Jiang C FOR SCHEDULING [...] SPECIALTY REFERRAL: GASTROENTEROLOGY Dr. Rosana Noyola ph: [phone] fax: [phone]. Dr[address] Khanh Hatfield ph: [phone] fax: [phone].colonoscopy Patient Education: Risks, benefits, and possible side [...] AM CDT Office Visit [facility] Oncology and Hematology - [place] [address] [place] [address] [address] [place] [address] [place] [address] [place] [address] [address] [place] [address] Arrived 03/15/2025 10:00 AM CDT Office Visit [facility] Primary Care [address] [place] [place] [address] Phil Hancock MD [address] [place] [address] [address] [place] [address] documented as of this encounter Visit Diagnoses Not on filedocumented in this encounter Care Teams Matching Machine Operator Relationship Specialty Start Date End Date Phil Hancock MD PCP - General 01/19/08 documented as of this encounter
--- OUTSIDE RECORDS SUMMARY | 2025-01-01 09:36 | XMS_ITS | Encounter Summary ---
Author Organization [facility] Address 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 Topic: Patient or Caregiver Communication Request >> Feb 17, 2024 9:25 AM Tiffanie Sapp wrote: Patient or Caregiver requesting advice Caller: [place] [employer] Patient/Caregiver Callback Number: [phone] Call Notes: Caller states the patient had [...] Description 01/01/2025 10:00 AM CDT Office Visit [facility] Oncology and Hematology - [place] [address] [facility] [address] [place] [address] Randall Triplett MD [address] [facility] [address] [place] [address] Arrived 03/15/2025 10:00 AM CDT Office Visit [facility] Primary Care [address] [place] [address] Ajay Rohdes MD [address] [place] [address] documented as of this encounter Visit Diagnoses Not on filedocumented in this encounter Care Teams Biopsychologist Relationship Specialty Start Date End Date Ajay Rhodes MD PCP - General 01/19/08 documented as of this encounter
--- OUTSIDE RECORDS SUMMARY | 2025-01-01 09:36 | XMS_ITS | Encounter Summary ---
Author Organization [facility] Address 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 Gender Identity Not on file Sexual Orientation Not on file documented as of this encounter Plan of Treatment Upcoming Encounters Date Type Department Care Team (Late st Contact Info) Description 01/01/2025 10:00 AM CDT Office Visit [facility] Oncology and Hematology - [place] [address] [facility] [address] [place] [address] [place] [address] [place] [address] [address] [place] [address] Arrived 03/15/2025 10:00 AM CDT Office Visit [facility] Primary Care [address] [place] [address] Ajay Rhodes MD [address] [place] [address] [place] [address] documented as of this encounter Visit Diagnoses Not on filedocumented in this encounter Care Teams Business Consult Relationship Specialty Start Date End Date Ajay Rhodes MD PCP - General 01/19/08 documented as of this encounter
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
--- OUTSIDE RECORDS SUMMARY | 2025-01-01 09:36 | XMS_ITS | Encounter Summary ---
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 Gender Identity Not on file Sexual Orientation Not on file documented as of this encounter Plan of Treatment Upcoming Encounters Date Type Department Care Team (Late st Contact Info) Description 01/01/2025 10:00 AM CDT Office Visit [facility] Oncology and Hematology - [place] [address] [facility] [address] [place] [address] Randall Triplett MD [address] [facility] [address] [place] [address] Arrived 03/15/2025 10:00 AM CDT Office Visit [facility] Primary Care [address] [place] [address] Ajay Rhodes MD [address] [place] [address] [address] [place] [address] documented as of this encounter Visit Diagnoses Not on filedocumented in this encounter Care Teams Flat Hammerer Relationship Specialty Start Date End Date Ajay Rhodes MD PCP - General 01/19/08 documented as of this encounter
--- OUTSIDE RECORDS SUMMARY | 2025-01-01 09:36 | XMS_ITS | Encounter Summary ---
Author Organization [facility] Address 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 Male 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 Gender Identity Not on file Sexual Orientation Not on file documented as of this encounter Plan of Treatment Upcoming Encounters Date Type Department Care Team (Late st Contact Info) Description 01/01/2025 10:00 AM CDT Office Visit [facility] Oncology and Hematology - [place] [address] [facility] [address] [place] [address] [place] [address] [place] [address] [address] [place] [address] Arrived 03/15/2025 10:00 AM CDT Office Visit [facility] Primary Care [address] [place] [address] Ajay Rhodes MD [address] [place] [address] [place] [address] documented as of this encounter Visit Diagnoses Not on filedocumented in this encounter Care Teams Personal Banking Representative Relationship Specialty Start Date End Date Ajay Rhodes MD PCP - General 01/19/08 documented as of this encounter
--- OUTSIDE RECORDS SUMMARY | 2025-01-01 09:36 | XMS_ITS | Encounter Summary ---
Author Organization [facility] Address [address] [place] [address] Care Team Providers Care Cable Armorer Operator Name Role Phone Ajay Rhodes MD Primary Care Provider [phone] Encounter Details Date Type Department Care Team (Late st Contact Info) Description 08/05/2007 Outpatient Historical [facility] Internal Medicine [address] [address] Ajay Rhodes MD [address] [place] [address] [address] [place] [address] Social History Tobacco Use Types Packs/Day Years Used Date Smoking Tobacco: Never Assessed Sex and Gender Information Value Date Recorded Sex Assigned at Not on file Legal Sex Male 4:14 AM POWER OPERATOR Gender Identity Not on file Sexual Orientation Not on file documented as of this encounter Plan of Treatment Upcoming Encounters Date Type Department Care Team (Late st Contact Info) Description 01/01/2025 10:00 AM CDT Office Visit [facility] Oncology and Hematology - [place] [address] [facility] [address] [place] [address] [place] [address] [place] [address] [address] [place] [address] Arrived 03/15/2025 10:00 AM CDT Office Visit [facility] Primary Care [address] [place] [address] Ajay Rhodes MD [address] [place] [address] [place] [address] documented as of this encounter Visit Diagnoses Not on filedocumented in this encounter Care Teams Cable Armorer Operator Relationship Specialty Start Date End Date Ajay Rhodes MD PCP - General 01/19/08 documented as of this encounter
--- OUTSIDE RECORDS SUMMARY | 2025-01-01 09:36 | XMS_ITS | Encounter Summary ---
Author Organization [facility] Address 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 LAB ORDERS: 3 mo Order number: [id number] Test Ordered: COMPREHENSIVE METABOLIC PANEL & GFR 1112 Order number: [id number] Test Ordered: LIPID PANEL 1078 Order number: [id number] Test Ordered: PSA, TOTAL 1002 Patient Education: [...] Description 01/01/2025 10:00 AM CDT Office Visit [facility] Oncology and Hematology - [place] [address] [facility] [address] [place] [address] Randall Triplett MD [address] [facility] [address] [place] [address] Arrived 03/15/2025 10:00 AM CDT Office Visit [facility] Primary Care [address] [place] [address] Ajay Rhodes MD [address] [place] [address] [address] [place] [address] documented as of this encounter Visit Diagnoses Not on filedocumented in this encounter Care Teams Antichecking Iron Worker Relationship Specialty Start Date End Date Ajay Rhodes MD PCP - General 01/19/08 documented as of this encounter
--- OUTSIDE RECORDS SUMMARY | 2025-01-01 09:36 | XMS_ITS | Encounter Summary ---
Author Organization [facility] Address [address] [place] [address] Care Team Providers Care Fender Mechanic Apprentice Name Role Phone Ajay Rhodes MD Primary Care Provider [phone] Encounter Details Date Type Department Care Team (Late st Contact Info) Description 10/25/2007 Outpatient Historical [facility] Internal Medicine [address] [address] Ajay Rhodes MD [address] [place] [address] [address] [place] [address] Social History Tobacco Use Types Packs/Day Years Used Date Smoking Tobacco: Never Assessed Sex and Gender Information Value Date Recorded Sex Assigned at Not on file Legal Sex Male 4:14 AM PEARL 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 [address] [place] [address] [place] [address] [place] [address] [address] [place] [address] Arrived 03/15/2025 10:00 AM CDT Office Visit [facility] Primary Care [address] [place] [address] Ajay Rhodes MD [address] [place] [address] [place] [address] documented as of this encounter Visit Diagnoses Not on filedocumented in this encounter Care Teams Fender Mechanic Apprentice Relationship Specialty Start Date End Date Ajay Rhodes MD PCP - General 01/19/08 documented as of this encounter
--- OUTSIDE RECORDS SUMMARY | 2025-01-01 09:36 | XMS_ITS | Encounter Summary ---
Author Organization [facility] Address [address] [place] [address] Care Team Providers Care Check Out Clerk Name Role Phone Ajay Rhodes MD Primary Care Provider [phone] Reason for Visit * Auth/Cert Specialty Diagnoses / Procedures Referred By Contsantiago t [place] [address] [place] [address] Phone: tel: fax: [facility] [address] [facility] [address] [place] [address] Phone: tel: fax: Referral ID Status Reason Start Date Expiration Date Visits Re quested Visits Authorized [id number] 1 1 Encounter Details Date Type Department Care Team (Late st Contact Info) Description 03/05/2024 Hospital Encounter [facility] [address] [facility] [address] [place] [address] [place] [address] [place] [address] Social History Tobacco Use Types [...] answer 03/02/2024 Food Insecurity Answer Date Recorded Patient needs follow up regardin 11/28/2024 Transportation Needs Answer Date Record ed Patient needs follow up regardin 11/28/2024 Housing Stability Answer Date Recorded Social/Environmental Concerns No concerns Utility Needs Answer Date Recorded Patient needs follow up regardin 11/28/2024 Sex and Gender Information Value Date Recorded Sex Assigned at Not on file Legal 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 Problems Being Addressed & Management Recommendations: Stealth guided Resection of L-sided Temporal Lobe Brain Tumor: Underwent surgery on 03/[address] Bowens and seen by Oncologist, Dr. 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 Pathology is pending.Pt anticipating to follow up with OP Rad Onc/Oncologist for chemoradiation at [facility] Fatigue, weakness: PT/OT involved; mobility has [...] advanced. He is anticipating discharge home to [place] today and to follow up with his cancer treatment at [facility] for chemoradiation once this is coordinated. [...] Discussed with patient/family. MPOA/relationship: Abner Cortes (): [phone] Social History/ Caregiver Assessment: . Has two children -All emotionally involved and available to support Gigi as needed. 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 Education provided on: Palliative Care and services [...] ulcer disease) 01/2020 GASTRIC Tonic clonic seizures [id number] 2023-CT NEG/TESTING @ MOBILE Past Surgical History: Procedure Laterality Date HX COLONOSCOPY AGE 61 HX CRANIOTOMY FOR STEREOTACTIC GUIDED SURGERY Left 03/02/2024 CRANIOTOMY STEREOTACTIC performed by Chelsey Bowens MD at [facility] OR [facility] HX KNEE ARTHROSCOPY W/ MENISCAL REPAIR Right 2018 HX VASECTOMY NH ARTHROSCOPY KNEE SYNOVECTOMY LIMITED SPX 03/18/2020 KNEE SYNOVECTOMY ARTHROSCOPIC performed by Pancho Barfield MD at [facility] NH ARTHRS KNE SURG W/MENISCECTOMY MED/LAT W/SHVG Left 03/18/2020 KNEE ARTHROSCOPY performed by Pancho Barfield MD at [facility] NH ARTHRS KNE SURG W/MENISCECTOMY MED/LAT W/SHVG 03/18/2020 PARTIAL MEDIAL MENISCECTOMY KNEE ARTHROSCOPIC performed by Pancho Barfield MD at [facility] ARTHRS KNEE ABRASION ARTHRP/TRUCK ENGINE TECHNICIAN DRLG/MICROFX 03/18/2020 KNEE CHONDROPLASTY ARTHROSCOPIC performed by Pancho Barfield MD at [facility] NH RPR AA HERNIA 1ST 3-10 CM REDUCIBLE N/A 01/21/2024 HERNIA UMBILICAL REPAIR performed by Jimenez Linares MD at [facility] Family History Problem Relation Name Age [...] Patient needs follow up regarding:: No concerns Nipomo Symptom Assessment Scale (ESAS-r) Pain: 0 (03/06/24999) [...] care of this patient. Siri Denis NP [facility] Palliative Care [phone] Routed to: Ajay Rhodes MD Total time [...] advanced. He is anticipating discharge home to [place] today and to follow up with his cancer treatment at [facility] for chemoradiation once this is coordinated [...] Context 02/29/2024 1824 03/06/2024 1717 Full Code [id number] Shun Youngblood MD ED 01/21/2024 0805 01/21/2024 1221 Full Code [id number] Jimenez Linares MD Inpatient Only showing the [...] Description 01/01/2025 10:00 AM CDT Office Visit [facility] Oncology and Hematology - [place] [address] [place] [address] 200 [place] [address] [place] [address] [place] [address] [address] [place] [address] Arrived 03/15/2025 10:00 AM CDT Office Visit [facility] Primary Care [address] [place] [address] Ajay Rhodes MD [address] [address] [place] [address] documented as of this encounter Visit Diagnoses Not on filedocumented in this encounter Care Teams Check Out Clerk Relationship Specialty Start Date End Date Ajay Rhodes MD PCP - General 01/19/08 documented as of this encounter
--- OUTSIDE RECORDS SUMMARY | 2025-01-01 09:36 | XMS_ITS | Encounter Summary ---
Author Organization [facility] Address [address] [place] [address] Care Team Providers Care Kineseologist Name Role Phone Ajay Rhodes MD Primary Care Provider [phone] Reason for Visit * Reason Comments Medication Assistance Encounter Details Date Type Department Care Team (Late st Contact Info) Description 02/28/2024 Telephone [facility] Primary Care [address] [place] [place] [address] Ajay Rhodes MD [address] 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 SPECIALIST Gender Identity Not on file Sexual Orientation Not on file documented as of this encounter Miscellaneous Notes * Telephone Encounter - Chelsey Singleton RN - 02/28/2024 11:53 AM CDT Date of last visit addressing condition(s) being treated: 02/23/24 Recent Visits Date Type Provider Dept 02/23/24 Office Visit Ajay Rhodes MD [facility] 10/21/23 Office Visit Ajay Rhodes MD [facility] 10/04/23 Office Visit Ajay Rhodes MD [facility] 03/31/23 Office Visit Ajay Rhodes MD [facility] 11/23/22 Office Visit Ajay Rhodes MD [facility] Showing recent visits within past 540 days with a meds authorizing provider and meeting all other requirements Future Appointments Date Type Provider Dept 04/11/24 Appointment Ajay Rhodes MD [facility] 05/17/24 Appointment Ajay Rhodes MD [facility] Showing future appointments within next 365 days with a meds authorizing provider and meeting all other requirements Correct Pharmacy: Yes Medication below pended for you. Medication (Ask patient/caregiver to spell if possible): HYDROcodone- acetaminophen (NORCO) 10-325 mg Tablet Preferred Pharmacy: [place] [address] [place] [address] Patient/Caregiver Callback Number: [phone] (home) Call Notes: Requesting refill early will be leaving to go out of town this Wednesday please advise request HYDROcodone-acetaminophen (NORCO) 10-325 mg Tablet [facility] [address] [place] [address] only this location Chelsey Singleton, RN * Telephone Encounter - Maira Lopez - 02/28/2024 11:24 AM CDT Copied from [facility] #[id number]. Topic: Medication Request >> Feb 28, 2024 11:22 AM Maira Yeh wrote: Caller is requesting: Medication - New Request (Not Currently Taking) Medication (Ask patient/caregiver to spell if possible): HYDROcodone- acetaminophen (NORCO) 10-325 mg Tablet Preferred Pharmacy: [facility] [address] [place] [address] Patient/Caregiver Callback Number: [phone] (home) Call Notes: Requesting refill early will be leaving to go out of town this Wednesday please advise request HYDROcodone-acetaminophen (NORCO) 10-325 mg Tablet [facility] [address] [place] [address] only this location documented in this encounter Plan of Treatment Upcoming Encounters Date Type Department Care Team (Late st Contact Info) Description 01/01/2025 10:00 AM CDT Office Visit [facility] Oncology and Hematology - [place] [address] [facility] [address] [place] [address] Randall Triplett MD [address] [facility] [address] [place] [address] Arrived 03/15/2025 10:00 AM CDT Office Visit [facility] Primary Care [place] [address] [address] [place] [address] Ajay Rhodes MD [address] [place] [address] documented as of this encounter Visit Diagnoses Diagnosis Other osteoarthritis involving multiple joints documented in this encounter Care Teams Kineseologist Relationship Specialty Start Date End Date Ajay Rhodes MD PCP - General 01/19/08 documented as of this encounter
--- OUTSIDE RECORDS SUMMARY | 2025-01-01 09:36 | XMS_ITS | Encounter Summary ---
Author Organization [facility] Address 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 PHARMACY NUMBER: [phone] SECTION 1: REQUESTED ACTION issa 02/28/07 at 10:41 am: MEDICATION REQUEST: MEDICATION REQUEST: Patient requests a refill. gen vicodin #[id number] 02/04/07 DOCTOR`S RESPONSE: debby 02/28/07 at 12:40 pm prev note * Ajay Rhodes MD - 12/21/2007 1:22 PM CDT TIME:11:57 am PATIENT`S HOME PHONE: PATIENT`S WORK PHONE: PATIENT`S INSURANCE: [employer] WHO TOOK THE CALL: Lorrie Lynch C GENERAL INFORMATION WHO CALLED: Patient called. PHARMACY NUMBER: [phone] SECTION 1: PT NEVER TOOK SCRIPT IN [...] Description 01/01/2025 10:00 AM CDT Office Visit [facility] Oncology and Hematology - [place] [address] [place] [address] [address] [place] [address] [place] [address] [place] [address] [address] [place] [address] Arrived 03/15/2025 10:00 AM CDT Office Visit [facility] Primary Care [address] [place] [address] Ajay Rhodes MD [address] [place] [address] [address] [place] [address] documented as of this encounter Visit Diagnoses Not on filedocumented in this encounter Care Teams Long Wall Mining Machine Tender Relationship Specialty Start Date End Date Ajay Rhodes MD PCP - General 01/19/08 documented as of this encounter
--- OUTSIDE RECORDS SUMMARY | 2025-01-01 09:36 | XMS_ITS | Encounter Summary ---
Author Organization [facility] Address [address] [place] [address] Care Team Providers Care Gauge Operator Name Role Phone Ajay Rhodes MD Primary Care Provider [phone] Encounter Details Date Type Department Care Team (Late st Contact Info) Description 07/05/2006 Outpatient Historical [facility] Internal Medicine [address] [address] Ajay Rhodes MD [address] [place] [address] [address] [place] [address] Social History Tobacco Use Types Packs/Day Years Used Date Smoking Tobacco: Never Assessed Sex and Gender Information Value Date Recorded Sex Assigned at Not on file Legal Sex Male 4:14 AM SOLUTION PROFESSIONAL Gender Identity Not on file Sexual Orientation Not on file documented as of this encounter Plan of Treatment Upcoming Encounters Date Type Department Care Team (Late st Contact Info) Description 01/01/2025 10:00 AM CDT Office Visit [facility] Oncology and Hematology - [place] [address] [facility] [address] [place] [address] [place] [address] [place] [address] [address] [place] [address] Arrived 03/15/2025 10:00 AM CDT Office Visit [facility] Primary Care [address] [place] [address] Ajay Rhodes MD [address] [place] [address] [place] [address] documented as of this encounter Visit Diagnoses Not on filedocumented in this encounter Care Teams Gauge Operator Relationship Specialty Start Date End Date Ajay Rhodes MD PCP - General 01/19/08 documented as of this encounter
--- OUTSIDE RECORDS SUMMARY | 2025-01-01 09:36 | XMS_ITS | Encounter Summary ---
Author Organization [facility] Address 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 Gender Identity Not on file Sexual Orientation [...] Description 01/01/2025 10:00 AM CDT Office Visit [facility] Oncology and Hematology - [place] [address] [place] [address] Randall Triplett MD [address] [facility] [address] [place] [phone] Arrived 03/15/2025 10:00 AM CDT Office Visit [facility] Primary Care [address] [place] [address] Ajay Rhodes MD [address] [place] [address] [address] [place] [address] documented as of this encounter Visit Diagnoses Not on filedocumented in this encounter Care Teams Validation Software Facilitator Relationship Specialty Start Date End Date Ajay Rhodes MD PCP - General 01/19/08 documented as of this encounter
--- OUTSIDE RECORDS SUMMARY | 2025-01-01 09:36 | XMS_ITS | Clinical Summary ---
Author Organization [facility] Address [address] [place] [address] Care Team Providers Care Field Sales Consultant Name Role Phone Ajay Rhodes MD Primary Care Provider [phone] Allergies Active Allergy Reactions Criticality Noted Date [...] 28 days. 5 Capsule 5 025 Active silver sulfADIAZINE (SILVADENE) 1 % Cream Apply to affected area daily. 50 Gram 3 025 Active levETIRAcetam (KEPPRA) 1,000 mg tabletIndication s:Seizures (CMS/HCC),Gliobl astoma multiforme of brain (CMS/HCC) TAKE 1 TABLET BY MOUTH TWICE A DAY 180 Tablet 1 025 Active azelastine (ASTELIN) 137 mcg/actuation nasal spray Administer 2 Sprays in each nostril 2 times daily. 30 mL 3 025 Active cyclobenzaprine (FLEXERIL) 10 mg tablet TAKE 1 TABLET BY MOUTH 3 TIMES DAILY NEEDED FOR SPASM. 30 Tablet 3 025 Active HYDROcodone-acet aminophen (NORCO) 10-325 mg TabletIndication s:Other osteoarthritis involving multiple joints Take 1 Tablet by mouth every 4 hours as needed (as needed for pain). DX Osteoarthritis multiple joints Max Daily Amount: 6 Tablets 180 Tablet 025 Active cyclobenzaprine (FLEXERIL) 10 mg tablet TAKE 1 TABLET BY MOUTH 3 TIMES DAILY NEEDED FOR SPASM. 30 Tablet 3 025 2024 Discontinued HYDROcodone-acet aminophen (NORCO) 10-325 mg [...] Encounters Date Type Department Care Team Description 12/26/2024 External Device Data STL ABSTRACTION Provider, Abstract 12/26/2024 External Device Data STL ABSTRACTION Provider, Abstract 12/26/2024 External Device Data STL ABSTRACTION Provider, Abstract 12/21/2024 External Device Data STL ABSTRACTION Provider, Abstract 12/19/2024 External Device Data STL ABSTRACTION Provider, Abstract 12/12/2024 [facility] [address] [place] [phone] Ajay Rhodes MD Other osteoarthritis involving multiple joints 12/06/2024 [facility] Care [address] [place] [phone] Ajay Rhodes MD 12/05/2024 External Device Data STL ABSTRACTION Provider, Abstract 11/30/2024 Chart Note [facility] [address] [place] [address] Gume Dailey MD 11/30/2024 Telephone [facility] Radiation Therapy [address] [place] [address] Leona Palacio RN Phone visit 11/28/2024 External Device Data STL ABSTRACTION Provider, Abstract 11/15/2024 [address] [address] [place] [phone] Ajay Rhodes MD Other osteoarthritis involving multiple joints 11/14/2024 External Device Data STL ABSTRACTION Provider, Abstract 11/14/2024 Orders Only [facility] Oncology and Hematology [facility] [address] [place] [address] Randall Triplett MD 11/13/2024 1:00 PM CDT Office Visit [facility] Oncology and Hematology [place] [address] [address] [place] [address] Randall Triplett MD GBM (glioblastoma multiforme) (CMS/HCC) (Primary Dx) 11/07/2024 External Device Data STL ABSTRACTION Provider, Abstract 11/07/2024 External Device Data STL ABSTRACTION Provider, Abstract 11/07/2024 Orders Only [facility] Oncology and Hematology [facility] [address] [place] [address] Randall Triplett MD 10/25/2024 3:40 PM CDT Office Visit [place] [address] [address] Ajay Rhodes MD Rotator cuff disorder, right (Primary Dx); Glioblastoma multiforme of brain (CMS/HCC); Other hyperlipidemia; Vitamin D deficiency; Seizures (CMS/HCC); Frail elderly; Atherosclerosis of aorta; Allergic sinusitis 10/23/2024 Telephone [place] [address] [address] Ajay Rhodes MD Clinical Consult Before Scheduling 10/17/2024 External Device Data STL ABSTRACTION Provider, Abstract 10/16/2024 Ref[address] [place] [address] [address] Ajay Rhodes MD Other osteoarthritis involving multiple joints 10/10/2024 Orders Only [facility] Oncology and Hematology [facility] [address] [place] [address] Randall Triplett MD 10/09/2024 1:00 PM CDT Office Visit [facility] Oncology [facility] [address] [place] [address] Randall Triplett MD GBM (glioblastoma multiforme) ([facility]) (Primary Dx) 10/03/2024 External Device Data STL [...] COVID-19 VACCINE - EMERGENCY USE AUTHORIZATION, MRNA, [id number](PF) 30 MCG/0.3 ML IM SUSP 03/22/2021,11/18/2020 12/09/2020 (PREVNAR 20)(6 WKS UP) PNEUM OCOCCAL CONJUGATE VACCINE 20-VALENT (PCV20), POLYSACCHARIDE DTO439 CONJUGATE, ADJUVANT 0.5 ML (PF) IM 05/25/2022 (SHINGRIX)(50 YRS UP) ZOSTER VACCINE RECOMBINANT, 0.5 ML, IM 03/15/2023,11/26/2018 INFLUENZA VACCINE HIGH DOSE QUADRIVALENT 65 YR UP PF IM 03/31/2023,05/25/2022 INFLUENZA VACCINE HIGH DOSE TRIVALENT SPLIT VIRUS, (65 YR UP), 0.5ML (PF), IM 04/11/2024 INFLUENZA VACCINE QUADRIVALENT 3 YR UP PF IM 09/ INFLUENZA VACCINE QUADRIVALENT 6 MOS UP PF [...] on file Legal Sex Male 4:14 AM 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 Gender Identity Not on file Sexual Orientation [...] P M CDT Height 177.8 cm (5' 10) 10/25/2024 3:03 PM CDT Body Mass Index 20.98 10/25/2024 3:03 PM CDT Plan of Treatment Upcoming Encounters Date Type Department Care Team (Late st Contact Info) Description 01/01/2025 10:00 AM CDT Office Visit [facility] Oncology and Hematology - [place] [address] [facility] [address] [place] [phone] Randall Triplett MD [address] [facility] [address] [place] [address] Arrived 03/15/2025 10:00 AM CDT Office Visit [facility] Primary Care [address] [place] [address] Ajay Rhodes MD [address] [facility] [address] [place] [address] Health Maintenance Due Date Last [...] history exists Medical Devices Implanted Type Area Forensic Ballistics Expert Device Identifier Shelf Expiration Date Model / Serial / Lot Duragen + 3x3in Dp-1033 - [id number] Implanted:Qty : 1 on 03/02/2024 by Chelsey Bowens MD at [facility] Graft Left: Cranial [employer] [id number] 09/29/2026 [id number] / / [id number] Hemostatic Surgiflo 8ml W/ Thrombin 2994 - [id number] Implanted:Qty : 1 on 03/02/2024 by Chelsey Bowens MD at [facility] Hemostatic Left: Brain J&J- [employer] [id number] 05/01/2025 2994 / / [id number] Hemostatic Surgiflo 8ml W/ Thrombin 299 - [id number] Implanted:Qty : 1 on 03/02/2024 by Chelsey Bowens MD at [facility] Hemostatic Left: Brain J&J- [employer] [id number] 04/01/2025 2994 / / [id number] Agent Hemostat Surgicel 4x8in - [id number] Implanted:Qty : 1 on 03/02/2024 by Chelsey Bowens MD at [facility] Hemostatic Left: Brain J&J- [employer] INC 07/01/2028 1952S / / [id number] Hemostatic Surgicel 1x2in 1960 - [id number] Implanted:Qty : 1 on 03/02/2024 by Chelsey Bowens MD at [facility] Hemostatic Left: Brain J&J- ETH[employer] INC 09/01/20261 / / [id number] Hemostatic Surgifoam Sz100 1973 - [id number] Implanted:Qty : 1 on 03/02/2024 by Chelsey Bowens MD at [facility] Hemostatic Left: Brain J&J- ETHICON ENDO-SURGERY INC 12/02/2027 1974 / / [id number] Mesh Ventralex 1.7in Sm Circ [id number] - [id number] Implanted:Qty : 1 on 01/21/2024 by Jimenez Linares MD at [facility] Mesh N/A: Umbilical BARD DAVOL [id number] 08/29/2025 [id number] / / [id number] Plate Matrxneuro Bur Hl Cvr 04.502.021 - Sno Load Or Sterilized Date On Horner Implanted:Qty : 1 on 03/02/2024 by Chelsey Bowens MD at [facility] Plate Left: Cranial J&J- DEPUY SYNTHES 04.502.021 / NO LOAD OR STERILIZED DATE ON HORNER / Plate Matrxneuro Cranial 04.502.062 - Sno Load Or Sterilized Date On Horner Implanted:Qty : 2 on 03/02/2024 by Chelsey Bowens MD at [facility] Plate Left: Cranial J&J- DEPUY SYNTHES 04.502.062 / NO LOAD OR STERILIZED DATE ON HORNER / Screw Matrixneuro Sd 04.503.103.01 - Sno Load Or Sterilized Date On Horner Implanted:Qty : 2 on 03/02/2024 by Chelsey Bowens MD at [facility] Screw Left: Cranial J&J- DEPUY SYNTHES 04.503.103. 01 / NO LOAD OR STERILIZED DATE ON HORNER / Description:All Synthes cran ial hardware, Requisition, [id number]. Screw Matrixneuro Sd 04.503.104.01 - Sno Load Or Sterilized Date On Horner Implanted:Qty : 4 on 03/02/2024 by Chelsey Bowens MD at [facility] Screw Left: Cranial J&J- DEPUY SYNTHES 04.503.104. 01 / NO LOAD OR STERILIZED DATE ON HORNER / Procedures Procedure Name Priority Date/Time Associated Diagnosis Comments BASIC METABOLIC PANEL Routine 11/13/2024 11:58 AM CDT CBC MIXED CELL DIFFERENTIAL Routine 10/31 11:51 AM CDT MRI BRAIN W WO CONTRAST Routine 11/07/19 9:54 AM CDT CBC WITH AUTODIFFERENTIAL Routine 2024 11:03 AM CDT ENDOSCOPY, COLON, SCREENING Routine 06/21/2015 POC OCCULT BLOOD UP TO 3 CARDS Routine 06/16/2010 Abdominal pain from Last 3 Months or Most Recently Relevant to Health Maintenance Results * BASIC METABOLIC PANEL (11/13/2024 11:58 AM CDT) Blood Randall Triplett MD CHEMISTRY ORDERABLES Final Resu lt * CBC MIXED CELL DIFFERENTIAL (11/13/2024 11:51 AM CDT) Blood Randall Triplett MD HEMATOLOGY ORDERABLES Final Res ult * MRI BRAIN W WO CONTRAST (11/06/2024 9:54 AM CDT) Anatomical Region Laterality Modality Head Magnetic Resonan ce Result [facility] Randall Triplett MD MR ORDERABLES Final Result * CBC WITH AUTODIFFERENTIAL (10/09/2024 11:03 AM CDT) Blood Randall Triplett MD HEMATOLOGY ORDERABLES Final Res ult * ENDOSCOPY, COLON, SCREENING (06/21/2015) Result [facility] Abstract Provider GI PROCEDURE ORDERABLES Edited Result [...] Maintenance Insurance MEDICARE PART A AND B [facility] RX ALVARES PLANS (INTERNAL) [facility] Internal Plans RX GENERIC COMMERCIAL Commercial RX ALLWIN DATA Medicare Part B MEDICARE PART A AND B [facility] Advance Directives For more information, please contact: [phone] Documents on File Type Date Recorded Patient Heavy Equipment Service Manager Expl anation Advance Directive POA 03/07/2024 [...] 6:59 AM 03/18/2020 2:16 PM Care Teams Field Sales Consultant Relationship Specialty Start Date End Date Ajay Rhodes MD PCP - General 01/19/08
--- OUTSIDE RECORDS SUMMARY | 2025-01-01 09:36 | XMS_ITS | Encounter Summary ---
Author Organization [facility] Address 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 Gender Identity Not on file Sexual [...] Description 01/01/2025 10:00 AM CDT Office Visit [facility] Oncology and Hematology - [place] [address] [place] [address] Randall Triplett MD [address] [facility] [address] [place] [phone] Arrived 03/15/2025 10:00 AM CDT Office Visit [facility] Primary Care [address] [place] [address] Ajay Rhodes MD [address] [place] [address] [address] [place] [address] documented as of this encounter Visit Diagnoses Not on filedocumented in this encounter Care Teams Printing Table Hand Relationship Specialty Start Date End Date Ajay Rhodes MD PCP - General 01/19/08 documented as of this encounter
--- OUTSIDE RECORDS SUMMARY | 2025-01-01 09:36 | XMS_ITS | Encounter Summary ---
Author Organization [facility] Address 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 LAB ORDERS: 1 week Order number: [id number] Test Ordered: COMPREHENSIVE METABOLIC PANEL W/ GLOMERULAR FILTRATION RATE, ESTIMATED (EGFR) 15439 Order number: [id number] Test Ordered: LIPID PANEL 7600 Order number: [id number] Test Ordered: PSA 5363 Order number: [id number] Test Ordered: TSH 899 Order number: [id number] Test Ordered: CBC (INCLUDES DIFF/PLT) 6399 Order number: [id number] Test Ordered: URINALYSIS, COMPLETE W/REFLEX TO CULTURE 3020 Order number: [id number] Test Ordered: HEMOCCULT SINGLE 48492 Order number: [id number] Test Ordered: URINALYSIS W/O MICRO 70024 V70.0-ROUTINE GENERAL MEDICAL EXAMINATION discussed, check lab [...] [facility] Oncology and Hematology - [place] [address] [place] [address] [address] [place] [address] [place] [address] [place] [address] [address] [place] [address] Arrived 03/15/2025 10:00 AM CDT Office Visit [facility] Care [address] [place] [address] Ajay Rhodes MD [address] [place] [address] [place] [address] documented as of this encounter Visit Diagnoses Not on filedocumented in this encounter Care Teams Test Center Administrator Relationship Specialty Start Date End Date Ajay Rhodes MD PCP - General 01/19/08 documented as of this encounter
--- OUTSIDE RECORDS SUMMARY | 2025-01-01 09:36 | XMS_ITS | Encounter Summary ---
Author Organization [facility] Address 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 PHARMACY NUMBER: [phone] 02/04/07 request refill of Hydrocodone/APAP 7.5/750 mg [...] Description 01/01/2025 10:00 AM CDT Office Visit [facility] Oncology and Hematology - [place] [address] [facility] [address] [place] [address] Randall Triplett MD [address] [facility] [address] [place] [address] Arrived 03/15/2025 10:00 AM CDT Office Visit [facility] Primary Care [address] [place] [address] Ajay Rhodes MD [address] [place] [address] [address] [place] [address] documented as of this encounter Visit Diagnoses Not on filedocumented in this encounter Care Teams Regional Flatbed Truck Driver Relationship Specialty Start Date End Date Ajay Rhodes MD PCP - General 01/19/08 documented as of this encounter
--- OUTSIDE RECORDS SUMMARY | 2025-01-01 09:36 | XMS_ITS | Referral Summary ---
Author Organization [facility] Address [address] [place] [address] Care Team Providers Care Cardroom Supervisor Name Role Phone Ajay Rhodes MD Primary Care Provider + Rosana Noyola MD Unavailable [phone] Encounters Date Type Department Care Team Description 12/04/2024 7:44 AM CDT - 12/04/2024 11:59 PM CDT Hospital Encounter [facility] Medical [facility] Orthopedics and Sports Medicine [address] [place] [phone] Discharge Disposition: Discharge to home or self care 12/04/2024 9:30 AM CDT Office Visit [facility] Orthopedics and Sports Medicine [address] [place] [phone] Shun Burns NP Right shoulder pain, unspecified chronicity (Primary Dx); Rotator cuff arthropathy, right from Last 3 Months Allergies No known active allergies Medications fentaNYL (DURAGESIC) 25 mcg/hrIndications: Chronic Pain with Opioid Tolerance Place 1 patch on the skin every third day Applied home patch Wednesday12/19/19 Active montelukast (SINGULAIR) 10 mg tabletIndications: Seasonal Allergic Rhinitis Take 1 tablet (10 mg total) by mouth nightly Active oxyCODONE (ROXICODONE) 5 mg immediate release [...] no significant findings on echocardiogram, 30 day groundwater monitoring technician on discharge HLD (hyperlipidemia) 06/02/2021 Risk factors for obstructive sleep apnea 021 Primary osteoarthritis, left shoulder 04/30/2021 Overview (04/30/2021): Added automatically from request for surgery [id number] Multiple closed fractures of ribs of left [...] (12/19/2019): Added automatically from request for surgery [id number] Arthralgia of shoulder 08/26/2012 Duodenal ulcer Immunizations [...] on file 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 Gender Identity Not on file Sexual [...] 12/04/2024 9:34 AM CDT Plan of Treatment Not on file Medical Devices Implanted Type Area Ic Designer Standard Cells Device Identifier Shelf Expiration Date Model / Serial / Lot [employer]gie [employer] 6191-1-010 Simplex P Radiopaque Full Dose Cement Bone Sterile - [id number] Implanted:Qty: 1 on 06/03/2021 by Lino Granger MD at [facility] Bone Cement Left: Shoulder Golden [employer] 09/01/2022 6191-1-0 10 / / [id number] Sldr 27x6mm Pegs Circular Glenoid W/ In-Line Peripheral - [id number] Implanted:Qty: 1 on 06/03/2021 by Lino Granger MD at [facility] Other - see comments Left: Shoulder Shoulder Innovations LLC [id number] 10/10/2025 [id number] / / [id number] Plug Azur Vascular Embolization Medium - [id number] Implanted:Qty: 1 on 03/17/2021 at [facility]idence [id number] 09/01/2023 [id number] 0 / / [id number] [facility] Rbypod8 Debby Pod 8mm 60cm Complex Occulusion Device Coil Embolization - [id number] Implanted:Qty: 1 on 03/17/2021 at [facility] [employer]yes[employer] Inc 04/23/2028 [id number] / / [id number] Vas[employer] Ltd Kclt-06 Device 6fr Closure Celt Acd Vascular Sterile Latex Free Disposable Ashkan - [id number] Implanted:Qty: 1 on 03/17/2021 at [facility] [employer] [id number] 08/12/2023 KCLT -06 / / [id number] Shoulder Innovations Llc [id number] Head Shoulder Offset Humeral 18mm X 44mm - [id number] Implanted:Qty: 1 on 06/03/2021 by Lino Granger MD at [facility] Left: Shoulder Shoulder Innovations LLC [id number] 09/26/2025 [id number] / / [id number] Shoulder Innovations Llc [id number] Stem Shoulder Porous Titanium Humeral Small - [id number] Implanted:Qty: 1 on 06/03/2021 by Lino Granger MD at [facility] Left: Shoulder Shoulder [employer] [id number] 03/10/2026 [id number] / / [id number] Procedures Procedure Name Priority Date/Time Associated Diagnosis Comments PA ARTHROCENTESIS ASPIR&/INJ MAJOR JT/BURSA W/O US Routine 12/04/2024 9:30 AM CDT Rotator cuff arthropathy, right XR SHOULDER RIGHT 2 OR MORE VIEWS Routine 12/04/2024 9:18 AM CDT Right shoulder pain, unspecified chronicity COLONOSCOPY IMAGES 06/21/2015 from Last 3 Months or Most Recently Relevant to Health Maintenance Results * PA ARTHROCENTESIS ASPIR&/INJ MAJOR JT/BURSA W/O US (12/04/2024 [...] well with no immediate complications Shun Burns MANUFACTURING SOFTWARE ENGINEER IN CLINIC/BEDSIDE ORDERA BLES Final Result * [...] head, osteophyte formation, and subchondral sclerosis. Shun Bursn NP IMG XR PROCEDURES Final Result * COLONOSCOPY IMAGES (06/21/2015) Anatomical Region Laterality Modality Other Narrative 06/21/2015 Ordered by an unspecified provider. Historical Provider GI PROCEDURE ORDERABLES F inal Result from Last 3 Months or Most Recently Relevant to Health Maintenance Insurance [facility] MEDICARE [facility] MEDICARE [facility] Advance Directives For more information, please contact: [phone] * Full Code (Latest Code Status on [...] 6:44 PM 12/20/2019 10:02 AM Care Teams Cardroom Supervisor Relationship Specialty Start Date End Date Ajay Rhodes MD PCP - General 12/19/19 Rosana Noyola MD Consulting Physician Gastroenterology 12/21/19
--- OUTSIDE RECORDS SUMMARY | 2025-01-01 09:36 | XMS_ITS | Encounter Summary ---
Author Organization [facility] Address 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 PHARMACY NUMBER: [phone] 04/06/07 Request refill of Hydrocodone 7.5/750 mg. [...] p Patient Name : LIBERTAD CORTES Address: [address] [place], [place] [address] D.O.B: 1955 SSN: [id number] Parent/Guardian if applicable: Patient Insurance: [facility] Policy#: [id number] Group #: Best To Call : [phone] Best Time to Call : ANYTIME. May We Leave Message At That Number : YES, LEAVE MESSAGE. Referring to: PHYSICAL THERAPY/REHAB [facility]- PH: [phone] PATIENT DIAGNOSIS: . 723.1-NECK PAIN ORDERING PHYSICIAN : PHIL HANCOCK MD PRIORITY OF REFERRAL: AT PATIENT'S CONVENIENCE. OFFICE DESIGNER/WRITER & PHONE: Seema Jiang C FOR SCHEDULING [...] mri's try PT SPECIALTY REFERRAL: PHYSICAL THERAPY/REHAB [place] [facility] Patient Education: Risks, benefits, and possible side effects of medication(s) were reviewed with the patient. RETURN VISIT : Instructed to call if not improving. Electronically Signed by: Phil Hancock MD on Friday, April 06, 2007 documented in this encounter Plan of Treatment Upcoming Encounters Date Type Department Care Team (Late st Contact Info) Description 01/01/2025 10:00 AM CDT Office Visit [facility] Oncology and Hematology - [place] [address] [facility] 200 [place] [address] Randall Triplett MD [address] [facility] [address] [place] [address] Arrived 03/15/2025 10:00 AM CDT Office Visit [facility] Primary Care [address] [place] [address] Phil Hancock MD [address] [place] [address] [place] [address] [place] [address] documented as of this encounter Visit Diagnoses Not on filedocumented in this encounter Care Teams Optometrist/Practice Owner Relationship Specialty Start Date End Date Phil Hancock MD PCP - General 01/19/08 documented as of this encounter
--- OUTSIDE RECORDS SUMMARY | 2025-01-01 09:36 | XMS_ITS | Encounter Summary ---
Author Organization [facility] Address 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 Gender Identity Not on file Sexual Orientation [...] [facility]ology - [place] [address] [place] [address] Randall Triplett MD [address] [facility] [address] [place] [id number] Arrived 03/15/2025 10:00 AM CDT Office Visit [facility] Primary Care [address] [place] [address] Ajay Rhodes MD [address] [place] [address] [address] [place] [address] documented as of this encounter Visit Diagnoses Not on filedocumented in this encounter Care Teams Applications Scientist Relationship Specialty Start Date End Date Ajay Rhodes MD PCP - General 01/19/08 documented as of this encounter
[2025-01-01 09:38] LABS: Basophils Percent Auto 0.3 % (0.2-1.2); Eosinophils Absolute Auto 0.1 K/mm3 (0-0.3); Eosinophils Percent Auto 3.4 % (0-4.4); Hematocrit 37.8 % (42.0-52.0); Hemoglobin 12.6 g/dL (14.0-18.0); Lymphocytes Absolute Auto 0.77 K/mm3 (0.9-3.2); Lymphocytes Percent Auto 24.1 % (18.3-44.2); Mean Corpuscular HGB Conc 33.3 g/dl (32-36); Mean Corpuscular Hemoglobin 30.9 pg (26-34); Mean Corpuscular Volume 92.6 fl (80-100); Mean Platelet Volume 11.7 fl (7.4-10.4); Monocytes Absolute Auto 0.3 K/mm3 (0.1-0.6); Monocytes Percent Auto 8.4 % (2.6-8.5); Neutrophils Percent Auto 63.8 % (45.5-73.1); Platelet Count Result 89 k/mm3 (150-375); Red Blood Count 4.08 M/mm3 (4.6-6.20); Red Cell Distribution Width 12.2 % (11.5-14.5); White Blood Count 3.2 K/mm3 (4.5-10.0)
[2025-01-01 09:44] LABS: Blood Urea Nitrogen 15 mg/dL (8-26); Carbon Dioxide 29 mmol/L (22-30); Chloride 98 mmol/L (98-109); Estimated Glomerular Filt Rate > 60; Glucose 91 mg/dL (70-105); Ionized Calcium (POC) 1.23 mmol/L (1.11-1.31); Sodium 138 mmol/L (138-146)
== END 2025-01-01 09:18 | disposition home or self-care (01) ==
PROVIDERS: PCP Internal Medicine Hematology & Oncology; Visit Provider Internal Medicine Hematology & Oncology
DX: C71.9 Malignant neoplasm of brain, unspecified (principal)
CPT/HCPCS: 36415; 80047; 85025

== ENCOUNTER 2025-02-05 10:01 | Outpatient (CLI) | payer MEDICARE, OTHER, SELFPAY ==
--- NOTE | ~2025-02-05 | MR_ITS ---
MRI of the brain Clinical History: Malignancy Technique: Axial and sagittal T1-weighted images were acquired. These were followed by axial T2-weigh april, diffusion weighted, gradient, and FLAIR images. Following intravenous administration of 12 cc Mu ltiHance gadolinium, T1-weighted fat-sat imaging was performed in the axial, coronal, and sagittal pl anes. COMPARISON: 11/06/2024 Findings: No acute infarct, intracranial hemorrhage or mass lesion seen. Stable encephalomalacia in t he anterior left temporal lobe with ex vacuo dilatation of the temporal horn of the left lateral vent ricle. There is mild to moderate chronic microvascular ischemic changes in the periventricular white matter bilaterally. Ventricles and subarachnoid spaces otherwise are essentially unremarkable. Orbits are unremarkable. P aranasal sinuses and mastoid air cells are clear. Major flow voids are intact. Sagittal midline structures are intact. No abnormal postcontrast enhancement identified. IMPRESSION: No acute infarct or enhancing mass lesion identified. No change from prior exam. Stable encephalomalacia in the left temporal lobe. Reviewed, dictated and finalized at location . IMPRESSION: No acute infarct or enhancing mass lesion identified. No change from prior exam . Stable encephalomalacia in the left temporal lobe.
--- OUTSIDE RECORDS SUMMARY | 2025-02-05 10:12 | XMS_ITS | Encounter Summary ---
Author Organization [facility] Address 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 Gender Identity Not on file Sexual Orientation Not on file documented as of this encounter Plan of Treatment Upcoming Encounters Date Type Department Care Team (Late st Contact Info) Description 02/12/2025 11:15 AM CDT Office Visit [facility] Oncology and Hematology - [place] [address] [facility] 200 [place] [address] [place] [address] [place] [address] [address] [place] [address] 03/15/2025 10:00 AM CDT Office Visit [facility] Primary Care [address] [place] [address] Ajay Rhodes MD [address] [place] [address] [place] [address] documented as of this encounter Visit Diagnoses Not on filedocumented in this encounter Care Teams Pilot Can Router Relationship Specialty Start Date End Date Ajay Rhodes MD PCP - General 01/19/08 documented as of this encounter
--- OUTSIDE RECORDS SUMMARY | 2025-02-05 10:12 | XMS_ITS | Encounter Summary ---
Author Organization [facility] Address 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 Gender Identity Not on file Sexual [...] Description 02/12/2025 11:15 AM CDT Office Visit [facility] Oncology and Hematology - [place] [address] [place] [address] Randall Triplett MD [address] [facility] [address] [place] [address] 03/15/2025 10:00 AM CDT Office Visit [facility] Primary Care [address] [place] [address] Ajay Rhodes MD [address] [place] [address] [address] [place] [address] documented as of this encounter Visit Diagnoses Not on filedocumented in this encounter Care Teams Supervisor Garment Manufacturing Relationship Specialty Start Date End Date Ajay Rhodes MD PCP - General 01/19/08 documented as of this encounter
--- OUTSIDE RECORDS SUMMARY | 2025-02-05 10:12 | XMS_ITS | Encounter Summary ---
Author Organization [facility] Address 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 PHARMACY NUMBER: [phone] SECTION 1: REQUESTED ACTION issa 02/28/07 at 10:41 am: MEDICATION REQUEST: MEDICATION REQUEST: Patient requests a refill. gen vicodin #[id number] LF 02/04/07 DOCTOR`S RESPONSE: debby 02/28/07 at 12:40 pm prev note * Ajay Rhodes MD - 12/21/2007 1:22 PM CDT TIME:11:57 am PATIENT`S HOME PHONE: PATIENT`S WORK PHONE: PATIENT`S INSURANCE: [employer] WHO TOOK THE CALL: Lorrie Lynch C GENERAL INFORMATION WHO CALLED: Patient called. PHARMACY NUMBER: [phone] SECTION 1: PT NEVER TOOK SCRIPT IN [...] Description 02/12/2025 11:15 AM CDT Office Visit [facility] Oncology and Hematology - [place] [address] [place] [address] 200 [place] [address] [place] [address] [place] [address] [address] [place] [address] 03/15/2025 10:00 AM CDT Office Visit [facility] Primary Care [address] [place] [address] Ajay Rhodes MD [address] [place] [address] [address] [place] [address] documented as of this encounter Visit Diagnoses Not on filedocumented in this encounter Care Teams Software Quality Engineer Relationship Specialty Start Date End Date Ajay Rhodes MD PCP - General 01/19/08 documented as of this encounter
--- OUTSIDE RECORDS SUMMARY | 2025-02-05 10:12 | XMS_ITS | Encounter Summary ---
Author Organization [facility] Address 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 Gender Identity Not on file Sexual Orientation Not on file documented as of this encounter Plan of Treatment Upcoming Encounters Date Type Department Care Team (Late st Contact Info) Description 02/12/2025 11:15 AM CDT Office Visit [facility] Oncology and Hematology - [place] [address] [facility] 200 [place] [address] [place] [address] [place] [address] [address] [place] [address] 03/15/2025 10:00 AM CDT Office Visit [facility] Primary Care [address] [place] [address] Ajay Rhodes MD [address] [place] [address] [place] [address] documented as of this encounter Visit Diagnoses Not on filedocumented in this encounter Care Teams Furnace Process Supervisor Relationship Specialty Start Date End Date Ajay Rhodes MD PCP - General 01/19/08 documented as of this encounter
--- OUTSIDE RECORDS SUMMARY | 2025-02-05 10:12 | XMS_ITS | Encounter Summary ---
Author Organization [facility] Address 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 [address] D.O.B: 1955 N: [id number] Parent/Guardian if applicable: Patient Insurance: [employer] [facility] Policy#: [id number] Group #: Best To Call : [phone] Best Time to Call : ANYTIME. May We Leave Message At That Number : YES, LEAVE MESSAGE. Referring to: GASTROENTEROLOGY Dr. Khanh [place] ph: [phone] fax: [phone]. Dr. Rosana Noyola ph: [phone] fax: [phone]. Reason for referral: colonoscopy ORDERING PHYSICIAN : PHIL HANCOCK MD PRIORITY OF REFERRAL: AT PATIENT'S CONVENIENCE. OFFICE BRIDGE IRONWORKER & PHONE: Seema Jiang C FOR SCHEDULING [...] SPECIALTY REFERRAL: GASTROENTEROLOGY Dr. Rosana Noyola ph: [phone] fax: [phone]. Dr. Khanh Hatfield ph: [phone] fax: [phone].colonoscopy Patient Education: Risks, benefits, and possible side [...] Description 02/12/2025 11:15 AM CDT Office Visit [facility] Oncology and Hematology - [place] [address] [place] [address] 200 [place] [address] [place] [address] [place] [address] [address] [place] [address] 03/15/2025 10:00 AM CDT Office Visit [facility] Primary Care [address] [place] [address] Phil Hancock MD [address] [place] [address] [address] [place] [address] documented as of this encounter Visit Diagnoses Not on filedocumented in this encounter Care Teams Computing Consultant Relationship Specialty Start Date End Date Phil Hancock MD PCP - General 01/19/08 documented as of this encounter
--- OUTSIDE RECORDS SUMMARY | 2025-02-05 10:12 | XMS_ITS | Encounter Summary ---
Author Organization [facility] Address 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 Gender Identity Not on file Sexual Orientation Not on file documented as of this encounter Plan of Treatment Upcoming Encounters Date Type Department Care Team (Late st Contact Info) Description 02/12/2025 11:15 AM CDT Office Visit [facility] Oncology and Hematology - [place] [address] [facility] 200 [place] [address] [place] [address] [place] [address] [address] [place] [address] 03/15/2025 10:00 AM CDT Office Visit [facility] Primary Care [address] [place] [address] Ajay Rhodes MD [address] [place] [address] [place] [address] documented as of this encounter Visit Diagnoses Not on filedocumented in this encounter Care Teams Senior Litigation Paralegal Relationship Specialty Start Date End Date Ajay Rhodes MD PCP - General 01/19/08 documented as of this encounter
--- OUTSIDE RECORDS SUMMARY | 2025-02-05 10:12 | XMS_ITS | Encounter Summary ---
Author Organization [facility] Address 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 [address] D.O.B: 1955 SSN: [id number] Parent/Guardian if applicable: Patient Insurance: [employer] ID#: [id number] Group#: ORDER(S) #: [id number] mri c spine BEST TO CALL CELL. [phone] BEST TIME TO CALL: ANYTIME. MAY WE LEAVE MESSAGE AT THAT NUMBER: YES, LEAVE MESSAGE. PLEASE SCHEDULE THE APPOINTMENT AT THE FOLLOWING LOCATION: [place] [phone]. TEST PRIORITY: 2 - 7 DAYS. SPECIAL SCHEDULING INSTRUCTIONS: needs prep ORDERING PHYSICIAN: PHIL HANCOCK MD OFFICE CATERER HELPER & PHONE: Shruthi Hart E ORDER PRINTED BY: Courtney Meza L FOR SCHEDULING USE ONLY: FIRST ATTEMPT Date:JAN 24, 2007 Norma Medrano T 03:02 p Left message on Recorder. SECOND ATTEMPT: Date:JAN 25, 2007 Noa Valentino 01:31 p Spoke with Patient. [place] [phone]. APPOINTMENT DATE : 02/03/2007 ( @ 4:00 pm) The appointment was scheduled by Noa Valentino at [phone] [facility] NN * Phil Hancock MD - 12/21/2007 4:44 PM CDT SPECIALIST REFERRAL REQUEST DATE: JAN 20, 2007 Note created by: Seema Jiang C 03:16 p Patient Name : LIBERTAD CORTES Address: [address] [place] [address] D.O.B: 1955 SSN: [id number] Parent/Guardian if applicable: Patient Insurance: [employer] Policy#: [id number] Group #: Best To Call : [phone] Best Time to Call : ANYTIME. May We Leave Message At That Number : YES, LEAVE MESSAGE. Referring to: PAIN MANAGEMENT Dr. Marcos Gorman ph: [phone]. Dr. Edmund Manriquez ph: [phone]. PATIENT DIAGNOSIS: . 723.1-NECK PAIN ORDERING PHYSICIAN : PHIL HANCOCK MD PRIORITY OF REFERRAL: AT PATIENT'S CONVENIENCE. OFFICE CATERER HELPER & PHONE: Seema Jiang C FOR SCHEDULING [...] palpable. MUSCULOSKELETAL EXAM: post neck tender central, bingo clerk ok, sensation ok, ls tender, left shoulder anttender but full rom ASSESSMENT/PLAN: 715.90-OSTEOARTHROSIS UNSPECIFIED discussed, check mri, pain mgt 723.1-NECK PAIN MEDICATIONS: VICODIN ES ORAL TABLET 7.5-750 MG, 1 Every Six Hours, As Needed, 90 Dispensed, 2 Fills, status: CONTINUED, 01/20/2007. LAB ORDERS: Order number: [id number] Test Ordered: MRI CSPINE [facility] 461.9-SINUSITIS UNSPECIFIED add med MEDICATIONS: ZYRTEC ORAL TABLET 10 MG, 1 Every Day, 20 Dispensed, status: NEW PRESCRIPTION, 01/20/2007. NASONEX NASAL SUSPENSION 50 MCG/ACT, 2 Every Morning, 2 Dispensed, status: NEW PRESCRIPTION, 01/20/2007. SPECIALTY REFERRAL: PAIN MANAGEMENT Dr. Marcos Gorman ph: [phone]. Dr. Edmund Manriquez ph: [phone].[facility] RETURN VISIT : Instructed to call if not improving. Electronically Signed by: Phil Hancock MD on December documented in this encounter Plan of Treatment Upcoming Encounters Date Type Department Care Team (Late st Contact Info) Description 02/12/2025 11:15 AM CDT Office Visit [facility] Oncology and Hematology - [place] [address] [place] [address] 200 [place] [address] [place] [address] [place] [address] [address] [place] [address] 03/15/2025 10:00 AM CDT Office Visit [facility] Primary Care [address] [place] [address] Phil Hancock MD [address] [place] [address] [address] [place] [address] documented as of this encounter Visit Diagnoses Not on filedocumented in this encounter Care Teams Community Administrator Relationship Specialty Start Date End Date Phil Hancock MD PCP - General 01/19/08 documented as of this encounter
--- OUTSIDE RECORDS SUMMARY | 2025-02-05 10:12 | XMS_ITS | Encounter Summary ---
Author Organization [facility] Address 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 PHARMACY NUMBER: [phone] 02/04/07 request refill of Hydrocodone/APAP 7.5/750 mg [...] Description 02/12/2025 11:15 AM CDT Office Visit [facility] Oncology and Hematology - [place] [address] [facility] 200 [place] [address] Randall Triplett MD [address] [facility] [address] [place] [address] 03/15/2025 10:00 AM CDT Office Visit [facility] Primary Care [place] [address] [place] [address] Ajay Rhodes MD [address] [place] [address] [address] [place] [address] documented as of this encounter Visit Diagnoses Not on filedocumented in this encounter Care Teams Sorting Supervisor Relationship Specialty Start Date End Date Ajay Rhodes MD PCP - General 01/19/08 documented as of this encounter
--- OUTSIDE RECORDS SUMMARY | 2025-02-05 10:12 | XMS_ITS | Encounter Summary ---
Author Organization [facility] Address 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 Gender Identity Not on file Sexual Orientation Not on file documented as of this encounter Plan of Treatment Upcoming Encounters Date Type Department Care Team (Late st Contact Info) Description 02/12/2025 11:15 AM CDT Office Visit [facility] Oncology and Hematology - [place] [address] [facility] 200 [place] [address] [place] [address] [place] [address] [address] [place] [address] 03/15/2025 10:00 AM CDT Office Visit [facility] Primary Care [address] [place] [address] Ajay Rhodes MD [address] [place] [address] [place] [address] documented as of this encounter Visit Diagnoses Not on filedocumented in this encounter Care Teams Transmission Engineer Relationship Specialty Start Date End Date Ajay Rhodes MD PCP - General 01/19/08 documented as of this encounter
--- OUTSIDE RECORDS SUMMARY | 2025-02-05 10:12 | XMS_ITS | Encounter Summary ---
Author Organization [facility] Address 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 Gender Identity Not on file Sexual [...] Description 02/12/2025 11:15 AM CDT Office Visit [facility] Oncology and Hematology - [place] [address] [place] [address] Randall Triplett MD 3472 [facility] [address] [place] [phone] 03/15/2025 10:00 AM CDT Office Visit [facility] Primary Care [address] [place] [address] Ajay Rhodes MD [address] [place] [address] [address] [place] [address] documented as of this encounter Visit Diagnoses Not on filedocumented in this encounter Care Teams Home Care Chaplain Relationship Specialty Start Date End Date Ajay Rhodes MD PCP - General 01/19/08 documented as of this encounter
--- OUTSIDE RECORDS SUMMARY | 2025-02-05 10:12 | XMS_ITS | Encounter Summary ---
Author Organization Address 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 LAB ORDERS: 3 mo Order number: [id number] Test Ordered: COMPREHENSIVE METABOLIC PANEL & GFR 1112 Order number: [id number] Test Ordered: LIPID PANEL 1078 Order number: [id number] Test Ordered: PSA, TOTAL 1002 Patient Education: [...] Description 02/12/2025 11:15 AM CDT Office Visit [facility] Oncology and Hematology - [place] 2227 [facility] [address] [place] [address] Randall Triplett MD 2227 [facility] [address] [place] [address] 03/15/2025 10:00 AM CDT Office Visit [facility] Primary Care [address] [place] [address] Ajay Rhodes MD [address] [place] [address] [address] [place] [address] documented as of this encounter Visit Diagnoses Not on filedocumented in this encounter Care Teams Sports Doctor Relationship Specialty Start Date End Date Ajay Rhodes MD PCP - General 01/19/08 documented as of this encounter
--- OUTSIDE RECORDS SUMMARY | 2025-02-05 10:12 | XMS_ITS | Encounter Summary ---
Author Organization [facility] Address 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 PHARMACY NUMBER: [phone] 04/06/07 Request refill of Hydrocodone 7.5/750 mg. [...] p Patient Name : LIBERTAD CORTES Address: [address] [place], [place] [address] D.O.B: 1955 SSN: [id number] Parent/Guardian if applicable: Patient Insurance: [facility] Policy#: [id number] Group #: Best To Call : [phone] Best Time to Call : ANYTIME. May We Leave Message At That Number : YES, LEAVE MESSAGE. Referring to: PHYSICAL THERAPY/REHAB [facility]- PH: [phone] PATIENT DIAGNOSIS: . 723.1-NECK PAIN ORDERING PHYSICIAN : PHIL HANCOCK MD PRIORITY OF REFERRAL: AT PATIENT'S CONVENIENCE. OFFICE TRAFFIC OPERATIONS MANAGER & PHONE: Seema Jiang C FOR [...] mri's try PT SPECIALTY REFERRAL: PHYSICAL THERAPY/REHAB [facility] Patient Education: Risks, benefits, and possible side effects of medication(s) were reviewed with the patient. RETURN VISIT : Instructed to call if not improving. Electronically Signed by: Phil Hancock MD on Friday, April 06, 2007 documented in this encounter Plan of Treatment Upcoming Encounters Date Type Department Care Team (Late st Contact Info) Description 02/12/2025 11:15 AM CDT Office Visit [facility] Oncology and Hematology - [place] [address] [place] [address] [address] [place] [phone] Randall Triplett MD [address] [facility] [address] [place] [phone] 03/15/2025 10:00 AM CDT Office Visit [facility] Primary Care [address] [place] [facility] [place] [address] Phil Hancock MD [address] [place] [address] [place] [address] [place] [address] documented as of this encounter Visit Diagnoses Not on filedocumented in this encounter Care Teams Manager Radio Relationship Specialty Start Date End Date Phil Hancock MD PCP - General 01/19/08 documented as of this encounter
--- OUTSIDE RECORDS SUMMARY | 2025-02-05 10:13 | XMS_ITS | Encounter Summary ---
Author Organization [facility] Address 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 Topic: Patient or Caregiver Communication Request >> Feb 17, 2024 9:25 AM Tiffanie Sapp wrote: Patient or Caregiver requesting advice Caller: [employer] Patient/Caregiver Callback Number: [phone] Call Notes: Caller states the patient had [...] Description 02/12/2025 11:15 AM CDT Office Visit [facility] Oncology and Hematology - [place] [address] [facility] [address] [place] [address] Randall Triplett MD 2227 [facility] [address] [place] [address] 03/15/2025 10:00 AM CDT Office Visit [facility] Primary Care [address] [facility] DON[facility] [place] [address] Ajay Rhodes MD [address] [place] [address] documented as of this encounter Visit Diagnoses Not on filedocumented in this encounter Care Teams Tree Topper Relationship Specialty Start Date End Date Ajay Rhodes MD PCP - General 01/19/08 documented as of this encounter
--- OUTSIDE RECORDS SUMMARY | 2025-02-05 10:13 | XMS_ITS | Encounter Summary ---
Author Organization [facility] Address 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 Gender Identity Not on file Sexual Orientation Not on file documented as of this encounter Plan of Treatment Upcoming Encounters Date Type Department Care Team (Late st Contact Info) Description 02/12/2025 11:15 AM CDT Office Visit [facility] Oncology and Hematology - [place] [address] [facility] 200 [place] [address] [place] [address] [place] [address] [address] [place] [address] 03/15/2025 10:00 AM CDT Office Visit [facility] Primary Care [address] [place] [address] Ajay Rhodes MD [address] [place] [address] [place] [address] documented as of this encounter Visit Diagnoses Not on filedocumented in this encounter Care Teams Stain Maker Relationship Specialty Start Date End Date Ajay Rhodes MD PCP - General 01/19/08 documented as of this encounter
--- OUTSIDE RECORDS SUMMARY | 2025-02-05 10:13 | XMS_ITS | Encounter Summary ---
Author Organization [facility] Address 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 [address] D.O.B: 1955 SSN: [id number] Parent/Guardian if applicable: Patient Insurance: [employer] CROSS BLUE SHIELD ID#: [id number] Group#: ORDER(S) #: [id number] xray c spine PLEASE SCHEDULE THE APPOINTMENT AT THE FOLLOWING LOCATION: [facility] [phone]. SPECIAL SCHEDULING INSTRUCTIONS: walkin ORDERING PHYSICIAN: PHIL HANCOCK MD OFFICE MERCHANDISE WORKER & PHONE: Shruthi Hart E * Phil [...] NECK: lat m tender, no central tender, package clerk ok EXTREMITIES: BILATERAL LOWER EXTREMITIES: No misalignment [...] status: CONTINUED, 11/18/2006. LAB ORDERS: Order number: [id number] Test Ordered: XRAY C SPINES, ROUTINE (5 VIEWS) W/OBL V70.0-ROUTINE GENERAL MEDICAL EXAMINATION check lab discussed LAB ORDERS: Order number: [id number] Test Ordered: CBC W/ DIFFERENTIAL 3150 Order number: [id number] Test Ordered: COMPREHENSIVE METABOLIC PANEL & GFR 1112 Order number: [id number] Test Ordered: LIPID PANEL 1078 Order number: [id number] Test Ordered: TSH 1720 Order number: [id number] Test Ordered: PSA, TOTAL 1002 RETURN VISIT : Instructed to call if not improving. Electronically Signed by: Phil Hancock MD on October documented in this encounter Plan of Treatment Upcoming Encounters Date Type Department Care Team (Late st Contact Info) Description 02/12/2025 11:15 AM CDT Office Visit [facility] Oncology and Hematology - [place] [address] [place] [address] Randall Triplett MD 2227 [facility] [address] [place] [address] 03/15/2025 10:00 AM CDT Office Visit [facility] Primary Care [place] [address] [address] [place] [address] Phil Hancock MD [address] [place] [address] [place] [address] documented as of this encounter Visit Diagnoses Not on filedocumented in this encounter Care Teams Family Practice Md Relationship Specialty Start Date End Date Phil Hancock MD PCP - General 01/19/08 documented as of this encounter
--- OUTSIDE RECORDS SUMMARY | 2025-02-05 10:13 | XMS_ITS | Encounter Summary ---
Author Organization [facility] Address [address] [place] [address] Care Team Providers Care Marine Insurance Claim Examiner Name Role Phone Ajay Rhodes MD Primary Care Provider [phone] Encounter Details Date Type Department Care Team (Late st Contact Info) Description 05/12/2004 Outpatient Historical [facility] Internal Medicine [address] [address] Ajay Rhodes MD [address] [place] [address] Social History Tobacco Use Types Packs/Day Years Used Date Smoking Tobacco: Never Assessed Sex and Gender Information Value Date Recorded Sex Assigned at Not on file Legal Sex Male 4:14 AM LAB ASST Gender Identity Not on file Sexual Orientation [...] Description 02/12/2025 11:15 AM CDT Office Visit [facility] Oncology and Hematology - [place] [address] [place] [address] Randall Triplett MD 7540 [facility] [address] [place] [address] 03/15/2025 10:00 AM CDT Office Visit [facility] Primary Care [address] [place] [address] Ajay Rhodes MD [address] [place] [address] [address] [place] [address] documented as of this encounter Visit Diagnoses Not on filedocumented in this encounter Care Teams Marine Insurance Claim Examiner Relationship Specialty Start Date End Date Ajay Rhodes MD PCP - General 01/19/08 documented as of this encounter
--- OUTSIDE RECORDS SUMMARY | 2025-02-05 10:13 | XMS_ITS | Encounter Summary ---
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 Gender Identity Not on file Sexual Orientation Not on file documented as of this encounter Plan of Treatment Upcoming Encounters Date Type Department Care Team (Late st Contact Info) Description 02/12/2025 11:15 AM CDT Office Visit [facility] Oncology and Hematology - [place] 2227 [facility] [address] [place] [phone] Randall Triplett MD 2227 [facility] [address] [place] [address] 03/15/2025 10:00 AM CDT Office Visit [facility] Primary Care [address] [place] [address] Ajay Rhodes MD [address] [place] [address] [address] [place] [address] documented as of this encounter Visit Diagnoses Not on filedocumented in this encounter Care Teams Order Analyst Relationship Specialty Start Date End Date Ajay Rhodes MD PCP - General 01/19/08 documented as of this encounter
--- OUTSIDE RECORDS SUMMARY | 2025-02-05 10:13 | XMS_ITS | Encounter Summary ---
Author Organization [facility] Address 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 Gender Identity Not on file Sexual Orientation Not on file documented as of this encounter Plan of Treatment Upcoming Encounters Date Type Department Care Team (Late st Contact Info) Description 02/12/2025 11:15 AM CDT Office Visit [facility] Oncology and Hematology - [place] [address] [facility] 200 [place] [address] [place] [address] [place] [address] [address] [place] [address] 03/15/2025 10:00 AM CDT Office Visit [facility] Primary Care [address] [place] [address] Ajay Rhodes MD [address] [place] [address] [place] [address] documented as of this encounter Visit Diagnoses Not on filedocumented in this encounter Care Teams Global Chief Experience Officer Relationship Specialty Start Date End Date Ajay Rhodes MD PCP - General 01/19/08 documented as of this encounter
--- OUTSIDE RECORDS SUMMARY | 2025-02-05 10:13 | XMS_ITS | Referral Summary ---
Author Organization [facility] Address [address] [place] [address] Care Team Providers Care Sports Instructor Name Role Phone Ajay Rhodes MD Primary Care Provider + Rosana Noyola MD Unavailable [phone] Encounters Date Type Department Care Team Description 01/29/2025 Telephone [facility] Medical [facility] Orthopedics and Sports Medicine [address] [place] [phone] Lino Nolan MD Surgical Clearance 01/29/2025 9:00 AM CDT Office Visit [facility] Orthopedics and Sports Medicine [address] [place] [phone] Lino Nolan MD Rotator cuff arthropathy of right shoulder (Primary Dx) 01/26/2025 Orders Only [facility] Medical [facility] Orthopedics and Sports Medicine [address] [place] [phone] ProviderDavidson MD 12/04/2024 7:44 AM CDT - 12/04/2024 11:59 PM CDT Hospital Encounter [facility] Medical [facility] Orthopedics and Sports Medicine [address] [place] [phone] Discharge Disposition: Discharge to home or self care 12/04/2024 9:30 AM CDT Office Visit [facility] Orthopedics and Sports Medicine [address] [place] [phone] Shun Burns, BRIAN Right shoulder pain, unspecified chronicity (Primary Dx); [...] mg total) by mouth daily 4 Active Active Problems Problem Noted Date Diagnosed [...] no significant findings on echocardiogram, 30 day potline monitor on discharge HLD (hyperlipidemia) 06/02/2021 Risk factors for obstructive sleep apnea 021 Primary osteoarthritis, left shoulder 04/30/2021 Overview (04/30/2021): Added automatically from request for surgery [id number] Multiple closed fractures of ribs of left [...] (12/19/2019): Added automatically from request for surgery [id number] Arthralgia of shoulder 08/26/2012 Duodenal ulcer Immunizations [...] on file 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 Gender Identity Not on file Sexual Orientation Not on file Last Filed Vital Signs Vital Sign Reading Time Taken Comments Blood Pressure 128/70 01/29/2025 9:03 AM CDT Pulse 65 01/29/2025 9:03 AM CDT Temperature 36.6 C (97.9 F) 10/18/2023 6:05 AM CDT Respiratory Rate 18 10/18/2023 6:05 AM CDT Oxygen Saturation 98% 10/18/2023 6:05 AM CDT Inhaled Oxygen Concentration - - Weight 66.7 kg (147 lb) 01/29/2025 9:03 AM CDT Height 172.7 cm (5' 8) 01/29/2025 9:03 AM CDT Body Mass Index 22.35 01/29/2025 9:03 AM CDT Plan of Treatment Not on file Medical Devices Implanted Type Area Glove Maker Device Identifier Shelf Expiration Date Model / Serial / Lot [employer] 6191-1-010 Simplex P Radiopaque Full Dose Cement Bone Sterile - [id number] Implanted:Qty: 1 on 06/03/2021 by Lino Granger MD at [facility] Bone Cement Left: Shoulder [employer] 09/01/2022 6191-1-0 10 / / [id number] Sldr 27x6mm Pegs Circular Glenoid W/ In-Line Peripheral - [id number] Implanted:Qty: 1 on 06/03/2021 by Lino Granger MD at [facility] Other - see comments Left: Shoulder Shoulder Innovations StartBull [id number] 10/10/2025 [id number] 06 / / [id number] Plug Azur Vascular Embolization Medium - [id number] Implanted:Qty: 1 on 03/17/2021 at [facility] [employer] Marie [id number] 09/01/2023 [id number] 0 / / [id number] [facility] Rbypod8 Debby Pod 8mm 60cm Complex Occulusion Device Coil Embolization - [id number] Implanted:Qty: 1 on 03/17/2021 at [facility] [employer] Inc 04/23/2028 RBYPOD8 / / [id number] Vasorum Ltd Kclt-06 Device 6fr Closure Celt Acd Vascular Sterile Latex Free Disposable Ashkan - [id number] Implanted:Qty: 1 on 03/17/2021 at [facility] [employer] LTD [id number] 08/12/2023 KCLT -06 / / [id number] Shoulder Innovations Llc [id number] Head Shoulder Offset Humeral 18mm X 44mm - [id number] Implanted:Qty: 1 on 06/03/2021 by Lino Granger MD at [facility] Left: Shoulder Shoulder Innovations LLC [id number] 09/26/2025 [id number] / / [id number] Shoulder Innovations Llc [id number] Stem Shoulder Porous Titanium Humeral Small - [id number] Implanted:Qty: 1 on 06/03/2021 by Lino Granger MD at [facility] Left: Shoulder Shoulder Innovations LLC [id number] 03/10/2026 [id number] 20 / / [id number] Procedures Procedure Name Priority Date/Time Associated Diagnosis Comments MRI SHOULDER RIGHT WO CONTRAST Schedule Routine, Read Routine (OP Routine) 01/26/2025 3:23 PM CDT KS ARTHROCENTESIS ASPIR&/INJ MAJOR JT/BURSA W/O US Routine 12/04/2024 9:30 AM CDT Rotator cuff arthropathy, right XR SHOULDER RIGHT 2 OR MORE VIEWS Routine 12/04/2024 9:18 AM CDT Right shoulder pain, unspecified chronicity COLONOSCOPY IMAGES 06/21/2015 from Last 3 Months or Most Recently Relevant to Health Maintenance Results * MRI Shoulder Right WO Contrast (01/26/2025 3:23 PM CDT) Anatomical Region Laterality Modality Upper Extremities Right Magnetic Reson ance Historical Provider IMYandel MRI PROCEDURES Final Result * [place] ARTHROCENTESIS ASPIR&/INJ MAJOR JT/BURSA W/O US (12/04/2024 [...] the procedure well with no immediate complications Result [facility] Shun Burns NP IN CLINIC/BEDSIDE ORDERA BLES Final Result * [...] osteophyte formation, and subchondral sclerosis. Shun Burns NP IMG XR PROCEDURES Final Result * COLONOSCOPY IMAGES (06/21/2015) Anatomical Region Laterality Modality Other Narrative 06/21/2015 Ordered by an unspecified provider. us Historical Provider GI PROCEDURE ORDERABLES F inal Result from Last 3 Months or Most Recently Relevant to Health Maintenance Insurance [facility] MEDICARE [facility] MEDICARE [facility] Advance Directives For more information, please contact: [phone] * Full Code (Latest Code Status on [...] 6:44 PM 12/20/2019 10:02 AM Care Teams Sports Instructor Relationship Specialty Start Date End Date Ajay Rhodes MD PCP - General 12/19/19 Rosana Noyola MD Consulting Physician Gastroenterology 12/21/19
--- OUTSIDE RECORDS SUMMARY | 2025-02-05 10:13 | XMS_ITS | Clinical Summary ---
Author Organization [facility] Address [address] [place] [address] Care Team Providers Care Wool Shearer Name Role Phone Ajay Rhodes MD Primary Care Provider + Rosana Noyola MD Unavailable [phone] Allergies No known active allergies Medications fentaNYL [...] no significant findings on echocardiogram, 30 day shorthand reporter on discharge HLD (hyperlipidemia) 06/02/2021 Risk factors for obstructive sleep apnea 021 Primary osteoarthritis, left shoulder 04/30/2021 Overview (04/30/2021): Added automatically from request for surgery [id number] Multiple closed fractures of ribs of left [...] (12/19/2019): Added automatically from request for surgery [id number] Arthralgia of shoulder 08/26/2012 Duodenal ulcer Encounters Date Type Department Care Team Description 01/29/2025 9:00 AM CDT Office Visit [facility] Orthopedics and Sports Medicine [address] [place] [address] [address] [place] [address] Lino Nolan MD Rotator cuff arthropathy of right shoulder (Primary Dx) 01/29/2025 Telephone [facility] Orthopedics and Sports Medicine [address] [place] [address] [address] [address] Lino Nolan MD Surgical Clearance 01/26/2025 Orders Only [facility] Orthopedics and Sports Medicine [address] [place] [phone] ProviderDavidson MD 12/04/2024 9:30 AM CDT Office Visit [facility] Orthopedics and Sports Medicine [address] [place] [address] [address] [place] [phone] Shun Burns NP Right shoulder pain, unspecified chronicity (Primary Dx); Rotator cuff arthropathy, right 12/04/2024 7:44 AM CDT - 12/04/2024 11:59 PM CDT Hospital Encounter [facility] Orthopedics and Sports Medicine [address] [place] [address] [address] [place] [address] Discharge Disposition: Discharge to home or self [...] on file Legal Sex Male 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 Gender Identity Not on file Sexual [...] 01/29/2025 9:03 AM CDT Plan of Treatment Health Maintenance Due Date Last Done Comments Depression Screening 1955 Hepatitis C Screening 1955 Prostate Cancer Screening-PSA 1957 Hepatitis B Screening 1975 Covid-19 Vaccine (3 - Pfizer risk series) 04/22/2021 03/25/2021, 11/18/2020 Pneumococcal vaccine 65+ (2 of 2 - PCV) 03/19/2022 03/19/2021 Well Visit 65+ 2022 Fall Risk Assessment 10/17/2024 10/18/2023 Influenza Vaccine (#1) 2025 4, 05/02/2021, 04/24/2021, Additional history exists Colon Cancer Screening-Colonoscopy 06/21/2025 06/21/2015, 06/21/2015 DTaP/Tdap/Td Vaccine (3 - Td or Tdap) 03/24/2031 03/24/2021, 08/27/2011 Colon Cancer Screening-CT Colonography Discontinued 06/21/2015, 06/21/2015 Colon Cancer Screening-DNA Stool Discontinued 06/21/20 15, 06/21/2015 Colon Cancer Screening-FIT Discontinued 06/21/2015, Colon Cancer Screening-Sigmoidoscopy Discontinued 06/21/2015, 06/21/2015 Zoster Vaccine Completed 03/15/2023, 11/26/2018 Medical Devices Implanted Type Area Liberal Arts Teacher Device Identifier Shelf Expiration Date Model / Serial / Lot [employer]gie [employer]opa[employer] 6191-1-010 Simplex P Radiopaque Full Dose Cement Bone Sterile - [id number] Implanted:Qty: 1 on 06/03/2021 by Lino Granger MD at [facility] Bone Cement Left: Shoulder [employer] 09/01/2022 6191-1-0 10 / / [id number] Sldr 27x6mm Pegs Circular Glenoid W/ In-Line Peripheral - [id number] Implanted:Qty: 1 on 06/03/2021 by Lino Granger MD at [facility] Other - see comments Left: Shoulder Shoulder Innovations LLC [id number] 10/10/2025 [id number] 06 / / [id number] Plug Azur Vascular Embolization Medium - [id number] Implanted:Qty: 1 on 03/17/2021 at [facility] [employer] [id number] 09/01/2023 [id number] 0 / / [id number] [employer] Rbypod8 Debby Pod 8mm 60cm Complex Occulusion Device Coil Embolization - [id number] Implanted:Qty: 1 on 03/17/2021 at [facility] [employer] 04/23/2028 RBYPOD8 / / [id number] Vasorum Ltd Kclt-06 Device 6fr Closure Celt Acd Vascular Sterile Latex Free Disposable Ashkan - [id number] Implanted:Qty: 1 on 03/17/2021 at [facility] [employer] LTD [id number] 08/12/2023 KCLT -06 / / [id number] Shoulder Innovations Llc [id number] Head Shoulder Offset Humeral 18mm X 44mm - [id number] Implanted:Qty: 1 on 06/03/2021 by Lino Granger MD at [facility] Left: Shoulder Shoulder Innovations LLC [id number] 09/26/2025 [id number] / / [id number] Shoulder [employer] Llc [id number] Stem Shoulder Porous Titanium Humeral Small - [id number] Implanted:Qty: 1 on 06/03/2021 by Lino Granger MD at [facility] Left: Shoulder Shoulder Innovations LLC [id number] 03/10/2026 [id number] 20 / / [id number] Procedures Procedure Name Priority Date/Time Associated Diagnosis Comments MRI SHOULDER RIGHT WO CONTRAST Schedule Routine, Read Routine (OP Routine) 01/26/2025 3:23 PM CDT [place] ARTHROCENTESIS ASPIR&/INJ MAJOR JT/BURSA W/O US Routine [...] Modality Upper Extremities Right Magnetic Reson ance us Historical Provider MD HERMAN MRI PROCEDURES Final Result * [place] ARTHROCENTESIS ASPIR&/INJ MAJOR JT/BURSA W/O US (12/04/2024 [...] well with no immediate complications Shun Burns AUTOMOBILE LIGHTS ASSEMBLER IN CLINIC/BEDSIDE ORDERA BLES Final Result [...] humeral head, osteophyte formation, and subchondral sclerosis. Result [facility] Shun Burns NP IMG XR PROCEDURES Final Result * COLONOSCOPY IMAGES (06/21/2015) Anatomical Region Laterality Modality Other Narrative 06/21/2015 Ordered by an unspecified provider. Historical Provider GI PROCEDURE ORDERABLES F inal Result from Last 3 Months or Most Recently Relevant to Health Maintenance Insurance [facility] MEDICARE [facility] MEDICARE [facility] Advance Directives For more information, please contact: [phone] * Full Code (Latest Code Status on [...] 6:44 PM 12/20/2019 10:02 AM Care Teams Wool Shearer Relationship Specialty Start Date End Date Ajay Rhodes MD PCP - General 12/19/19 Rosana Noyola MD Consulting Physician Gastroenterology 12/21/19
--- OUTSIDE RECORDS SUMMARY | 2025-02-05 10:13 | XMS_ITS | Encounter Summary ---
Author Organization [facility] Address 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 Gender Identity Not on file [...] Description 02/12/2025 11:15 AM CDT Office Visit [facility] Oncology and Hematology - [address] [place] [address] Randall Triplett MD [address] [facility] [address] [place] [phone] 03/15/2025 10:00 AM CDT Office Visit [facility] Primary Care [address] [place] [address] Ajay Rhodes MD [address] [place] [address] [address] [place] [address] documented as of this encounter Visit Diagnoses Not on filedocumented in this encounter Care Teams Machine Shop Helper Relationship Specialty Start Date End Date Ajay Rhodes MD PCP - General 01/19/08 documented as of this encounter
--- OUTSIDE RECORDS SUMMARY | 2025-02-05 10:13 | XMS_ITS | Encounter Summary ---
Author Organization [facility] Address 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 LAB ORDERS: 1 week Order number: [id number] Test Ordered: COMPREHENSIVE METABOLIC PANEL W/ GLOMERULAR FILTRATION RATE, ESTIMATED (EGFR) 75747 Order number: [id number] Test Ordered: LIPID PANEL 7600 Order number: [id number] Test Ordered: PSA 5363 Order number: [id number] Test Ordered: TSH 899 Order number: [id number] Test Ordered: CBC (INCLUDES DIFF/PLT) 6399 Order number: [id number] Test Ordered: URINALYSIS, COMPLETE W/REFLEX TO CULTURE 3020 Order number: [id number] Test Ordered: HEMOCCULT SINGLE 26995 Order number: [id number] Test Ordered: URINALYSIS W/O MICRO 02812 V70.0-ROUTINE GENERAL MEDICAL EXAMINATION discussed, check lab [...] Description 02/12/2025 11:15 AM CDT Office Visit [facility] Oncology and Hematology - [place] [address] [place] [address] [address] [place] [address] Randall Triplett MD [address] [facility] [address] [place] [phone] 03/15/2025 10:00 AM CDT Office Visit [facility] Care [address] [place] [address] Ajay Rhodes MD [address] [place] [phone] documented as of this encounter Visit Diagnoses Not on filedocumented in this encounter Care Teams Recreation Teacher Relationship Specialty Start Date End Date Ajay Rhodes MD PCP - General 01/19/08 documented as of this encounter
--- OUTSIDE RECORDS SUMMARY | 2025-02-05 10:13 | XMS_ITS | Encounter Summary ---
Author Organization [facility] Address 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 Gender Identity Not on file Sexual Orientation Not on file documented as of this encounter Miscellaneous Notes * Telephone Encounter - Chelsey Singleton RN - 02/28/2024 11:53 AM CDT Date of last visit addressing condition(s) being treated: 02/23/24 Recent Visits Date Type Provider Dept 02/23/24 Office Visit Ajay Rhodes MD [facility] 10/21/23 Office Visit Ajay Rhodes MD [facility] 10/04/23 Office Visit Ajay Rhodes MD [facility] 03/31/23 Office Visit Ajay Rhodes MD [facility] 11/23/22 Office Visit Ajay Rhodes MD [facility] Showing recent visits within past 540 days with a meds authorizing provider and meeting all other requirements Future Appointments Date Type Provider Dept 04/11/24 Appointment Ajay Rhodes MD [facility] 05/17/24 Appointment Ajay Rhodes MD [facility] Showing future appointments within next 365 days with a meds authorizing provider and meeting all other requirements Correct Pharmacy: Yes Medication below pended for you. Medication (Ask patient/caregiver to spell if possible): HYDROcodone- acetaminophen (NORCO) 10-325 mg Tablet Preferred Pharmacy: [place] [id number] [place] [address] Patient/Caregiver Callback Number: [phone] (home) Call Notes: Requesting refill early will be leaving to go out of town this Wednesday please advise request HYDROcodone-acetaminophen (NORCO) 10-325 mg Tablet [facility] [address] [place] [address] only this location Chelsey Singleton, RN * Telephone Encounter - Maira Lopez - 02/28/2024 11:24 AM CDT Copied from [facility] #[id number]. Topic: Medication Request >> Feb 28, 2024 11:22 AM Maira Yeh wrote: Caller is requesting: Medication - New Request (Not Currently Taking) Medication (Ask patient/caregiver to spell if possible): HYDROcodone- acetaminophen (NORCO) 10-325 mg Tablet Preferred Pharmacy: [facility] [id number] [place] [address] Patient/Caregiver Callback Number: [phone] (home) Call Notes: Requesting refill early will be leaving to go out of town this Wednesday please advise request HYDROcodone-acetaminophen (NORCO) 10-325 mg Tablet [facility] [address] [place] [address] only this location documented in this encounter Plan of Treatment Upcoming Encounters Date Type Department Care Team (Late st Contact Info) Description 02/12/2025 11:15 AM CDT Office Visit [facility] Oncology and Hematology - [place] [address] [place] [address] [address] [place] [address] Randall Triplett MD [address] [facility] [address] [place] [address] 03/15/2025 10:00 AM CDT Office Visit [facility] Primary Care [address] [place] [address] Ajay Rhodes MD [address] [place] [phone] documented as of this encounter Visit Diagnoses Diagnosis Other osteoarthritis involving multiple joints documented in this encounter Care Teams Building Mover Relationship Specialty Start Date End Date Ajay Rhodes MD PCP - General 01/19/08 documented as of this encounter
--- OUTSIDE RECORDS SUMMARY | 2025-02-05 10:13 | XMS_ITS | Encounter Summary ---
Author Organization [facility] Address [address] [place] [address] Care Team Providers Care Machines Technician Name Role Phone Ajay Rhodes MD Primary Care Provider [phone] Reason for Visit * Auth/Cert Specialty Diagnoses / Procedures Referred By Contsantiago t Referred [place] [address] [place] [address] Phone: tel: fax: [facility] [address] [facility] [address] [place] [address] Phone: tel: fax: Referral ID Status Reason Start Date Expiration Date Visits Re quested Visits Authorized [id number] 1 1 Encounter Details Date Type Department Care Team (Late st Contact Info) Description 03/05/2024 Hospital Encounter [facility] [address] [facility] [address] [place] [address] [place] [address] [place] [address] Social History Tobacco Use Types [...] on file 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 He is anticipating discharge home to [place] today and to follow up with his cancer treatment at [facility] for chemoradiation once this is coordinated. [...] Discussed with patient/family. MPOA/relationship: Abner Cortes (): [phone] Social History/ Caregiver Assessment: . Has two children -All emotionally involved and available to support Gigi as needed. 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 Education provided on: Palliative Care and services [...] ulcer disease) 01/2020 GASTRIC Tonic clonic seizures [id number] 2023-CT NEG/TESTING @ [place] Past Surgical History: Procedure Laterality Date HX COLONOSCOPY AGE 61 HX CRANIOTOMY FOR STEREOTACTIC GUIDED SURGERY Left 03/02/2024 CRANIOTOMY STEREOTACTIC performed by Chelsey Bowens MD at [facility] HX KNEE ARTHROSCOPY W/ MENISCAL REPAIR Right 2018 HX VASECTOMY AK ARTHROSCOPY KNEE SYNOVECTOMY LIMITED SPX 03/18/2020 KNEE SYNOVECTOMY ARTHROSCOPIC performed by Pancho Barfield MD at [facility] AK ARTHRS KNE SURG W/MENISCECTOMY MED/LAT W/SHVG Left 03/18/2020 KNEE ARTHROSCOPY performed by Pancho Barfield MD at [facility] AK ARTHRS KNE SURG W/MENISCECTOMY MED/LAT W/SHVG 03/18/2020 PARTIAL MEDIAL MENISCECTOMY KNEE ARTHROSCOPIC performed by Pancho Barfield MD at [facility] OR [facility] ARTHRS KNEE ABRASION ARTHRP/LOGGING SUPERVISOR DRLG/MICROFX 03/18/2020 KNEE CHONDROPLASTY ARTHROSCOPIC performed by Pancho Barfield MD at [facility] AK RPR AA HERNIA 1ST 3-10 CM REDUCIBLE N/A 01/21/2024 HERNIA UMBILICAL REPAIR performed by Jimenez Linares MD at [facility] Family History Problem Relation Name Age of [...] Patient needs follow up regarding:: No concerns Ericson Symptom Assessment Scale (ESAS-r) Pain: 0 (03/06/24999) [...] care of this patient. Siri Denis NP [facility] Palliative Care [phone] Routed to: Ajay Rhodes MD Total time [...] advanced. He is anticipating discharge home to [place] today and to follow up with his cancer treatment at [facility] for chemoradiation once this is coordinated [...] Context 02/29/2024 1824 03/06/2024 1717 Full Code [id number] Shun Youngblood MD ED 01/21/2024 0805 01/21/2024 1221 Full Code [id number] Jimenez Linares MD Inpatient Only showing the [...] Description 02/12/2025 11:15 AM CDT Office Visit [facility] Oncology and Hematology - [place] [address] [place] [address] [address] [place] [phone] [place] [address] [place] [address] [address] [place] [address] 03/15/2025 10:00 AM CDT Office Visit [facility] Primary Care [address] [place] [address] Ajay Rhodes MD [address] [place] [address] [address] [place] [address] documented as of this encounter Visit Diagnoses Not on filedocumented in this encounter Care Teams Machines Technician Relationship Specialty Start Date End Date Ajay Rhodes MD PCP - General 01/19/08 documented as of this encounter
--- OUTSIDE RECORDS SUMMARY | 2025-02-05 10:13 | XMS_ITS | Clinical Summary ---
Author Organization [facility] Address [address] [place] [address] Care Team Providers Care Brake Operator Heavy Duty Name Role Phone Ajay Rhodes MD Primary Care Provider [phone] Allergies Active Allergy Reactions Criticality Noted Date [...] daily. 50 Gram 3 09/18/19 25 Active levETIRAcetam (KEPPRA) 1,000 mg tabletIndications :Seizures (CMS/HCC),Gliobla stoma multiforme of brain (CMS/HCC) TAKE 1 TABLET BY MOUTH TWICE A DAY 180 Tablet 1 09/29/19 25 Active azelastine (ASTELIN) 137 mcg/actuation nasal spray Administer 2 Sprays in each nostril 2 times daily. 30 mL 3 10/26/19 25 Active cyclobenzaprine (FLEXERIL) 10 mg tablet TAKE 1 TABLET BY MOUTH 3 TIMES DAILY NEEDED FOR SPASM. 30 Tablet 3 12/07/19 25 Active HYDROcodone-aceta minophen (NORCO) 10-325 mg TabletIndications :Other osteoarthritis involving multiple joints Take 1 Tablet by mouth every 4 hours as needed (as needed for pain). DX Osteoarthritis multiple joints Max Daily Amount: 6 Tablets 180 Tablet 01/11/20 25 Active HYDROcodone-aceta minophen (NORCO) 10-325 mg TabletIndications :Other osteoarthritis involving multiple joints Take 1 Tablet by mouth every 4 hours as needed (as needed for pain). DX Osteoarthritis multiple joints Max Daily Amount: 6 Tablets 180 Tablet 12/13/19 25 025 Disconti nued(Reo rder) Active Problems [...] Encounters Date Type Department Care Team Description 01/30/2025 External Device Data STL ABSTRACTION Provider, Abstract 01/10/2025 Refill [place] [address] [place] [address] [address] Ajay Rhodes MD Other osteoarthritis involving multiple joints 01/02/2025 External Device Data STL ABSTRACTION Provider, Abstract 01/01/2025 10:00 AM CDT Office Visit [facility] Oncology and Hematology [facility] [address] [place] [address] Randall Triplett MD GBM (glioblastoma multiforme) ([facility]/HCC) (Primary Dx) 01/01/2025 Orders Only [facility] Oncology and Hematology [place] [address] [place] [address] Randall Triplett MD 12/26/2024 External Device Data STL ABSTRACTION Provider, Abstract 12/26/2024 External Device Data STL ABSTRACTION Provider, Abstract 12/26/2024 External Device Data STL ABSTRACTION Provider, Abstract 12/21/2024 External Device Data ST[place] ABSTRACTION Provider, Abstract 12/19/2024 External Device Data STL ABSTRACTION Provider, Abstract 12/12/2024 Refill [facility] [address] [address] Ajay Rhodes MD Other osteoarthritis involving multiple joints 12/06/2024 Refill [facility] Care [place] [address] [place] [place] [address] Ajay Rhodes MD 12/05/2024 External Device Data STL ABSTRACTION Provider, Abstract 11/30/2024 Chart Note Enoch Yeh [facility] Radiation Therapy [address] [place] [address] Gume Dailey MD 11/30/2024 Telephone [facility] Radiation Therapy [address] [place] [address] Leona Palacio RN Phone visit 11/28/2024 External Device Data STL ABSTRACTION Provider, Abstract 11/15/2024 Refill [facility] [address] [phone] Ajay Rhodes MD Other osteoarthritis involving multiple joints 11/14/2024 External Device Data STL ABSTRACTION Provider, Abstract 11/14/2024 Orders Only [facility] Oncology and Hematology [place] [address] [place] [address] Randall Triplett MD 11/13/2024 1:00 PM CDT Office Visit [facility] Oncology and Hematology [place] [address] [place] [address] Randall Triplett MD GBM (glioblastoma multiforme) ([facility]/HCC) (Primary Dx) 11/07/2024 External Device Data STL ABSTRACTION Provider, Abstract 11/07/2024 External Device Data STL ABSTRACTION Provider, Abstract 11/07/2024 Orders Only [facility] Oncology and Hematology - [place] [address] [place] [address] Randall Triplett MD from Last 3 Months Immunizations Immunization [...] COVID-19 VACCINE - EMERGENCY USE AUTHORIZATION, MRNA, [id number](PF) 30 MCG/0.3 ML IM SUSP 03/22/2021,11/18/2020 12/09/2020 (PREVNAR 20)(6 WKS UP) PNEUM OCOCCAL CONJUGATE VACCINE 20-VALENT (PCV20), POLYSACCHARIDE [id number] CONJUGATE, ADJUVANT 0.5 ML (PF) IM 05/25/2022 [...] on file 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 Gender Identity Not on file Sexual Orientation Not on file Last Filed Vital Signs Vital Sign Reading Time Taken Comments Blood Pressure 138/77 01/01/2025 9:59 AM CDT Pulse 52 01/01/2025 9:59 AM CDT Temperature 37.1 C (98.7 F) 01/01/2025 9:59 AM CDT Respiratory Rate 15 01/01/2025 9:59 AM CDT Oxygen Saturation 96% 01/01/2025 9:59 AM CDT Inhaled Oxygen Concentration - - Weight 67.4 kg (148 lb 9.6 oz) 01/01/2025 9:59 A M CDT Height 177.8 cm (5' 10) 10/25/2024 3:03 PM CDT Body Mass Index 21.32 10/25/2024 3:03 PM CDT Plan of Treatment Upcoming Encounters Date Type Department Care Team (Late st Contact Info) Description 02/12/2025 11:15 AM CDT Office Visit [facility] Oncology and Hematology - [place] [address] [place] [address] Randall Triplett MD [address] [facility] [address] [place] [phone] 03/15/2025 10:00 AM CDT Office Visit [facility] Primary Care [address] [place] [address] Ajay Rhodes MD [address] [facility] [address] [place] [address] Health Maintenance Due Date Last Done Comments FIT-DNA Q 3 years 2002 Flex Sig/CT Colonography Q 5 years 2002 FIT/FOBT Q 1 year 06/16/2011 06/16/2010, 07/05/2006 RSV VACCINE (60+ or ) (1 - Risk 60-74 years 1-dose series) 2017 COVID-19 Vaccine (2023-2 5 season) 2024 03/22/2021, 11/18/2020 INFLUENZA VACCINE (#1) 2025 , 03/31/2023, 05/25/2022, Additional history exists COLORECTAL SCREENING 06/21/2025 06/21/2015, 06/21/2015, 06/21/2015, Additional history exists Colorectal Cancer Screening 06/21/2025 DTAP/TDAP/TD VACCINES (3 - T d or Tdap) 03/24/2031 03/24/2021, 08/27/2011 PNEUMOCOCCAL VACCINE 50+ YEARS Completed 05/25/2022 , 03/19/2021 ZOSTER VACCINE Completed 03/15/2023, 11/26/2018 Medical Devices Implanted Type Area Flooring Helper Device Identifier Shelf Expiration Date Model / Serial / Lot Duragen + 3x3in Dp-1033 - [id number] Implanted:Qty : 1 on 03/02/2024 by Chelsey Bowens MD at [facility] Graft Left: Cranial [employer] [id number] 09/29/2026 [id number] / / [id number] Hemostatic Surgiflo 8ml W/ Thrombin 2994 - [id number] Implanted:Qty : 1 on 03/02/2024 by Chelsey Bowens MD at [facility] Hemostatic Left: Brain J&J- [employer] [id number] 05/01/2025 2994 / / [id number] Hemostatic Surgiflo 8ml W/ Thrombin 299 - [id number] Implanted:Qty : 1 on 03/02/2024 by Chelsey Bowens MD at [facility] Hemostatic Left: Brain J&J- [employer] [id number] 04/01/2025 2994 / / [id number] Agent Hemostat Surgicel 4x8in - [id number] Implanted:Qty : 1 on 03/02/2024 by Chelsey Bowens MD at [facility] Hemostatic Left: Brain J&J- [employer] 07/01/2028 1952S / / [id number] Hemostatic Surgicel 1x2in 1960 - [id number] Implanted:Qty : 1 on 03/02/2024 by Chelsey Bowens MD at [facility] Hemostatic Left: Brain J&J- [employer] 09/01/20261 / / [id number] Hemostatic Surgifoam Sz100 1973 - [id number] Implanted:Qty : 1 on 03/02/2024 by Chelsey Bowens MD at [facility] Hemostatic Left: Brain J&J- [employer] 12/02/2027 1974 / / [id number] Mesh Ventralex 1.7in Sm Circ [id number] - [id number] Implanted:Qty : 1 on 01/21/2024 by Jimenez Linares MD at [facility] Mesh N/A: Umbilical BARD DAVOL [id number] 08/29/2025 [id number] / / [id number] Plate Matrxneuro Bur Hl Cvr - Sno Load Or Sterilized Date On [place] Implanted:Qty : 1 on 03/02/2024 by Chelsey Bowens MD at [facility] Plate Left: Cranial J&J- DEPUY SYNTHES / NO LOAD OR STERILIZED DATE ON TRINIDAD / Plate Matrxneuro Cranial 2 - Sno Load Or Sterilized Date On [place] Implanted:Qty : 2 on 03/02/2024 by Chelsey Bowens MD at [facility] Plate Left: Cranial J&J- DEPUY SYNTHES 04.502.062 / NO LOAD OR STERILIZED DATE ON [place] / Screw Matrixneuro Sd .503.103.01 - Sno Load Or Sterilized Date On [place] Implanted:Qty : 2 on 03/02/2024 by Chelsey Bowens MD at [facility] Screw Left: Cranial J&J- DEPUY SYNTHES 04.503.103. 01 / NO LOAD OR STERILIZED DATE ON [place] / Description:All Synthes cran ial hardware, Requisition, [id number]. Screw Matrixneuro Sd .503.104.01 - Sno Load Or Sterilized Date On [place] Implanted:Qty : 4 on 03/02/2024 by Chelsey Bowens MD at [facility] Screw Left: Cranial J&J- DEPUY SYNTHES .503.104. 01 / NO LOAD OR STERILIZED DATE ON [place] / Procedures Procedure Name Priority Date/Time Associated Diagnosis Comments BASIC METABOLIC PANEL Routine 01/01/2025 2:56 PM CDT CBC WITH DIFFERENTIAL Routine 01/01/2025 2:38 PM CDT BASIC METABOLIC PANEL Routine 11/13/2024 11:58 AM CDT CBC MIXED CELL DIFFERENTIAL Routine 11/13/2024 11:51 AM CDT MRI BRAIN W WO CONTRAST Routine 11/07/19 9:54 AM CDT ENDOSCOPY, COLON, SCREENING Routine 06/21/2015 POC OCCULT BLOOD UP TO 3 CARDS Routine 06/16/2010 Abdominal pain from Last 3 Months or Most Recently Relevant to Health Maintenance Results * BASIC METABOLIC PANEL (01/01/2025 2:56 PM CDT) Only the most recent of2 resultswithin the time period is included. Blood us Randall Triplett MD CHEMISTRY ORDERABLES Final Resu lt * CBC WITH DIFFERENTIAL (01/01/2025 2:38 PM CDT) Blood us Randall Triplett MD HEMATOLOGY ORDERABLES Final Res ult * CBC MIXED CELL DIFFERENTIAL (11/13/2024 11:51 AM CDT) Blood us Randall Triplett MD HEMATOLOGY ORDERABLES Final Res ult * MRI BRAIN W WO CONTRAST (11/06/2024 9:54 AM CDT) Anatomical Region Laterality Modality Head Magnetic Resonan ce us Randall Triplett MD MR ORDERABLES Final Result * ENDOSCOPY, COLON, SCREENING (06/21/2015) us Abstract [...] Maintenance Insurance MEDICARE PART A AND B [facility] [address] RX ALVARES PLANS (INTERNAL) [facility] Internal Plans RX GENERIC COMMERCIAL Commercial RX ALLWIN DATA Medicare Part B MEDICARE PART A AND B [facility] Advance Directives For more information, please contact: [phone] Documents on File Type Date Recorded Patient Process Designer Expl anation Advance Directive POA 03/07/2024 1:53 [...] 6:59 AM 03/18/2020 2:16 PM Care Teams Brake Operator Heavy Duty Relationship Specialty Start Date End Date Ajay Rhodes MD PCP - General 01/19/08
--- OUTSIDE RECORDS SUMMARY | 2025-02-05 10:13 | XMS_ITS | Encounter Summary ---
Author Organization [facility] Address [address] [place] [address] Care Team Providers Care Control System Computer Scientist Name Role Phone Ajay Rhodes MD Primary Care Provider [phone] Encounter Details Date Type Department Care Team (Late st Contact Info) Description 07/05/2006 Outpatient Historical [facility] Internal Medicine [address] [address] Ajay Rhodes MD [address] [place] [address] [address] [place] [address] Social History Tobacco Use Types Packs/Day Years Used Date Smoking Tobacco: Never Assessed Sex and Gender Information Value Date Recorded Sex Assigned at Not on file 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 Gender Identity Not on file Sexual Orientation Not on file documented as of this encounter Plan of Treatment Upcoming Encounters Date Type Department Care Team (Late st Contact Info) Description 02/12/2025 11:15 AM CDT Office Visit [facility] Oncology and Hematology - [place] [address] [facility] [address] [place] [address] [place] [address] [place] [address] [address] [place] [address] 03/15/2025 10:00 AM CDT Office Visit [facility] Primary Care [address] [place] [address] Ajay Rhodes MD [address] [place] [address] [place] [address] documented as of this encounter Visit Diagnoses Not on filedocumented in this encounter Care Teams Control System Computer Scientist Relationship Specialty Start Date End Date Ajay Rhodes MD PCP - General 01/19/08 documented as of this encounter
== END 2025-02-05 10:02 | disposition home or self-care (01) ==
PROVIDERS: PCP Internal Medicine Hematology & Oncology; Visit Provider Radiology Radiation Oncology
DX: C71.0 Malignant neoplasm of cerebrum, except lobes and ventricles (principal)
CPT/HCPCS: 70553; A9577

== ENCOUNTER 2025-02-12 10:20 | Outpatient (CLI) | payer MEDICARE, OTHER, SELFPAY ==
--- OUTSIDE RECORDS SUMMARY | 2025-02-12 10:25 | XMS_ITS | Encounter Summary ---
Author Organization [facility] Address 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 Gender Identity Not on file Sexual Orientation [...] Hematology - [place] [address] [place] [address] Randall Triplett MD [address] [facility] [address] [place] [phone] 03/15/2025 10:00 AM CDT Office Visit [facility] Primary Care [address] [place] [address] Ajay Rhodes MD [address] [place] [address] [address] [place] [address] documented as of this encounter Visit Diagnoses Not on filedocumented in this encounter Care Teams Marketing Editor Relationship Specialty Start Date End Date Ajay Rhodes MD PCP - General 01/19/08 documented as of this encounter
--- OUTSIDE RECORDS SUMMARY | 2025-02-12 10:25 | XMS_ITS | Encounter Summary ---
Author Organization [facility] Address 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 [address] D.O.B: 1955 N: [id number] Parent/Guardian if applicable: Patient Insurance: [employer] Policy#: [id number] Group #: Best To Call : [phone] Best Time to Call : ANYTIME. May We Leave Message At That Number : YES, LEAVE MESSAGE. Referring to: GASTROENTEROLOGY Dr. Khanh Hatfield ph: [phone] fax: [phone]. [address] Rosana Noyola ph: [phone] fax: [phone]. Reason for referral: colonoscopy ORDERING PHYSICIAN : PHIL HANCOCK MD PRIORITY OF REFERRAL: AT PATIENT'S CONVENIENCE. OFFICE HEALTH INFORMATICS INSTRUCTOR & PHONE: Seema Jiang C FOR [...] test was completed on 08-19-07. * Phil Hanocck MD - 12/14/2007 4:48 PM CDT WEIGHT: [...] SPECIALTY REFERRAL: GASTROENTEROLOGY Dr. Rosana Noyola ph: [phone] fax: [phone]. Dr[address] Khanh Hatfield ph: [phone] fax: [phone].colonoscopy Patient Education: Risks, benefits, and possible side [...] Description 02/12/2025 11:15 AM CDT Office Visit [facility] Oncology and Hematology - [place] [address] [place] [address] [address] [place] [address] [place] [address] [place] [address] [address] [place] [address] 03/15/2025 10:00 AM CDT Office Visit [facility] Primary Care [place] [address] [place] [address] Phil Hancock MD [address] [place] [address] [address] [place] [address] documented as of this encounter Visit Diagnoses Not on filedocumented in this encounter Care Teams Intensive Care Nurse Relationship Specialty Start Date End Date Phil Hancock MD PCP - General 01/19/08 documented as of this encounter
--- OUTSIDE RECORDS SUMMARY | 2025-02-12 10:25 | XMS_ITS | Encounter Summary ---
Author Organization [facility] Address 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 200 [place] [address] [place] [address] [place] [address] [address] [place] [address] 03/15/2025 10:00 AM CDT Office Visit [facility] Primary Care [address] [place] [address] Ajay Rhodes MD [address] [place] [address] [place] [address] documented as of this encounter Visit Diagnoses Not on filedocumented in this encounter Care Teams Mold Builder Relationship Specialty Start Date End Date Ajay Rhodes MD PCP - General 01/19/08 documented as of this encounter
--- OUTSIDE RECORDS SUMMARY | 2025-02-12 10:25 | XMS_ITS | Encounter Summary ---
Author Organization [facility] Address 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 LAB ORDERS: 3 mo Order number: [id number] Test Ordered: COMPREHENSIVE METABOLIC PANEL & GFR 1112 Order number: [id number] Test Ordered: LIPID PANEL 1078 Order number: [id number] Test Ordered: PSA, TOTAL 1002 Patient Education: [...] 02/12/2025 11:15 AM CDT Office Visit [facility] Oncology and Hematology - [place] 2227 [facility] 200 [place] [address] Randall Triplett MD 2[address] [facility] [address] [place] [address] 03/15/2025 10:00 AM CDT Office Visit [facility] Primary Care [address] [place] [address] Ajay Rhodes MD [address] [place] [address] [address] [place] [address] documented as of this encounter Visit Diagnoses Not on filedocumented in this encounter Care Teams Quantitative Strategy Analyst Relationship Specialty Start Date End Date Ajay Rhodes MD PCP - General 01/19/08 documented as of this encounter
--- OUTSIDE RECORDS SUMMARY | 2025-02-12 10:25 | XMS_ITS | Encounter Summary ---
Author Organization [facility] Address 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 Gender Identity Not on file Sexual [...] Description 02/12/2025 11:15 AM CDT Office Visit [facility] Oncology and Hematology - [place] [address] Ajay Donahue 200 [place] [address] Randall Triplett MD 6308 [facility] [address] [place] [address] 03/15/2025 10:00 AM CDT Office Visit [facility] Primary Care [address] [place] [address] Ajay Rhodes MD [address] [place] [address] [address] [place] [address] documented as of this encounter Visit Diagnoses Not on filedocumented in this encounter Care Teams Market Research Associate Relationship Specialty Start Date End Date Ajay Rhodes MD PCP - General 01/19/08 documented as of this encounter
--- OUTSIDE RECORDS SUMMARY | 2025-02-12 10:25 | XMS_ITS | Encounter Summary ---
Author Organization [facility] Address [address] [place] [address] Care Team Providers Care Conveyor Installer Name Role Phone Phil Hancock MD Primary Care Provider [phone] Encounter Details Date Type Department Care Team (Late st Contact Info) Description 01/20/2007 Orders Only [facility] Internal Medicine [address] [address] Phil Hancock MD [address] [place] [address] Social History Tobacco Use Types Packs/Day Years Used Date Smoking Tobacco: Never Assessed Sex and Gender Information Value Date Recorded Sex Assigned at Not on file 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 [address] D.O.B: 1955 SSN: [id number] Parent/Guardian if applicable: Patient Insurance: [employer] ID#: [id number] Group#: ORDER(S) #: [id number] mri c spine BEST TO CALL CELL. [phone] BEST TIME TO CALL: ANYTIME. MAY WE LEAVE MESSAGE AT THAT NUMBER: YES, LEAVE MESSAGE. PLEASE SCHEDULE THE APPOINTMENT AT THE FOLLOWING LOCATION: [place] [phone]. TEST PRIORITY: 2 - 7 DAYS. SPECIAL SCHEDULING INSTRUCTIONS: needs prep ORDERING PHYSICIAN: PHIL HANCOCK MD OFFICE TRIMMER OPERATOR & PHONE: Shruthi Hart E ORDER PRINTED BY: Courtney Meza L FOR SCHEDULING USE ONLY: FIRST ATTEMPT Date:JAN 24, 2007 Norma Medrano T 03:02 p Left message on Recorder. SECOND ATTEMPT: Date:JAN 25, 2007 Noa Valentino 01:31 p Spoke with Patient. [place] [phone]. APPOINTMENT DATE : 02/03/2007 ( @ 4:00 pm) The appointment was scheduled by Noa Valentino at [phone] [facility] NN * Phil Hancock MD - 12/21/2007 4:44 PM CDT SPECIALIST REFERRAL REQUEST DATE: JAN 20, 2007 Note created by: Seema Jiang C 03:16 p Patient Name : LIBERTAD CORTES Address: [address] [place] [address] D.O.B: 1955 SSN: [id number] Parent/Guardian if applicable: Patient Insurance: [employer] Policy#: [id number] Group #: Best To Call : [phone] Best Time to Call : ANYTIME. May We Leave Message At That Number : YES, LEAVE MESSAGE. Referring to: PAIN MANAGEMENT Dr. Marcos Gorman ph: [phone]. Dr. Edmund Manriquez ph: [phone]. PATIENT DIAGNOSIS: . 723.1-NECK PAIN ORDERING PHYSICIAN : PHIL HANCOCK MD PRIORITY OF REFERRAL: AT PATIENT'S CONVENIENCE. OFFICE TRIMMER OPERATOR & PHONE: Seema Jiang C FOR [...] palpable. MUSCULOSKELETAL EXAM: post neck tender central, lead dental assistant ok, sensation ok, ls tender, left shoulder anttender but full rom ASSESSMENT/PLAN: 715.90-OSTEOARTHROSIS UNSPECIFIED discussed, check mri, pain mgt 723.1-NECK PAIN MEDICATIONS: VICODIN ES ORAL TABLET 7.5-750 MG, 1 Every Six Hours, As Needed, 90 Dispensed, 2 Fills, status: CONTINUED, 01/20/2007. LAB ORDERS: Order number: [id number] Test Ordered: MRI CSPINE [facility] 461.9-SINUSITIS UNSPECIFIED add med MEDICATIONS: ZYRTEC ORAL TABLET 10 MG, 1 Every Day, 20 Dispensed, status: NEW PRESCRIPTION, 01/20/2007. NASONEX NASAL SUSPENSION 50 MCG/ACT, 2 Every Morning, 2 Dispensed, status: NEW PRESCRIPTION, 01/20/2007. SPECIALTY REFERRAL: PAIN MANAGEMENT Dr. Marcos Gorman ph: [phone]. Dr. Edmund [place]riquez ph: [phone].[facility] RETURN VISIT : Instructed to call if not improving. Electronically Signed by: Phil Hancock MD on December documented in this encounter Plan of Treatment Upcoming Encounters Date Type Department Care Team (Late st Contact Info) Description 02/12/2025 11:15 AM CDT Office Visit [facility]3] Oncology and Hematology - [place] [address] [place] [address] 200 [place] [address] [place] [address] [place] [address] [address] [place] [address] 03/15/2025 10:00 AM CDT Office Visit [facility]3] Primary Care [place] [address] [place] [address] Phil Hancock MD [address] [place] [address] [address] [place] [address] documented as of this encounter Visit Diagnoses Not on filedocumented in this encounter Care Teams Conveyor Installer Relationship Specialty Start Date End Date Phil Hancock MD PCP - General 01/19/08 documented as of this encounter
--- OUTSIDE RECORDS SUMMARY | 2025-02-12 10:25 | XMS_ITS | Encounter Summary ---
Author Organization [facility] Address [address] [place] [address] Care Team Providers Care Media Services Coordinator Name Role Phone Ajay Rhodes MD Primary Care Provider [phone] Encounter Details Date Type Department Care Team (Late st Contact Info) Description 08/05/2007 Outpatient Historical [facility] Internal Medicine [address] [address] Ajay Rhodes MD [address] [place] [address] [address] [place] [address] Social History Tobacco Use Types Packs/Day Years Used Date Smoking Tobacco: Never Assessed Sex and Gender Information Value Date Recorded Sex Assigned at Not on file Legal 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 Male 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 Gender Identity Not on file Sexual Orientation Not on file documented as of this encounter Plan of Treatment Upcoming Encounters Date Type Department Care Team (Late st Contact Info) Description 02/12/2025 11:15 AM CDT Office Visit [facility] Oncology and Hematology - [place] [address] [facility] 200 [place] [address] [place] [address] [place] [address] [address] [place] [address] 03/15/2025 10:00 AM CDT Office Visit [facility] Primary Care [address] [place] [address] Ajay Rhodes MD [address] [place] [address] [place] [address] documented as of this encounter Visit Diagnoses Not on filedocumented in this encounter Care Teams Media Services Coordinator Relationship Specialty Start Date End Date Ajay Rhodes MD PCP - General 01/19/08 documented as of this encounter
--- OUTSIDE RECORDS SUMMARY | 2025-02-12 10:25 | XMS_ITS | Encounter Summary ---
Author Organization [facility] Address 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 PHARMACY NUMBER: [phone] 04/06/07 Request refill of Hydrocodone 7.5/750 mg. [...] p Patient Name : LIBERTAD CORTES Address: [address] [place], [place] [address] D.O.B: 1955 SSN: [id number] Parent/Guardian if applicable: Patient Insurance: [facility] Policy#: [id number] Group #: Best To Call : [phone] Best Time to Call : ANYTIME. May We Leave Message At That Number : YES, LEAVE MESSAGE. Referring to: PHYSICAL THERAPY/REHAB [facility]- PH: [phone] PATIENT DIAGNOSIS: . 723.1-NECK PAIN ORDERING PHYSICIAN : PHIL HANCOCK MD PRIORITY OF REFERRAL: AT PATIENT'S CONVENIENCE. OFFICE CAREER TECHNICAL EDUCATION INSTRUCTOR & PHONE: Seema Jiang C FOR [...] mri's try PT SPECIALTY REFERRAL: PHYSICAL THERAPY/REHAB [place] [facility] Patient Education: Risks, benefits, and possible [...] [facility] - [place] [address] [place] [address] [address] [place] [phone] Randall Triplett MD 2227 [facility] [address] [place] [phone] 03/15/2025 10:00 AM CDT Office Visit [facility] Primary Care [address] [facility] [place] [address] Phil Hancock MD [address] [place] [address] [place] [address] [place] [address] documented as of this encounter Visit Diagnoses Not on filedocumented in this encounter Care Teams Asphalt Smoother Relationship Specialty Start Date End Date Phil Hancock MD PCP - General 01/19/08 documented as of this encounter
--- OUTSIDE RECORDS SUMMARY | 2025-02-12 10:25 | XMS_ITS | Encounter Summary ---
Author Organization [facility] Address 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 PHARMACY NUMBER: [phone] 02/04/07 request refill of Hydrocodone/APAP 7.5/750 mg [...] Center Oncology and Hematology - [place] 2227 [facility] 200 [place] [address] Randall Triplett MD 2227 [facility] [address] [place] [address] 03/15/2025 10:00 AM CDT Office Visit [facility] Primary Care [place] [address] [place] [phone] Ajay Rhodes MD [address] [place] [address] [address] [place] [address] documented as of this encounter Visit Diagnoses Not on filedocumented in this encounter Care Teams Eap Counselor Relationship Specialty Start Date End Date Ajay Rhodes MD PCP - General 01/19/08 documented as of this encounter
--- OUTSIDE RECORDS SUMMARY | 2025-02-12 10:25 | XMS_ITS | Encounter Summary ---
Author Organization [facility] Address [address] [place] [address] Care Team Providers Care Mail Service Coordinator Name Role Phone Ajay Rhodes MD Primary Care Provider [phone] Encounter Details Date Type Department Care Team (Late st Contact Info) Description 10/25/2007 Outpatient Historical [facility] Internal Medicine [address] [address] Ajay Rhodes MD [address] [place] [address] [address] [place] [address] Social History Tobacco Use Types Packs/Day Years Used Date Smoking Tobacco: Never Assessed Sex and Gender Information Value Date Recorded Sex Assigned at Not on file 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 Gender Identity Not on file Sexual Orientation Not on file documented as of this encounter Plan of Treatment Upcoming Encounters Date Type Department Care Team (Late st Contact Info) Description 02/12/2025 11:15 AM CDT Office Visit [facility] Oncology and Hematology - [place] [address] [facility] 200 [place] [address] [place] [address] [place] [address] [address] [place] [address] 03/15/2025 10:00 AM CDT Office Visit [facility] Primary Care [address] [place] [address] Ajay Rhodes MD [address] [place] [address] [place] [address] documented as of this encounter Visit Diagnoses Not on filedocumented in this encounter Care Teams Mail Service Coordinator Relationship Specialty Start Date End Date Ajay Rhodes MD PCP - General 01/19/08 documented as of this encounter
--- OUTSIDE RECORDS SUMMARY | 2025-02-12 10:25 | XMS_ITS | Encounter Summary ---
Author Organization [facility] Address 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 PHARMACY NUMBER: [phone] SECTION 1: REQUESTED ACTION issa 02/28/07 at 10:41 am: MEDICATION REQUEST: MEDICATION REQUEST: Patient requests a refill. gen vicodin #[id number] 02/04/07 DOCTOR`S RESPONSE: debby 02/28/07 at 12:40 pm prev note * Ajay Rhodes MD - 12/21/2007 1:22 PM CDT TIME:11:57 am PATIENT`S HOME PHONE: PATIENT`S WORK PHONE: PATIENT`S INSURANCE: [employer] WHO TOOK THE CALL: Lorrie Lynch C GENERAL INFORMATION WHO CALLED: Patient called. PHARMACY NUMBER: [phone] SECTION 1: PT NEVER TOOK SCRIPT IN [...] Description 02/12/2025 11:15 AM CDT Office Visit [facility] Oncology and Hematology - [place] [address] [place] [address] 200 [place] [address] [place] [address] [place] [address] [address] [place] [address] 03/15/2025 10:00 AM CDT Office Visit [facility] Primary Care [address] [place] [address] Ajay Rhodes MD [address] [place] [address] [address] [place] [address] documented as of this encounter Visit Diagnoses Not on filedocumented in this encounter Care Teams Picture Frames Inspector Relationship Specialty Start Date End Date Ajay Rhodes MD PCP - General 01/19/08 documented as of this encounter
--- OUTSIDE RECORDS SUMMARY | 2025-02-12 10:25 | XMS_ITS | Encounter Summary ---
Author Organization [facility] Address 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 Gender Identity Not on file Sexual Orientation Not on file documented as of this encounter Plan of Treatment Upcoming Encounters Date Type Department Care Team (Late st Contact Info) Description 02/12/2025 11:15 AM CDT Office Visit [facility] Oncology and Hematology - [place] [facility] [facility] 200 [place] [address] [place] [address] [place] [address] [address] [place] [address] 03/15/2025 10:00 AM CDT Office Visit [facility] Primary Care [address] [place] [address] Ajay Rhodes MD [address] [place] [address] [place] [address] documented as of this encounter Visit Diagnoses Not on filedocumented in this encounter Care Teams Dungeon Master Relationship Specialty Start Date End Date Ajay Rhodes MD PCP - General 01/19/08 documented as of this encounter
--- OUTSIDE RECORDS SUMMARY | 2025-02-12 10:26 | XMS_ITS | Encounter Summary ---
Author Organization [facility] Address [address] [place] [address] Care Team Providers Care Executive Personal Assistant Name Role Phone Ajay Rhodes MD Primary Care Provider [phone] Reason for Visit * Auth/Cert Specialty Diagnoses / Procedures Referred By Contsantiago t Referred [place] [address] [place] [address] Phone: tel: fax: [facility] [address] [facility] [address] [place] [address] Phone: tel: fax: Referral ID Status Reason Start Date Expiration Date Visits Re quested Visits Authorized [id number] 1 1 Encounter Details Date Type Department Care Team (Late st Contact Info) Description 03/05/[address] 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 He is anticipating discharge home to [place] today and to follow up with his cancer treatment at [facility] for chemoradiation once this is coordinated. [...] Discussed with patient/family. MPOA/relationship: Abner Cortes (): [phone] Social History/ Caregiver Assessment: . Has two children -All emotionally involved and available to support Gigi as needed. 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 Education provided on: Palliative Care and [...] ulcer disease) 01/2020 GASTRIC Tonic clonic seizures T1LCXPT 2023-CT NEG/TESTING @ [facility] Past Surgical History: Procedure Laterality Date HX COLONOSCOPY AGE 61 HX CRANIOTOMY FOR STEREOTACTIC GUIDED SURGERY Left 03/02/2024 CRANIOTOMY STEREOTACTIC performed by Chelsey Bowens MD at [facility] OR [facility] HX KNEE ARTHROSCOPY W/ MENISCAL REPAIR Right 2018 HX VASECTOMY IN ARTHROSCOPY KNEE SYNOVECTOMY LIMITED SPX 03/18/2020 KNEE SYNOVECTOMY ARTHROSCOPIC performed by Pancho Barfield MD at [facility] OR [facility] [place] KNE SURG W/MENISCECTOMY MED/LAT W/SHVG Left 03/18/2020 KNEE ARTHROSCOPY performed by Pancho Barfield MD at [facility] OR [facility] [place] KNE SURG W/MENISCECTOMY MED/LAT W/SHVG 03/18/2020 PARTIAL MEDIAL MENISCECTOMY KNEE ARTHROSCOPIC performed by Pancho Barfield MD at [facility] OR [facility] [place] KNEE ABRASION ARTHRP/SALES FLOOR TEAM LEADER DRLG/MICROFX 03/18/2020 KNEE CHONDROPLASTY ARTHROSCOPIC performed by Pancho Barfield MD at [facility] OR [facility] IN R[place] AA HERNIA 1ST 3-10 CM REDUCIBLE N/A 01/21/2024 HERNIA UMBILICAL REPAIR performed by Jimenez Linares MD at [facility] OR [facility] Family History Problem Relation Name Age [...] Patient needs follow up regarding:: No concerns [place] Symptom Assessment Scale (ESAS-r) Pain: 0 (03/06/24999) [...] care of this patient. Siri Denis NP [facility] Palliative Care [phone] Routed to: Ajay Rhodes MD Total time [...] advanced. He is anticipating discharge home to [place] today and to follow up with his cancer treatment at [facility] for chemoradiation once this is coordinated [...] Context 02/29/2024 1824 03/06/2024 1717 Full Code [id number] Shun Youngblood MD ED 01/21/2024 0805 01/21/2024 1221 Full Code [id number] Jimenez Linares MD Inpatient Only showing the [...] Description 02/12/2025 11:15 AM CDT Office Visit [facility] Oncology and Hematology [place] [address] [place] [address] [address] [place] [address] [place] [address] [place] [address] [address] [place] [address] 03/15/2025 10:00 AM CDT Office Visit [facility] Primary Care [address] [place] [address] Ajay Rhodes MD [address] [place] [address] [address] [place] [address] documented as of this encounter Visit Diagnoses Not on filedocumented in this encounter Care Teams Executive Personal Assistant Relationship Specialty Start Date End Date Ajay Rhodes MD PCP - General 01/19/08 documented as of this encounter
--- OUTSIDE RECORDS SUMMARY | 2025-02-12 10:26 | XMS_ITS | Encounter Summary ---
Author Organization [facility] Address 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 [address] D.O.B: 1955 SSN: [id number] Parent/Guardian if applicable: Patient Insurance: [employer] CROSS BLUE SHIELD ID#: [id number] Group#: ORDER(S) #: [id number] xray c spine PLEASE SCHEDULE THE APPOINTMENT AT THE FOLLOWING LOCATION: [facility] [phone]. SPECIAL SCHEDULING INSTRUCTIONS: walkin ORDERING PHYSICIAN: PHIL HANCOCK MD OFFICE PROGRAM PROJECT MANAGER & PHONE: Shruthi Hart E * [...] NECK: lat m tender, no central tender, kiln burner ok EXTREMITIES: BILATERAL LOWER EXTREMITIES: No misalignment [...] status: CONTINUED, 11/18/2006. LAB ORDERS: Order number: [id number] Test Ordered: XRAY C SPINES, ROUTINE (5 VIEWS) W/OBL V70.0-ROUTINE GENERAL MEDICAL EXAMINATION check lab discussed LAB ORDERS: Order number: [id number] Test Ordered: CBC W/ DIFFERENTIAL 3150 Order number: [id number] Test Ordered: COMPREHENSIVE METABOLIC PANEL & GFR 1112 Order number: [id number] Test Ordered: LIPID PANEL 1078 Order number: [id number] Test Ordered: TSH 1720 Order number: [id number] Test Ordered: PSA, TOTAL 1002 RETURN VISIT : Instructed to call if not improving. Electronically Signed by: Phil Hancock MD on October documented in this encounter Plan of Treatment Upcoming Encounters Date Type Department Care Team (Late st Contact Info) Description 02/12/2025 11:15 AM CDT Office Visit [facility] Oncology and Hematology - [place] [address] [place] [address] Randall Triplett MD [address] [facility] [address] [place] [address] 03/15/2025 10:00 AM CDT Office Visit [facility] Primary Care [place] [address] [place] [address] Phil Hancock MD [address] [place] [address] [place] [address] documented as of this encounter Visit Diagnoses Not on filedocumented in this encounter Care Teams Wastewater Process Engineer Relationship Specialty Start Date End Date Phil Hancock MD PCP - General 01/19/08 documented as of this encounter
--- OUTSIDE RECORDS SUMMARY | 2025-02-12 10:26 | XMS_ITS | Clinical Summary ---
Author Organization [facility] Address [address] [place] [address] Care Team Providers Care Salesperson Furniture Name Role Phone Ajay Rhodes MD Primary Care Provider + Rosana Noyola MD Unavailable [phone] Allergies No known active allergies Medications fentaNYL [...] no significant findings on echocardiogram, 30 day air sampling and monitoring on discharge HLD (hyperlipidemia) 06/02/2021 Risk factors for obstructive sleep apnea 021 Primary osteoarthritis, left shoulder 04/30/2021 Overview (04/30/2021): Added automatically from request for surgery [id number] Multiple closed fractures of ribs of left [...] (12/19/2019): Added automatically from request for surgery [id number] Arthralgia of shoulder 08/26/2012 Duodenal ulcer Encounters Date Type Department Care Team Description 01/29/2025 9:00 AM CDT Office Visit [facility] Orthopedics and Sports Medicine [address] [place] [address] [address] [place] [address] Lino Nolan MD Rotator cuff arthropathy of right shoulder (Primary Dx) 01/29/2025 Telephone [facility] Orthopedics and Sports Medicine [address] [place] [address] [address] [address] Lino Nolan MD Surgical Clearance 01/26/2025 Orders Only [facility] Orthopedics and Sports Medicine [address] [place] [address] ProviderDavidson MD 12/04/2024 9:30 AM CDT Office Visit [facility] Orthopedics and Sports Medicine [address] [place] [address] [address] [place] [address] Shun Burns NP Right shoulder pain, unspecified chronicity (Primary Dx); Rotator cuff arthropathy, right 12/04/2024 7:44 AM CDT - 12/04/2024 11:59 PM CDT Hospital Encounter [facility] Orthopedics and Sports Medicine [address] [place] [address] [address] [place] [address] Discharge Disposition: Discharge to home or self [...] on file 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 Gender Identity Not on file Sexual Orientation [...] 03/15/2023, 11/26/2018 Medical Devices Implanted Type Area Director Export Device Identifier Shelf Expiration Date Model / Serial / Lot [employer] 6191-1-010 Simplex P Radiopaque Full Dose Cement Bone Sterile - [id number] Implanted:Qty: 1 on 06/03/2021 by Lino Granger MD at [facility] Bone Cement Left: Shoulder [employer] 09/01/2022 6191-1-0 10 / / [id number] Sldr 27x6mm Pegs Circular Glenoid W/ In-Line Peripheral - [id number] Implanted:Qty: 1 on 06/03/2021 by Lino Granger MD at [facility] Other - see comments Left: Shoulder Shoulder [employer] [id number] 10/10/2025 [id number] 06 / / [id number] Plug Azur Vascular Embolization Medium - [id number] Implanted:Qty: 1 on 03/17/2021 at [facility] [employer] [id number] 09/01/2023 [id number] 0 / / [id number] [employer] Rbypod8 Debby Pod 8mm 60cm Complex Occulusion Device Coil Embolization - [id number] Implanted:Qty: 1 on 03/17/2021 at [facility] [employer] 04/23/2028 [id number] / / [id number] [employer] Kclt-06 Device 6fr Closure Celt Acd Vascular Sterile Latex Free Disposable Ashkan - [id number] Implanted:Qty: 1 on 03/17/2021 at [facility] [employer] [id number] 08/12/2023 KCLT -06 / / [id number] Shoulder [employer] [id number] Head Shoulder Offset Humeral 18mm X 44mm - [id number] Implanted:Qty: 1 on 06/03/2021 by Lino Granger MD at [facility] Left: Shoulder Shoulder [employer] [id number] 09/26/2025 [id number] / / [id number] Shoulder [employer] [id number] Stem Shoulder Porous Titanium Humeral Small - [id number] Implanted:Qty: 1 on 06/03/2021 by Lino Granger MD at [facility] Left: Shoulder Shoulder [employer] [id number] 03/10/2026 [id number] 20 / / [id number] Procedures Procedure Name Priority Date/Time Associated Diagnosis Comments MRI SHOULDER RIGHT WO CONTRAST Schedule Routine, Read Routine (OP Routine) 01/26/2025 3:23 PM CDT MS ARTHROCENTESIS ASPIR&/INJ MAJOR JT/BURSA W/O US Routine [...] MD HERMAN MRI PROCEDURES Final Result * MS ARTHROCENTESIS ASPIR&/INJ MAJOR JT/BURSA W/O US (12/04/2024 [...] well with no immediate complications Shun Burns PAVING MACHINE OPERATOR IN CLINIC/BEDSIDE ORDERA BLES Final Result * [...] head, osteophyte formation, and subchondral sclerosis. Result [facility] Shun Burns NP IMG XR PROCEDURES Final Result * COLONOSCOPY IMAGES (06/21/2015) Anatomical Region Laterality Modality Other Narrative 06/21/2015 Ordered by an unspecified provider. Historical Provider GI PROCEDURE ORDERABLES F inal Result from Last 3 Months or Most Recently Relevant to Health Maintenance Insurance [facility] MEDICARE [facility] MEDICARE [facility] Advance Directives For more information, please contact: [phone] * Full Code (Latest Code Status on [...] 6:44 PM 12/20/2019 10:02 AM Care Teams Salesperson Furniture Relationship Specialty Start Date End Date Aajy Rhodes MD PCP - General 12/19/19 Rosana Noyola MD Consulting Physician Gastroenterology 12/21/19
--- OUTSIDE RECORDS SUMMARY | 2025-02-12 10:26 | XMS_ITS | Encounter Summary ---
Author Organization [facility] Address 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 Male 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 Gender Identity Not on file Sexual Orientation Not on file documented as of this encounter Plan of Treatment Upcoming Encounters Date Type Department Care Team (Late st Contact Info) Description 02/12/2025 11:15 AM CDT Office Visit [facility] Oncology and Hematology - [place] [address] [facility] [address] [place] [address] [place] [address] [place] [address] [address] [place] [address] 03/15/2025 10:00 AM CDT Office Visit [facility] Primary Care [address] [place] [address] Ajay Rhodes MD [address] [place] [address] [place] [address] documented as of this encounter Visit Diagnoses Not on filedocumented in this encounter Care Teams Employee Relations Consultant Relationship Specialty Start Date End Date Ajay Rhodes MD PCP - General 01/19/08 documented as of this encounter
--- OUTSIDE RECORDS SUMMARY | 2025-02-12 10:26 | XMS_ITS | Encounter Summary ---
Author Organization [facility] Address 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 Topic: Patient or Caregiver Communication Request >> Feb 17, 2024 9:25 AM Tiffanie Sapp wrote: Patient or Caregiver requesting advice Caller: [place] [employer] Patient/Caregiver Callback Number: [phone] Call Notes: Caller states the patient had [...] Description 02/12/2025 11:15 AM CDT Office Visit [facility] Oncology and Hematology - [place] [address] [facility] [address] [place] [address] Randall Triplett MD [address] [facility] [address] [place] [address] 03/15/2025 10:00 AM CDT Office Visit [facility] Primary Care [address] [facility] [place] [address] Ajay Rhodes MD [address] [place] [address] documented as of this encounter Visit Diagnoses Not on filedocumented in this encounter Care Teams Elastic Attacher Zigzag Relationship Specialty Start Date End Date Ajay Rhodes MD PCP - General 01/19/08 documented as of this encounter
--- OUTSIDE RECORDS SUMMARY | 2025-02-12 10:26 | XMS_ITS | Encounter Summary ---
Author Organization [facility] Address 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 LAB ORDERS: 1 week Order number: [id number] Test Ordered: COMPREHENSIVE METABOLIC PANEL W/ GLOMERULAR FILTRATION RATE, ESTIMATED (EGFR) 57998 Order number: [id number] Test Ordered: LIPID PANEL 7600 Order number: [id number] Test Ordered: PSA 5363 Order number: [id number] Test Ordered: TSH 899 Order number: [id number] Test Ordered: CBC (INCLUDES DIFF/PLT) 6399 Order number: [id number] Test Ordered: URINALYSIS, COMPLETE W/REFLEX TO CULTURE 3020 Order number: [id number] Test Ordered: HEMOCCULT SINGLE 54634 Order number: [id number] Test Ordered: URINALYSIS W/O MICRO 07909 V70.0-ROUTINE GENERAL MEDICAL EXAMINATION discussed, check lab [...] 02/12/2025 11:15 AM CDT Office Visit [facility] Oncology and Hematology - [place] [address] [place] [address] [address] [place] [address] Randall Triplett MD [address] [facility] [address] [place] [address] 03/15/2025 10:00 AM CDT Office Visit [facility] Care [address] [place] [address] Ajay Rhodes MD [address] [place] [address] documented as of this encounter Visit Diagnoses Not on filedocumented in this encounter Care Teams Music Engraver Relationship Specialty Start Date End Date Ajay Rhodes MD PCP - General 01/19/08 documented as of this encounter
--- OUTSIDE RECORDS SUMMARY | 2025-02-12 10:26 | XMS_ITS | Encounter Summary ---
Author Organization [facility] Address 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 Gender Identity Not on file Sexual [...] Description 02/12/2025 11:15 AM CDT Office Visit [facility] Oncology and Hematology - [place] [address] [place] [address] Randall Triplett MD [address] [facility] [address] [place] [address] 03/15/2025 10:00 AM CDT Office Visit [facility] Primary Care [address] [place] [address] Ajay Rhodes MD [address] [place] [address] [address] [place] [address] documented as of this encounter Visit Diagnoses Not on filedocumented in this encounter Care Teams Solar Sales Representative And Assessor Relationship Specialty Start Date End Date Ajay Rhodes MD PCP - General 01/19/08 documented as of this encounter
--- OUTSIDE RECORDS SUMMARY | 2025-02-12 10:26 | XMS_ITS | Referral Summary ---
Author Organization [facility] Address [address] [place] [address] Care Team Providers Care Solutions Specialist Name Role Phone Ajay Rhodes MD Primary Care Provider + Rosana Noyola MD Unavailable [phone] Encounters Date Type Department Care Team Description 01/29/2025 Telephone [facility] Medical [facility] [address] [place] [phone] Lino Nolan MD Surgical Clearance 01/29/2025 9:00 AM CDT Office Visit [facility] [address] [place] [phone] Lino Nolan MD Rotator cuff arthropathy of right shoulder (Primary Dx) 01/26/2025 Orders Only [facility] Medical [facility] [address] [place] [phone] ProviderDavidson MD 12/04/2024 7:44 AM CDT - 12/04/2024 11:59 PM CDT Hospital Encounter [facility] Medical [facility] [address] [place] [phone] Discharge Disposition: Discharge to home or self care 12/04/2024 9:30 AM CDT Office Visit [facility] [address] [place] [phone] Shun Burns, BRIAN Right shoulder pain, unspecified [...] no significant findings on echocardiogram, 30 day online communications manager on discharge HLD (hyperlipidemia) 06/02/2021 Risk factors for obstructive sleep apnea 021 Primary osteoarthritis, left shoulder 04/30/2021 Overview (04/30/2021): Added automatically from request for surgery [id number] Multiple closed fractures of ribs of left [...] (12/19/2019): Added automatically from request for surgery [id number] Arthralgia of shoulder 08/26/2012 Duodenal ulcer Immunizations [...] on file 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 Gender Identity Not on file Sexual [...] on file Medical Devices Implanted Type Area Family Service Assistant Device Identifier Shelf Expiration Date Model / Serial / Lot [employer] 6191-1-010 Simplex P Radiopaque Full Dose Cement Bone Sterile - [id number] Implanted:Qty: 1 on 06/03/2021 by Lino Granger MD at [facility] Bone Cement Left: Shoulder [employer] 09/01/2022 6191-1-0 10 / / [id number] Sldr 27x6mm Pegs Circular Glenoid W/ In-Line Peripheral - [id number] Implanted:Qty: 1 on 06/03/2021 by Lnio Granger MD at [facility] Other - see comments Left: Shoulder Shoulder [employer] [id number] 10/10/2025 [id number] 06 / / [id number] Plug Azur Vascular Embolization Medium - [id number] Implanted:Qty: 1 on 03/17/2021 at [facility] [employer] Marie [id number] 09/01/2023 [id number] / / [id number] [facility] Rbypod8 Debby Pod 8mm 60cm Complex Occulusion Device Coil Embolization - [id number] Implanted:Qty: 1 on 03/17/2021 at [facility] [employer] 04/23/2028 [id number] / / [id number] [employer] Kclt-06 Device 6fr Closure Celt Acd Vascular Sterile Latex Free Disposable Ashkan - [id number] Implanted:Qty: 1 on 03/17/2021 at [facility] [employer] [id number] 08/12/2023 KCLT -06 / / [id number] Shoulder [employer] [id number] Head Shoulder Offset Humeral 18mm X 44mm - [id number] Implanted:Qty: 1 on 06/03/2021 by Lino Granger MD at [facility] Left: Shoulder Shoulder [employer] [id number] 09/26/2025 [id number] 44 / / [id number] Shoulder [employer] [id number] Stem Shoulder Porous Titanium Humeral Small - [id number] Implanted:Qty: 1 on 06/03/2021 by Lino Granger MD at [facility] Left: Shoulder Shoulder [employer] [id number] 03/10/2026 [id number] 20 / / [id number] Procedures Procedure Name [...] Provider IMYandel MRI PROCEDURES Final Result * OK ARTHROCENTESIS [...] procedure well with no immediate complications Result [facility] Shun Burns NP IN CLINIC/BEDSIDE ORDERA BLES [...] Most Recently Relevant to Health Maintenance Insurance COUNT INCLUDES THE [facility] MEDICARE [facility] MEDICARE [facility] Advance Directives For more information, please contact: [phone] * Full Code (Latest Code Status on [...] 6:44 PM 12/20/2019 10:02 AM Care Teams Solutions Specialist Relationship Specialty Start Date End Date Ajay Rhodes MD PCP - General 12/19/19 Rosana Noyola MD Consulting Physician Gastroenterology 12/21/19
--- OUTSIDE RECORDS SUMMARY | 2025-02-12 10:26 | XMS_ITS | Encounter Summary ---
Author Organization [facility] Address [address] [place] [address] Care Team Providers Care Cooler Supervisor Name Role Phone Ajay Rhodes MD Primary Care Provider [phone] Encounter Details Date Type Department Care Team (Late st Contact Info) Description 07/05/2006 Outpatient Historical [facility] Internal Medicine [address] [address] Ajay Rhodes MD [address] [place] [address] [address] [place] [address] Social History Tobacco Use Types Packs/Day Years Used Date Smoking Tobacco: Never Assessed Sex and Gender Information Value Date Recorded Sex Assigned at Not on file Legal Sex Male 4:14 AM SAUSAGE 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 Gender Identity Not on file Sexual Orientation Not on file documented as of this encounter Plan of Treatment Upcoming Encounters Date Type Department Care Team (Late st Contact Info) Description 02/12/2025 11:15 AM CDT Office Visit [facility] Oncology and Hematology - [place] [address] [facility] [address] [place] [address] [place] [address] [place] [address] [address] [place] [address] 03/15/2025 10:00 AM CDT Office Visit [facility] Primary Care [address] [place] [address] Ajay Rhodes MD [address] [place] [address] [place] [address] documented as of this encounter Visit Diagnoses Not on filedocumented in this encounter Care Teams Cooler Supervisor Relationship Specialty Start Date End Date Ajay Rhodes MD PCP - General 01/19/08 documented as of this encounter
--- OUTSIDE RECORDS SUMMARY | 2025-02-12 10:26 | XMS_ITS | Encounter Summary ---
Author Organization [facility] Address 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 Gender Identity Not on file Sexual Orientation Not on file documented as of this encounter Plan of Treatment Upcoming Encounters Date Type Department Care Team (Late st Contact Info) Description 02/12/2025 11:15 AM CDT Office Visit [facility] Oncology and Hematology - [place] [address] [facility] [address] [place] [address] [place] [address] [place] [address] [address] [place] [address] 03/15/2025 10:00 AM CDT Office Visit [facility] Primary Care [address] [place] [address] Ajay Rhodes MD [address] [place] [address] [place] [address] documented as of this encounter Visit Diagnoses Not on filedocumented in this encounter Care Teams Ventilation Mechanic Relationship Specialty Start Date End Date Ajay Rhodes MD PCP - General 01/19/08 documented as of this encounter
--- OUTSIDE RECORDS SUMMARY | 2025-02-12 10:26 | XMS_ITS | Encounter Summary ---
Author Organization 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 Gender Identity Not on file Sexual Orientation Not on file documented as of this encounter Plan of Treatment Upcoming Encounters Date Type Department Care Team (Late st Contact Info) Description 02/12/2025 11:15 AM CDT Office Visit [facility] Oncology and Hematology - [place] [address] [facility] [address] [place] [phone] Randall Triplett MD [address] [facility] [address] [place] [address] 03/15/2025 10:00 AM CDT Office Visit [facility] Primary Care [address] [place] [address] Ajay Rhodes MD [address] [place] [address] [address] [place] [address] documented as of this encounter Visit Diagnoses Not on filedocumented in this encounter Care Teams Environmental Health Manager Relationship Specialty Start Date End Date Ajay Rhodes MD PCP - General 01/19/08 documented as of this encounter
--- OUTSIDE RECORDS SUMMARY | 2025-02-12 10:26 | XMS_ITS | Encounter Summary ---
Author Organization [facility] Address 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 Gender Identity Not on file Sexual Orientation Not on file documented as of this encounter Miscellaneous Notes * Telephone Encounter - Chelsey Singleton RN - 02/28/2024 11:53 AM CDT Date of last visit addressing condition(s) being treated: 02/23/24 Recent Visits Date Type Provider Dept 02/23/24 Office Visit Ajay Rhodes MD [facility] 10/21/23 Office Visit Ajay Rhodes MD [facility] 10/04/23 Office Visit Ajay Rhodes MD [facility] 03/31/23 Office Visit Ajay Rhodes MD [facility] 11/23/22 Office Visit Ajay Rhodes MD [facility] Showing recent visits within past 540 days with a meds authorizing provider and meeting all other requirements Future Appointments Date Type Provider Dept 04/11/24 Appointment Ajay Rhodes MD [facility] 05/17/24 Appointment Ajay Rhodes MD [facility] Showing future appointments within next 365 days with a meds authorizing provider and meeting all other requirements Correct Pharmacy: Yes Medication below pended for you. Medication (Ask patient/caregiver to spell if possible): HYDROcodone- acetaminophen (NORCO) 10-325 mg Tablet Preferred Pharmacy: [facility] [id number] Patient/Caregiver Callback Number: [phone] (home) Call Notes: Requesting refill early will be leaving to go out of town this Wednesday please advise request HYDROcodone-acetaminophen (NORCO) 10-325 mg Tablet [facility] [id number] only this location Chelsey Singleton, RN * Telephone Encounter - Maira Lopez - 02/28/2024 11:24 AM CDT Copied from [facility] #[id number]. Topic: Medication Request >> Feb 28, 2024 11:22 AM Maira Yeh wrote: Caller is requesting: Medication - New Request (Not Currently Taking) Medication (Ask patient/caregiver to spell if possible): HYDROcodone- acetaminophen (NORCO) 10-325 mg Tablet Preferred Pharmacy: [facility] [id number] Patient/Caregiver Callback Number: [phone] (home) Call Notes: Requesting refill early will be leaving to go out of town this Wednesday please advise request HYDROcodone-acetaminophen (NORCO) 10-325 mg Tablet [facility] [address] only this location documented in this encounter Plan of Treatment Upcoming Encounters Date Type Department Care Team (Late st Contact Info) Description 02/12/2025 11:15 AM CDT Office Visit [facility] Oncology and Hematology - [place] [address] [place] [address] [address] [place] [address] Randall Triplett MD [address] [facility] [address] [place] [address] 03/15/2025 10:00 AM CDT Office Visit [facility] Primary Care [address] [place] [address] Ajay Rhodes MD [address] [place] [phone] documented as of this encounter Visit Diagnoses Diagnosis Other osteoarthritis involving multiple joints documented in this encounter Care Teams Sales Agent Fire Insurance Relationship Specialty Start Date End Date Ajay Rhodes MD PCP - General 01/19/08 documented as of this encounter
--- OUTSIDE RECORDS SUMMARY | 2025-02-12 10:26 | XMS_ITS | Clinical Summary ---
Author Organization [facility] Address [address] [place] [address] Care Team Providers Care Sample Sawyer Name Role Phone Ajay Rhodes MD Primary Care Provider [phone] Allergies Active Allergy Reactions Criticality Noted Date [...] area daily. 45 Gram 1 024 Active neomycin-bacitrac in-polymyxin (Triple Antibiotic) 3.5mg-400 unit- 5,000 unit/gram Ointment Apply to affected area 2 times daily. 024 Active azelastine (ASTELIN) 137 mcg/actuation nasal spray Administer 2 Sprays in each nostril 2 times daily. 30 mL 6 025 Active silver sulfADIAZINE (SILVADENE) 1 % Cream Apply to affected area daily. 50 Gram 3 025 Active levETIRAcetam (KEPPRA) 1,000 mg tabletIndications :Seizures [...] FOR SPASM. 30 Tablet 3 025 Active HYDROcodone-aceta minophen (NORCO) 10-325 mg TabletIndications :Other osteoarthritis involving multiple joints Take 1 Tablet by mouth every 4 hours as needed (as needed for pain). DX Osteoarthritis multiple joints Max Daily Amount: 6 Tablets 180 Tablet 025 Active temozolomide (TEMODAR) 20 mg capsule TAKE 1 CAPSULE BY MOUTH DAILY BEFORE BREAKFAST FOR 5 DAYS EVERY 28 DAYS. W/ 5MG & 250MG CAPS 5 Capsule 025 Active temozolomide (TEMODAR) 5 mg capsule TAKE 1 CAPSULE BY MOUTH DAILY BEFORE BREAKFAST FOR 5 DAYS EVERY 28 DAYS. W/ 20MG & 250MG 5 Capsule 025 Active temozolomide (TEMODAR) 250 mg capsule TAKE 1 CAPSULE BY MOUTH DAILY BEFORE BREAKFAST FOR 5 DAYS EVERY 28 DAYS. W/ 5MG & 20MG 5 Capsule 025 Active temozolomide (TEMODAR) 20 mg capsule Take 1 capsule (20 mg) by mouth daily before breakfast with 2 other temozolomide prescriptions for 275 mg total. Take for 5 days every 28 day cycle. 5 Capsule 5 025 2024 Discontinued temozolomide (TEMODAR) 5 mg capsule Take 1 capsule (5 mg) by mouth daily before breakfast with 2 other temozolomide prescriptions for 275 mg total. Take for 5 days every 4 weeks. 5 Capsule 5 025 2024 Discontinued temozolomide (TEMODAR) 250 mg capsule Take 1 capsule (250 mg) by mouth daily before breakfast with 2 other temozolomide prescriptions for 275 mg total. Take for 5 days every 28 days. 5 Capsule 5 025 2024 Discontinued Active Problems Patient Care Coordination No te [...] Encounters Date Type Department Care Team Description 02/05/2025 Refill [facility] Oncology and Hematology - [place] [address] [place] [address] Randall Triplett MD 01/30/2025 External Device Data STL ABSTRACTION Provider, Abstract 01/10/2025 Refill [facility] Primary Care [address] [place] [address] Ajay Rhodes MD Other osteoarthritis involving multiple joints 01/02/2025 External Device Data STL ABSTRACTION Provider, Abstract 01/01/2025 10:00 AM CDT Office Visit [facility] Oncology and Hematology - [place] [address] [place] [address] Randall Triplett MD GBM (glioblastoma multiforme) (CMS/HCC) (Primary Dx) 01/01/2025 Orders Only [facility] Oncology and Hematology - [place] [address] [place] [address] Randall Triplett MD 12/26/2024 External Device Data STL ABSTRACTION Provider, Abstract 12/26/2024 External Device Data STL ABSTRACTION Provider, Abstract 12/26/2024 External Device Data STL ABSTRACTION Provider, Abstract 12/21/2024 External Device Data STL ABSTRACTION Provider, Abstract 12/19/2024 External Device Data STL ABSTRACTION Provider, Abstract 12/12/[address] [address] Ajay Rhodes MD Other osteoarthritis involving multiple joints 12/06/[address] [place] [address] Ajay Rhodes MD 12/05/2024 External Device Data STL ABSTRACTION Provider, Abstract 11/30/2024 Chart Note [facility] Radiation Therapy [address] [place] [address] Gume Dailey MD 11/30/2024 Telephone [facility] Radiation Therapy [address] [place] [address] Leona Palacio RN Phone visit 11/28/2024 External Device Data STL ABSTRACTION Provider, Abstract 11/15/[address] [phone] Ajay Rhodes MD Other osteoarthritis involving multiple joints 11/14/2024 External Device Data STL ABSTRACTION Provider, Abstract 11/14/2024 Orders Only [facility] Oncology and Hematology [place] [address] [place] [address] Randall Triplett MD 11/13/2024 1:00 PM CDT Office Visit [facility] Oncology and Hematology - [place] [address] [place] [address] Randall Triplett MD GBM (glioblastoma multiforme) (CMS/HCC) (Primary Dx) from Last 3 Months Immunizations [...] COVID-19 VACCINE - EMERGENCY USE AUTHORIZATION, MRNA, [id number](PF) 30 MCG/0.3 ML IM SUSP 03/22/2021,11/18/2020 12/09/2020 (PREVNAR 20)(6 WKS UP) PNEUM OCOCCAL CONJUGATE VACCINE 20-VALENT (PCV20), POLYSACCHARIDE [id number] CONJUGATE, ADJUVANT 0.5 ML (PF) IM 05/25/2022 [...] on file 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 Gender Identity Not on file Sexual [...] Description 02/12/2025 11:15 AM CDT Office Visit [facility] Oncology and Hematology - [place] [address] [place] [phone] Randall Triplett MD [address] [facility] [address] [place] [address] 03/15/2025 10:00 AM CDT Office Visit [facility] Primary Care [address] [place] [address] Ajay Rhodes MD [address] [facility] [address] [place] [address] Health Maintenance Due Date Last Done Comments FIT-DNA Q 3 years 2002 Flex Sig/CT Colonography Q 5 years 2002 FIT/FOBT Q 1 year 06/16/2011 06/16/2010, 07/05/2006 RSV VACCINE (60+ or ) (1 - Risk 60-74 years 1-dose series) 2017 COVID-19 Vaccine (3 - 2023-2 5 season) 2024 03/22/2021, 11/18/2020 INFLUENZA VACCINE (#1) 2025 , 03/31/2023, 05/25/2022, Additional history exists COLORECTAL SCREENING 06/21/2025 06/21/2015, 06/21/2015, 06/21/2015, Additional history exists Colorectal Cancer Screening 06/21/2025 DTAP/TDAP/TD VACCINES (3 - T d or Tdap) 03/24/2031 03/24/2021, 08/27/2011 PNEUMOCOCCAL VACCINE 50+ YEARS Completed 05/25/2022 , 03/19/2021 ZOSTER VACCINE Completed 03/15/2023, 11/26/2018 Medical Devices Implanted Type Area Teacher Device Identifier Shelf Expiration Date Model / Serial / Lot Duragen + 3x3in Dp-1033 - [id number] Implanted:Qty : 1 on 03/02/2024 by Chelsey Bowens MD at [facility] Graft Left: Cranial [employer] [id number] 09/29/2026 [id number] / / [id number] Hemostatic Surgiflo 8ml W/ Thrombin 2994 - [id number] Implanted:Qty : 1 on 03/02/2024 by Chelsey Bowens MD at [facility] Hemostatic Left: Brain J&J- [employer] [id number] 05/01/2025 2994 / / [id number] Hemostatic Surgiflo 8ml W/ Thrombin 2994 - [id number] Implanted:Qty : 1 on 03/02/2024 by Chelsey Bowens MD at [facility] Hemostatic Left: Brain J&J- [employer] [id number] 04/01/2025 2994 / / [id number] Agent Hemostat Surgicel 4x8in - [id number] Implanted:Qty : 1 on 03/02/2024 by Chelsey Bowens MD at [facility] Hemostatic Left: Brain J&J- [employer] 07/01/2028 1952S / / [id number] Hemostatic Surgicel 1x2in 1960 - [id number] Implanted:Qty : 1 on 03/02/2024 by Chelsey Bowens MD at [facility] Hemostatic Left: Brain J&J- [employer] 09/01/2026 1961 / / [id number] Hemostatic Surgifoam Sz100 1973 - [id number] Implanted:Qty : 1 on 03/02/2024 by Chelsey Bowens MD at [facility] Hemostatic Left: Brain J&J- [employer] 12/02/2027 1974 / / [id number] Mesh Ventralex 1.7in Sm Circ [id number] - [id number] Implanted:Qty : 1 on 01/21/2024 by Jimenez Linares MD at [facility] Mesh N/A: Umbilical BARD DAVOL [id number] 08/29/2025 [id number] / / [id number] Plate Matrxneuro Bur Hl Cvr - Sno Load Or Sterilized Date On Horner Implanted:Qty : 1 on 03/02/2024 by Chelsey Bowens MD at [facility] Plate Left: Cranial J&J- DEPUY SYNTHES / NO LOAD OR STERILIZED DATE ON HORNER / Plate Matrxneuro Cranial 04.502.062 - Sno Load Or Sterilized Date On Horner Implanted:Qty : 2 on 03/02/2024 by Chelsey Bowens MD at [facility] Plate Left: Cranial J&J- DEPUY SYNTHES 04.502.062 / NO LOAD OR STERILIZED DATE ON HORNER / Screw Matrixneuro Sd 04.503.103.01 - Sno Load Or Sterilized Date On Horner Implanted:Qty : 2 on 03/02/2024 by Chelsey Bowens MD at [facility] Screw Left: Cranial J&J- DEPUY SYNTHES 04.503.103. 01 / NO LOAD OR STERILIZED DATE ON HORNER / Description:All Synthes cran ial hardware, Requisition, [id number]. Screw Matrixneuro Sd .503.104.01 - Sno Load Or Sterilized Date On Horner Implanted:Qty : 4 on 03/02/2024 by Chelsey Bowens MD at [facility] Screw Left: Cranial J&J- DEPUY SYNTHES 04.503.104. 01 / NO LOAD OR STERILIZED DATE ON HORNER / Procedures Procedure Name Priority Date/Time Associated Diagnosis Comments BASIC METABOLIC PANEL Routine 01/01/2025 2:56 PM CDT CBC WITH DIFFERENTIAL Routine 01/01/2025 2:38 PM CDT BASIC METABOLIC PANEL Routine 11/13/2024 11:58 AM CDT CBC MIXED CELL DIFFERENTIAL Routine 11/13/2024 11:51 AM CDT ENDOSCOPY, COLON, SCREENING Routine 06/21/2015 POC OCCULT BLOOD UP TO 3 CARDS Routine 06/16/2010 Abdominal pain from Last 3 Months or Most Recently Relevant to Health Maintenance Results * BASIC METABOLIC PANEL (01/01/2025 2:56 PM CDT) Only the most recent of2 resultswithin the time period is included. Blood Randall Triplett MD CHEMISTRY ORDERABLES Final Resu lt * CBC WITH DIFFERENTIAL (01/01/2025 2:38 PM CDT) Blood us Randall Triplett MD HEMATOLOGY ORDERABLES Final Res ult * CBC MIXED CELL DIFFERENTIAL (11/13/2024 11:51 AM CDT) Blood Randall Triplett MD HEMATOLOGY ORDERABLES Final Res ult * ENDOSCOPY, COLON, SCREENING (06/21/2015) us Abstract [...] TESTING Final R esult Performing Organization Address City/[facility]/ZIP Co de Phone Number [facility] from Last 3 Months or Most Recently Relevant to Health Maintenance Insurance MEDICARE PART A AND B [facility] RX ALVARES PLANS (INTERNAL) [facility] Plans RX GENERIC COMMERCIAL Commercial RX ALLWIN DATA Medicare Part B MEDICARE PART A AND B [facility] Advance Directives For more information, please contact: [phone] Documents on File Type Date Recorded Patient Transportation Refrigeration Technician Expl anation Advance Directive POA 03/07/2024 1:53 [...] 6:59 AM 03/18/2020 2:16 PM Care Teams Sample Sawyer Relationship Specialty Start Date End Date Ajay Rhodes MD PCP - General 01/19/08
--- OUTSIDE RECORDS SUMMARY | 2025-02-12 10:26 | XMS_ITS | Encounter Summary ---
Author Organization [facility] Address 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 Gender Identity Not on file Sexual Orientation [...] 11:15 AM CDT Office Visit [facility] Oncology and Hematology - [place] [address] [place] [address] Randall Triplett MD [address] [facility] [address] [place] [phone] 03/15/2025 10:00 AM CDT Office Visit [facility] Primary Care [address] [place] [address] Ajay Rhodes MD [address] [place] [address] [address] [place] [address] documented as of this encounter Visit Diagnoses Not on filedocumented in this encounter Care Teams Cooling System Operator Relationship Specialty Start Date End Date Ajay Rhodes MD PCP - General 01/19/08 documented as of this encounter
[2025-02-12 10:30] LABS: Hematocrit 39.1 % (42.0-52.0); Hemoglobin 13.1 g/dL (14.0-18.0); Immature Granulocyte Percent A 0.6 % (0-0.5); Lymphocytes Absolute Auto 0.97 K/mm3 (0.9-3.2); Mean Corpuscular HGB Conc 33.5 g/dl (32-36); Mean Corpuscular Hemoglobin 31.1 pg (26-34); Mean Corpuscular Volume 92.9 fl (80-100); Nucleated Red Blood Cells Absolute Auto 0.000 K/mm3 (0.0-0.012); Nucleated Red Blood Cells Perc 0.0 % (0.0-0.2); Platelet Count Result 142 k/mm3 (150-375); Red Blood Count 4.21 M/mm3 (4.6-6.20); White Blood Count 3.2 K/mm3 (4.5-10.0)
[2025-02-12 10:34] LABS: Blood Urea Nitrogen 17 mg/dL (8-26); Carbon Dioxide 29 mmol/L (22-30); Chloride 98 mmol/L (98-109); Estimated Glomerular Filt Rate > 60; Glucose 96 mg/dL (70-105); Ionized Calcium (POC) 1.22 mmol/L (1.11-1.31); Potassium 4.2 mmol/L (3.5-4.9); Sodium 140 mmol/L (138-146)
== END 2025-02-12 10:21 | disposition home or self-care (01) ==
LOC: ANHLAB 10:21
PROVIDERS: PCP Internal Medicine Hematology & Oncology; Visit Provider Internal Medicine Hematology & Oncology
DX: C71.9 Malignant neoplasm of brain, unspecified (principal)
CPT/HCPCS: 36415; 80047; 85025

== ENCOUNTER 2025-03-26 09:21 | Outpatient (CLI) | payer MEDICARE, OTHER, SELFPAY ==
[2025-03-26 09:37] LABS: Hematocrit 36.3 % (42.0-52.0); Hemoglobin 12.3 g/dL (14.0-18.0); Immature Granulocyte Percent A 0.0 % (0-0.5); Immature Platelet Fraction Pct 1.6 % (0.9-11.2); Lymphocytes Absolute Auto 0.65 K/mm3 (0.9-3.2); Mean Corpuscular HGB Conc 33.9 g/dl (32-36); Mean Corpuscular Hemoglobin 31.1 pg (26-34); Mean Corpuscular Volume 91.9 fl (80-100); Nucleated Red Blood Cells Absolute Auto 0.000 K/mm3 (0.0-0.012); Nucleated Red Blood Cells Perc 0.0 % (0.0-0.2); Platelet Count Result 190 k/mm3 (150-375); Red Blood Count 3.95 M/mm3 (4.6-6.20); White Blood Count 4.2 K/mm3 (4.5-10.0)
[2025-03-26 09:42] LABS: Blood Urea Nitrogen 20 mg/dL (8-26); Carbon Dioxide 26 mmol/L (22-30); Chloride 97 mmol/L (98-109); Estimated Glomerular Filt Rate > 60; Glucose 90 mg/dL (70-105); Ionized Calcium (POC) 1.20 mmol/L (1.11-1.31); Potassium 4.1 mmol/L (3.5-4.9); Sodium 137 mmol/L (138-146)
--- OUTSIDE RECORDS SUMMARY | 2025-03-26 09:55 | XMS_ITS | Encounter Summary ---
Author Organization [facility] Address 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 Gender Identity Not on file Sexual [...] Department Care Team (Late Contact Info) Description 03/26/2025 10:00 AM CDT Office Visit [facility] Oncology and Hematology - [place] [address] [facility] [address] [place] [address] Randall Triplett MD 8 [facility] [address] [place] [address] GBM (glioblastoma multiforme) (CMS/HCC) (Primary Dx) 09/27/2025 11:20 AM CATERING TRUCK OPERATOR Office Visit [facility] [address] [place] [address] Ajay hRodes MD [address] [place] [address] [address] [place] [address] documented as of this encounter Visit Diagnoses Not on filedocumented in this encounter Care Teams Plastering Supervisor Relationship Specialty Start Date End Date Ajay Rhodes MD PCP - General 01/19/08 documented as of this encounter
--- OUTSIDE RECORDS SUMMARY | 2025-03-26 09:55 | XMS_ITS | Encounter Summary ---
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 [address] [place] [address] Randall Triplett MD [address] [facility] [address] [place] [address] GBM (glioblastoma multiforme) (CMS/HCC) (Primary Dx) 09/27/2025 11:20 AM CHILDREN'S MINISTER Office Visit [facility] Primary Care [address] [place] [address] Ajay Rhodes MD 6[address] [facility] [address] [place] [address] documented as of this encounter Visit Diagnoses Not on filedocumented in this encounter Care Teams Orthotist/Prosthetist Relationship Specialty Start Date End Date Ajay Rhodes MD PCP - General 01/19/08 documented as of this encounter
--- OUTSIDE RECORDS SUMMARY | 2025-03-26 09:55 | XMS_ITS | Encounter Summary ---
Author Organization [facility] Address 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 Gender Identity Not on file Sexual Orientation Not on file documented as of this encounter Plan of Treatment Upcoming Encounters Date Type Department Care Team (Late st Contact Info) Description 03/26/2025 10:00 AM CDT Office Visit [facility] Oncology and Hematology - [place] [address] [place] [address] [facility] [address] [place] [address] [place] [address] [place] [address] [address] [place] [address] GBM (glioblastoma multiforme) (CMS/HCC) (Primary Dx) 09/27/2025 11:20 AM APARTMENT MAINTENANCE MANAGER Office Visit [facility] Primary Care [address] [place] [address] Ajay Rhodes MD [address] [place] [address] [address] [place] [address] documented as of this encounter Visit Diagnoses Not on filedocumented in this encounter Care Teams Cooky Packer Relationship Specialty Start Date End Date Ajay Rhodes MD PCP - General 01/19/08 documented as of this encounter
--- OUTSIDE RECORDS SUMMARY | 2025-03-26 09:55 | XMS_ITS | Encounter Summary ---
Author Organization [facility] Address 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 Gender Identity Not on file Sexual Orientation Not on file documented as of this encounter Plan of Treatment Upcoming Encounters Date Type Department Care Team (Late Contact Info) Description 03/26/2025 10:00 AM CDT Office Visit [facility] Oncology and Hematology - [place] [address] [place] [address] [facility] [address] [place] [address] [place] [address] [place] [address] [address] [place] [address] GBM (glioblastoma multiforme) (CMS/HCC) (Primary Dx) 09/27/2025 11:20 AM TECHNICAL TRANSLATOR Office Visit [facility] Primary Care [address] [place] [address] Ajay Rhodes MD [address] [place] [address] [address] [place] [address] documented as of this encounter Visit Diagnoses Not on filedocumented in this encounter Care Teams Web Services Manager Relationship Specialty Start Date End Date Ajay Rhodes MD PCP - General 01/19/08 documented as of this encounter
--- OUTSIDE RECORDS SUMMARY | 2025-03-26 09:55 | XMS_ITS | Encounter Summary ---
Author Organization [facility] Address [address] [place] [address] Care Team Providers Care Insulation Extruder Operator Name Role Phone Phil Hancock MD Primary Care Provider [phone] Encounter Details Date Type Department Care Team (Late st Contact Info) Description 08/05/2007 Orders Only [facility] Internal Medicine [address] [address] Phil Hancock MD [address] [place] [address] Social History Tobacco Use Types Packs/Day Years Used Date Smoking Tobacco: Never Assessed Sex and Gender Information Value Date Recorded Sex Assigned at Not on file Legal Sex Male 4:14 AM SHOE REPAIRER APPRENTICE Gender Identity Not on file Sexual Orientation Not on file documented as of this encounter Progress Notes * Phil Hancock MD - 12/14/2007 4:48 PM CDT SPECIALIST REFERRAL REQUEST DATE: AUG 05, 2007 Note created by: Seema Jiang C 03:27 p Patient Name : LIBERTAD CORTES [address]: [address] [place] [address]. [address] D.O.B: 1955 SSN: [id number] Parent/Guardian if applicable: Patient Insurance: [facility] Policy#: [id number] Group #: Best To Call : [phone] Best Time to Call : ANYTIME. May We Leave Message At That Number : YES, LEAVE MESSAGE. Referring to: GASTROENTEROLOGY Dr. Khanh Hatfield ph: [phone] fax: [phone]. Dr[address] Rosana Noyola ph: [phone] fax: [phone]. Reason for referral: colonoscopy ORDERING PHYSICIAN : PHIL HANCOCK MD PRIORITY OF REFERRAL: AT PATIENT'S CONVENIENCE. OFFICE GEEK SQUAD MANAGER & PHONE: Seema Jiang C FOR SCHEDULING USE ONLY FIRST ATTEMPT Date:AUG 08, 2007 Sharif Farah J 02:54 p Spoke with Patient.and he wants us to call back at 4pm SECOND ATTEMPT: Date:AUG 09, 2007 Macy Haley 09:29 a Spoke with Patient. on cell. Called Specialist office - they request thatreferral request be faxed directly to their office and they will have one of their schedulers call pt directly to schedule appointment. Pt aware that he will be getting a call directly from the Specialist office to schedule. Wrote on request to please contact pt before 3:00pm today to schedule (perpt request). LETTER SENT: Date AUG 12, 2007 Dilma Benton L 12:34 p Letter Sent to Patient. test was completed on 08-19-07. * Phil Hancock MD - 12/14/2007 4:48 PM CDT WEIGHT: 215lbs BLOOD PRESSURE: 120/70 Right Arm Sitting NURSE NAME: Priyanka MarcelinoBernice TOBACCO USE Patient does not currently use [...] or nodularity. Kidneys not palpable. MUSCULOSKELETAL EXAM: tender ASSESSMENT/PLAN: 461.9-SINUSITIS UNSPECIFIED ok claritin 715.90-OSTEOARTHROSIS UNSPECIFIED try celebrex, cont med MEDICATIONS: VICODIN ES ORAL TABLET 7.5-750 MG, 1 Every Six Hours, As Needed, 90 Dispensed, 2 Fills, status: CONTINUED, 08/05/2007. CELEBREX ORAL CAPSULE CONVENTIONAL 200 MG, 1 Every Day, 30 Dispensed, 3 Fills, status: NEW PRESCRIPTION, 08/05/2007. SPECIALTY REFERRAL: GASTROENTEROLOGY Dr. Rosana Noyola ph: [phone]: [phone]. [address] Khanh Hatfield ph: [phone] fax: [phone].colonoscopy Patient Education: Risks, benefits, and possible side [...] Description 03/26/2025 10:00 AM CDT Office Visit [facility] Oncology and Hematology - [place] [address] [place] [address] [address] [place] [address] [place] [address] [place] [address] [address] [place] [address] GBM (glioblastoma multiforme) ([facility]/HCC) (Primary Dx) 09/27/2025 11:20 AM SHOE REPAIRER APPRENTICE Office Visit [facility] Primary Care [address] [place] [address] Phil Hancock MD [address] [place] [address] [address] [place] [address] documented as of this encounter Visit Diagnoses Not on filedocumented in this encounter Care Teams Insulation Extruder Operator Relationship Specialty Start Date End Date Phil Hancock MD PCP - General 01/19/08 documented as of this encounter
--- OUTSIDE RECORDS SUMMARY | 2025-03-26 09:55 | XMS_ITS | Encounter Summary ---
Author Organization [facility] Address [address] [place] [address] Care Team Providers Care Dye Boarding Machine Operator Name Role Phone Ajay Rhodes MD Primary Care Provider [phone] Encounter Details Date Type Department Care Team (Late st Contact Info) Description 02/04/2007 Orders Only [facility] Internal Medicine [address] [address] Ajay Rhodes MD [address] [place] [address] Social History Tobacco Use Types Packs/Day Years Used Date Smoking Tobacco: Never Assessed Sex and Gender Information Value Date Recorded Sex Assigned at Not on file Legal Sex Male 4:14 AM DAIRY LAB TECHNICIAN Gender Identity Not on file Sexual Orientation Not on file documented as of this encounter Progress Notes * Ajay Rhodes MD - 12/21/2007 9:39 AM CDT TIME:09:29 am PATIENT`S HOME PHONE: PATIENT`S WORK PHONE: PATIENT`S INSURANCE: [place] [employer] [facility] WHO TOOK THE CALL: Priyanka Marcelino R GENERAL INFORMATION WHO CALLED: Pharmacy called. PHARMACY NUMBER: [phone] 02/04/07 request refill of Hydrocodone/APAP 7.5/750 mg [...] Description 03/26/2025 10:00 AM CDT Office Visit [facility] Oncology and Hematology - [place] [address] [facility] 200 [place] [address] Randall Triplett MD 2227 [facility] [address] [place] [address] GBM (glioblastoma multiforme) (CMS/HCC) (Primary Dx) 09/27/2025 11:20 AM DAIRY LAB TECHNICIAN Office Visit [facility] Primary Care [address] [place] [address] Ajay Rhodes MD [address] [place] [address] [address] [place] [address] documented as of this encounter Visit Diagnoses Not on filedocumented in this encounter Care Teams Dye Boarding Machine Operator Relationship Specialty Start Date End Date Ajay Rhodes MD PCP - General 01/19/08 documented as of this encounter
--- OUTSIDE RECORDS SUMMARY | 2025-03-26 09:55 | XMS_ITS | Encounter Summary ---
Author Organization [facility] Address [address] [place] [address] Care Team Providers Care Livestock Farm Workers Name Role Phone Ajay Rhodes MD Primary Care Provider [phone] Encounter Details Date Type Department Care Team (Late st Contact Info) Description 02/28/2007 Orders Only [facility] Internal Medicine [address] [address] Ajay Rhodes MD [address] [place] [address] Social History Tobacco Use Types Packs/Day Years Used Date Smoking Tobacco: Never Assessed Sex and Gender Information Value Date Recorded Sex Assigned at Not on file Legal Sex Male 4:14 AM WEBBING WEAVER Gender Identity Not on file Sexual Orientation Not on file documented as of this encounter Progress Notes * Ajay Rhodes MD - 12/21/2007 1:25 PM CDT TIME:10:40 am PATIENT`S HOME PHONE: PATIENT`S WORK PHONE: PATIENT`S INSURANCE: [place] [employer] WHO TOOK THE CALL: Luisa Brown J GENERAL INFORMATION LAST VISIT: 01/20/07 WHO CALLED: Pharmacy called. PHARMACY NUMBER: [phone] SECTION 1: REQUESTED ACTION issa 02/28/07 at 10:41 am: MEDICATION REQUEST: MEDICATION REQUEST: Patient requests a refill. gen vicodin #[id number] 02/04/07 DOCTOR`S RESPONSE: debby 02/28/07 at 12:40 pm prev note * Ajay Rhodes MD - 12/21/2007 1:22 PM CDT TIME:11:57 am PATIENT`S HOME PHONE: PATIENT`S WORK PHONE: PATIENT`S INSURANCE: [employer] WHO TOOK THE CALL: Lorrie Lynch C GENERAL INFORMATION WHO CALLED: Patient called. PHARMACY NUMBER: [phone] SECTION 1: PT NEVER TOOK SCRIPT IN [...] Description 03/26/2025 10:00 AM CDT Office Visit [facility] Oncology and Hematology - [place] [facility] [facility] 200 [place] [address] Randall Triplett MD 2227 [facility] [address] [place] [address] GBM (glioblastoma multiforme) (CMS/HCC) (Primary Dx) 09/27/2025 11:20 AM WEBBING WEAVER Office Visit [facility] Care [address] [place] [address] Ajay Rhodes MD [address] [place] [address] [address] [place] [address] documented as of this encounter Visit Diagnoses Not on filedocumented in this encounter Care Teams Livestock Farm Workers Relationship Specialty Start Date End Date Ajay Rhodes MD PCP - General 01/19/08 documented as of this encounter
--- OUTSIDE RECORDS SUMMARY | 2025-03-26 09:55 | XMS_ITS | Encounter Summary ---
Author Organization [facility] Address [address] [place] [address] Care Team Providers Care Timekeeper Supervisor Name Role Phone Ajay Rhodes MD Primary Care Provider [phone] Reason for Visit * Reason Comments Question Encounter Details Date Type Department Care Team (Late st Contact Info) Description 02/17/2024 Telephone [facility] Primary Care [address] [place] [address] [place] [address] Ajay Rhodes MD [address]37 [facility] [place] [address] [place] [address] Question Social History Tobacco Use [...] on file Legal Sex Male 4:14 AM HOUSE PRINCIPAL Gender Identity Not on file Sexual Orientation Not on file documented as of this encounter Miscellaneous Notes * Telephone Encounter - Marzena Faria I - 02/17/2024 10:29 AM CDT Appt set * Telephone Encounter - Tiffanie Ag - 02/17/2024 9:30 AM CDT Copied from [facility] #[id number]. Topic: Patient or Caregiver Communication Request >> Feb 17, 2024 9:25 AM Tiffanie Sapp wrote: Patient or Caregiver requesting advice Caller: Vinita gentile Patient/Caregiver Callback Number: [phone] Call Notes: Caller states the patient had hernia procedure January 20 and after that his memory has not been the same the daughter lennox law is concerned and she is not [...] Description 03/26/2025 10:00 AM CDT Office Visit [facility] Oncology and Hematology - [place] [address] [facility] [address] [address] [place] [address] Randall Triplett MD 2[address] [facility] [address] [place] [address] GBM (glioblastoma multiforme) (CMS/HCC) (Primary Dx) 09/27/2025 11:20 AM HOUSE PRINCIPAL Office Visit [facility] Care [place] [address] [place] [address] Ajay Rhodes MD [address] [place] [address] [address] [place] [address] documented as of this encounter Visit Diagnoses Not on filedocumented in this encounter Care Teams Timekeeper Supervisor Relationship Specialty Start Date End Date Ajay Rhodes MD PCP - General 01/19/08 documented as of this encounter
--- OUTSIDE RECORDS SUMMARY | 2025-03-26 09:55 | XMS_ITS | Encounter Summary ---
Author Organization [facility] Address [address] [place] [address] Care Team Providers Care Programmer Numerical Control Name Role Phone Ajay Rhodes MD Primary Care Provider Encounter Details Date Type Department Care Team (Late Contact Info) Description 10/25/2007 Outpatient Historical [facility] Internal Medicine [address] [address] Ajay Rhodes MD [address] [place] [address] [address] [place] [address] Social History Tobacco Use Types Packs/Day Years Used Date Smoking Tobacco: Never Assessed Sex and Gender Information Value Date Recorded Sex Assigned at Not on file Legal Sex Male 4:14 AM MEDICAL UNIT SECRETARY Gender Identity Not on file Sexual Orientation Not on file documented as of this encounter Plan of Treatment Upcoming Encounters Date Type Department Care Team (Late Contact Info) Description 03/26/2025 10:00 AM CDT Office Visit [facility] Oncology and Hematology - [place] [address] [place] [address] [facility] 200 [place] [address] [place] [address] [place] [address] [address] [place] [address] GBM (glioblastoma multiforme) (CMS/HCC) (Primary Dx) 09/27/2025 11:20 AM MEDICAL UNIT SECRETARY Office Visit [facility] Primary Care [address] [place] [address] Ajay Rhodes MD [address] [place] [address] [address] [place] [address] documented as of this encounter Visit Diagnoses Not on filedocumented in this encounter Care Teams Programmer Numerical Control Relationship Specialty Start Date End Date Ajay Rhodes MD PCP - General 01/19/08 documented as of this encounter
--- OUTSIDE RECORDS SUMMARY | 2025-03-26 09:55 | XMS_ITS | Encounter Summary ---
Author Organization [facility] Address [address] [place] [address] Care Team Providers Care Vocational Rehabilitation Consultant Name Role Phone Ajay Rhodes MD Primary Care Provider Encounter Details Date Type Department Care Team (Late Contact Info) Description 10/25/[address] [facility] Internal Medicine [address] [address] Ajay Rhodes MD [address] [place] [address] [address] [place] [address] Social History Tobacco Use Types Packs/Day Years Used Date Smoking Tobacco: Never Assessed Sex and Gender Information Value Date Recorded Sex Assigned at Not on file Legal Sex Male 4:14 AM BRICKMASON Gender Identity Not on file Sexual Orientation Not on file documented as of this encounter Plan of Treatment Upcoming Encounters Date Type Department Care Team (Late Contact Info) Description 03/26/2025 10:00 AM CDT Office Visit [facility] Oncology and Hematology - [place] [address] [place] [address] [facility] 200 [place] [address] [place] [address] [place] [address] [address] [place] [address] GBM (glioblastoma multiforme) (CMS/HCC) (Primary Dx) 09/27/2025 11:20 AM BRICKMASON Office Visit [facility] Primary Care [address] [place] [address] Ajay Rhodes MD [address] [place] [address] [address] [place] [address] documented as of this encounter Visit Diagnoses Not on filedocumented in this encounter Care Teams Vocational Rehabilitation Consultant Relationship Specialty Start Date End Date Ajay Rhodes MD PCP - General 01/19/08 documented as of this encounter
--- OUTSIDE RECORDS SUMMARY | 2025-03-26 09:55 | XMS_ITS | Encounter Summary ---
Author Organization [facility] Address [address] [place] [address] Care Team Providers Care Vocational Training Instructor Name Role Phone Ajay Rhodes MD Primary Care Provider [phone] Encounter Details Date Type Department Care Team (Late st Contact Info) Description 07/05/2006 Orders Only [facility] Internal Medicine [address] [address] Ajay Rhodes MD [address] [place] [address] Social History Tobacco Use Types Packs/Day Years Used Date Smoking Tobacco: Never Assessed Sex and Gender Information Value Date Recorded Sex Assigned at Not on file Legal Sex Male 4:14 AM FACULTY CRIMINAL JUSTICE Gender Identity Not on file Sexual Orientation [...] Has no significant smoking history. OCCUPATION: . [employer] ALCOHOL: Does not give any significant history [...] 07/05/2006. LAB ORDERS: 1 week Order number: [id number] Test Ordered: COMPREHENSIVE METABOLIC PANEL W/ GLOMERULAR FILTRATION RATE, ESTIMATED (EGFR) 90038 Order number: [id number] Test Ordered: LIPID PANEL 7600 Order number: [id number] Test Ordered: PSA 5363 Order number: [id number] Test Ordered: TSH 899 Order number: [id number] Test Ordered: CBC (INCLUDES DIFF/PLT) 6399 Order number: [id number] Test Ordered: URINALYSIS, COMPLETE W/REFLEX TO CULTURE 3020 Order number: [id number] Test Ordered: HEMOCCULT SINGLE 87546 Order number: [id number] Test Ordered: URINALYSIS W/O MICRO 83733 V70.0-ROUTINE GENERAL MEDICAL EXAMINATION discussed, check lab [...] Description 03/26/2025 10:00 AM CDT Office Visit [facility] Oncology and Hematology - [place] [address] Ajay [address] [facility] 200 [place] [address] Randall Triplett MD 2227 [facility] [address] [place] [address] GBM (glioblastoma multiforme) (CMS/HCC) (Primary Dx) 09/27/2025 11:20 AM FACULTY CRIMINAL JUSTICE Office Visit [facility] Primary Care [address] [place] [address] Ajay Rhodes MD 7 [facility] [address] [place] [address] documented as of this encounter Visit Diagnoses Not on filedocumented in this encounter Care Teams Vocational Training Instructor Relationship Specialty Start Date End Date Ajay Rhodes MD PCP - General 01/19/08 documented as of this encounter
--- OUTSIDE RECORDS SUMMARY | 2025-03-26 09:55 | XMS_ITS | Clinical Summary ---
Author Organization [facility] Address [address] [place] [address] Care Team Providers Care Battery Inspector Name Role Phone Ajay Rhodes MD Primary Care Provider [phone] Allergies Active Allergy Reactions Criticality Noted Date [...] affected area daily. 50 Gram 3 Active azelastine (ASTELIN) 137 mcg/actuation nasal spray Administer 2 Sprays in each nostril 2 times daily. 30 mL 3 025 Active temozolomide (TEMODAR) 20 mg capsule TAKE 1 CAPSULE BY MOUTH DAILY BEFORE BREAKFAST FOR 5 DAYS EVERY 28 DAYS. W/ 5MG & 250MG CAPS 5 Capsule Active temozolomide (TEMODAR) 5 mg capsule TAKE 1 CAPSULE BY MOUTH DAILY BEFORE BREAKFAST FOR 5 DAYS EVERY 28 DAYS. W/ 20MG & 250MG 5 Capsule 025 Active temozolomide (TEMODAR) 250 mg capsule TAKE 1 CAPSULE BY MOUTH DAILY BEFORE BREAKFAST FOR 5 DAYS EVERY 28 DAYS. W/ 5MG & 20MG 5 Capsule Active cyclobenzaprine (FLEXERIL) 10 mg tablet TAKE 1 TABLET BY MOUTH 3 TIMES DAILY NEEDED FOR SPASM. 30 Tablet 3 Active HYDROcodone-acet aminophen (NORCO) 10-325 mg TabletIndication s:Other osteoarthritis involving multiple joints Take 1 Tablet by mouth every 4 hours as needed (as needed for pain). DX Osteoarthritis multiple joints Max Daily Amount: 6 Tablets 180 Tablet Active gabapentin (NEURONTIN) 300 mg capsule Take 1 Capsule (300 mg) by mouth 2 times daily. 180 Capsule 3 Active EPINEPHrine (EPIPEN) 0.3 mg/0.3 mL Auto-Injector Inject 0.3 mL (0.3 mg) by intramuscular injection 1 time daily as needed for Anaphylaxis. 1 Each 2 Active levETIRAcetam (KEPPRA) 1,000 mg tabletIndication s:Seizures (CMS/HCC),Gliobl astoma multiforme of brain (CMS/HCC) TAKE 1 TABLET BY MOUTH TWICE A DAY 180 Tablet 1 025 2024 Discontinued HYDROcodone-acet aminophen (NORCO) 10-325 mg TabletIndication s:Other osteoarthritis involving multiple joints Take 1 Tablet by mouth every 4 hours as needed (as needed for pain). DX Osteoarthritis multiple joints Max Daily Amount: 6 Tablets 180 Tablet 025 2024 Discontinued(R eorder) respiratory syncytial virus recombinant,adju [...] Encounters Date Type Department Care Team Description 03/26/2025 10:00 AM CDT Office Visit [facility] Oncology and Hematology [address] [place] [address] Randall Triplett MD GBM (glioblastoma multiforme) (CMS/HCC) (Primary Dx) 03/15/2025 10:00 AM CDT Office Visit [place] [address] [facility] [place] [address] Ajay Rhodes MD Other hyperlipidemia (Primary Dx); Vitamin D deficiency; Abnormal glucose; Myalgia; Screening PSA (prostate specific antigen); Osteoarthritis of left shoulder, unspecified osteoarthritis type; Glioblastoma multiforme of brain (CMS/HCC); Frail elderly 03/13/2025 Refill [place] [facility] [address] [place] [address] Ajay Rhodes MD Other osteoarthritis involving multiple joints 03/07/2025 External Device Data STL ABSTRACTION Provider, Abstract 03/06/2025 External Device Data STL ABSTRACTION Provider, Abstract 02/27/2025 External Device Data STL ABSTRACTION Provider, Abstract 02/14/2025 External Device Data STL ABSTRACTION Provider, Abstract 02/14/2025 External Device Data STL ABSTRACTION Provider, Abstract 02/14/2025 External Device Data STL ABSTRACTION Provider, Abstract 02/14/2025 External Device Data STL ABSTRACTION Provider, Abstract 02/13/2025 External Device Data STL ABSTRACTION Provider, Abstract 02/13/2025 [facility] [address] [facility] [address] [place] [address] Ajay Rhodes MD Other osteoarthritis involving multiple joints 02/13/2025 Refill [facility] [address] [facility] [address] [place] [address] Ajay Rhodes MD 02/12/2025 11:15 AM CDT Office Visit [facility] Oncology and Hematology [place] [address] Ajay [address] [place] [address] Randall Triplett MD GBM (glioblastoma multiforme) ([facility]/HCC) (Primary Dx) 02/05/2025 Refill [facility] Oncology and Hematology - [place] [address] Ajay [address] [place] [address] Randall Triplett MD 01/30/2025 External Device Data STL ABSTRACTION Provider, Abstract 01/10/2025 [place] [address] [address] [facility] [address] [place] [address] Ajay Rhodes MD Other osteoarthritis involving multiple joints 01/02/2025 External Device Data STL ABSTRACTION Provider, Abstract 01/01/2025 10:00 AM CDT Office Visit [facility] Oncology and Hematology [place] [address] [place] [address] Randall Triplett MD GBM (glioblastoma multiforme) (CMS/HCC) (Primary Dx) 01/01/2025 Orders Only [facility] Oncology and Hematology - [place] [address]ay [address] [place] [address] Randall Triplett MD 12/26/2024 External Device Data [...] COVID-19 VACCINE - EMERGENCY USE AUTHORIZATION, MRNA, [id number](PF) 30 MCG/0.3 ML IM SUSP 03/22/2021,11/18/2020 12/09/2020 (PREVNAR 20)(6 WKS UP) PNEUM OCOCCAL CONJUGATE VACCINE 20-VALENT (PCV20), POLYSACCHARIDE [id number] CONJUGATE, ADJUVANT 0.5 ML (PF) IM 05/25/2022 [...] on file Legal Sex Male 4:14 AM PARTS SALES ADVISOR Gender Identity Not on file Sexual Orientation Not on file Last Filed Vital Signs Vital Sign Reading Time Taken Comments Blood Pressure 127/65 03/15/2025 9:48 AM CDT Pulse 71 03/15/2025 9:48 AM CDT Temperature 37.2 C (99 F) 02/12/2025 10:35 AM CDT Respiratory Rate 16 02/12/2025 10:35 AM CDT Oxygen Saturation 99% 03/15/2025 9:48 AM CDT Inhaled Oxygen Concentration - - Weight 69.4 kg (153 lb) 03/15/2025 9:48 AM CDT Height 177.8 cm (5' 10) 03/15/2025 9:48 AM CDT Body Mass Index 21.95 03/15/2025 9:48 AM CDT Plan of Treatment Upcoming Encounters Date Type Department Care Team (Late st Contact Info) Description 03/26/2025 10:00 AM CDT Office Visit [facility] Oncology and Hematology - [place] 2227 [facility] 200 [place] [address] Randall Triplett MD 2227 [facility] [address] [place] [address] GBM (glioblastoma multiforme) (CMS/HCC) (Primary Dx) 09/27/2025 11:20 AM PARTS SALES ADVISOR Office Visit [facility] Primary Care [address] [place] [address] Ajay Rhodes MD 637 [facility] [address] [place] [address] Health Maintenance Due Date Last [...] 03/15/2023, 11/26/2018 Medical Devices Implanted Type Area Refrigerating Engineer Device Identifier Shelf Expiration Date Model / Serial / Lot Duragen + 3x3in Dp-1033 - [id number] Implanted:Qty : 1 on 03/02/2024 by Chelsey Bowens MD at [facility] Graft Left: Cranial [employer] [id number] 09/29/2026 [id number] / / [id number] Hemostatic Surgiflo 8ml W/ Thrombin 299 - [id number] Implanted:Qty : 1 on 03/02/2024 by Chelsey Bowens MD at [facility] Hemostatic Left: Brain [employer] [id number] 05/01/2025 2994 / / [id number] Hemostatic Surgiflo 8ml W/ Thrombin 299 - [id number] Implanted:Qty : 1 on 03/02/2024 by Chelsey Bowens MD at [facility] Hemostatic Left: Brain [employer] [id number] 04/01/2025 2994 / / [id number] Agent Hemostat Surgicel 4x8in - [id number] Implanted:Qty : 1 on 03/02/2024 by Chelsey Bowens MD at [facility] Hemostatic Left: Brain J&J- [employer] 07/01/2028 1952S / / [id number] Hemostatic Surgicel 1x2in 1960 - [id number] Implanted:Qty : 1 on 03/02/2024 by Chelsey Bowens MD at [facility] Hemostatic Left: Brain J&J- [employer] 09/01/20261960 / / [id number] Hemostatic Surgifoam Sz100 1973 - [id number] Implanted:Qty : 1 on 03/02/2024 by Chelsey Bowens MD at [facility] Hemostatic Left: Brain J[employer]- [employer] 12/02/2027 1974 / / [id number] Mesh Ventralex 1.7in Sm Circ [id number] - [id number] Implanted:Qty : 1 on 01/21/2024 by Jimenez Linares MD at [facility] Mesh N/A: Umbilical BARD DAVOL [id number] 08/29/2025 [id number] / / [id number] Plate Matrxneuro Bur Hl Cvr 04.502.021 - Sno Load Or Sterilized Date On Horner Implanted:Qty : 1 on 03/02/2024 by Chelsey Bowens MD at [facility] Plate Left: Cranial J&J- DEPUY SYNTHES 04.502.021 / NO LOAD OR STERILIZED DATE ON HORNER / Plate Matrxneuro Cranial 04.502.062 - Sno Load Or Sterilized Date On Horner Implanted:Qty : 2 on 03/02/2024 by Chelsey Bowens MD at [facility] Plate Left: Cranial J&J- DEPUY SYNTHES 04.502.062 / NO LOAD OR STERILIZED DATE ON HORNER / Screw Matrixneuro Sd 04.503.103.01 - Sno Load Or Sterilized Date On Horner Implanted:Qty : 2 on 03/02/2024 by Chelsey Bowens MD at [facility] Screw Left: Cranial J&J- DEPUY SYNTHES 04.503.103. 01 / NO LOAD OR STERILIZED DATE ON HORNER / Description:All Synthes cran ial hardware, Requisition, [id number]. Screw Matrixneuro Sd 04.503.104.01 - Sno Load Or Sterilized Date On Horner Implanted:Qty : 4 on 03/02/2024 by Chelsey Bowens MD at [facility] Screw Left: Cranial J&J- DE[employer] SYN[employer]ES 04.503.104. 01 / NO LOAD OR STERILIZED DATE ON HORNER / Procedures Procedure Name Priority Date/Time Associated Diagnosis Comments BASIC METABOLIC PANEL Routine 01/01/2025 2:56 PM CDT CBC WITH DIFFERENTIAL Routine 01/01/2025 2:38 PM CDT ENDOSCOPY, COLON, SCREENING Routine 06/21/2015 POC OCCULT BLOOD UP TO 3 CARDS Routine 06/16/2010 Abdominal pain from Last 3 Months or Most Recently Relevant to Health Maintenance Results * BASIC METABOLIC PANEL (01/01/2025 2:56 PM CDT) Blood Randall Triplett MD CHEMISTRY ORDERABLES Final Resu lt * CBC WITH DIFFERENTIAL (01/01/2025 2:38 PM CDT) Blood Randall Triplett MD HEMATOLOGY ORDERABLES Final Res ult * ENDOSCOPY, COLON, SCREENING (06/21/2015) Abstract Provider [...] Maintenance Insurance MEDICARE PART A AND B [facility] RX [place]ES PLANS (INTERNAL) [facility] Internal Plans RX GENERIC COMMERCIAL Commercial RX ALLWIN DATA Medicare Part B MEDICARE PART A AND B [facility] SUPP Advance Directives For more information, please contact: [phone] Documents on File Type Date Recorded Patient Marketing Intelligence Manager Expl anation Advance Directive POA 03/07/2024 [...] 6:59 AM 03/18/2020 2:16 PM Care Teams Battery Inspector Relationship Specialty Start Date End Date Ajay Rhodes MD PCP - General 01/19/08
--- OUTSIDE RECORDS SUMMARY | 2025-03-26 09:55 | XMS_ITS | Encounter Summary ---
Author Organization [facility] Address [address] [place] [address] Care Team Providers Care Cardiovascular Disease Specialist Name Role Phone Ajay Rhodes MD Primary Care Provider [phone] Encounter Details Date Type Department Care Team (Late Contact Info) Description 05/12/2004 Outpatient Historical [facility] Internal Medicine [address] [address] Ajay Rhodes MD [address] [place] [address] Social History Tobacco Use Types Packs/Day Years Used Date Smoking Tobacco: Never Assessed Sex and Gender Information Value Date Recorded Sex Assigned at Not on file Legal Sex Male 4:14 AM FISHERIES MANAGER Gender Identity Not on file Sexual [...] and Hematology - [place] [address] [facility] [address] [place] [address] Randall Triplett MD 6 [facility] [address] [place] [address] GBM (glioblastoma multiforme) (CMS/HCC) (Primary Dx) 09/27/2025 11:20 AM FISHERIES MANAGER Office Visit [facility] [address] [place] [address] Ajay Rhodes MD [address] [place] [address] [address] [place] [address] documented as of this encounter Visit Diagnoses Not on filedocumented in this encounter Care Teams Cardiovascular Disease Specialist Relationship Specialty Start Date End Date Ajay Rhodes MD PCP - General 01/19/08 documented as of this encounter
--- OUTSIDE RECORDS SUMMARY | 2025-03-26 09:55 | XMS_ITS | Encounter Summary ---
Author Organization [facility] Address [address] [place] [address] Care Team Providers Care Biochemical Engineer Name Role Phone Ajay Rhodes MD Primary Care Provider Encounter Details Date Type Department Care Team (Late Contact Info) Description 07/05/2006 Outpatient Historical [facility] Internal Medicine [address] [address] Ajay Rhodes MD [address] [place] [address] [address] [place] [address] Social History Tobacco Use Types Packs/Day Years Used Date Smoking Tobacco: Never Assessed Sex and Gender Information Value Date Recorded Sex Assigned at Not on file Legal Sex Male 4:14 AM SALES PROPERTY MANAGER Gender Identity Not on file Sexual Orientation Not on file documented as of this encounter Plan of Treatment Upcoming Encounters Date Type Department Care Team (Late Contact Info) Description 03/26/2025 10:00 AM CDT Office Visit [facility] Oncology and Hematology - [place] [address] [place] [address] [facility] 200 [place] [address] [place] [address] [place] [address] [address] [place] [address] GBM (glioblastoma multiforme) (CMS/HCC) (Primary Dx) 09/27/2025 11:20 AM SALES PROPERTY MANAGER Office Visit [facility] Primary Care [address] [place] [address] Ajay Rhodes MD [address] [place] [address] [address] [place] [address] documented as of this encounter Visit Diagnoses Not on filedocumented in this encounter Care Teams Biochemical Engineer Relationship Specialty Start Date End Date Ajay Rhodes MD PCP - General 01/19/08 documented as of this encounter
--- OUTSIDE RECORDS SUMMARY | 2025-03-26 09:55 | XMS_ITS | Clinical Summary ---
Author Organization [facility] Address [address] [place] [address] Care Team Providers Care Favor Maker Name Role Phone Ajay Rhodes MD Primary Care Provider + Rosana Noyola MD Unavailable [phone] Allergies No known active allergies Medications fentaNYL [...] no significant findings on echocardiogram, [address] monitor on discharge HLD (hyperlipidemia) 06/02/2021 Risk factors for obstructive sleep apnea 021 Primary osteoarthritis, left shoulder 04/30/2021 Overview (04/30/2021): Added automatically from request for surgery [id number] Multiple closed fractures of ribs of left [...] (12/19/2019): Added automatically from request for surgery [id number] Arthralgia of shoulder 08/26/2012 Duodenal ulcer Encounters Date Type Department Care Team Description 02/26/2025 8:42 AM CDT - 02/26/2025 11:59 PM CDT Hospital Encounter [facility] [address] [place] [address] Pre-operative exam Discharge Disposition: Discharge to home or self care 02/23/[address] [address] Giovanni Workman 01/29/2025 9:00 AM CDT Office Visit [facility] Medicine [address] [place] [address] [address] [place] [address] Lino Nolan MD Rotator cuff arthropathy of right shoulder (Primary Dx) 01/29/2025 Telephone [facility] [address] [place] [address] [address] [place] [address] Lino Nolan MD Surgical Clearance 01/26/2025 Orders Only [facility] [address] [place] [address] [address] [place] [address] Provider, MD Davidson from Last 3 Months Immunizations Immunization Administration [...] on file Legal Sex Male 6:15 PM CLARIFYING PLANT OPERATOR Gender Identity Not on file Sexual [...] 03/15/2023, 11/26/2018 Medical Devices Implanted Type Area Staple Side Laster Device Identifier Shelf Expiration Date Model / Serial / Lot [employer] 6191-1-010 Simplex P Radiopaque Full Dose Cement Bone Sterile - [id number] Implanted:Qty: 1 on 06/03/2021 by Lino Granger MD at [facility] Bone Cement Left: Shoulder [employer] 09/01/2022 6191-1-0 10 / / [id number] Sldr 27x6mm Pegs Circular Glenoid W/ In-Line Peripheral - [id number] Implanted:Qty: 1 on 06/03/2021 by Lino Granger MD at [facility] Other - see comments Left: Shoulder Shoulder [employer] [id number] 10/10/2025 [id number] 06 / / [id number] Plug Azur Vascular Embolization Medium - [id number] Implanted:Qty: 1 on 03/17/2021 at [facility] P[employer] [id number] 09/01/2023 [id number] / / [id number] [employer] Rbypod8 Debby Pod 8mm 60cm Complex Occulusion Device Coil Embolization - [id number] Implanted:Qty: 1 on 03/17/2021 at [facility] [employer] 04/23/2028 [id number] / / [id number] [employer] Kclt-06 Device 6fr Closure Celt Acd Vascular Sterile Latex Free Disposable Ashkan - [id number] Implanted:Qty: 1 on 03/17/2021 at [facility] [employer] [id number] 08/12/2023 KCLT -06 / / [id number] Shoulder [employer]ations Llc [id number] Head Shoulder Offset Humeral 18mm X 44mm - [id number] Implanted:Qty: 1 on 06/03/2021 by Lino Granger MD at [facility] Left: Shoulder Shoulder [employer] [id number] 09/26/2025 [id number] / / [id number] Shoulder [employer] [id number] Stem Shoulder Porous Titanium Humeral Small - [id number] Implanted:Qty: 1 on 06/03/2021 by Lino Granger MD at [facility] Left: Shoulder Shoulder [employer] [id number] 03/10/2026 [id number] / / [id number] Procedures Procedure Name Priority Date/Time Associated Diagnosis Comments CT SHOULDER RIGHT WO CONTRAST Schedule Routine, Read Routine (OP Routine) 02/26/2025 9:32 AM CDT Pre-operative exam MRI SHOULDER RIGHT WO CONTRAST Schedule Routine, Read Routine (OP Routine) 01/26/2025 3:23 PM CDT COLONOSCOPY IMAGES 06/21/2015 from Last 3 Months or Most Recently Relevant to Health Maintenance Results * CT Shoulder Right WO Contrast (02/26/2025 9:32 AM CDT) Anatomical Region Laterality Modality Upper Extremities Right Computed Tomog matthew 02/27/2025 12:5 5 PM CDT Narrative 02/27/2025 12:57 PM CDT EXAM DESCRIPTION: CT SHOULDER RIGHT WO CONTRAST REASON FOR STUDY: Right shoulder pain Pre-op imaging for shoulder replacement of right shoulder TECHNIQUE: Multidetector CT scan of the right shoulder was performed. coronal and sagittal images were reconstructed. Dose modulation adjustment of the mA and/or kV has been performed per [facility] protocols according to patient size and indication. COMPARISON: Radiograph dated December 04, 2024 FINDINGS: Bones: No fracture. No dislocation. Moderate acromioclavicular and glenohumeral osteoarthritis. Soft Tissues: No soft tissue swelling or foreign body. No fluid collection. Other: No other finding. IMPRESSION: 1. Moderate acromioclavicular and glenohumeral osteoarthritis. THIS IS AN ELECTRONICALLY VERIFIED FINAL REPORT 02/27/2025 12:57 PM - Electronically signed by Charly Hernández M.D. JA: ZAID Report ID: [id number] Reading Location: [id number] Procedure Note Charly Hernández MD - 02/27/2025 EXAM DESCRIPTION: CT SHOULDER RIGHT WO CONTRAST REASON FOR STUDY: Right shoulder pain Pre-op imaging for shoulder replacement of right shoulder TECHNIQUE: Multidetector CT scan of the right shoulder was performed. coronal and sagittal images were reconstructed. Dose modulation adjustment of the mA and/or kV has been performed per [facility] protocols according to patient size and indication. COMPARISON: Radiograph dated December 04, 2024 FINDINGS: Bones: No fracture. No dislocation. Moderate acromioclavicular and glenohumeral osteoarthritis. Soft Tissues: No soft tissue swelling or foreign body. No fluidcollection. Other: No other finding. IMPRESSION: 1. Moderate acromioclavicular and glenohumeral osteoarthritis. THIS IS AN ELECTRONICALLY VERIFIED FINAL REPORT 02/27/2025 12:57 PM - Electronically signed by Charly MAR: ZAID Report ID: [id number] Reading Location: [id number] Lino Nolan MD IMG CT PROCEDURES Final Resu lt * MRI Shoulder Right WO Contrast (01/26/2025 3:23 PM CDT) Anatomical Region Laterality Modality Upper Extremities Right Magnetic Reson ance Historical Provider IMG MRI PROCEDURES Final Result * COLONOSCOPY IMAGES (06/21/2015) Anatomical Region Laterality Modality Other Narrative 06/21/2015 Ordered by an unspecified provider. Historical Provider GI PROCEDURE ORDERABLES F inal Result from Last 3 Months or Most Recently Relevant to Health Maintenance Insurance [facility] MEDICARE [facility] MEDICARE [facility] Advance Directives For more information, please contact: [phone] * Full Code (Latest Code Status on [...] 6:44 PM 12/20/2019 10:02 AM Care Teams Favor Maker Relationship Specialty Start Date End Date Ajay Rhodes MD PCP - General 12/19/19 Rosana Noyola MD Consulting Physician Gastroenterology 12/21/19
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
--- OUTSIDE RECORDS SUMMARY | 2025-03-26 09:55 | XMS_ITS | Encounter Summary ---
Author Organization [facility] Address [address] [place] [address] Care Team Providers Care Contract Management Specialist Name Role Phone Ajay Rhodes MD Primary Care Provider [phone] Encounter Details Date Type Department Care Team (Late Contact Info) Description 08/05/2007 Outpatient Historical [facility] Internal Medicine [address] [address] Ajay Rhodes MD [address] [place] [address] [address] [place] [address] Social History Tobacco Use Types Packs/Day Years Used Date Smoking Tobacco: Never Assessed Sex and Gender Information Value Date Recorded Sex Assigned at Not on file Legal Sex Male 4:14 AM SALES OPERATIONS MANAGER Gender Identity Not on file Sexual Orientation Not on file documented as of this encounter Plan of Treatment Upcoming Encounters Date Type Department Care Team (Late st Contact Info) Description 03/26/2025 10:00 AM CDT Office Visit [facility] Oncology and Hematology - [place] [address] [place] [address] [facility] 200 [place] [address] [place] [address] [place] [address] [address] [place] [address] GBM (glioblastoma multiforme) (CMS/HCC) (Primary Dx) 09/27/2025 11:20 AM SALES OPERATIONS MANAGER Office Visit [facility] Primary Care [address] [place] [address] Ajay Rhodes MD [address] [place] [address] [address] [place] [address] documented as of this encounter Visit Diagnoses Not on filedocumented in this encounter Care Teams Contract Management Specialist Relationship Specialty Start Date End Date Ajay Rhodes MD PCP - General 01/19/08 documented as of this encounter
--- OUTSIDE RECORDS SUMMARY | 2025-03-26 09:55 | XMS_ITS | Encounter Summary ---
Author Organization [facility] Address [address] [place] [address] Care Team Providers Care Millwright Name Role Phone Ajay Rhodes MD Primary Care Provider [phone] Encounter Details Date Type Department Care Team (Late Contact Info) Description 04/06/2007 Outpatient Historical [facility] Internal Medicine [address] [address] Ajay Rhodes MD [address] [place] [address] Social History Tobacco Use Types Packs/Day Years Used Date Smoking Tobacco: Never Assessed Sex and Gender Information Value Date Recorded Sex Assigned at Not on file Legal Sex Male 4:14 AM OPERATIONS SPECIALISTS Gender Identity Not on file Sexual Orientation [...] Description 03/26/2025 10:00 AM CDT Office Visit [facility] Oncology and Hematology - [place] [address] [facility] 200 [place] [address] Randall Triplett MD 6 [facility] [address] [place] [address] GBM (glioblastoma multiforme) (CMS/HCC) (Primary Dx) 09/27/2025 11:20 AM OPERATIONS SPECIALISTS Office Visit [facility] Care [address] [place] [address] Ajay Rhodes MD [address] [place] [address] [address] [place] [address] documented as of this encounter Visit Diagnoses Not on filedocumented in this encounter Care Teams Millwright Relationship Specialty Start Date End Date Ajay Rhodes MD PCP - General 01/19/08 documented as of this encounter
--- OUTSIDE RECORDS SUMMARY | 2025-03-26 09:55 | XMS_ITS | Encounter Summary ---
Author Organization [facility] Address [address] [place] [address] Care Team Providers Care Cool Roofing Installer Name Role Phone Ajay Rhodes MD Primary Care Provider Encounter Details Date Type Department Care Team (Late Contact Info) Description 07/05/2006 Outpatient Historical [facility] Internal Medicine [address] [address] Ajay Rhodes MD [address] [place] [address] [address] [place] [address] Social History Tobacco Use Types Packs/Day Years Used Date Smoking Tobacco: Never Assessed Sex and Gender Information Value Date Recorded Sex Assigned at Not on file Legal Sex Male 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 Gender Identity Not on file Sexual Orientation Not on file documented as of this encounter Plan of Treatment Upcoming Encounters Date Type Department Care Team (Late Contact Info) Description 03/26/2025 10:00 AM CDT Office Visit [facility] Oncology and Hematology - [place] [address] [place] [address] [facility] 200 [place] [address] [place] [address] [place] [address] [address] [place] [address] GBM (glioblastoma multiforme) (CMS/HCC) (Primary Dx) 09/27/2025 11:20 AM MACHINE MAINTENANCE Office Visit [facility] Primary Care [address] [place] [address] Ajay Rhodes MD [address] [place] [address] [address] [place] [address] documented as of this encounter Visit Diagnoses Not on filedocumented in this encounter Care Teams Cool Roofing Installer Relationship Specialty Start Date End Date Ajay Rhodes MD PCP - General 01/19/08 documented as of this encounter
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
--- OUTSIDE RECORDS SUMMARY | 2025-03-26 09:55 | XMS_ITS | Encounter Summary ---
Author Organization [facility] Address [address] [place] [address] Care Team Providers Care Rehabilitation Assistant Name Role Phone Phil Hancock MD Primary Care Provider [phone] Encounter Details Date Type Department Care Team (Late st Contact Info) Description 01/20/2007 Orders Only [facility] Internal Medicine [address] [address] Phil Hancock MD [address] [place] [address] Social History Tobacco Use Types Packs/Day Years Used Date Smoking Tobacco: Never Assessed Sex and Gender Information Value Date Recorded Sex Assigned at Not on file Legal Sex Male 4:14 AM SUSTAINABLE AGRICULTURE FACULTY Gender Identity Not on file Sexual Orientation Not on file documented as of this encounter Progress Notes * Phil Hancock MD - 12/21/2007 4:44 PM CDT CENTRAL TEST SCHEDULING DATE: JAN 20, 2007 Note created by: Shruthi Hart E 03:13 p Patient Name : LIBERTAD CORTES Address: [address] [place] [address] [facility] [address] D.O.B: 1955 SSN: [id number] Parent/Guardian if applicable: Patient Insurance: BLUE CROSS BLUE SHIELD ID#: [id number] Group#: ORDER(S) #: [id number] mri c spine BEST TO CALL CELL. [phone] BEST TIME TO CALL: ANYTIME. MAY WE LEAVE MESSAGE AT THAT NUMBER: YES, LEAVE MESSAGE. PLEASE SCHEDULE THE APPOINTMENT AT THE FOLLOWING LOCATION: [place] [phone]. TEST PRIORITY: 2 - 7 DAYS. SPECIAL SCHEDULING INSTRUCTIONS: needs prep ORDERING PHYSICIAN: PHIL HANCOCK MD OFFICE MEDIA MARKETING COORDINATOR & PHONE: Shruthi Hart E ORDER PRINTED BY: Courtney Meza L FOR SCHEDULING USE ONLY: FIRST ATTEMPT Date:JAN 24, 2007 Norma Medrano T 03:02 p Left message on Recorder. SECOND ATTEMPT: Date:JAN 25, 2007 Noa Valentino 01:31 p Spoke with Patient. [facility] [phone]. APPOINTMENT DATE : 02/03/2007 ( @ 4:00 pm) The appointment was scheduled by Noa Valentino at [phone] [facility] NN * Phil Hancock MD - 12/21/2007 4:44 PM CDT SPECIALIST REFERRAL REQUEST DATE: JAN 20, 2007 Note created by: Seema Jiang C 03:16 p Patient Name : LIBERTAD CORTES Address: [address] [place] [address] D.O.B: 1955 SSN: [id number] Parent/Guardian if applicable: Patient Insurance: [employer] Policy#: [id number] Group #: Best To Call : [phone] Best Time to Call : ANYTIME. May We Leave Message At That Number : YES, LEAVE MESSAGE. Referring to: PAIN MANAGEMENT Dr. Marcos Gorman ph: [phone]. Dr. Edmund Manriquez ph: [phone]. PATIENT DIAGNOSIS: . 723.1-NECK PAIN ORDERING PHYSICIAN : PHIL HANCOCK MD PRIORITY OF REFERRAL: AT PATIENT'S CONVENIENCE. OFFICE MEDIA MARKETING COORDINATOR & PHONE: Seema Jiang C FOR SCHEDULING [...] p No...Pt never responded to letter To ak noted * Phil Hancock MD - 12/21/2007 [...] palpable. MUSCULOSKELETAL EXAM: post neck tender central, surgery consultant ok, sensation ok, ls tender, left shoulder anttender but full rom ASSESSMENT/PLAN: 715.90-OSTEOARTHROSIS UNSPECIFIED discussed, check mri, pain mgt 723.1-NECK PAIN MEDICATIONS: VICODIN ES ORAL TABLET 7.5-750 MG, 1 Every Six Hours, As Needed, 90 Dispensed, 2 Fills, status: CONTINUED, 01/20/2007. LAB ORDERS: Order number: [id number] Test Or[facility] 461.9-SINUSITIS UNSPECIFIED add med MEDICATIONS: ZYRTEC ORAL TABLET 10 MG, 1 Every Day, 20 Dispensed, status: NEW PRESCRIPTION, 01/20/2007. NASONEX NASAL SUSPENSION 50 MCG/ACT, 2 Every Morning, 2 Dispensed, status: NEW PRESCRIPTION, 01/20/2007. SPECIALTY REFERRAL: PAIN MANAGEMENT Dr. Marcos Gorman ph: [phone]. Dr. Edmund Manriquez ph: [phone].[facility] RETURN VISIT : Instructed to call if not improving. Electronically Signed by: Phil Hancock MD on , January 20, 2007 documented in this encounter Plan of Treatment Upcoming Encounters Date Type Department Care Team (Late st Contact Info) Description 03/26/2025 10:00 AM CDT Office Visit [facility] Oncology and Hematology - [place] [address] [facility] [address] [place] [address] Randall Triplett MD [address] [facility] [address] [place] [address] GBM (glioblastoma multiforme) (CMS/HCC) (Primary Dx) 09/27/2025 11:20 AM SUSTAINABLE AGRICULTURE FACULTY Office Visit [facility] Care [address] [place] [address] Phil Hancock MD [address] [facility] [address] [place] [address] documented as of this encounter Visit Diagnoses Not on filedocumented in this encounter Care Teams Rehabilitation Assistant Relationship Specialty Start Date End Date Phil Hancock MD PCP - General 01/19/08 documented as of this encounter
--- OUTSIDE RECORDS SUMMARY | 2025-03-26 09:55 | XMS_ITS | Encounter Summary ---
Author Organization [facility] Address [address] [place] [address] Care Team Providers Care Mortgage Counselor Name Role Phone Ajay Rhodes MD Primary Care Provider [phone] Encounter Details Date Type Department Care Team (Late Contact Info) Description 01/20/2007 Outpatient Historical [facility] Internal Medicine [address] [address] Ajay Rhodes MD [address] [place] [address] Social History Tobacco Use Types Packs/Day Years Used Date Smoking Tobacco: Never Assessed Sex and Gender Information Value Date Recorded Sex Assigned at Not on file Legal Sex Male 4:14 AM CHILD PROTECTIVE SERVICES SOCIAL WORKER Gender Identity Not on file Sexual [...] Description 03/26/2025 10:00 AM CDT Office Visit [facility] Oncology and Hematology - [place] [address] [facility] [address] [place] [address] Randall Triplett MD [address] [facility] [address] [place] [phone] GBM (glioblastoma multiforme) (CMS/HCC) (Primary Dx) 09/27/2025 11:20 AM CHILD PROTECTIVE SERVICES SOCIAL WORKER Office Visit [facility] Care [address] [place] [address] Ajay Rhodes MD [address] [place] [address] [address] [place] [address] documented as of this encounter Visit Diagnoses Not on filedocumented in this encounter Care Teams Mortgage Counselor Relationship Specialty Start Date End Date Ajay Rhodes MD PCP - General 01/19/08 documented as of this encounter
--- OUTSIDE RECORDS SUMMARY | 2025-03-26 09:55 | XMS_ITS | Encounter Summary ---
Author Organization [facility] Address [address] [place] [address] Care Team Providers Care Intelligence Engineer Name Role Phone Ajay Rhodes MD Primary Care Provider [phone] Encounter Details Date Type Department Care Team (Late st Contact Info) Description 10/25/2007 Orders Only [facility] Internal Medicine [address] [address] Ajay Rhodes MD [address] [place] [address] Social History Tobacco Use Types Packs/Day Years Used Date Smoking Tobacco: Never Assessed Sex and Gender Information Value Date Recorded Sex Assigned at Not on file Legal Sex Male 4:14 AM BUYER PLANNER Gender Identity Not on file Sexual Orientation [...] 10/25/2007. LAB ORDERS: 3 mo Order number: [id number] Test Ordered: COMPREHENSIVE METABOLIC PANEL & GFR 1112 Order number: [id number] Test Ordered: LIPID PANEL 1078 Order number: [id number] Test Ordered: PSA, TOTAL 1002 Patient Education: [...] Description 03/26/2025 10:00 AM CDT Office Visit [facility] Oncology and Hematology - [place] [facility] Ajay Carroll [address] [phone] Randall Triplett MD [address] [facility] [address] [place], [place] [address] GBM (glioblastoma multiforme) (CMS/HCC) (Primary Dx) 09/27/2025 11:20 AM BUYER PLANNER Office Visit [facility] Care [address] [place] [address] Ajay Rhodes MD [address] [place] [address] [address] [place] [address] documented as of this encounter Visit Diagnoses Not on filedocumented in this encounter Care Teams Intelligence Engineer Relationship Specialty Start Date End Date Ajay Rhodes MD PCP - General 01/19/08 documented as of this encounter
--- OUTSIDE RECORDS SUMMARY | 2025-03-26 09:55 | XMS_ITS | Encounter Summary ---
Author Organization [facility] Address [address] [place] [address] Care Team Providers Care Electrocardiograph Technician Name Role Phone Ajay Rhodes MD Primary Care Provider [phone] Reason for Visit * Reason Comments Medication Assistance Encounter Details Date Type Department Care Team (Late st Contact Info) Description 02/28/2024 Telephone [facility] Primary Care [address] [place] [address] Ajay Rhodes MD [address] [facility] [address] [place] [address] Medication Assistance Social History Tobacco [...] on file Legal Sex Male 4:14 AM SLATE WORKER Gender Identity Not on file Sexual [...] acetaminophen (NORCO) 10-325 mg Tablet Preferred Pharmacy: [place] [id number] [place] [address] Patient/Caregiver Callback Number: [phone] (home) Call Notes: Requesting refill early will be leaving to go out of town this Wednesday please advise request HYDROcodone-acetaminophen (NORCO) 10-325 mg Tablet [facility] [address] [place] [address] only this location Chelsey Singleton, RN * Telephone Encounter - Maira Lopez - 02/28/2024 11:24 AM CDT Copied from [facility] #[id number]. Topic: Medication Request >> Feb 28, 2024 11:22 AM Maira Yeh wrote: Caller is requesting: Medication - New Request (Not Currently Taking) Medication (Ask patient/caregiver to spell if possible): HYDROcodone- acetaminophen (NORCO) 10-325 mg Tablet Preferred Pharmacy: [facility] [id number] [place] [address] Patient/Caregiver Callback Number: [phone] (home) Call Notes: Requesting refill early will be leaving to go out of town this Wednesday please advise request HYDROcodone-acetaminophen (NORCO) 10-325 mg Tablet [facility] [address] [place] [address] only this location documented in this encounter Plan of Treatment Upcoming Encounters Date Type Department Care Team (Late st Contact Info) Description 03/26/2025 10:00 AM CDT Office Visit [facility] Oncology and Hematology - [place] [address] [place] [address] Randall Triplett MD [address] [facility] [address] [place] [address] GBM (glioblastoma multiforme) (CMS/HCC) (Primary Dx) 09/27/2025 11:20 AM SLATE WORKER Office Visit [facility] Primary Care [place] [address] [address] [place] [address] Ajay Rhodes MD [address] [place] [address] documented as of this encounter Visit Diagnoses Diagnosis Other osteoarthritis involving multiple joints GBM (glioblastoma multiforme) ([facility]/HCC)- Primary Malignant neoplasm of brain, unspecified site documented in this encounter Care Teams Electrocardiograph Technician Relationship Specialty Start Date End Date Ajay Rhodes MD PCP - General 01/19/08 documented as of this encounter
--- OUTSIDE RECORDS SUMMARY | 2025-03-26 10:00 | XMS_ITS | Encounter Summary ---
Author Organization [facility] [employer] [facility] Address [address] [place] [address] Care Team Providers Care Service Delivery Consultant Name Role Phone Ajay Rhodes MD Primary Care Provider [phone] Reason for Referral * MRI (Routine) - Open Specialty Diagnoses / Procedures Referred By Contac t Referred To Contact Diagnoses GBM (glioblastoma multiforme) (CMS/HCC) Procedures MRI BRAIN W WO CONTRAST Randall Triplett MD [address] [place] [address] Phone: tel: fax: Referral ID Status Reason Start Date Expiration Date Visits Re quested Visits Authorized [id number] Open 03/26/2025 04/26/2026 1 1 Encounter Details Date Type Department Care Team (Late st Contact Info) Description 03/26/2025 10:00 AM CDT Office Visit [facility] Oncology and Hematology - [place] Ajay Carroll [address] [address] Randall Triplett MD [facility] [place] [address] GBM (glioblastoma multiforme) (CMS/HCC) (Primary Dx) [...] on file Legal Sex Male 4:14 AM TUNG NUT GROWER Gender Identity Not on file Sexual Orientation Not on file documented as of this encounter Plan of Treatment Upcoming Encounters Date Type Department Care Team (Late st Contact Info) Description 09/27/2025 11:20 AM TUNG NUT GROWER Office Visit [facility] Primary Care [address] [place] [address] Ajay Rhodes MD [address] [place] [address] [address] [place] [address] Scheduled Orders Name Type Priority Associated Diagnoses Orde r Schedule CBC WITH DIFFERENTIAL Lab Stat GBM (glioblastoma multiforme) (CMS/HCC) Expected: 05/03/2025, Expires: 03/26/2026 COMPREHENSIVE METABOLIC PANEL Lab Stat GBM (glioblastoma multiforme) (CMS/HCC) Expected: 05/03/2025, Expires: 03/26/2026 MRI BRAIN W WO CONTRAST Imaging Routine GBM (glioblastoma multiforme) ([facility]/HCC) Expected: 04/30/2025, Expires: 03/26/2026 documented as of this encounter Visit Diagnoses Diagnosis GBM (glioblastoma multiforme) ([facility])- Primary Malignant neoplasm of brain, unspecified site documented in this encounter Care Teams Service Delivery Consultant Relationship Specialty Start Date End Date Ajay Rhodes MD PCP - General 01/19/08 documented as of this encounter
== END 2025-03-26 09:22 | disposition home or self-care (01) ==
LOC: ANHLAB 09:21
PROVIDERS: PCP Internal Medicine Hematology & Oncology; Visit Provider Internal Medicine Hematology & Oncology
DX: C71.9 Malignant neoplasm of brain, unspecified (principal)
CPT/HCPCS: 36415; 80047; 85025; 85055

== ENCOUNTER 2025-05-31 08:33 | Outpatient (CLI) | payer MEDICARE, OTHER, SELFPAY ==
--- NOTE | ~2025-05-31 | MR_ITS ---
EXAMINATION: MR brain/brain stem wo/w con DATE: 05/31/2025 09:25 INDICATION: Glioblastoma. TECHNIQUE: Magnetic resonance imaging (MRI) of the brain and brainstem was performed without and with 13 mL MultiHance intravenous contrast. COMPARISON: Brain MRI 02/05/25, 08/2624, 06/15/2024 FINDINGS: There is chondromalacia in anterior left temporal lobe and in left frontal lobe. There are areas of increased T2-weighted signal intensity in the left-sided cerebral white matter, likely changes of radiation therapy. There are a few foci of increased T2-weighted signal intensity in the right-sided cerebral white matter, which is normal for age. There is no intracranial hemorrhage, acute infarction, or abnormal intracranial mass lesion. There is ex vacuo dilatation of temporal horn of left lateral ventricle. There is mild mucosal thickening in the paranasal sinuses. The orbits are normal. The mastoid air cells are normal. IMPRESSION: 1. 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 2. Stable left-sided cerebral white matter disease, likely changes of radiation therapy. Reviewed, dictated and finalized at location E.
== END 2025-05-31 08:34 | disposition home or self-care (01) ==
PROVIDERS: PCP Internal Medicine; Visit Provider Internal Medicine Hematology & Oncology
DX: C71.9 Malignant neoplasm of brain, unspecified (principal); R90.82 White matter disease, unspecified
CPT/HCPCS: 70553; A9577

== ENCOUNTER 2025-06-07 08:48 | Outpatient (CLI) | payer MEDICARE, OTHER, SELFPAY ==
[2025-06-07 09:02] LABS: Hematocrit 36.6 % (42.0-52.0); Hemoglobin 12.0 g/dL (14.0-18.0); Immature Granulocyte Percent A 0.3 % (0-0.5); Lymphocytes Absolute Auto 0.89 K/mm3 (0.9-3.2); Mean Corpuscular HGB Conc 32.8 g/dl (32-36); Mean Corpuscular Hemoglobin 30.8 pg (26-34); Mean Corpuscular Volume 94.1 fl (80-100); Nucleated Red Blood Cells Absolute Auto 0.000 K/mm3 (0.0-0.012); Nucleated Red Blood Cells Perc 0.0 % (0.0-0.2); Platelet Count Result 127 k/mm3 (150-375); Red Blood Count 3.89 M/mm3 (4.6-6.20); White Blood Count 3.7 K/mm3 (4.5-10.0)
--- OUTSIDE RECORDS SUMMARY | 2025-06-07 09:30 | XMS_ITS | Encounter Summary ---
Author Organization [facility] Address [address] [place] [address] Care Team Providers Care Blockers Skiver Name Role Phone Ajay Rhodes MD Primary Care Provider [phone] Reason for Referral * MRI (Routine) - Open Specialty Diagnoses / Procedures Referred By Contac t Referred To Contact Diagnoses GBM (glioblastoma multiforme) (CMS/HCC) Procedures MRI BRAIN W WO CONTRAST Randall Triplett MD [address] [employer] [address] [place] [address] Phone: tel: fax: [place] [address] Referral ID Status Reason Start Date Expiration Date V isits Requested Visits Authorized [id number] Open [facility] CTS 06/07/2025 07/08/2026 1 1 ILIZER MACHINE OPERATOR Reason for Visit * Reason Comments Follow Up Encounter Details Date Type Department Care Team (Late st Contact Info) Description 06/07/2025 9:30 AM STERILIZER MACHINE OPERATOR Office Visit [facility] Oncology and Hematology [place] [address] [address] [facility] [address] [place] [address] Randall Triplett MD [address] [employer] [address] [employer] [address] [place] [address] GBM (glioblastoma multiforme) (CMS/HCC) (Primary Dx) [...] on file Legal Sex Male 4:14 AM STERILIZER MACHINE OPERATOR Gender Identity Not on file Sexual Orientation Not on file documented as of this encounter Last Filed Vital Signs Vital Sign Reading Time Taken Comments Blood Pressure 140/65 06/07/2025 9:07 AM STERILIZER MACHINE OPERATOR Pulse 57 06/07/2025 9:07 AM STERILIZER MACHINE OPERATOR Temperature 37.6 C (99.7 F) 06/07/2025 9:07 AM STERILIZER MACHINE OPERATOR Respiratory Rate 14 06/07/2025 9:07 AM STERILIZER MACHINE OPERATOR Oxygen Saturation 97% 06/07/2025 9:07 AM STERILIZER MACHINE OPERATOR Inhaled Oxygen Concentration - - Weight 72.1 kg (159 lb) 06/07/2025 9:07 AM STERILIZER MACHINE OPERATOR Height - - Body Mass Index 22.81 03/15/2025 9:48 AM CDT documented in this encounter Progress Notes * Randall Triplett MD - 06/07/2025 9:28 AM CST HEMATOLOGY / ONCOLOGY PROGRESS NOTE Patient Identification: Name: Yahir Cortes Age: 70 y.o. Sex: male : 1955 DIAGNOSIS Glioblastoma [...] Patient came to the office for follow-up visit. He has been taking Temodar and tolerating it well other than occasional nausea. Complain of some left knee and ankle arthralgia. Denies any bleeding and bruising. Denies any headaches and seizures. No other new complaints. Review of system Constitutional: Patient did not mention fevers, sweats, denies any tiredness and fatigue, 9 pound weight gain HEENT: Patient did not mention sinus congestion, hearing or vision problems Respiratory: Patient did not mention cough, dyspnea, wheeze Cardiovascular: Patient did not mention chest pain, exertional chest pressure/discomfort, nausea, syncope, shortness of breath GI: Patient did not mention constipation, diarrhea, dsyphagia, reflux symptoms, vomiting, melena, complain of occasional nausea : Patient did not mention dysuria, frequency, incontinence, urgency Integumentary system: no lymphadenopathy, sweats, flushing Musculoskeletal: Patient not mention: myalgia, denies any arthralgia Neurological: Patient did not mention blurry [...] WBC 2.9 platelet 1 57,000 neutrophils 62% Labs from October 09 showed WBC 3.4 hemoglobin 13.2 platelet 131,000 ANC 2300 creatinine 0.8 Labs from November 13 showed WBC 3.8 hemoglobin 12.2 platelet 131,000 creatinine 1.0 Labs from January 01 showed creatinine 0.9 WBC 3.2 hemoglobin 12.6 platelet 89,000 Labs from February 12 showed WBC 3.2 hemoglobin 13.1 platelet 142,000 creatinine 0.9 Labs from March 26 showed WBC 4.2 hemoglobin 12.3 platelet 190,000 creatinine 1.0 Labs from June 07 showed creatinine 0.9 WBC 3.7 hemoglobin 12 platelet 127,000 ANC 2100 Assessment: Plan: Patient Active Problem List Diagnosis Date Noted 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 Labs stable. He has been tolerating Temodar treatment well that he will continue for long-term. I plan to see him back in 2 monthswith repeat brain MRI. Therapy induced nausea. Continue Zofran as needed. Seizure prophylaxis. He is asymptomatic. He is off the Keppra. Follow-up in 2 months 06/07/2025 Randall Triplett MD ILIZER MACHINE OPERATOR documented in this encounter Plan of Treatment Upcoming Encounters Date Type Department Care Team (Late st Contact Info) Description 08/06/2025 11:15 AM STERILIZER MACHINE OPERATOR Office Visit [facility] Oncology and Hematology - [place] [address] [place] [address] [address] [place] [phone] [place] [address] [place] [address] [address] [place] [phone] 09/27/2025 11:20 AM STERILIZER MACHINE OPERATOR Office Visit [facility] Primary Care [place] [address] [place] [address] Ajay Rhodes MD [address] [facility] [address] [place] [address] Scheduled Orders Name Type Priority Associated Diagnoses Orde r Schedule CBC WITH DIFFERENTIAL Lab Stat GBM (glioblastoma multiforme) (CMS/HCC) Expected: 08/02/2025, Expires: 06/07/2026 COMPREHENSIVE METABOLIC PANEL Lab Stat GBM (glioblastoma multiforme) (CMS/HCC) Expected: 08/02/2025, Expires: 06/07/2026 MRI BRAIN W WO CONTRAST Imaging Routine GBM (glioblastoma multiforme) (CMS/HCC) Expected: 08/07/2025, Expires: 06/07/2026 documented as of this encounter Visit Diagnoses Diagnosis GBM (glioblastoma multiforme) (CMS/HCC)- Primary Malignant neoplasm of brain, unspecified site documented in this encounter Care Teams Blockers Skiver Relationship Specialty Start Date End Date Ajay Rhodes MD PCP - General 01/19/08 documented as of this encounter
--- OUTSIDE RECORDS SUMMARY | 2025-06-07 11:15 | XMS_ITS | Encounter Summary ---
Author Organization [facility] Healthcare Address [address] [place] [address] Care Team Providers Care After School Tutor Name Role Phone Ajay Rhodes MD Primary Care Provider + Rosana Noyola MD Unavailable [phone] Carmina Farah Unavailable [phone] Reason for Visit * Reason Comments PT Treatment * Consultation (Routine) - Authorized Specialty Diagnoses / Procedures Referred By Contac t Referred To Contact Physical Therapy Diagnoses S/P reverse total shoulder arthroplasty, right Lino Nolan MD [address] [place] [address] DR STEPHANIE Borden [address] [address] Phone: tel: fax: [address] [address] Referral ID Status Reason Start Date Expiration Date Visits Requested Visits Authorized [id number] Authorized Evaluate and Treat 01/29/2025 02/28/2026 36 36 Encounter Details Date Type Department Care Team (Late st Contact Info) Description 06/07/2025 11:15 AM HYSTER DRIVER Therapy [facility] Physical Therapy - [place] [address] Robbin Adamson, PT S/P reverse total shoulder arthroplasty, right (Primary Dx) Social History Tobacco Use Types Packs/Day Years Used Date Smoking Tobacco: Never Smokeless Tobacco: Never Alcohol Use Standard Drinks/Week Comments Yes 0 (1 standard drink = 0.6 oz pur e alcohol) PHQ-2 Answer Date Recorded PHQ-2 Total Score (If total score is 3 or more points, staff should administer the PHQ-9) 0 04/25/2025 AUDIT-C Answer Date Recorded Q1: How often do you have a drink containing alc ohol? 2-4 times a month 05/10/2025 Average Number of Drinks Not on file 025 Frequency of Binge Drinking Not on file 04/2025 Personal Safety Answer Date Recorded Have you ever been in or are you currently in a harmful physical or emotional relationship or is someone making you feel afraid or unsafe? Denies 04/25/2025 Sex and Gender Information Value Date Recorded Sex Assigned at Not on file Legal Sex Male 6:15 PM HYSTER DRIVER Gender Identity Not on file Sexual Orientation Not on file documented as of this encounter Progress Notes * Robbin Adamson, PT - 06/07/2025 11:15 AM CST Physical Therapy Visit 06/07/25 Yahir Cortes 1955, male [id number] Diagnosis Plan 1. S/P reverse total shoulder arthroplasty, right Lino Nolan MD [address] [place] [address] [place] [address] Subjective: Gigi reports that his shoulder and arm have been a little sore. Pain: 09/11 Objective: Treatment Provided: MHP to right shoulder PROM to right shoulder Sub maximal isometrics Chest press with cane Shoulder flexion with cane Wall slides flexion Green t-band resisted rows and extension UBE x 4 min AROM to right elbow and wrist Pendulum exercises. Assessment: Tolerated treatment fairly well. Plan: Plan to continue per POC Start Time: 1110 End Time: 1148 Robbin Adamson PT ER DRIVER documented in this encounter Plan of Treatment Not on file documented as of this encounter Visit Diagnoses Diagnosis S/P reverse total shoulder arthroplasty, right- Primary documented in this encounter Care Teams After School Tutor Relationship Specialty Start Date End Date Ajay Rhodes MD PCP - General 12/19/19 Rosana Noyola MD Consulting Physician Gastroenterology 12/21/19 Carmina Farah PA [address] [place] [address] [place] [address] Physician Song Plugger Orthopedic Surgery 04/26/25 documented as of this encounter
--- OUTSIDE RECORDS SUMMARY | 2025-06-07 17:32 | XMS_ITS | Encounter Summary ---
Author Organization [facility] Address [address] [place] [address] Care Team Providers Care Civil Project Engineer Name Role Phone Ajay Rhodes MD Primary Care Provider [phone] Encounter Details Date Type Department Care Team (Late st Contact Info) Description 06/23/2024 Specialty Pharmacy [facility] [address] [place] [address] Bernadine Strauss, PHARMACIST Social History [...] on file Legal Sex Male 4:14 AM STUDENT LIAISON OFFICER Gender Identity Not on file Sexual Orientation Not on file documented as of this encounter Plan of Treatment Upcoming Encounters Date Type Department Care Team (Late st Contact Info) Description 08/06/2025 11:15 AM STUDENT LIAISON OFFICER Office Visit [facility] Oncology and Hematology - [place] [address] [facility] [address] [place] [address] Randall Triplett MD [address] [facility] [address] [place] [address] 09/27/2025 11:20 AM STUDENT LIAISON OFFICER Office Visit [facility] Primary Care [address] [place] [address] Ajay Rhodes MD [address] [place] [address] [place] [place] [address] documented as of this encounter Visit Diagnoses Not on filedocumented in this encounter Care Teams Civil Project Engineer Relationship Specialty Start Date End Date Ajay Rhodes MD PCP - General 01/19/08 documented as of this encounter
--- OUTSIDE RECORDS SUMMARY | 2025-06-07 17:32 | XMS_ITS | Encounter Summary ---
Author Organization [facility] Address [address] [place] [address] Care Team Providers Care Lens Edge Grinder Machine Name Role Phone Ajay Rhodes MD Primary Care Provider [phone] Reason for Visit * Reason Comments Question Encounter Details Date Type Department Care Team (Late st Contact Info) Description 02/17/2024 Telephone [facility] Primary Care [address] [place] [address] Ajay Rhodes MD [address] [facility] [place] [place] [address] Question Social History Tobacco Use [...] on file Legal Sex Male 4:14 AM BACK GRINDER Gender Identity Not on file Sexual Orientation Not on file documented as of this encounter Miscellaneous Notes * Telephone Encounter - Marzena Faria I - 02/17/2024 10:29 AM CDT Appt set * Telephone Encounter - Tiffanie Ag - 02/17/2024 9:30 AM CDT Copied from [facility] #[id number]. Topic: Patient or Caregiver Communication Request >> Feb 17, 2024 9:25 AM Tiffanie Sapp wrote: Patient or Caregiver requesting advice Caller: Vinita gentile Patient/Caregiver Callback Number: [phone] Call Notes: Caller states the patient had [...] st Contact Info) Description 08/06/2025 11:15 AM BACK GRINDER Office Visit [facility] Oncology and Hematology - [place] [address] [facility] [address] [place] [address] Randall Triplett MD [address] [facility] [address] [place] [address] 09/27/2025 11:20 AM BACK GRINDER Office Visit [facility] Care [address] [place] [address] [address] Ajay Rhodes MD [address] [place] [address] [place] [address] documented as of this encounter Visit Diagnoses Not on filedocumented in this encounter Care Teams Lens Edge Grinder Machine Relationship Specialty Start Date End Date Ajay Rhodes MD PCP - General 01/19/08 documented as of this encounter
--- OUTSIDE RECORDS SUMMARY | 2025-06-07 17:32 | XMS_ITS | Encounter Summary ---
Author Organization [facility] Address [address] [place] [address] Care Team Providers Care Wheel Worker Name Role Phone Ajay Rhodes MD Primary Care Provider [phone] Encounter Details Date Type Department Care Team (Late Contact Info) Description 08/05/2007 Outpatient Historical [facility] Internal Medicine [address] [place] [address] [address] Ajay Rhodes MD [address] [place] [address] [address] [place] [address] Social History Tobacco Use Types Packs/Day Years Used Date Smoking Tobacco: Never Assessed Sex and Gender Information Value Date Recorded Sex Assigned at Not on file Legal Sex Male 4:14 AM REVIEWER SALES Gender Identity Not on file Sexual Orientation Not on file documented as of this encounter Plan of Treatment Upcoming Encounters Date Type Department Care Team (Late st Contact Info) Description 08/06/2025 11:15 AM REVIEWER SALES Office Visit [facility] Oncology and Hematology - [place] [address] [place] [address] [facility] [address] [place] [address] [place] [address] [place] [address] [place] [address] 09/27/2025 11:20 AM REVIEWER SALES Office Visit [facility] Primary Care [address] [place] [address] Ajay Rhodes MD [address] [place] [address] documented as of this encounter Visit Diagnoses Not on filedocumented in this encounter Care Teams Wheel Worker Relationship Specialty Start Date End Date Ajay Rhodes MD PCP - General 01/19/08 documented as of this encounter
--- OUTSIDE RECORDS SUMMARY | 2025-06-07 17:32 | XMS_ITS | Encounter Summary ---
Author Organization [facility] Address [address] [place] [address] Care Team Providers Care Laminator Preforms Name Role Phone Ajay Rhodes MD Primary Care Provider [phone] Encounter Details Date Type Department Care Team (Late Contact Info) Description 01/20/2007 Outpatient Historical [facility] Internal Medicine [address] [address] Ajay Rhodes MD [address] [place] [address] Social History Tobacco Use Types Packs/Day Years Used Date Smoking Tobacco: Never Assessed Sex and Gender Information Value Date Recorded Sex Assigned at Not on file Legal Sex Male 4:14 AM MIXER PIGMENT Gender Identity Not on file Sexual Orientation [...] Department Care Team (Late Contact Info) Description 08/06/2025 11:15 AM MIXER PIGMENT Office Visit [facility] Oncology and Hematology - [place] [address] [facility] [address] [place] [address] Randall Triplett MD [address] [facility] [address] [place] [phone] 09/27/2025 11:20 AM MIXER PIGMENT Office Visit [facility] Primary Care [address] [place] [address] Ajay Rhodes MD [address] [place] [address] [address] [place] [address] documented as of this encounter Visit Diagnoses Not on filedocumented in this encounter Care Teams Laminator Preforms Relationship Specialty Start Date End Date Ajay Rhodes MD PCP - General 01/19/08 documented as of this encounter
--- OUTSIDE RECORDS SUMMARY | 2025-06-07 17:32 | XMS_ITS | Encounter Summary ---
Author Organization [facility] Address [address] [place] [address] Care Team Providers Care Tire Vulcanizer Name Role Phone Ajay Rhodes MD Primary Care Provider [phone] Reason for Visit * Reason Comments Patient Communication Provider Call Encounter Details Date Type Department Care Team (Late st Contact Info) Description 04/20/2025 Telephone [facility] Primary Care [address] [place] [address] Ajay Rhodes MD [address] [facility] [address] [place] [address] Patient Communication; Provider Call Social History Tobacco Use Types Packs/Day Years [...] file Legal Sex Male 4:14 AM CORE LOADER Gender Identity Not on file Sexual Orientation Not on file documented as of this encounter Miscellaneous Notes * Telephone Encounter - Alvina Nicole - 04/24/2025 2:41 PM CDT Spoke with Courtney and she states she did receive my message and also just received a form that is different from the surgical clearance form that was signed on 04/19/2025 and is confused. Courtney mentioned she sent over the surgical clearance form on 04/20/2025 along with the pretesting lab results and now the patient is scheduled for surgery on 04/25/2025 with nothing showing that Dr Rhodes seen the papers and still ok with the surgery after seeing the pretesting lab results. Courtney states she started last week calling to see if we received the forms and Dr. Rhodes is in office to review and sign the surgical clearance. She states nobody has called her from our office and only speaks with the call center everytime, not with anyone in this office. Courtney states she is frustrated of how our office has handled this and how it interrupts patient care on their end. I apologized to Courtney and letting her know I was not aware of another form was in this office. I was unaware that there was a surgical clearance form in [place] until I searched for it in 04/20/2025 part of the list. Courtney states she did hear in the message that Dr Rhodes will not be in office until 04/26/2025 and will let me know if the provider's at that office is willing to continue with the surgery without Dr Rhodes looking at the pretesting lab results or if they have to cancel the appointment. At this time I do still have the forms on provider's desk to be signed until further notice. * Telephone Encounter - Dottie Rodriguez - 04/24/2025 1:46 PM CDT Copied from [facility] #[id number]. Topic: Mtbcszxa-Uc-Rrbmaorq Call >> Apr 24, 2025 1:42 PM Dottie Borden wrote: Caller is requesting to speak with Clinical Care Team. Caller Name: Courtney ([facility] Orthopedic) Callback Number: [phone] Is the caller a Physician, Nurse Practitioner or Physician Section Plotter Operator? No Call Notes: Caller is stating that she's needing some clarification on the patients surgical clearance. Is this addressing an immediate patient care need? Yes Transferred to PCN line and Shantelle answered call. * Telephone Encounter - Goran Hayes - 04/24/2025 12:03 PM CDT Copied from [facility] #[id number]. Topic: Paofbdeh-Xz-Kisvdklr Call >> Apr 24, 2025 11:58 AM Goran Victor wrote: Caller is requesting to speak with Clinical Care Team. Caller Name: Courtney with Dr. Nolan's office Callback Number: [phone] Is the caller a Physician, Nurse Practitioner or Physician Section Plotter Operator? No Call Notes: Patient is scheduled for surgery tomorrow and they need clearance sent over ROB. Is this addressing an immediate patient care need? Yes Transferred to PCN line and Brie answered call, then informed agent to call PAINTER MIRROR line. Transferred to PAINTER MIRROR line and Shantelle answered. * Telephone Encounter - Prieto Pereira - 04/24/2025 9:12 AM CDT Copied from [facility] #[id number]. Topic: CPA Information Request >> Apr 24, 2025 9:11 AM Prieto Sapp wrote: Caller is returning phone call from clinic. Caller Name: Yahir Cortes Patient/Caregiver Callback Number: Telephone Information: Patient Has Additional Questions Are the credentials of the caregiver who talked to the patient pricing strategist? No Call Notes: Patient/Caller requires a call back to discuss the medical clearance forms, patient is scheduled for surgery tomorrow and the office has been asking for the forms to be filled out by Dr Rhodes by noon today as then they will have to cancel surgery for tomorrow. Please advise. * Telephone Encounter - Ish Valencia - 04/24/2025 8:21 AM CDT Copied from [facility] #[id number]. Topic: Ssglyvaz-Kc-Kwburkdd Call >> Apr 24, 2025 8:18 AM Ish Yeh wrote: Caller is requesting to speak with Clinical Care Team. Caller Name: Courtney/Dr Nolan's Office Callback Number: [phone] Is the caller a Physician, Nurse Practitioner or Physician Section Plotter Operator? No Call Notes: Courtney is wanting to know if Dr Rhodes is going to fill out th medical clearance form for patient to have surgery tomorrow and if they don't hear back by noon today they will have to cancel the surgery.a Is this addressing an immediate patient care need? No * Telephone Encounter - Ny High - 04/23/2025 1:32 PM CDT Copied from [facility] #[id number]. Topic: Uqtsroot-Nv-Umxnvelo Call >> Apr 23, 2025 1:27 PM Ny Borden wrote: Caller is requesting to speak with Clinical Care Team. Caller Name: Courtney with Dr. Lino Nolan Callback Number: [phone] Is the caller a Physician, Nurse Practitioner or Physician Section Plotter Operator? No Call Notes: States faxed over a medical clearance forma and pre-op testing that needs to be signed by Dr. Rhodes. Patient has surgery scheduled for 04/25/25 FAX: [phone] Please call and advise. Is this addressing an immediate patient care need? No * Telephone Encounter - Ish Valencia - 04/20/2025 3:51 PM CDT Copied from [facility] #[id number]. Topic: CPA Information Request >> Apr 20, 2025 3:46 PM Ish Yeh wrote: Caller is returning phone call from clinic. Caller Name: Courtney/Dr Nolan's office Patient/Caregiver Callback Number: [phone] Patient Has Additional Questions Today Dr Nolan's legal secretary receptionist faxed over a form for Dr Carmelo azevedo out for patient's reverse right shoulder surgery on 04/25 and they want to know if the office received it? Are the credentials of the caregiver who talked to the patient pricing strategist? No Call Notes: Patient/Caller requires a call back to discuss forms to be filled out before surgery on04/25. documented in this encounter Plan of Treatment Upcoming Encounters Date Type Department Care Team (Late st Contact Info) Description 08/06/2025 11:15 AM CORE LOADER Office Visit [facility] Oncology and Hematology - [place] [address] [place] [address] [facility] [address] [place] [phone] Randall Triplett MD [address] [facility] [address] [place] [address] 09/27/2025 11:20 AM CORE LOADER Office Visit [facility] [address] [place] [address] Ajay Rhodes MD [address] [place] [address] [address] [place] [address] documented as of this encounter Visit Diagnoses Not on filedocumented in this encounter Care Teams Tire Vulcanizer Relationship Specialty Start Date End Date Ajay Rhodes MD PCP - General 01/19/08 documented as of this encounter
--- OUTSIDE RECORDS SUMMARY | 2025-06-07 17:32 | XMS_ITS | Encounter Summary ---
Author Organization [facility] Address [address] [place] [address] Care Team Providers Care Director Of Undergraduate Admissions Name Role Phone Ajay Rhodes MD Primary Care Provider [phone] Encounter Details Date Type Department Care Team (Late st Contact Info) Description 10/25/2007 Orders Only [facility] Internal Medicine [address] [address] Ajay Rhodes MD [address] [place] [address] Social History Tobacco Use Types Packs/Day Years Used Date Smoking Tobacco: Never Assessed Sex and Gender Information Value Date Recorded Sex Assigned at Not on file Legal Sex Male 4:14 AM WASTE OIL PUMPER Gender Identity Not on file Sexual Orientation [...] 10/25/2007. LAB ORDERS: 3 mo Order number: [id number] Test Ordered: COMPREHENSIVE METABOLIC PANEL & GFR 1112 Order number: [id number] Test Ordered: LIPID PANEL 1078 Order number: [id number] Test Ordered: PSA, TOTAL 1002 Patient Education: [...] st Contact Info) Description 08/06/2025 11:15 AM WASTE OIL PUMPER Office Visit [facility] Oncology and Hematology - [place] [address] [address] Randall Triplett MD [address] [facility] [address] [place] [phone] 09/27/2025 11:20 AM WASTE OIL PUMPER Office Visit [facility] Care [address] [place] [address] Ajay Rhodes MD [address] [place] [address] [address] [place] [address] documented as of this encounter Visit Diagnoses Not on filedocumented in this encounter Care Teams Director Of Undergraduate Admissions Relationship Specialty Start Date End Date Ajay Rhodes MD PCP - General 01/19/08 documented as of this encounter
--- OUTSIDE RECORDS SUMMARY | 2025-06-07 17:32 | XMS_ITS | Encounter Summary ---
Author Organization [facility] Address [address] [place] [address] Care Team Providers Care Dance Director Name Role Phone Ajay Rhodes MD Primary Care Provider [phone] Encounter Details Date Type Department Care Team (Late Contact Info) Description 07/05/2006 Outpatient Historical [facility] Internal Medicine [address] [address] Ajay Rhodes MD [address] [place] [address] [address] [place] [address] Social History Tobacco Use Types Packs/Day Years Used Date Smoking Tobacco: Never Assessed Sex and Gender Information Value Date Recorded Sex Assigned at Not on file Legal Sex Male 4:14 AM VALIDATION INTERN Gender Identity Not on file Sexual Orientation Not on file documented as of this encounter Plan of Treatment Upcoming Encounters Date Type Department Care Team (Late st Contact Info) Description 08/06/2025 11:15 AM VALIDATION INTERN Office Visit [facility] Oncology and Hematology - [place] [address] [place] [address] [facility] [address] [place] [address] [place] [address] [place] [address] [place] [address] 09/27/2025 11:20 AM VALIDATION INTERN Office Visit [facility] Primary Care [address] [place] [address] Ajay Rhodes MD [address] [place] [address] documented as of this encounter Visit Diagnoses Not on filedocumented in this encounter Care Teams Dance Director Relationship Specialty Start Date End Date Ajay Rhodes MD PCP - General 01/19/08 documented as of this encounter
--- OUTSIDE RECORDS SUMMARY | 2025-06-07 17:32 | XMS_ITS | Encounter Summary ---
Author Organization [facility] Address [address] [place] [address] Care Team Providers Care Medical Logistics Specialist Name Role Phone Ajay Rhodes MD Primary Care Provider [phone] Encounter Details Date Type Department Care Team (Late Contact Info) Description 11/18/2006 Outpatient Historical [facility] Internal Medicine [address] [address] Ajay Rhodes MD [address] [place] [address] Social History Tobacco Use Types Packs/Day Years Used Date Smoking Tobacco: Never Assessed Sex and Gender Information Value Date Recorded Sex Assigned at Not on file Legal Sex Male 4:14 AM MELON PACKER Gender Identity Not on file Sexual Orientation [...] (Late Contact Info) Description 08/06/2025 11:15 AM MELON PACKER Office Visit [facility] Oncology and Hematology - [place] [address] [facility] [address] [place] [address] Randall Triplett MD [address] [facility] [address] [place] [phone] 09/27/2025 11:20 AM MELON PACKER Office Visit [facility] Primary Care [address] [place] [address] Ajay Rhodes MD [address] [place] [address] [address] [place] [address] documented as of this encounter Visit Diagnoses Not on filedocumented in this encounter Care Teams Medical Logistics Specialist Relationship Specialty Start Date End Date Ajay Rhodes MD PCP - General 01/19/08 documented as of this encounter
--- OUTSIDE RECORDS SUMMARY | 2025-06-07 17:32 | XMS_ITS | Encounter Summary ---
Author Organization [facility] Address [address] [place] [address] Care Team Providers Care Stereo Operator Name Role Phone Phil Hancock MD Primary Care Provider [phone] Encounter Details Date Type Department Care Team (Late st Contact Info) Description 01/20/2007 Orders Only [facility] Internal Medicine [address] [address] Phil Hancock MD [address] [place] [address] Social History Tobacco Use Types Packs/Day Years Used Date Smoking Tobacco: Never Assessed Sex and Gender Information Value Date Recorded Sex Assigned at Not on file Legal Sex Male 4:14 AM DRUG AND ALCOHOL COUNSELOR Gender Identity Not on file Sexual Orientation Not on file documented as of this encounter Progress Notes * Phil Hancock MD - 12/21/2007 4:44 PM CDT CENTRAL TEST SCHEDULING DATE: JAN 20, 2007 Note created by: Shruthi Hart E 03:13 p Patient Name : LIBERTAD CORTES Address: [address] [place] [address] [facility] [address] D.O.B: 1955 SSN: [id number] Parent/Guardian if applicable: Patient Insurance: [employer] BLUE SHIELD ID#: [id number] Group#: ORDER(S) #: [id number] mri c spine BEST TO CALL CELL. [phone] BEST TIME TO CALL: ANYTIME. MAY WE LEAVE MESSAGE AT THAT NUMBER: YES, LEAVE MESSAGE. PLEASE SCHEDULE THE APPOINTMENT AT THE FOLLOWING LOCATION: [place] [phone]. TEST PRIORITY: 2 - 7 DAYS. SPECIAL SCHEDULING INSTRUCTIONS: needs prep ORDERING PHYSICIAN: PHIL HANCOCK MD OFFICE PSYCHOLOGY PROFESSOR & PHONE: Shruthi Hart E ORDER PRINTED BY: Courtney Meza L FOR SCHEDULING USE ONLY: FIRST ATTEMPT Date:JAN 24, 2007 Norma Medrano T 03:02 p Left message on Recorder. SECOND ATTEMPT: Date:JAN 25, 2007 Noa Valentino 01:31 p Spoke with Patient. [facility] [phone]. APPOINTMENT DATE : 02/03/2007 ( @ 4:00 pm) The appointment was scheduled by Noa Valentino at [phone] [facility] NN * Phil Hancock MD - 12/21/2007 4:44 PM CDT SPECIALIST REFERRAL REQUEST DATE: JAN 20, 2007 Note created by: eSema Jiang C 03:16 p Patient Name : LIBERTAD CORTES Address: [address] [place] [address] D.O.B: 1955 SSN: [id number] Parent/Guardian if applicable: Patient Insurance: [employer] Policy#: [id number] Group #: Best To Call : [phone] Best Time to Call : ANYTIME. May We Leave Message At That Number : YES, LEAVE MESSAGE. Referring to: PAIN MANAGEMENT Dr. Marcos Gorman ph: [phone]. Dr. Edmund Manriquez ph: [phone]. PATIENT DIAGNOSIS: . 723.1-NECK PAIN ORDERING PHYSICIAN : PHIL HANCOCK MD PRIORITY OF REFERRAL: AT PATIENT'S CONVENIENCE. OFFICE PSYCHOLOGY PROFESSOR & PHONE: Seema Jiang C FOR SCHEDULING [...] palpable. MUSCULOSKELETAL EXAM: post neck tender central, tire recapper ok, sensation ok, ls tender, left shoulder anttender but full rom ASSESSMENT/PLAN: 715.90-OSTEOARTHROSIS UNSPECIFIED discussed, check mri, pain mgt 723.1-NECK PAIN MEDICATIONS: VICODIN ES ORAL TABLET 7.5-750 MG, 1 Every Six Hours, As Needed, 90 Dispensed, 2 Fills, status: CONTINUED, 01/20/2007. LAB ORDERS: Order number: [id number] Test Ordered: [facility] 461.9-SINUSITIS UNSPECIFIED add med MEDICATIONS: ZYRTEC ORAL TABLET 10 MG, 1 Every Day, 20 Dispensed, status: NEW PRESCRIPTION, 01/20/2007. NASONEX NASAL SUSPENSION 50 MCG/ACT, 2 Every Morning, 2 Dispensed, status: NEW PRESCRIPTION, 01/20/2007. SPECIALTY REFERRAL: PAIN MANAGEMENT Dr. Marcos Gorman ph: [phone]. Dr. Edmund Manriquez ph: [phone].[facility] RETURN VISIT : Instructed to call if not improving. Electronically Signed by: Phil Hancock MD on , January 20, 2007 documented in this encounter Plan of Treatment Upcoming Encounters Date Type Department Care Team (Late st Contact Info) Description 08/06/2025 11:15 AM DRUG AND ALCOHOL COUNSELOR Office Visit [facility] Oncology and Hematology - [place] [address] [facility] [address] [place] [address] Randall Triplett MD [address] [facility] [address] [place] [address] 09/27/2025 11:20 AM DRUG AND ALCOHOL COUNSELOR Office Visit [facility] Primary Care [place] [address] [address] [place] [address] Phil Hancock MD [address] [place] [address] [address] [place] [address] documented as of this encounter Visit Diagnoses Not on filedocumented in this encounter Care Teams Stereo Operator Relationship Specialty Start Date End Date Phil Hancock MD PCP - General 01/19/08 documented as of this encounter
--- OUTSIDE RECORDS SUMMARY | 2025-06-07 17:32 | XMS_ITS | Encounter Summary ---
Author Organization [facility] Address [address] [place] [address] Care Team Providers Care Mortgage Clerk Name Role Phone Ajay Rhodes MD Primary Care Provider Encounter Details Date Type Department Care Team (Late Contact Info) Description 10/25/2007 Outpatient Historical [facility] Internal Medicine [address] [address] Ajay Rhodes MD [address] [place] [address] [address] [place] [address] Social History Tobacco Use Types Packs/Day Years Used Date Smoking Tobacco: Never Assessed Sex and Gender Information Value Date Recorded Sex Assigned at Not on file Legal Sex Male 4:14 AM SWING GRINDER Gender Identity Not on file Sexual Orientation Not on file documented as of this encounter Plan of Treatment Upcoming Encounters Date Type Department Care Team (Late st Contact Info) Description 08/06/2025 11:15 AM SWING GRINDER Office Visit [facility] Oncology and Hematology - [place] [address] [place] [address] [facility] [address] [place] [address] [place] [address] [place] [address] [place] [address] 09/27/2025 11:20 AM SWING GRINDER Office Visit [facility] Primary Care [address] [place] [address] Ajay Rhodes MD [address] [place] [address] documented as of this encounter Visit Diagnoses Not on filedocumented in this encounter Care Teams Mortgage Clerk Relationship Specialty Start Date End Date Ajay Rhodes MD PCP - General 01/19/08 documented as of this encounter
--- OUTSIDE RECORDS SUMMARY | 2025-06-07 17:32 | XMS_ITS | Encounter Summary ---
Author Organization [facility] Address [address] [place] [address] Care Team Providers Care Wedger Name Role Phone Ajay Rhodes MD Primary Care Provider [phone] Reason for Visit * Reason Comments Medication Assistance Encounter Details Date Type Department Care Team (Late st Contact Info) Description 02/28/2024 Telephone [facility] Primary Care [address] [place] [address] [place] [address] Ajay Rhodes MD [address] [facility] [place] [address] [place] [address] Medication Assistance Social History Tobacco [...] on file Legal Sex Male 4:14 AM DOPE FIRER Gender Identity Not on file Sexual Orientation Not on file documented as of this encounter Miscellaneous Notes * Telephone Encounter - Chelsey Singleton RN - 02/28/2024 11:53 AM CDT Date of last visit addressing condition(s) being treated: 02/23/24 Recent Visits Date Type Provider Dept 02/23/24 Office Visit Ajay Rhodes MD [facility] 10/21/23 Office Visit Ajay Rhodes MD [facility] 10/04/23 Office Visit Ajay Rhodes MD [facility] 03/31/23 Office Visit Ajay Rhodes MD [facility] 11/23/22 Office Visit Ajay Rhodes MD [facility] Showing recent visits within past 540 days with a meds authorizing provider and meeting all other requirements Future Appointments Date Type Provider Dept 04/11/24 Appointment Ajay Rhodes MD [facility] 05/17/24 Appointment Ajay Rhodes MD [facility] Showing future appointments within next 365 days with a meds authorizing provider and meeting all other requirements Correct Pharmacy: Yes Medication below pended for you. Medication (Ask patient/caregiver to spell if possible): HYDROcodone- acetaminophen (NORCO) 10-325 mg Tablet Preferred Pharmacy: [place] [id number] [place] [address] Patient/Caregiver Callback Number: [phone] (home) Call Notes: Requesting refill early will be leaving to go out of town this Wednesday please advise request HYDROcodone-acetaminophen (NORCO) 10-325 mg Tablet [facility] [address] [place] [address] only this location Chelsey Singleton, RN * Telephone Encounter - Maira Lopez - 02/28/2024 11:24 AM CDT Copied from [facility] #[id number]. Topic: Medication Request >> Feb 28, 2024 11:22 AM Maira Yeh wrote: Caller is requesting: Medication - New Request (Not Currently Taking) Medication (Ask patient/caregiver to spell if possible): HYDROcodone- acetaminophen (NORCO) 10-325 mg Tablet Preferred [facility]acy: [facility] [id number] [place] [address] Patient/Caregiver Callback Number: [phone] (home) Call Notes: Requesting refill early will be leaving to go out of town this Wednesday please advise request HYDROcodone-acetaminophen (NORCO) 10-325 mg Tablet [facility] [address] [place] [address] only this location documented in this encounter Plan of Treatment Upcoming Encounters Date Type Department Care Team (Late st Contact Info) Description 08/06/2025 11:15 AM DOPE FIRER Office Visit [facility] Oncology and Hematology - [place] [address] [place] [address] [address] [place] [address] [place] [address] [place] [address] [address] [place] [address] 09/27/2025 11:20 AM DOPE FIRER Office Visit [facility] Primary Care [address] [place] [address] Ajay Rhodes MD [address] [phone] documented as of this encounter Visit Diagnoses Diagnosis Other osteoarthritis involving multiple joints documented in this encounter Care Teams Wedger Relationship Specialty Start Date End Date Ajay Rhodes MD PCP - General 01/19/08 documented as of this encounter
--- OUTSIDE RECORDS SUMMARY | 2025-06-07 17:32 | XMS_ITS | Encounter Summary ---
Author Organization [facility] Address [address] [place] [address] Care Team Providers Care Television Installer Helper Name Role Phone Ajay Rhodes MD Primary Care Provider Encounter Details Date Type Department Care Team (Late Contact Info) Description 07/05/2006 Outpatient Historical [facility] Internal Medicine [address] [address] Ajay Rhodes MD [address] [place] [address] [address] [place] [address] Social History Tobacco Use Types Packs/Day Years Used Date Smoking Tobacco: Never Assessed Sex and Gender Information Value Date Recorded Sex Assigned at Not on file Legal Sex Male 4:14 AM PROFESSIONAL HOUSING CONSULTANT Gender Identity Not on file Sexual Orientation Not on file documented as of this encounter Plan of Treatment Upcoming Encounters Date Type Department Care Team (Late st Contact Info) Description 08/06/2025 11:15 AM PROFESSIONAL HOUSING CONSULTANT Office Visit [facility] Oncology and Hematology - [place] [address] [place] [address] [facility] [address] [place] [address] [place] [address] [place] [address] [place] [address] 09/27/2025 11:20 AM PROFESSIONAL HOUSING CONSULTANT Office Visit [facility] Primary Care [address] [place] [address] Ajay Rhodes MD [address] [place] [address] documented as of this encounter Visit Diagnoses Not on filedocumented in this encounter Care Teams Television Installer Helper Relationship Specialty Start Date End Date Ajay Rhodes MD PCP - General 01/19/08 documented as of this encounter
--- OUTSIDE RECORDS SUMMARY | 2025-06-07 17:32 | XMS_ITS | Encounter Summary ---
Author Organization [facility] Address [address] [place] [address] Care Team Providers Care Car Deliverer Name Role Phone Ajay Rhodes MD Primary Care Provider [phone] Encounter Details Date Type Department Care Team (Late st Contact Info) Description 02/04/2007 Orders Only [facility] Internal Medicine [address] [address] Ajay Rhodes MD [address] [place] [address] Social History Tobacco Use Types Packs/Day Years Used Date Smoking Tobacco: Never Assessed Sex and Gender Information Value Date Recorded Sex Assigned at Not on file Legal Sex Male 4:14 AM PRINCIPAL AUTOMATION ENGINEER Gender Identity Not on file Sexual Orientation Not on file documented as of this encounter Progress Notes * Ajay Rhodes MD - 12/21/2007 9:39 AM CDT TIME:09:29 am PATIENT`S HOME PHONE: PATIENT`S WORK PHONE: PATIENT`S INSURANCE: [place] [facility] WHO TOOK THE CALL: Priyanka Marcelino R GENERAL INFORMATION WHO CALLED: Pharmacy called. PHARMACY NUMBER: [phone] 02/04/07 request refill of Hydrocodone/APAP 7.5/750 mg [...] st Contact Info) Description 08/06/2025 11:15 AM PRINCIPAL AUTOMATION ENGINEER Office Visit [facility] Oncology and Hematology - [place] [address] [facility] [address] [place] [address] Randall Triplett MD 2[address] [facility] [address] [place] [address] 09/27/2025 11:20 AM PRINCIPAL AUTOMATION ENGINEER Office Visit [facility] Primary Care [address] [place] [address] Ajay Rhodes MD [address] [place] [address] [address] [place] [address] documented as of this encounter Visit Diagnoses Not on filedocumented in this encounter Care Teams Car Deliverer Relationship Specialty Start Date End Date Ajay Rhodes MD PCP - General 01/19/08 documented as of this encounter
--- OUTSIDE RECORDS SUMMARY | 2025-06-07 17:32 | XMS_ITS | Encounter Summary ---
Author Organization [facility] Address [address] [place] [address] Care Team Providers Care Home And School Visitor Name Role Phone Phil Hancock MD Primary Care Provider [phone] Encounter Details Date Type Department Care Team (Late st Contact Info) Description 11/18/2006 Orders Only [facility] Internal Medicine [address] [address] Phil Hancock MD [address] [place] [address] Social History Tobacco Use Types Packs/Day Years Used Date Smoking Tobacco: Never Assessed Sex and Gender Information Value Date Recorded Sex Assigned at Not on file Legal Sex Male 4:14 AM HOMICIDE INVESTIGATOR Gender Identity Not on file Sexual Orientation Not on file documented as of this encounter Progress Notes * Phil Hancock MD - 12/22/2007 4:02 PM CDT CENTRAL TEST SCHEDULING DATE: NOV 18, 2006 Note created by: Shruthi Hart E 05:14 p Patient Name : LIBERTAD Ranulfo ROSETTE Address: [address] [place] [address] [facility] [address] D.O.B: 1955 SSN: [id number] Parent/Guardian if applicable: Patient Insurance: [employer] CROSS BLUE SHIELD ID#: [id number] Group#: ORDER(S) #: [id number] xray c spine PLEASE SCHEDULE THE APPOINTMENT AT THE FOLLOWING LOCATION: [facility] [phone]. SPECIAL SCHEDULING INSTRUCTIONS: walkin ORDERING PHYSICIAN: PHIL HANCOCK MD OFFICE TERMITE CONTROL SERVICE REPRESENTATIVE & PHONE: Shruthi Hart E * Phil [...] NECK: lat m tender, no central tender, bacteriology professor ok EXTREMITIES: BILATERAL LOWER EXTREMITIES: No misalignment [...] status: CONTINUED, 11/18/2006. LAB ORDERS: Order number: [id number] Test Ordered: XRAY C SPINES, ROUTINE (5 VIEWS) W/OBL V70.0-ROUTINE GENERAL MEDICAL EXAMINATION check lab discussed LAB ORDERS: Order number: [id number] Test Ordered: CBC W/ DIFFERENTIAL 3150 Order number: [id number] Test Ordered: COMPREHENSIVE METABOLIC PANEL & GFR 1112 Order number: [id number] Test Ordered: LIPID PANEL 1078 Order number: [id number] Test Ordered: TSH 1720 Order number: [id number] Test Ordered: PSA, TOTAL 1002 RETURN VISIT : Instructed to call if not improving. Electronically Signed by: Phil Hancock MD on October documented in this encounter Plan of Treatment Upcoming Encounters Date Type Department Care Team (Late st Contact Info) Description 08/06/2025 11:15 AM HOMICIDE INVESTIGATOR Office Visit [facility] Oncology and Hematology - [place] [address] [facility] [address] [place] [phone] Randall Triplett MD 2[address] [facility] [address] [place] [address] 09/27/2025 11:20 AM HOMICIDE INVESTIGATOR Office Visit [facility] Primary Care [address] [place] [address] Phil Hancock MD 7 [facility] [address] [place] [address] documented as of this encounter Visit Diagnoses Not on filedocumented in this encounter Care Teams Home And School Visitor Relationship Specialty Start Date End Date Phil Hancock MD PCP - General 01/19/08 documented as of this encounter
--- OUTSIDE RECORDS SUMMARY | 2025-06-07 17:32 | XMS_ITS | Encounter Summary ---
Author Organization [facility] Address [address] [place] [address] Care Team Providers Care Seamark Advanced Operator Maintainer Name Role Phone Ajay Rhodes MD Primary Care Provider Encounter Details Date Type Department Care Team (Late Contact Info) Description 10/25/2007 Outpatient Historical [facility] Internal Medicine [address] [address] Ajay Rhodes MD [address] [place] [address] [address] [place] [address] Social History Tobacco Use Types Packs/Day Years Used Date Smoking Tobacco: Never Assessed Sex and Gender Information Value Date Recorded Sex Assigned at Not on file Legal Sex Male 4:14 AM DOLLY DRIVER Gender Identity Not on file Sexual Orientation Not on file documented as of this encounter Plan of Treatment Upcoming Encounters Date Type Department Care Team (Late st Contact Info) Description 08/06/2025 11:15 AM DOLLY DRIVER Office Visit [facility] Oncology and Hematology - [place] [address] [place] [address] [facility] [address] [place] [address] [place] [address] [place] [address] [place] [address] 09/27/2025 11:20 AM DOLLY DRIVER Office Visit [facility] Primary Care [address] [place] [address] Ajay Rhodes MD [address] [place] [address] documented as of this encounter Visit Diagnoses Not on filedocumented in this encounter Care Teams Seamark Advanced Operator Maintainer Relationship Specialty Start Date End Date Ajay Rhodes MD PCP - General 01/19/08 documented as of this encounter
--- OUTSIDE RECORDS SUMMARY | 2025-06-07 17:32 | XMS_ITS | Clinical Summary ---
Author Organization [facility] Address [address] [place] [address] Care Team Providers Care Bag Presser Name Role Phone Ajay Rhodes MD Primary Care Provider [phone] Allergies Active Allergy Reactions Criticality Noted Date [...] mouth daily. 90 Tablet 3 024 Active mometasone (ELOCON) 0.1 % Cream [...] area daily. 50 Gram 3 025 Active azelastine (ASTELIN) 137 mcg/actuation nasal spray Administer 2 Sprays in each nostril 2 times daily. 30 mL 3 025 Active cyclobenzaprine (FLEXERIL) 10 mg tablet TAKE 1 TABLET BY MOUTH 3 TIMES DAILY NEEDED FOR SPASM. 30 Tablet 3 025 Active gabapentin (NEURONTIN) 300 mg capsule Take 1 Capsule (300 mg) by mouth 2 times daily. 180 Capsule 3 Active EPINEPHrine (EPIPEN) 0.3 mg/0.3 mL Auto-Injector Inject 0.3 mL (0.3 mg) by intramuscular injection 1 time daily as needed for Anaphylaxis. 1 Each 2 Active ondansetron (ZOFRAN ODT) 8 mg Tablet, Rapid Dissolve Dissolve 1 tablet on top of tongue then swallow with saliva every 8 hours as needed for nausea or vomiting 30 Tablet 1 Active HYDROcodone-acet aminophen (NORCO) 10-325 mg TabletIndication s:Other osteoarthritis involving multiple joints Take 1 Tablet by mouth every 4 hours as needed (as needed for pain). DX Osteoarthritis multiple joints Max Daily Amount: 6 Tablets 180 Tablet 025 Active temozolomide (TEMODAR) 5 mg capsule TAKE 1 CAP BY MOUTH ONCE A DAY BEFORE BREAKFAST W/ 20MG & 250MG FOR 5 DAYS EVERY 28 DAYS 5 Capsule 11 025 Active temozolomide (TEMODAR) 250 mg capsule TAKE 1 CAP BY MOUTH ONCE A DAY BEFORE BREAKFAST W/ 5MG & 20MG FOR 5 DAYS EVERY 28 DAYS 5 Capsule 11 025 Active temozolomide (TEMODAR) 20 mg capsule TAKE 1 CAP BY MOUTH ONCE A DAY BEFORE BREAKFAST W/ 5MG & 250MG FOR 5 DAYS EVERY 28 DAYS 5 Capsule 11 025 Active temozolomide (TEMODAR) 250 mg capsule TAKE 1 CAPSULE BY MOUTH DAILY BEFORE BREAKFAST FOR 5 DAYS EVERY 28 DAYS. W/ 5MG & 20MG 5 Capsule 025 2024 Discontinued temozolomide (TEMODAR) 5 mg capsule TAKE 1 CAPSULE BY MOUTH DAILY BEFORE BREAKFAST FOR 5 DAYS EVERY 28 DAYS. W/ 20MG & 250MG 5 Capsule 025 2024 Discontinued temozolomide (TEMODAR) 20 mg capsule TAKE 1 CAPSULE BY MOUTH DAILY BEFORE BREAKFAST FOR 5 DAYS EVERY 28 DAYS. W/ 5MG & 250MG 5 Capsule 025 2024 Discontinued(A lternate therapy prescribed) HYDROcodone-acet aminophen (NORCO) 10-325 mg TabletIndication s:Other osteoarthritis involving multiple joints Take 1 Tablet by mouth every 4 hours as needed (as needed for pain). DX Osteoarthritis multiple joints Max Daily Amount: 6 Tablets 180 Tablet 025 2024 Discontinued(R eorder) temozolomide (TEMODAR) 20 mg capsule TAKE 1 CAPSULE BY MOUTH DAILY BEFORE BREAKFAST FOR 5 DAYS EVERY 28 DAYS. W/ 5MG & 250MG 5 Capsule 025 2024 Discontinued temozolomide (TEMODAR) 250 mg capsule TAKE 1 CAPSULE BY MOUTH DAILY BEFORE BREAKFAST FOR 5 DAYS EVERY 28 DAYS. W/ 5MG & 20MG 5 Capsule 2024 Discontinued temozolomide (TEMODAR) 5 mg capsule TAKE 1 CAPSULE BY MOUTH DAILY BEFORE BREAKFAST FOR 5 DAYS EVERY 28 DAYS. W/ 20MG & 250MG 5 Capsule 2024 Discontinued Active Problems Patient Care Coordination [...] Encounters Date Type Department Care Team Description 06/07/2025 9:30 AM SALES ESTIMATOR Office Visit [facility] Oncology and Hematology - [place] [address] [place] [address] Randall Triplett MD GBM (glioblastoma multiforme) ([facility]) (Primary Dx) 06/04/2025 Orders Only [facility] Oncology and Hematology - [place] [address] [place] [address] Randall Triplett MD GBM (glioblastoma multiforme) ([facility]) (Primary Dx) 06/01/2025 Orders Only [facility] Oncology and Hematology - [place] [address] [place] [address] Randall Triplett MD 05/29/2025 Refill [facility] Oncology and Hematology [facility] [address] [place] [address] Randall Triplett MD 05/14/2025 Refill [place] [address] [place] [address] Ajay Rhodes MD Other osteoarthritis involving multiple joints 05/09/2025 Refill [facility] Oncology and Hematology [place] [address] [place] [address] Randall Triplett MD 04/26/2025 Abstract [place] [address] [place] [address] Ajay Rhodes MD 04/24/2025 Abstract [place] [address] [place] [address] Ajay Rhodes MD 04/20/2025 Telephone [place] [address] [place] [address] Ajay Rhodes MD Patient Communication; Provider Call 04/13/2025 Refill [place] [address] [place] [address] Ajay Rhodes MD Other osteoarthritis involving multiple joints 04/04/2025 Refill [facility] Oncology and Hematology [place] [address] [place] [address] Randall Trilpett MD 03/27/2025 Orders Only [facility] Oncology and Hematology [place] [address] [place] [address] Randall Triplett MD 03/26/2025 10:00 AM CDT Office Visit [facility] Oncology and Hematology [place] [address] [place] [address] Randall Triplett MD GBM (glioblastoma multiforme) ([facility]) (Primary Dx) 03/15/2025 10:00 AM CDT Office Visit [address] [place] [address] Ajay Rhodes MD Other hyperlipidemia (Primary Dx); Vitamin D deficiency; Abnormal glucose; Myalgia; Screening PSA (prostate specific antigen); Osteoarthritis of left shoulder, unspecified osteoarthritis type; Glioblastoma multiforme of brain ([facility]); Frail elderly 03/13/2025 Refill [facility] [address] [place] [address] [address] [place] [address] Ajay Rhodes MD Other osteoarthritis involving multiple [...] COVID-19 VACCINE - EMERGENCY USE AUTHORIZATION, MRNA, [id number](PF) 30 MCG/0.3 ML IM SUSP 03/22/2021,11/18/2020 12/09/2020 (PREVNAR 20)(6 WKS UP) PNEUM OCOCCAL CONJUGATE VACCINE 20-VALENT (PCV20), POLYSACCHARIDE [id number] CONJUGATE, ADJUVANT 0.5 ML (PF) IM 05/25/2022 [...] file Legal Sex Male 4:14 AM SALES ESTIMATOR Gender Identity Not on file Sexual Orientation Not on file Last Filed Vital Signs Vital Sign Reading Time Taken Comments Blood Pressure 140/65 06/07/2025 9:07 AM SALES ESTIMATOR Pulse 57 06/07/2025 9:07 AM SALES ESTIMATOR Temperature 37.6 C (99.7 F) 06/07/2025 9:07 AM SALES ESTIMATOR Respiratory Rate 14 06/07/2025 9:07 AM SALES ESTIMATOR Oxygen Saturation 97% 06/07/2025 9:07 AM SALES ESTIMATOR Inhaled Oxygen Concentration - - Weight 72.1 kg (159 lb) 06/07/2025 9:07 AM SALES ESTIMATOR Height 177.8 cm (5' 10) 03/15/2025 9:48 AM CDT Body Mass Index 22.81 03/15/2025 9:48 AM CDT Plan of Treatment Upcoming Encounters Date Type Department Care Team (Late st Contact Info) Description 08/06/2025 11:15 AM SALES ESTIMATOR Office Visit [facility] Oncology and Hematology - [place] [address] [place] [address] [address] [place] [phone] [place] [address] [place] [address] [address] [place] [address] 09/27/2025 11:20 AM SALES ESTIMATOR Office Visit [facility] Primary Care [address] [place] [address] Ajay Rhodes MD [address] [place] [address] [address] [place] [address] Health Maintenance Due Date Last Done Comments FIT-DNA Q 3 years 2002 Flex Sig/CT Colonography Q 5 years 2002 RSV VACCINE (60+ or ) (1 - Risk 50-74 years 1-dose series) 2007 FIT/FOBT Q 1 year 06/16/2011 06/16/2010, 07/05/2006 INFLUENZA VACCINE (#1) 2025 , 03/31/2023, 05/25/2022, Additional history exists COVID-19 Vaccine (3 - 2024-2 6 season) 2025 03/22/2021, 11/18/2020 COLORECTAL SCREENING 06/21/2025 06/21/2015, 06/21/2015, 06/21/2015, Additional history exists Colorectal Cancer Screening 06/21/2025 DTAP/TDAP/TD VACCINES (3 - T d or Tdap) 03/24/2031 03/24/2021, 08/27/2011 PNEUMOCOCCAL VACCINE 50+ YEARS Completed 05/25/2022 , 03/19/2021 ZOSTER VACCINE Completed 03/15/2023, 11/26/2018 Medical Devices Implanted Type Area Bobbin Cleaner Hand Device Identifier Shelf Expiration Date Model / Serial / Lot Duragen + 3x3in Dp-1033 - [id number] Implanted:Qty : 1 on 03/02/2024 by Chelsey Bowens MD at [facility] Graft Left: Cranial [employer] [id number] 09/29/2026 [id number] / / [id number] Hemostatic Surgiflo 8ml W/ Thrombin 2994 - [id number] Implanted:Qty : 1 on 03/02/2024 by Chelsey Bowens MD at [facility] Hemostatic Left: Brain J&J- [employer] [id number] 05/01/2025 2994 / / [id number] Hemostatic Surgiflo 8ml W/ Thrombin 2994 - [id number] Implanted:Qty : 1 on 03/02/2024 by Chelsey Bowens MD at [facility] Hemostatic Left: Brain J&J- [employer] [id number] 04/01/2025 2994 / / [id number] Agent Hemostat Surgicel 4x8in 1952s - [id number] Implanted:Qty : 1 on 03/02/2024 by Chelsey Bowens MD at [facility] Hemostatic Left: Brain J&J- [employer] 07/01/2028 1952S / / [id number] Hemostatic Surgicel 1x2in 1960 - [id number] Implanted:Qty : 1 on 03/02/2024 by Chelsey Bowens MD at [facility] Hemostatic Left: Brain J&J- [employer] 09/01/20261960 / / [id number] Hemostatic Surgifoam Sz100 1973 - [id number] Implanted:Qty : 1 on 03/02/2024 by Chelsey Bowens MD at [facility] Hemostatic Left: Brain J&J- [employer] 12/02/20271973 / / [id number] Mesh Ventralex 1.7in Sm Circ [id number] - [id number] Implanted:Qty : 1 on 01/21/2024 by Jimenez Linares MD at [facility] Mesh N/A: Umbilical BARD DAVOL [id number] 08/29/2025 [id number] / / [id number] Plate Matrxneuro Bur Hl Cvr 04.502.021 - Sno Load Or Sterilized Date On Horner Implanted:Qty : 1 on 03/02/2024 by Chelsey Bowens MD at [facility] Plate Left: Cranial J&J- DEPUY SYNTHES 04.502.021 / NO LOAD OR STERILIZED DATE ON HORNER / Plate Matrxneuro Cranial 04.502.062 - Sno Load Or Sterilized Date On Horner Implanted:Qty : 2 on 03/02/2024 by Chelsey Bowens MD at [facility] Plate Left: Cranial J&J- DEPUY SYNTHES 04.502.062 / NO LOAD OR STERILIZED DATE ON HORNER / Screw Matrixneuro Sd .503.103.01 - Sno Load Or Sterilized Date On Horner Implanted:Qty : 2 on 03/02/2024 by Chelsey Bowens MD at [facility] Screw Left: Cranial J&J- DEPUY SYNTHES [id number]. / NO LOAD OR STERILIZED DATE ON HORNER / Description:All Synthes cran ial hardware, Requisition, [id number]. Screw Matrixneuro Sd . - Sno Load Or Sterilized Date On Horner Implanted:Qty : 4 on 03/02/2024 by Chelsey Bowens MD at [facility] Screw Left: Cranial J&J- DEPUY SYNTHES . / NO LOAD OR STERILIZED DATE ON HORNER / Procedures Procedure Name Priority Date/Time Associated Diagnosis Comments MRI BRAIN W WO CONTRAST Routine 05/31/20 9:44 AM CDT BASIC METABOLIC PANEL Routine 03/26/2025 10:27 AM CDT CBC WITH AUTODIFFERENTIAL Routine 2024 10:22 AM CDT ENDOSCOPY, COLON, SCREENING Routine 06/21/2015 POC OCCULT BLOOD UP TO 3 CARDS Routine 06/16/2010 Abdominal pain from Last 3 Months or Most Recently Relevant to Health Maintenance Results * MRI BRAIN W WO CONTRAST (05/31/2025 9:44 AM CDT) Anatomical Region Laterality Modality Head Magnetic Resonan ce Randall Triplett MD MR ORDERABLES Final Result * BASIC METABOLIC PANEL (03/26/2025 10:27 AM CDT) Blood Randall Triplett MD CHEMISTRY ORDERABLES Final Resu lt * CBC WITH AUTODIFFERENTIAL (03/26/2025 10:22 AM CDT) Blood Randall Triplett MD HEMATOLOGY [...] Maintenance Insurance MEDICARE PART A AND B [facility] RX ALVARES PLANS (INTERNAL) [facility] Plans RX GENERIC COMMERCIAL Commercial RX ALLWIN DATA Medicare Part B MEDICARE PART A AND B [facility] Advance Directives For more information, please contact: [phone] Documents on File Type Date Recorded Patient Retirement Manager Expl anation Advance Directive POA 03/07/2024 [...] 6:59 AM 03/18/2020 2:16 PM Care Teams Bag Presser Relationship Specialty Start Date End Date Ajay Rhodes MD PCP - General 01/19/08
--- OUTSIDE RECORDS SUMMARY | 2025-06-07 17:32 | XMS_ITS | Encounter Summary ---
Author Organization [facility] Address [address] [place] [address] Care Team Providers Care Technical Producer Name Role Phone Phil Hancock MD Primary Care Provider [phone] Encounter Details Date Type Department Care Team (Late st Contact Info) Description 08/05/2007 Orders Only [facility] Internal Medicine [address] [address] Phil Hancock MD [address] [place] [address] Social History Tobacco Use Types Packs/Day Years Used Date Smoking Tobacco: Never Assessed Sex and Gender Information Value Date Recorded Sex Assigned at Not on file Legal Sex Male 4:14 AM HOSIERY MATER Gender Identity Not on file Sexual Orientation Not on file documented as of this encounter Progress Notes * Phil Hancock MD - 12/14/2007 4:48 PM CDT SPECIALIST REFERRAL REQUEST DATE: AUG 05, 2007 Note created by: Seema Jiang C 03:27 p Patient Name : LIBERTAD CORTES Address: [address] [place] [address]. [address] D.O.B: 1955 SSN: [id number] Parent/Guardian if applicable: Patient Insurance: [facility] Policy#: [id number] Group #: Best To Call : [phone] Best Time to Call : ANYTIME. May We Leave Message At That Number : YES, LEAVE MESSAGE. Referring to: GASTROENTEROLOGY Dr. Khanh [place] ph: [phone] fax: [phone]. Dr. Rosana Noyola ph: [phone] fax: [phone]. Reason for referral: colonoscopy ORDERING PHYSICIAN : PHIL HANCOCK MD PRIORITY OF REFERRAL: AT PATIENT'S CONVENIENCE. OFFICE HAND SPLITTER & PHONE: Seema Jiang C FOR SCHEDULING [...] PRESSURE: 120/70 Right Arm Sitting NURSE NAME: Chari PriyankaBernice TOBACCO USE Patient does not currently use [...] SPECIALTY REFERRAL: GASTROENTEROLOGY Dr. Rosana Noyola ph: [phone] fax: [phone]. Dr[address] Khanh [place] ph: [phone] fax: [phone].colonoscopy Patient Education: Risks, benefits, and possible side [...] st Contact Info) Description 08/06/2025 11:15 AM HOSIERY MATER Office Visit [facility] Oncology and Hematology - [place] [address] [place] [address] [address] [place] [address] [place] [address] [place] [address] [address] [place] [address] 09/27/2025 11:20 AM HOSIERY MATER Office Visit [facility] Primary Care [place] [address] [place] [address] Phil Hancock MD [address] [place] [address] [address] [place] [address] documented as of this encounter Visit Diagnoses Not on filedocumented in this encounter Care Teams Technical Producer Relationship Specialty Start Date End Date Phil Hancock MD PCP - General 01/19/08 documented as of this encounter
--- OUTSIDE RECORDS SUMMARY | 2025-06-07 17:32 | XMS_ITS | Encounter Summary ---
Author Organization [facility] Address [address] [place] [address] Care Team Providers Care Computer Numerical Control Operator Name Role Phone Ajay Rhodes MD Primary Care Provider [phone] Encounter Details Date Type Department Care Team (Late Contact Info) Description 05/12/[address] [facility] Internal Medicine [address] [address] Ajay Rhodes MD [address] [place] [address] Social History Tobacco Use Types Packs/Day Years Used Date Smoking Tobacco: Never Assessed Sex and Gender Information Value Date Recorded Sex Assigned at Not on file Legal Sex Male 4:14 AM CEMENT MASON MAINTENANCE Gender Identity Not on file Sexual [...] (Late Contact Info) Description 08/06/2025 11:15 AM CEMENT MASON MAINTENANCE Office Visit [facility] Oncology and Hematology - [place] [address] [facility] [address] [place] [address] Randall Triplett MD [address] [facility] [address] [place] [phone] 09/27/2025 11:20 AM CEMENT MASON MAINTENANCE Office Visit [facility] Primary Care [address] [place] [address] Ajay Rhodes MD [address] [place] [address] [address] [place] [address] documented as of this encounter Visit Diagnoses Not on filedocumented in this encounter Care Teams Computer Numerical Control Operator Relationship Specialty Start Date End Date Ajay Rhodes MD PCP - General 01/19/08 documented as of this encounter
--- OUTSIDE RECORDS SUMMARY | 2025-06-07 17:32 | XMS_ITS | Encounter Summary ---
Author Organization [facility] Address [address] [place] [address] Care Team Providers Care Boom Operator Name Role Phone Ajay Rhodes MD Primary Care Provider [phone] Encounter Details Date Type Department Care Team (Late Contact Info) Description 07/05/2006 Outpatient Historical [facility] Internal Medicine [address] [address] Ajay Rhodes MD [address] [place] [address] [address] [place] [address] Social History Tobacco Use Types Packs/Day Years Used Date Smoking Tobacco: Never Assessed Sex and Gender Information Value Date Recorded Sex Assigned at Not on file Legal Sex Male 4:14 AM JIG BORING MACHINE SET UP OPERATOR Gender Identity Not on file Sexual Orientation Not on file documented as of this encounter Plan of Treatment Upcoming Encounters Date Type Department Care Team (Late st Contact Info) Description 08/06/2025 11:15 AM JIG BORING MACHINE SET UP OPERATOR Office Visit [facility] Oncology and Hematology - [place] [address] [place] [address] [facility] [address] [place] [address] [place] [address] [place] [address] [place] [address] 09/27/2025 11:20 AM JIG BORING MACHINE SET UP OPERATOR Office Visit [facility] Primary Care [address] [place] [address] Ajay Rhodes MD [address] [place] [address] documented as of this encounter Visit Diagnoses Not on filedocumented in this encounter Care Teams Boom Operator Relationship Specialty Start Date End Date Ajay Rhodes MD PCP - General 01/19/08 documented as of this encounter
--- OUTSIDE RECORDS SUMMARY | 2025-06-07 17:32 | XMS_ITS | Encounter Summary ---
Author Organization [facility] Address [address] [place] [address] Care Team Providers Care Forming Machine Operator Name Role Phone Phil Hancock MD Primary Care Provider [phone] Encounter Details Date Type Department Care Team (Late st Contact Info) Description 04/06/2007 Orders Only [facility] Internal Medicine [address] [address] Phil Hancock MD [address] [place] [address] Social History Tobacco Use Types Packs/Day Years Used Date Smoking Tobacco: Never Assessed Sex and Gender Information Value Date Recorded Sex Assigned at Not on file Legal Sex Male 4:14 AM WHITE WORK CLEANER Gender Identity Not on file Sexual Orientation Not on file documented as of this encounter Progress Notes * Phil Hancock MD - 12/16/2007 4:10 PM CDT TIME:11:33 am PATIENT`S HOME PHONE: PATIENT`S WORK PHONE: PATIENT`S INSURANCE: [facility] WHO TOOK THE CALL: Priyanka Marcelino R GENERAL INFORMATION WHO CALLED: Pharmacy called. PHARMACY NUMBER: [phone] 04/06/07 Request refill of Hydrocodone 7.5/750 mg. [...] p Patient Name : LIBERTAD CORTES Address: [address] [place] [address] D.O.B: 1955 SSN: [id number] Parent/Guardian if applicable: Patient Insurance: [facility] Policy#: [id number] Group #: Best To Call : [phone] Best Time to Call : ANYTIME. May We Leave Message At That Number : YES, LEAVE MESSAGE. Referring to: PHYSICAL THERAPY/REHAB [facility]- PH: [phone] PATIENT DIAGNOSIS: . 723.1-NECK PAIN ORDERING PHYSICIAN : PHIL HANCOCK MD PRIORITY OF REFERRAL: AT PATIENT'S CONVENIENCE. OFFICE FUEL ASSEMBLER & PHONE: Seema Jiang C FOR SCHEDULING [...] mri's try PT SPECIALTY REFERRAL: PHYSICAL THERAPY/REHAB [facility] Patient Education: Risks, benefits, and possible side effects of medication(s) were reviewed with the patient. RETURN VISIT : Instructed to call if not improving. Electronically Signed by: Phil Hancock MD on Wednesday, April 06, 2007 documented in this encounter Plan of Treatment Upcoming Encounters Date Type Department Care Team (Late st Contact Info) Description 08/06/2025 11:15 AM WHITE WORK CLEANER Office Visit [facility] Oncology and Hematology - [place] [address] [facility] [address] [place] [address] Randall Triplett MD [address] [facility] [address] [place] [address] 09/27/2025 11:20 AM WHITE WORK CLEANER Office Visit [facility] Primary Care [address] [place] [address] Phil Hancock MD [address] [place] [address] documented as of this encounter Visit Diagnoses Not on filedocumented in this encounter Care Teams Forming Machine Operator Relationship Specialty Start Date End Date Phil Hancock MD PCP - General 01/19/08 documented as of this encounter
--- OUTSIDE RECORDS SUMMARY | 2025-06-07 17:32 | XMS_ITS | Clinical Summary ---
Author Organization [facility] Address [address] [place] [address] Care Team Providers Care Sales Producer Name Role Phone Ajay Rhodes MD Primary Care Provider + Rosana Noyola MD Unavailable [phone] Carmina Farah Unavailable [phone] Allergies No known active allergies Medications azelastine (ASTELIN) 137 mcg (0.1 %) nasal spray Administer 2 sprays into affected nostril(s) 2 (two) times a day 06/14/20 23 Active cyclobenzaprine (FLEXERIL) 10 mg tablet TAKE 1 TABLET BY MOUTH 3 TIMES DAILY NEEDED FOR SPASM. 09/22/19 25 Active mometasone (ELOCON) 0.1 % cream Apply topically daily 07/06/20 24 Active bacitracin-neomyc in-polymyxin B (Triple Antibiotic) ointment Apply topically 2 (two) times a day 07/06/20 24 Active ondansetron ODT (ZOFRAN-ODT) 8 mg disintegrating tablet Dissolve 1 tablet on top of tongue then swallow with saliva every 8 hours as needed for nausea or vomiting 07/03/20 24 Active gabapentin (NEURONTIN) 300 mg capsule Take 1 capsule (300 mg total) by mouth 2 (two) times a day 03/15/20 25 Active cholecalciferol 25 mcg (1,000 unit) tablet Take 1 tablet (1,000 Units total) by mouth daily Active ascorbic acid (VITAMIN C) 500 mg tablet,chewable Take 1 tablet/chew tab (500 mg total) by mouth 2 (two) times a day 60 tablet/chew tab 04/26/20 Active aspirin 81 mg enteric coated tabletIndications :prevention of thrombosis Take 1 tablet (81 mg total) by mouth 2 (two) times a day for 14 days 28 tablet 04/26/20 Active celecoxib (CeleBREX) 200 mg capsule Take 1 capsule (200 mg total) by mouth 2 (two) times a day for 14 days 28 capsule 04/26/20 Active senna-docusate (PERICOLACE) 8.6-50 mg 1-2 times daily as needed for constipation 60 tablet 1 04/26/20 Active Additional Information Patient not taking.Reported on 05/10/2025 HYDROcodone-aceta minophen (NORCO) 5-325 mg per tabletIndications :Pain Take 1-2 tablets by mouth every 4 (four) hours as needed for pain 40 tablet 05/10/20 Active ferrous sulfate 325 mg (65 mg of elemental iron) tabletIndications :Iron Deficiency Anemia Take 1 tablet (325 mg total) by mouth daily with breakfast 30 tablet 04/26/20 25 025 HYDROcodone-aceta minophen (NORCO) 5-325 mg per tabletIndications :Pain Take 1-2 tablets by mouth every 4 (four) hours as needed for pain 40 tablet 04/26/20 25 025 Discontinu ed(Reorder ) Active Problems Problem Noted Date Diagnosed Date Rotator cuff tear arthropathy of right shoulder 04/25/2025 Status post reverse total shoulder replacement, right 04/24/2025 Rotator cuff arthropathy, right 03/29/2025 Syncope, unspecified syncope type 10/15/2023 Assessment & [...] no significant findings on echocardiogram, 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 HLD (hyperlipidemia) 06/02/2021 Risk factors for obstructive sleep apnea 021 Primary osteoarthritis, left shoulder 04/30/2021 Overview (04/30/2021): Added automatically from request for surgery [id number] Multiple closed fractures of ribs of left [...] (12/19/2019): Added automatically from request for surgery [id number] Arthralgia of shoulder 08/26/2012 Duodenal ulcer Encounters Date Type Department Care Team Description 06/07/2025 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 Therapy [facility] [place] [address] [id number] Robbin Adamson, PT S/P reverse total shoulder arthroplasty, right (Primary Dx) 05/30/2025 8:45 AM CDT Therapy [facility] [place] [address] [id number] Robbin Adamson, PT S/P reverse total shoulder arthroplasty, right (Primary Dx) 05/18/2025 11:15 AM CDT Therapy [facility] [place] [address] [id number] Robbin Adamson, PT S/P reverse total shoulder arthroplasty, right (Primary Dx) 05/10/2025 1:20 PM CDT Ancillary Procedure [facility] Imaging at [address] [phone] Aftercare following right shoulder joint replacement surgery 05/10/2025 1:15 PM CDT Office Visit [facility] Orthopedic and Sports Medicine [address] [place] [phone] Carmina Farah PA Aftercare following right shoulder joint replacement surgery (Primary Dx) 05/09/2025 9:30 AM CDT Therapy [facility] [place] [address] Robbin Adamson, PT S/P reverse total shoulder arthroplasty, right 05/09/2025 Plan of Care Documentation [facility] [place] [address] 05/01/2025 [facility] Post Discharge Follow up phone call [facility] [address] [place] [phone] Grecia Perry 04/25/2025 9:44 AM CDT Anesthesia Event [facility] [address] [place] [address] Naveed Narayan MD 04/25/2025 9:05 AM CDT - 04/25/2025 11:35 AM CDT Surgery [facility] [address] [place] [address] Lino Nolan MD Right reverse total shoulder arthroplasty 04/25/2025 6:59 AM CDT - 04/26/2025 10:47 AM CDT Hospital Encounter [facility] [address] [place] [phone] Lino Nolan MD Rotator cuff arthropathy, right Discharge Disposition: Discharge to home or self care 04/24/2025 3:00 PM CDT Lab [address] [phone] Pre-operative exam 04/24/2025 Orders Only [facility] Orthopedics and Sports Medicine [address] [place] [address] Lino Nolan MD Pre-operative exam (Primary Dx) 04/20/2025 8:30 AM CDT Lab [address] [place] [address] Pre-operative exam; Rotator cuff arthropathy, right 04/20/2025 8:27 AM CDT - 04/20/2025 11:59 PM CDT Hospital Encounter [facility] [address] [place] [address] Pre-operative exam Discharge Disposition: Discharge to home or self care 04/20/2025 8:27 AM CDT - 04/20/2025 11:59 PM CDT Hospital Encounter [facility] [address] [place] [address] Pre-operative exam Discharge Disposition: Discharge to home or self care 03/30/2025 Orders Only [facility] [address] [place] [phone] Lino Nolan MD Rotator cuff arthropathy of right shoulder (Primary Dx) from Last 3 Months Immunizations Immunization Administration Dates Next Due Hib (PRP-T) 03/19/2021 Influenza, Unspecified 05/02/2021 Meningococcal B, OMV (Bexsero) 03/19/2021 Meningococcal Conjugate (Menveo) 03/19/2021 Pneumococcal Polysaccharide PPV23 03/19/2021 Surgical History Surgery Date Site/Laterality Comments EMBOLIZATION VASCULAR EXTRAV ASATION ARTERIAL VENOUS OR LYMPHATIC 03/17/2021 N/A BRAIN SURGERY 03/02/2024 craniotimy TOTAL SHOULDER REPLACEMENT 06/03/2021 HERNIA REPAIR KNEE ARTHROSCOPY 03/18/2020 Left Medical History Medical History Date Comments Arthritis Umbilical hernia Cancer (HCC) Glioblastoma- ra diation Hyperlipidemia Kidney stone Social History Tobacco Use Types Packs/Day Years [...] on file Legal 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 Gender Identity Not on file Sexual Orientation Not on file Last Filed Vital Signs Vital Sign Reading Time Taken Comments Blood Pressure 155/74 05/10/2025 1:29 PM CDT Pulse 89 05/10/2025 1:29 PM CDT Temperature 36.5 C (97.7 F) 04/26/2025 7:33 AM CDT Respiratory Rate 18 04/26/2025 7:33 AM CDT Oxygen Saturation 97% 04/26/2025 7:33 AM CDT Inhaled Oxygen Concentration - - Weight 73.9 kg (163 lb) 05/10/2025 1:29 PM CDT Height 177.8 cm (5' 10) 05/10/2025 1:29 PM CDT Body Mass Index 23.39 05/10/2025 1:29 PM CDT Plan of Treatment Health Maintenance Due Date Last Done Comments Hepatitis C Screening 1955 Prostate Cancer Screening-PSA 1955 Hepatitis B Screening 1975 Pneumococcal vaccine 65+ (2 of 2 - PCV) 03/19/2022 03/19/2021 Well Visit 65+ 2022 Covid-19 Vaccine (3 - 2024-2 6 season) 2025 03/25/2021, 11/18/2020 Influenza Vaccine (#1) 2025 , 05/02/2021, 04/24/2021, Additional history exists Colon Cancer Screening-Colonoscopy 06/21/2025 06/21/2015, 06/21/2015 Depression Screening 03/29/2026 03/29/2025 Fall Risk Assessment 04/25/2026 04/25/2025 DTaP/Tdap/Td Vaccine (3 - Td or Tdap) 03/24/2031 03/24/2021, 08/27/2011 Colon Cancer Screening-CT Colonography Discontinued 06/21/2015, 06/21/2015 Colon Cancer Screening-DNA Stool Discontinued 06/21/20 15, 06/21/2015 Colon Cancer Screening-FIT Discontinued 06/21/2015, Colon Cancer Screening-Sigmoidoscopy Discontinued 06/21/2015, 06/21/2015 Zoster Vaccine Completed 03/15/2023, 11/26/2018 Medical Devices Implanted Type Area Forming Fixer Device Identifier Shelf Expiration Date Model / Serial / Lot [employer] 6191-1-010 Simplex P Radiopaque Full Dose Cement Bone Sterile - [id number] Implanted:Qty: 1 on 06/03/2021 by Lino Granger MD at [facility] Bone Cement Left: Shoulder [employer] 09/01/2022 6191-1-0 10 / / [id number] Sldr 27x6mm Pegs Circular Glenoid W/ In-Line Peripheral - [id number] Implanted:Qty: 1 on 06/03/2021 by Lino Granger MD at [facility] Other - see comments Left: Shoulder Shoulder Innovations [employer] [id number] 10/10/2025 [id number] 06 / / [id number] Ar[employer]rex Inc Implant Pin Kit Glenoid Ar-9607s - Sn/A - [id number] Implanted:Qty: 1 on 04/25/2025 at [facility] Pin Right: Shoulder [employer] [id number] 11/29/2029 AR-9607S / N/A / [id number] Description:This item is not an implant. Plug Azur Vascular Embolization Medium - [id number] Implanted:Qty: 1 on 03/17/2021 at [facility] Amulyte Marie [id number] 09/01/2023 [id number] 0 / / [id number] Penumbra Inc Rbypod8 Debby Pod 8mm 60cm Complex Occulusion Device Coil Embolization - [id number] Implanted:Qty: 1 on 03/17/2021 at [facility] [employer] 04/23/2028 [id number] / / [id number] Vas[employer] Ltd Kclt-06 Device 6fr Closure Celt Acd Vascular Sterile Latex Free Disposable Ashkan - [id number] Implanted:Qty: 1 on 03/17/2021 at [facility] [employer]TD [id number] 08/12/2023 [facility] -06 / / [id number] Shoulder Innovations Llc [id number] Head Shoulder Offset Humeral 18mm X 44mm - [id number] Implanted:Qty: 1 on 06/03/2021 by Lino Granger MD at [facility] Left: Shoulder Shoulder [employer]ations LLC [id number] 09/26/2025 [id number] 44 / / [id number] Shoulder [employer]ations Llc [id number] Stem Shoulder Porous Titanium Humeral Small - [id number] Implanted:Qty: 1 on 06/03/2021 by Lino Granger MD at [facility] Left: Shoulder Shoulder [employer]ations LLC [id number] 03/10/2026 [id number] 20 / / [id number] Arthrex Inc Univers Revers Biosync 39mm 24mm Glenosphere Taper Baseplate [id number]-[id number] - [id number] Implanted:Qty: 1 on 04/25/2025 by Lino Nolan MD at [facility] Right: Shoulder [employer] [id number] 05/01/2029 AR-9564- 2439 / / [id number] [employer]rex Inc Univers Revers 39mm Suture Shoulder Neutral Cup Humeral Sterile Dy-[id number]-[id number] - [id number] Implanted:Qty: 1 on 04/25/2025 by Lino Nolan MD at [facility] Right: Shoulder [employer] Inc [id number] 09/29/2029 AR-9502F -39CPC / / [id number] Ar[employer]rex Inc Univers Revers Shoulder 10 Stem Humeral Sterile Ar-9501-10s - [id number] Implanted:Qty: 1 on 04/25/2025 by Lino Nolan MD at [facility] Right: Shoulder [employer] [id number] 11/29/2028 AR-9501- 10S / / [id number] Ar[employer]rex Inc Univers Revers 39mm Shoulder +3mm Medium Insert Humeral Sterile Ar-9503m-03 - [id number] Implanted:Qty: 1 on 04/25/2025 by Lino Nolan MD at [facility] Right: Shoulder [employer] Inc [id number] 04/01/2029 AR-9503M -.[id number] Arthrex Inc Component Glenoid Modular Post Reverse 20mm Ar-9582-20 - [id number] Implanted:Qty: 1 on 04/25/2025 by Lino Nolan MD at [facility] Right: Shoulder [employer] Inc [id number] 05/01/2029 AR-9582- 20 / / [id number] Ar[employer]rex Inc Baseplate 24mm 20 Deg Full Augment Oblique [id number] - [id number] Implanted:Qty: 1 on 04/25/2025 by Lino Nolan MD at [facility] Right: Shoulder [employer] Inc [id number] 05/01/2029 AR-9580- 2420 / / [id number] Ar[employer]rex Inc 5.5mm 28mm Lock Modular Glenoid Screw Bone Ar-9563-28 - [id number] Implanted:Qty: 1 on 04/25/2025 by Lino Nolan MD at [facility] Right: Shoulder [employer] Inc [id number] 09/29/2029 AR-9563- 28 / / [id number] Ar[employer]rex Inc 5.5mm 28mm Lock Modular Glenoid Screw Bone Ar-9563-28 - [id number] Implanted:Qty: 1 on 04/25/2025 by Lino Nolan MD at [facility] Right: Shoulder [employer] Inc [id number] 11/29/2028 AR-9563- 28 / / [id number] Procedures Procedure Name Priority Date/Time Associated Diagnosis Comments XR SHOULDER RIGHT 2 OR MORE VIEWS Schedule Routine, Read Routine (OP Routine) 05/10/2025 1:31 PM CDT Aftercare following right shoulder joint replacement surgery XR SHOULDER RIGHT 2 OR MORE VIEWS IP Routine 04/25/2025 12:01 PM CDT SC AN ELECTIVE ENDOTRACHEAL AIRWAY Routine 04/25/2025 10:10 AM CDT ARTHROPLASTY SHOULDER - REVERSE TOTAL 04/25/2025 9:19 AM CDT Rotator cuff arthropathy, right Special Needs On-Q pain pump, Arthrex, beach chair, NMES, Polar care, 1 liter beta rinse and aquamantys (overnight) SURGICAL PATHOLOGY Routine 04/25/2025 8: 45 AM CDT ANESTHESIA PERIPHERAL BLOCK Routine 04/25/2025 8:29 AM CDT PROTIME-INR STAT 04/25/2025 7:25 AM CDT APTT STAT 04/25/2025 7:25 AM CDT PAIN BLOCK Routine 04/25/2025 7:01 AM CDT DIFFERENTIAL AUTO STAT 04/24/2025 3:0 5 PM CDT Pre-operative exam CBC WITH AUTO DIFFERENTIAL STAT 04/24/2025 3:05 PM CDT Pre-operative exam XR CHEST PA LATERAL 2 VIEWS Schedule ROB, Read ROB (Appt Today, Awaiting Results) 04/20/2025 9:16 AM CDT Pre-operative exam ECG 12-LEAD STAT 04/20/2025 9:07 AM CDT Pre-operative exam EGFR STAT 04/20/2025 8:43 AM CDT Pre-operative exam DIFFERENTIAL AUTO STAT 04/20/2025 8:4 3 AM CDT Pre-operative exam APTT Routine 04/20/2025 8:43 AM CDT Rotator cuff arthropathy, right PROTIME-INR Routine 04/20/2025 8:43 AM CDT Rotator cuff arthropathy, right COMPREHENSIVE METABOLIC PANEL STAT 04/20/2025 8:43 AM CDT Pre-operative exam CBC WITH AUTO DIFFERENTIAL STAT 04/20/2025 8:43 AM CDT Pre-operative exam URINALYSIS AND REFLEX TO MICROSCOPIC AND CULTURE STAT 04/20/2025 8:43 AM CDT Pre-operative exam COLONOSCOPY IMAGES 06/21/2015 from Last 3 Months or Most Recently Relevant to Health Maintenance Results * XR Shoulder Right 2 or More Views (05/10/2025 1:31 PM CDT) Anatomical Region Laterality Modality Upper Extremities, Shoulder Right Digi sae Radiography Narrative 05/22/2025 8:43 PM CDT X-rays reviewed and interpreted by myself and in my opinion, demonstrate no acute fractures, subluxations or destructive lesions. Status post reverse total shoulder changes with implants in acceptable position. Carmina HAYDEN IMG XR PROCEDURES Final Result * XR Shoulder Right 2+ View (04/25/2025 12:01 PM CDT) Anatomical Region Laterality Modality Upper Extremities, Shoulder Right Comp uted Radiography 04/25/2025 12:4 5 PM CDT Narrative 04/25/2025 12:45 PM CDT EXAM DESCRIPTION: XR SHOULDER RIGHT 2 OR MORE VIEWS REASON FOR STUDY: post op Post op right shoulder TECHNIQUE: 2 radiographic view(s) of the right shoulder . COMPARISON: 12/04/2024 FINDINGS: There are postsurgical changes of right shoulder arthroplasty noted. There is no definite evidence of an unexpected radiopaque foreign body or fracture. There is subcutaneous emphysema noted, which is expected for postsurgical status. There are degenerative changes of the right acromioclavicular joint and visualized spine. IMPRESSION: 1. Postsurgical changes right shoulder arthroplasty are noted without definite evidence of an unexpected radiopaque foreign body or fracture. THIS IS AN ELECTRONICALLY VERIFIED FINAL REPORT 04/25/2025 12:45 PM - Electronically signed by Toney Jordan D.O. PS: SHALOM Report ID: [id number] Reading Location: [id number] Procedure Note Toney Jordan DO - 04/25/2025 EXAM DESCRIPTION: XR SHOULDER RIGHT 2 OR MORE VIEWS REASON FOR STUDY: post op Post op right shoulder TECHNIQUE: 2 radiographic view(s) of the right shoulder . COMPARISON: 12/04/2024 FINDINGS: There are postsurgical changes of right shoulder arthroplasty noted.There is no definite evidence of an unexpected radiopaque foreign body orfracture. There is subcutaneous emphysema noted, which is expected for postsurgical status. There are degenerative changes of the right acromioclavicularjoint and visualized spine. IMPRESSION: 1. Postsurgical changes right shoulder arthroplasty are noted without definite evidence of an unexpected radiopaque foreign body or fracture. THIS IS AN ELECTRONICALLY VERIFIED FINAL REPORT 04/25/2025 12:45 PM - Electronically signed by Toney Jordan D.O. PS: PS Report ID: [id number] Reading Location: [id number] Shun Burns SCENARIO WRITER IMG XR PROCEDURES Final Result * SC AN ELECTIVE ENDOTRACHEAL AIRWAY (04/25/2025 10:10 AM CDT) Narrative Ajay Lind CRNA - 04/25/2025 10:10 AM CDT Ajay Lind CRNA 04/25/2025 10:10 AM Airway Patient location: OR Urgency: elective Date/time: 04/25/2025 9:55 AM Indications for airway management: anesthesia Difficult airway: no Staff: Placed by: BOTTOM MAN: Ajay Lind CRNA Emergent airway documentation: Risks and benefits discussed: yes Consent obtained: yes Consent given by: patient Airway prep: Preoxygenated: yes Patient position: sniffing Mask difficulty assessment: 2 - vent by mask + OA or adjuvant Spontaneous ventilation during airway: absent Sedation level during airway: GA Final airway details: Final airway type: endotracheal airway Tube type: ETT ETT size: 8.0 mm Cuffed: yes Technique used for successful ETT placement: video laryngoscopy Devices/Methods used in placement: stylet Insertion site: oral Video blade type: García Blade size: 3 Cormack-Lehane (video): grade I - full view of glottis Initial cuff pressure: 25 cm H2O Cuff inflated with: air ETT to teeth: 24 cm Placement verified by: auscultation and CO2 detection Airway secured with: silk tape Number of attempts: 1 Additional comments: Smooth atraumatic intubation. us Naveed Narayan MD ANESTHESIA ORDERABLES Final Result * Surgical pathology (04/25/2025 8:45 AM CDT) Joint Resection 04/25/2025 8 :45 AM CDT 04/26/2025 8:45 AM CDT Narrative 05/02/2025 2:38 PM CDT EPIC results best viewed via link to PDF [facility] Department of Pathology [address] [place] [address] Note to Patients: This report may contain a detailed description of human tissue sent by a health care provider to the laboratory for pathologic evaluation. The content of this report is essential for diagnosis and may provide important critical findings. This information may be unfamiliar to patients to review without a medical professional present. It is advised that the patient review this report in the presence of a health care provider who can answer questions and explain the details. Final Report Patient Name: LIBERTAD CORTES Address: [facility] [place], [place] [address] Gender: M : 1955 (Age: 69) Service: Surgery Location: [facility] Hospital #: [id number] Patient Type: [facility] OP in bed Taken: 04/25/2025 Received: 04/26/2025 Accessioned: 04/26/2025 Reported: 05/02/2025 Physician(s):Dr. Lino Nolan M.D. Diagnosis: Shoulder, right, total shoulder arthroplasty: - Mild degenerative changes, clinically right rotator cuff arthropathy. Yogesh Nguyen M.D. Report Electronically Reviewed and Signed Out By Yogesh Nguyen M.D. 05/02/2025 14:38:59 Specimen(s) Received: A: Right shoulder bone and tissue fragments Microscopic Description: Microscopic examination of the decalcified section from the right shoulder shows mild degenerative changes that include focal erosion of the articular cartilage as well as clustering and fibrillation of chondrocytes. The marrow space is replaced by mature adipose tissue with a few unremarkable hematopoietic elements. There is no evidence of malignancy. Clinical History: Rotator cuff arthropathy, right. Right reverse total shoulder arthroplasty. Gross Description: The container is labeled LIBERTAD CORTES and right shoulder. It is a 5.6 cm in diameter discoid-shaped piece of red-mendoza bone with an articular surface on one side. The articular surface shows mild erosion. The specimen is decalcified and Represented in 1 cassette. Aryan Asif R.N., P.A./Yogesh Nguyen M.D. REPORT IMAGES AND SCANNED DOCUMENTS, IF INCLUDED, ONLY VIEWABLE IN PDF VERSION OF REPORT The performance characteristics of some immunohistochemical stains, fluorescence in-situ hybridization tests and immunophenotyping by flow cytometry cited in this report (if any) were determined by the Surgical Pathology Department at [facility] as part of an ongoing quality coordinator program and in compliance with federally mandated regulations drawn from the Clinical Laboratory Improvement Act of 1988 (CLIA '88). Some of these tests rely on the use of analyte specific reagents and are subject to specific labeling requirements by the US Food and Drug Administration. Such diagnostic tests may only be performed in a facility that is certified by the Department of Health and Human Services as a high complexity laboratory under CLIA '88. The FDA has determined that such clearance or approval is not necessary. This test is used for clinical purposes. It should not be regarded as investigational or for research. Nevertheless, federal rules concerning the medical use of analyte specific reagents require that the following disclaimer be attached to the report: This test was developed and its performance characteristics determined by the Surgical Pathology Department [facility]. It has not been cleared or approved by the U. S. Food and Drug Administration. Note for decalcified specimens: This assay has not been validated on decalcified tissues. Results should be interpreted with caution given the possibility of false negativity on decalcified specimens Lino Nolan MD LAB PATHOLOGY ORDERABLES Fin al Result * BW IP ANE LDA PERIPHERAL NERVE CATHETER (04/25/2025 8:29 AM CDT) Narrative Naveed Narayan MD - 04/25/2025 8:29 AM CDT Naveed Narayan MD 04/25/2025 8:29 AM Peripheral Block Patient location during procedure: block room Start time: 04/25/2025 8:00 AM End time: 04/25/2025 8:15 AM Reason for block: post-op pain management per surgeon request Ultrasound image in chart or stored: yes Block type: catheter continuous infusion Laterality: right Block type: brachial plexus - interscalene Staff: Placed by: Anesthesiologist: Naveed Narayan MD Procedure prep: Preprocedure checklist: patient identified, procedure contraindications assessed, site marked, procedure consent, surgical consent, IV checked, risks, benefits and alternatives discussed, monitors and equipment checked and timeout performed Patient position: sitting Procedure performed while patient: sedate with meaningful contact Monitoring: ECG, oximetry and blood pressure Supplemental O2: nasal cannula Prep solution: chlorhexidine/alcohol PPE: sterile gloves, provider hat/mask, sterile drape and sterile probe cover and gel Peripheral nerve block: Technique: ultrasound guided Needle gauge: 18 G Injection assessment: injection made incrementally with constant monitoring, local visualized surrounding nerve on ultrasound, negative aspiration for heme, no paresthesias noted, normal resistance to injection and see flowsheet for medication details Catheter: Catheter type: 20g non-stimulating catheter and catheter over needle Catheter depth at skin: 12 cm Catheter placement details: catheter position confirmed by ultrasound, no aspiration of heme, negative test dose, mastisol, steri-strips, dermal adhesive and occlusive dressing applied Assessment: Block success: complete Events: patient tolerated procedure well with no complications us Naveed Narayan MD ANESTHESIA ORDERABLES Final Result * aPTT (04/25/2025 7:25 AM CDT) aPTT 28 26 - 38 sec [facility] ([place]) Comment: Interpretive Data Heparin therapeutic range: 66.0 - 100.0 seconds. Range based on correlation with therapeutic heparin activity range of 0.3 - 0.7 Units/mL. Current interpretive data was last revised on 2023. Blood 04/25/2025 7:25 AM CDT 04/25/2025 7:33 AM CDT Lino Nolan MD LAB BLOOD ORDERABLES Final R esult Performing Organization Address [facility] [[email or web address]] Co de Phone Number [facility] ([place]) 1 [facility] [facility] [place] [address] * Protime-INR (04/25/2025 7:25 AM CDT) PT 11.0 10.2 - 13.5 sec [facility] INR 0.97 0.90 - 1.20 [facility] Comment: Interpretive data Oral anticoagulant therapeutic ranges: Venous thromboembolism prophylaxis or treatment: 2.0-3.0 CARDIOLOGY Standard range: 2.0-3.0 High-intensity range: 2.5-3.5 Refer to indication-specific guidelines for appropriate target ranges for prosthetic heart valve replacement. Current interpretive data was last revised on 2019. Blood 04/25/2025 7:25 AM CDT 04/25/2025 7:33 AM CDT Lino Nolan MD LAB BLOOD ORDERABLES Final R esult Performing Organization Address City/[facility] [[email or web address]] Co de Phone Number [facility] [address] [place] [address] [employer] [address] * Differential, auto (04/24/2025 3:05 PM CDT) Neutrophil abs 2.70 1.50 - 6.50 K/cumm Imm gran abs 0.00 0.00 - 0.10 K/cumm [facility] Lymphocyte abs 1.17 0.80 - 3.30 K/cumm [facility]) Monocyte abs 0.39 0.20 - 0.80 K/cumm [facility]) Eosinophil abs 0.49 0.00 - 0.50 K/cumm [facility] ([place]) Basophil abs 0.03 0.00 - 0.10 K/cumm [facility] ([place]) Neutrophil pct 56.4 % [facility] Comment: Interpretive Data Percent cell count reference ranges are not reported, since discordance with absolute values may lead to misinterpretation of CBC data. Current Interpretive Data was last revised on 2017. Imm gran pct 0.0 % [facility] ([place] Comment: Interpretive Data Percent cell count reference ranges are not reported, since discordance with absolute values may lead to misinterpretation of CBC data. Current Interpretive Data was last revised on 2017. Lymphocyte pct 24.5 % [facility] ([place] Comment: Interpretive Data Percent cell count reference ranges are not reported, since discordance with absolute values may lead to misinterpretation of CBC data. Current Interpretive Data was last revised on 2017. Monocyte pct 8.2 % [facility] ([place] Comment: Interpretive Data Percent cell count reference ranges are not reported, since discordance with absolute values may lead to misinterpretation of CBC data. Current Interpretive Data was last revised on 2017. Eosinophil pct 10.3 % [facility] ([place] Comment: Interpretive Data Percent cell count reference ranges are not reported, since discordance with absolute values may lead to misinterpretation of CBC data. Current Interpretive Data was last revised on 2017. Basophil pct 0.6 % [facility] ([place] Comment: Interpretive Data Percent cell count reference ranges are not reported, since discordance with absolute values may lead to misinterpretation of CBC data. Current Interpretive Data was last revised on 2017. Blood 04/24/2025 3:05 PM CDT 04/24/2025 3:08 PM CDT us Lino Nolan MD LAB BLOOD ORDERABLES Final R esult [facility] ([place]) [facility] [place] [address] * (ABNORMAL) CBC with auto differential (04/24/2025 3:05 PM CDT) WBC 4.78 3.80 - 9.90 K/cumm Hgb 11.8(L) 13.0 - 17.5 g/dL [facility] Hct 34.7(L) 38.9 - 50.3 % [facility] Plt 129(L) 150 - 400 K/cumm [facility] MPV 10.3 9.1 - 12.3 fL [facility] RBC 3.75(L) 4.30 - 5.80 M/cumm [facility]) MCV 92.5 81.3 - 96.4 fL [facility] MCH 31.5 27.1 - 33.3 pg [facility]) MCHC 34.0 32.3 - 35.7 g/dL [facility] RDW CV 11.9 11.1 - 14.9 % [facility] RDW SD 40.9 35.7 - 48.1 fL [facility] NRBC abs 0.00 0.00 - 0.01 K/cumm [facility]) Blood 04/24/2025 3:05 PM CDT 04/24/2025 3:08 PM CDT Lino Nolan MD LAB BLOOD ORDERABLES Final R esult [facility] ([place]) [facility] [place] [address] * XR Chest Pa Lateral 2 Views (04/20/2025 9:16 AM CDT) Anatomical Region Laterality Modality Body, Chest N/A Computed Radiogr aphy 04/20/2025 2:11 PM CDT Narrative 04/20/2025 2:13 PM CDT EXAM DESCRIPTION: XR CHEST PA LATERAL 2 VIEWS REASON FOR STUDY: Preoperative evaluation for right shoulder surgery. TECHNIQUE: PA and lateral radiographic views of the chest COMPARISON: Chest radiograph 10/05/2023, 04/02/2021 FINDINGS: LUNGS/PLEURAE: No consolidation or pneumothorax. No pleural effusion. HEART/MEDIASTINUM: Heart size is normal. Normal mediastinal and hilar contours. HARDWARE/LINES/TUBES: Left shoulder prosthesis is only partially included. BONES: Moderate thoracic spondylosis. Old left rib fractures. Embolization coils projecting over the upper abdomen. IMPRESSION: 1. No acute radiographic abnormality. THIS IS AN ELECTRONICALLY VERIFIED FINAL REPORT 04/20/2025 2:13 PM - Electronically signed by Dale Rios M.D. LB: LB Report ID: [id number] Reading Location: [id number] Procedure Note Dale Rios MD - 04/20/2025 EXAM DESCRIPTION: XR CHEST PA LATERAL 2 VIEWS REASON FOR STUDY: Preoperative evaluation for right shoulder surgery. TECHNIQUE: PA and lateral radiographic views of the chest COMPARISON: Chest radiograph 10/05/2023, 04/02/2021 FINDINGS: LUNGS/PLEURAE: No consolidation or pneumothorax. No pleural effusion. HEART/MEDIASTINUM: Heart size is normal. Normal mediastinal and hilar contours. HARDWARE/LINES/TUBES: Left shoulder prosthesis is only partiallyincluded. BONES: Moderate thoracic spondylosis. Old left rib fractures. Embolization coils projecting over the upper abdomen. IMPRESSION: 1. No acute radiographic abnormality. THIS IS AN ELECTRONICALLY VERIFIED FINAL REPORT 04/20/2025 2:13 PM - Electronically signed by Dale Rios M.D. LB: LB Report ID: [id number] Reading Location: [id number] us Lino Nolan MD IMG XR PROCEDURES Final Resu lt * ECG 12 lead (04/20/2025 9:07 AM CDT) 04/20/2025 8:59 AM CDT Narrative [facility] - 04/20/2025 10:53 AM CDT Vent Rate: 43 bpm RR Interval: 1370 msec SC Interval: 153 msec QRS Duration: 86 msec QT Interval: 453 msec QTC Interval: 401 msec P-R-T [place]: -12 - 38 - 55 degrees IMPRESSION: SINUS BRADYCARDIA VOLTAGE CRITERIA FOR LVH [MEETS CRITERIA IN ONE OF: R(aVL), S(V1), R(V5), R(V5/V6)+S(V1)] ABNORMAL ECG Electronically Signed By: Edison Plasencia MD Lino Nolan MD ECG ORDERABLES Final Result [facility] * eGFR (04/20/2025 8:43 AM CDT) eGFR >90 >=60 mL/min/1. 73 m2 Comment: Interpretive Data Reference Interval Normal >/= 90 mL/min/1.73m2 Mildly decreased* 60 - 89 mL/min/1.73m2 Mildly to moderately decreased 45 - 59 mL/min/1.73m2 Moderately to severely decreased 30 - 44 mL/min/1.73m2 Severely decreased 15 - 29 mL/min/1.73m2 Kidney Failure < 15 mL/min/1.73m2 *Relative to young adult level Estimated glomerular filtration rate is determined by the 2020 CKD-EPI equation recommended by the National Kidney Foundation (A Unifying Approach to GFR Estimation: Recommendations of the NKF-ASK Task Force on Reassessing the Inclusion of Race in Diagnosing Kidney Disease, JASN 2020). The CKD-EPI equation should not be used for patients with unstable renal function and has not been validated in children and those over 70. Current interpretive data was last reviewed 2021. Blood 04/20/2025 8:43 AM CDT 04/20/2025 8:46 AM CDT us Lino Nolan MD LAB BLOOD ORDERABLES Final R esult [facility] ([place]) [facility] [place] [address] * Differential, auto (04/20/2025 8:43 AM CDT) Neutrophil abs 2.34 1.50 - 6.50 K/cumm Imm gran abs 0.01 0.00 - 0.10 K/cumm [facility] ([place]) Lymphocyte abs 1.11 0.80 - 3.30 K/cumm [facility] ([place]) Monocyte abs 0.32 0.20 - 0.80 K/cumm [facility]) Eosinophil abs 0.31 0.00 - 0.50 K/cumm [facility] ([place]) Basophil abs 0.02 0.00 - 0.10 K/cumm [facility] ([place]) Neutrophil pct 57.0 % [facility] ([place] Comment: Interpretive Data Percent cell count reference ranges are not reported, since discordance with absolute values may lead to misinterpretation of CBC data. Current Interpretive Data was last revised on 2017. Imm gran pct 0.2 % [facility] ([place]) Comment: Interpretive Data Percent cell count reference ranges are not reported, since discordance with absolute values may lead to misinterpretation of CBC data. Current Interpretive Data was last revised on 2017. Lymphocyte pct 27.0 % [facility] ([place] Comment: Interpretive Data Percent cell count reference ranges are not reported, since discordance with absolute values may lead to misinterpretation of CBC data. Current Interpretive Data was last revised on 2017. Monocyte pct 7.8 % [facility] ([place]) Comment: Interpretive Data Percent cell count reference ranges are not reported, since discordance with absolute values may lead to misinterpretation of CBC data. Current Interpretive Data was last revised on 2017. Eosinophil pct 7.5 % [facility] ([place] Comment: Interpretive Data Percent cell count reference ranges are not reported, since discordance with absolute values may lead to misinterpretation of CBC data. Current Interpretive Data was last revised on 2017. Basophil pct 0.5 % [facility] ([place] Comment: Interpretive Data Percent cell count reference ranges are not reported, since discordance with absolute values may lead to misinterpretation of CBC data. Current Interpretive Data was last revised on 2017. Blood 04/20/2025 8:43 AM CDT 04/20/2025 8:46 AM CDT Lino Nolan MD LAB BLOOD ORDERABLES Final R esult [facility] ([place] [employer] [place] [address] * Urinalysis reflex to microscopic and culture Urine (04/20/2025 8:43 AM CDT) Color, ur Yellow Yellow Clarity, ur Clear Clear [facility] ([place]) Specific gravity, ur 1.020 1.003 - 1.030 [facility]) pH, urine 7.0 [facility] ([place] Comment: Interpretive Data U rine pH is affected by diet, medications, systemic acid-base disturbances, and renal tubular function. pH may affect urinary stone formation. For example, urine pH below 6.0 may help reduce the tendency for calcium phosphate stones and pH greater than 6.0 may reduce the tendency for uric acid stone formation. Source: [facility] Current Interpretive Data was last revised on 2017 Protein, ur ql Negative Negative [facility]) Glucose, ur ql Negative Negative [facility]) Ketones, ur Negative Negative [facility]) Bilirubin, ur Negative Negative [facility]) Blood, ur Negative Negative [facility]) Urobilinogen, ur <2.0 <2.0 mg/dL [facility]) Nitrite, ur Negative Negative [facility]) Leukocyte esterase, ur Negative Negative [facility]) UA reflex comment Reflex conditions for microscopic UA and culture not met. [facility]) Urine 04/20/2025 8:43 AM CDT 04/20/2025 9:33 AM CDT Lino Nolan MD LAB MICROBIOLOGY - GENERAL O RDERABLES Final Result [facility] ([place] [place] [address] * (ABNORMAL) CBC with auto differential (04/20/2025 8:43 AM CDT) WBC 4.11 3.80 - 9.90 K/cumm Hgb 12.7(L) 13.0 - 17.5 g/dL [facility] Hct 37.7(L) 38.9 - 50.3 % [facility]) Plt 104(L) 150 - 400 K/cumm [facility] ([place]) MPV 10.7 9.1 - 12.3 fL [facility] RBC 4.08(L) 4.30 - 5.80 M/cumm [facility] MCV 92.4 81.3 - 96.4 fL [facility] MCH 31.1 27.1 - 33.3 pg [facility] MCHC 33.7 32.3 - 35.7 g/dL [facility] RDW CV 12.2 11.1 - 14.9 % [facility] RDW SD 41.7 35.7 - 48.1 fL [facility] NRBC abs 0.00 0.00 - 0.01 K/cumm [facility] Blood 04/20/2025 8:43 AM CDT 04/20/2025 8:46 AM CDT us Lino Nolan MD LAB BLOOD ORDERABLES Final R esult [facility] ([place]) [facility] [place] [address] * aPTT (04/20/2025 8:43 AM CDT) aPTT 27 26 - 38 sec [facility] Comment: Interpretive Data Heparin therapeutic range: 66.0 - 100.0 seconds. Range based on correlation with therapeutic heparin activity range of 0.3 - 0.7 Units/mL. Current interpretive data was last revised on 2023. Blood 04/20/2025 8:43 AM CDT 04/20/2025 8:46 AM CDT Lino Nolan MD LAB BLOOD ORDERABLES Final R esult [facility] [place] [place] [employer] [place] [address] * Protime-INR (04/20/2025 8:43 AM CDT) PT 12.0 10.2 - 13.5 sec [facility] ([place]) INR 1.06 0.90 - 1.20 [facility] ([place]) Comment: Interpretive data Oral anticoagulant therapeutic ranges: Venous thromboembolism prophylaxis or treatment: 2.0-3.0 CARDIOLOGY Standard range: 2.0-3.0 High-intensity range: 2.5-3.5 Refer to indication-specific guidelines for appropriate target ranges for prosthetic heart valve replacement. Current interpretive data was last revised on 2019. Blood 04/20/2025 8:43 AM CDT 04/20/2025 8:46 AM CDT Narrative [facility] - 04/20/2025 9:04 AM CDT Repeat morning of surgery if patient is on coumadin. Lino Nolan MD LAB BLOOD ORDERABLES Final R esult Performing Organization Address City/[facility] [[email or web address]] Co de Phone Number [facility] ([place] [place] [employer] [place] [address] * (ABNORMAL) Comprehensive metabolic panel (04/20/2025 8:43 AM CDT) Sodium 138 135 - 145 mmol/L [facility] ([place]) Potassium, pl 4.3 3.3 - 4.9 mmol/L [facility] Chloride 101 97 - 110 mmol/L [facility] CO2 27 22 - 32 mmol/L [facility]) Anion gap 10 2 - 15 mmol/L [facility] BUN 18 6 - 25 mg/dL [facility]) Creatinine 0.77(L) 0.80 - 1.30 mg/dL [facility] Glucose 85 70 - 199 mg/dL [facility] ([place]) Comment: Interpretive Data Fasting glucose >/= 126 mg/dl is diagnostic for diabetes. Fasting is defined as no caloric intake for at least 8 hours. Fasting glucose between 100 mg/dl to 125 mg/dl is diagnostic of prediabetes. In a patient with classic symptoms of hyperglycemia or hyperglycemic crisis, a random glucose >/= 200 mg/dl is diagnostic for diabetes. In the absence of unequivocal hyperglycemia, results should be confirmed by repeat testing. The classification and Diagnosis of Diabetes Diabetes Care 2021; 46: S19-S40. Current interpretive data was last revised 2022. Calcium 9.1 8.5 - 10.3 mg/dL [facility]) Bilirubin, total 0.6 0.1 - 1.2 mg/dL [facility] ([place]) Protein, pl 6.3(L) 6.5 - 8.5 g/dL [facility] ([place]) Albumin 4.0 3.5 - 5.0 g/dL [facility] ([place]) Alk phos 81 40 - 130 Units/L [facility] ([place]) ALT 17 7 - 55 Units/L [facility]) AST 18 10 - 50 Units/L [facility] ([place]) Blood 04/20/2025 8:43 AM CDT 04/20/2025 8:46 AM CDT Lino Nolan MD LAB BLOOD ORDERABLES Final R esult [facility] ([place]) [facility] [place] [address] * COLONOSCOPY IMAGES (06/21/2015) Anatomical Region Laterality Modality Other Narrative 06/21/2015 Ordered by an unspecified provider. Historical Provider GI PROCEDURE ORDERABLES F inal Result from Last 3 Months or Most Recently Relevant to Health Maintenance Insurance [facility] MEDICARE [facility] MEDICARE [facility] Advance Directives For more information, please contact: [phone] * Full Code (Latest Code Status on File) Date Activated Date Inactivated Comments 04/25/2025 1:35 PM 04/26/2025 2:52 PM * Full Code Date Activated Date Inactivated Comments 10/16/2023 5:04 AM 10/18/2023 2:01 PM * Full Code Date Activated Date Inactivated Comments 06/03/2021 1:51 PM 06/04/2021 3:16 PM * Full Code Date Activated Date Inactivated Comments 03/17/2021 6:55 AM 03/19/2021 8:08 PM * Full Code Date Activated Date Inactivated Comments 12/20/2019 10:02 AM 12/21/2019 7:52 PM Care Teams Sales Producer Relationship Specialty Start Date End Date Ajay Rhodes MD PCP - General 12/19/19 Rosana Noyola MD Consulting Physician Gastroenterology 12/21/19 Carmina Farah PA [address] [place] [address] DR COE [address] [place] [id number] Physician Meal Attendant Orthopedic Surgery 04/26/25
--- OUTSIDE RECORDS SUMMARY | 2025-06-07 17:32 | XMS_ITS | Encounter Summary ---
Author Organization [facility] Address 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 PHARMACY NUMBER: [phone] SECTION 1: REQUESTED ACTION issa 02/28/07 at 10:41 am: MEDICATION REQUEST: MEDICATION REQUEST: Patient requests a refill. gen vicodin #[id number] 02/04/07 DOCTOR`S RESPONSE: debby 02/28/07 at 12:40 pm prev note * Ajay Rhodes MD - 12/21/2007 1:22 PM CDT TIME:11:57 am PATIENT`S HOME PHONE: PATIENT`S WORK PHONE: PATIENT`S INSURANCE: [employer] WHO TOOK THE CALL: Lorrie Lynch C GENERAL INFORMATION WHO CALLED: Patient called. PHARMACY NUMBER: [phone] SECTION 1: PT NEVER TOOK SCRIPT IN [...] st Contact Info) Description 08/06/2025 11:15 AM PRODUCTION HARDENER Office Visit [facility] Oncology and Hematology - [place] [address] [facility] [address] [place] [address] Randall Triplett MD [address] [facility] [address] [place] [address] 09/27/2025 11:20 AM PRODUCTION HARDENER Office Visit [facility] Primary Care [address] [place] [address] Ajay Rhodes MD [address] [place] [phone] documented as of this encounter Visit Diagnoses Not on filedocumented in this encounter Care Teams Core Winder Relationship Specialty Start Date End Date Ajay Rhodes MD PCP - General 01/19/08 documented as of this encounter
--- OUTSIDE RECORDS SUMMARY | 2025-06-07 17:32 | XMS_ITS | Encounter Summary ---
Author Organization [facility] Address 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 Gender Identity Not on file Sexual Orientation Not on file documented as of this encounter Plan of Treatment Upcoming Encounters Date Type Department Care Team (Late st Contact Info) Description 08/06/2025 11:15 AM TRACTOR TRAILER DRIVER Office Visit [facility] Oncology and Hematology - [place] [address] [place] [address] [facility] [address] [place] [address] [place] [address] [place] [address] [place] [phone] 09/27/2025 11:20 AM TRACTOR TRAILER DRIVER Office Visit [facility] Primary Care [address] [place] [address] Ajay Rhodes MD [address] [place] [phone] documented as of this encounter Visit Diagnoses Not on filedocumented in this encounter Care Teams Mattress Finisher Relationship Specialty Start Date End Date Ajay Rhodes MD PCP - General 01/19/08 documented as of this encounter
--- OUTSIDE RECORDS SUMMARY | 2025-06-07 17:32 | XMS_ITS | Encounter Summary ---
Author Organization [facility] Address 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 [address] [place] [phone] 09/27/2025 11:20 AM SAND TECHNOLOGIST Office Visit [facility] Primary Care [address] [place] [address] Ajay Rhodes MD [address] [place] [address] [address] [place] [address] documented as of this encounter Visit Diagnoses Not on filedocumented in this encounter Care Teams Roll Mechanic Relationship Specialty Start Date End Date Ajay Rhodes MD PCP - General 01/19/08 documented as of this encounter
--- OUTSIDE RECORDS SUMMARY | 2025-06-07 17:32 | XMS_ITS | Encounter Summary ---
Author Organization [facility] Address 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 OCCUPATION: . [employer] ALCOH[employer]: Does not give any significant history [...] 07/05/2006. LAB ORDERS: 1 week Order number: [id number] Test Ordered: COMPREHENSIVE METABOLIC PANEL W/ GLOMERULAR FILTRATION RATE, ESTIMATED (EGFR) 68765 Order number: [id number] Test Ordered: LIPID PANEL 7600 Order number: [id number] Test Ordered: PSA 5363 Order number: [id number] Test Ordered: TSH 899 Order number: [id number] Test Ordered: CBC (INCLUDES DIFF/PLT) 6399 Order number: [id number] Test Ordered: URINALYSIS, COMPLETE W/REFLEX TO CULTURE 3020 Order number: [id number] Test Ordered: HEMOCCULT SINGLE 04204 Order number: [id number] Test Ordered: URINALYSIS W/O MICRO 82296 V70.0-ROUTINE GENERAL MEDICAL EXAMINATION discussed, check lab RETURN VISIT : Instructed to call if not improving. Electronically Signed by: Ajay Rhodes MD on Wednesday, July 05, 2006 * Ajay Rhodes MD - 2008 1:44 AM CDT NURSE NAME: Luisa Brown J documented in this encounter Plan of Treatment Upcoming Encounters Date Type Department Care Team (Late st Contact Info) Description 08/06/2025 11:15 AM HOBBING MACHINE OPERATOR Office Visit [facility] Oncology and Hematology - [place] [address] [facility] [address] [place] [address] Randall Triplett MD [address] [facility] [address] [place] [address] 09/27/2025 11:20 AM HOBBING MACHINE OPERATOR Office Visit [facility] Primary Care [address] [place] [address] Ajay Rhodes MD [address] [place] [address] [address] [place] [address] documented as of this encounter Visit Diagnoses Not on filedocumented in this encounter Care Teams Telecommunications Project Manager Relationship Specialty Start Date End Date Ajay Rhodes MD PCP - General 01/19/08 documented as of this encounter
== END 2025-06-07 08:49 | disposition home or self-care (01) ==
LOC: ANHLAB 08:49
PROVIDERS: PCP Internal Medicine; Visit Provider Internal Medicine Hematology & Oncology
DX: C71.9 Malignant neoplasm of brain, unspecified (principal)
CPT/HCPCS: 36415; 85025

== ENCOUNTER 2025-07-30 12:32 | Outpatient (CLI) | payer MEDICARE, OTHER, SELFPAY ==
--- NOTE | ~2025-07-30 | MR_ITS ---
EXAMINATION: MR brain/brain stem wo/w con DATE: 07/30/2025 13:29 INDICATION: Glioblastoma. TECHNIQUE: Magnetic resonance imaging (MRI) of the brain and brainstem was performed without and with 14 mL MultiHance intravenous contrast. COMPARISON: Brain MRI 05/31/2025, head CT 10/15/2023 FINDINGS: There is chondromalacia in anterior left temporal lobe and in left frontal lobe. There are areas of increased T2-weighted signal intensity in the left-sided cerebral white matter, likely changes of radiation therapy. There are a few foci of increased T2-weighted signal intensity in the right-sided cerebral white matter, which is normal for age. There is no intracranial hemorrhage, acute infarction, or abnormal intracranial mass lesion. There is ex vacuo dilatation of temporal horn of left lateral ventricle. There is mild mucosal thickening in the paranasal sinuses. The orbits are normal. The mastoid air cells are normal. IMPRESSION: 1. 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 2. Stable left-sided cerebral white matter disease, likely changes of radiation therapy. Reviewed, dictated and finalized at location E. 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
--- OUTSIDE RECORDS SUMMARY | 2025-07-30 12:44 | XMS_ITS | Encounter Summary ---
Author Organization [facility] Address [address] [place] [address] Care Team Providers Care Cutting Tool Sharpener Name Role Phone Ajay Rhodes MD Primary Care Provider [phone] Reason for Visit * Reason Comments Patient Communication Provider Call Encounter Details Date Type Department Care Team (Late st Contact Info) Description 04/20/2025 Telephone [facility] [address] [place] [address] Ajay Rhodes MD [address] [facility] [place] [address] [place] [address] Patient Communication; Provider Call Social [...] on file Legal Sex Male 4:14 AM DEPARTMENTAL BUYER Gender Identity Not on file Sexual Orientation [...] there was a surgical clearance form in [facility] until I searched for it in 04/20/2025 [...] - 04/24/2025 1:46 PM CDT Copied from [facility] #[id number]. Topic: Vosqyiox-Jn-Jnspnahi Call >> Apr 24, 2025 1:42 PM Dottie Borden wrote: Caller is requesting to speak with Clinical Care Team. Caller Name: Courtney ([facility] Orthopedic) Callback Number: [phone] Is the caller a Physician, Nurse Practitioner or Physician Lei Seller? No Call Notes: Caller is stating that she's needing some clarification on the patients surgical clearance. Is this addressing an immediate patient care need? Yes Transferred to PCN line and Shantelle answered call. * Telephone Encounter - Goran Hayes - 04/24/2025 12:03 PM CDT Copied from [facility] #[id number]. Topic: Vbibzyms-Kp-Wkkxoajj Call >> Apr 24, 2025 11:58 AM Goran Victor wrote: Caller is requesting to speak with Clinical Care Team. Caller Name: Courtney with Dr. Nolan's office Callback Number: [phone] Is the caller a Physician, Nurse Practitioner or Physician Lei Seller? No Call Notes: Patient is scheduled for surgery tomorrow and they need clearance sent over ROB. Is this addressing an immediate patient care need? Yes Transferred to PCN line and Brie answered call, then informed agent to call CHEESEMAKING LABORER line. Transferred to CHEESEMAKING LABORER line and Shantelle answered. * Telephone Encounter - Prieto Pereira - 04/24/2025 9:12 AM CDT Copied from [facility] #[id number]. Topic: CPA Information Request >> Apr 24, 2025 9:11 AM Prieto Sapp wrote: Caller is returning phone call from clinic. Caller Name: Yahir Cortes Patient/Caregiver Callback Number: Telephone Information: Patient Has Additional Questions Are the credentials of the caregiver who talked to the patient visual education director? No Call Notes: Patient/Caller requires a call [...] - 04/24/2025 8:21 AM CDT Copied from [facility] #[id number]. Topic: Kxjdgauy-Dq-Ciogvzkq Call >> Apr 24, 2025 8:18 AM Ish Yeh wrote: Caller is requesting to speak with Clinical Care Team. Caller Name: Courtney/Dr Nolan's Office Callback Number: [phone] Is the caller a Physician, Nurse Practitioner or Physician Lei Seller? No Call Notes: Courtney is wanting to [...] - 04/23/2025 1:32 PM CDT Copied from [facility] #[id number]. Topic: Hyccgyrf-Dz-Hrfpmdfx Call >> Apr 23, 2025 1:27 PM Ny Borden wrote: Caller is requesting to speak with Clinical Care Team. Caller Name: Courtney with Dr. Lino Nolan Callback Number: [phone] Is the caller a Physician, Nurse Practitioner or Physician Lei Seller? No Call Notes: States faxed over a medical clearance forma and pre-op testing that needs to be signed by Dr. Rhodes. Patient has surgery scheduled for 04/25/25 FAX: [phone] Please call and advise. Is this addressing an immediate patient care need? No * Telephone Encounter - Ish Valencia - 04/20/2025 3:51 PM CDT Copied from [facility] #[id number]. Topic: CPA Information Request >> Apr 20, 2025 3:46 PM Ish Yeh wrote: Caller is returning phone call from clinic. Caller Name: Courtney/Dr Nolan's office Patient/Caregiver Callback Number: [phone] Patient Has Additional Questions Today Dr Nolan's clinic receptionist faxed over a form for Dr Carmelo azevedo out for patient's reverse right shoulder surgery on 04/25 and they want to know if the office received it? Are the credentials of the caregiver who talked to the patient visual education director? No Call Notes: Patient/Caller requires a call back to discuss forms to be filled out before surgery on04/25. documented in this encounter Plan of Treatment Upcoming Encounters Date Type Department Care Team (Late st Contact Info) Description 08/06/2025 11:15 AM DEPARTMENTAL BUYER Office Visit [facility] Oncology and Hematology - [place] [address] [place] [address] [facility] [address] [place] [phone] Randall Triplett MD [address] [facility] [address] [place] [address] 09/27/2025 11:20 AM DEPARTMENTAL BUYER Office Visit [facility] Care [address] [place] [address] Ajay Rhodes MD [address] [place] [address] [place] [address] [place] [address] documented as of this encounter Visit Diagnoses Not on filedocumented in this encounter Care Teams Cutting Tool Sharpener Relationship Specialty Start Date End Date Ajay Rhodes MD PCP - General 01/19/08 documented as of this encounter
--- OUTSIDE RECORDS SUMMARY | 2025-07-30 12:44 | XMS_ITS | Encounter Summary ---
Author Organization [facility] Address [address] [place] [address] Care Team Providers Care Sleeve Presser Operator Name Role Phone Ajay Rhodes MD Primary Care Provider [phone] Encounter Details Date Type Department Care Team (Late st Contact Info) Description 06/23/2024 Specialty Pharmacy [facility] [address] [place] [address] Bernadine Strauss, PHARMACIST Social History [...] on file Legal Sex Male 4:14 AM CERTIFIED BENCH JEWELER TECHNICIAN Gender Identity Not on file Sexual Orientation Not on file documented as of this encounter Plan of Treatment Upcoming Encounters Date Type Department Care Team (Late st Contact Info) Description 08/06/2025 11:15 AM CERTIFIED BENCH JEWELER TECHNICIAN Office Visit [facility] Oncology and Hematology - [place] [address] [facility] [address] [place] [phone] Randall Triplett MD [address] [facility] [address] [place] [address] 09/27/2025 11:20 AM CERTIFIED BENCH JEWELER TECHNICIAN Office Visit [facility] Primary Care [address] [place] [address] Ajay Rhodes MD [address] [place] [address] [address] [place] [address] documented as of this encounter Visit Diagnoses Not on filedocumented in this encounter Care Teams Sleeve Presser Operator Relationship Specialty Start Date End Date Ajay Rhodes MD PCP - General 01/19/08 documented as of this encounter
--- OUTSIDE RECORDS SUMMARY | 2025-07-30 12:44 | XMS_ITS | Clinical Summary ---
Author Organization [facility] Address [address] [place] [address] Care Team Providers Care Drill Grinder Name Role Phone Ajay Rhodes MD Primary Care Provider + Rosana Noyola MD Unavailable [phone] Carmina Farah Unavailable [phone] Allergies No known active allergies Medications azelastine (ASTELIN) 137 mcg (0.1 %) nasal spray Administer 2 sprays into affected nostril(s) 2 (two) times a day 06/14/20 23 Active cyclobenzaprine (FLEXERIL) 10 mg tablet TAKE 1 TABLET BY MOUTH 3 TIMES DAILY NEEDED FOR SPASM. 09/22/19 25 Active mometasone (ELOCON) 0.1 % cream Apply topically daily 07/06/20 24 Active bacitracin-neomyci n-polymyxin B (Triple Antibiotic) ointment [...] a day 60 tablet/chew tab 04/26/20 Active Additional Information Patient not taking.Reported on 06/19/2025 aspirin 81 mg enteric coated tabletIndications: prevention of thrombosis Take 1 tablet (81 mg total) by mouth 2 (two) times a day for 14 days 28 tablet 04/26/20 Active Additional Information Patient not taking.Reported on 06/19/2025 celecoxib (CeleBREX) 200 mg capsule Take 1 capsule (200 mg total) by mouth 2 (two) times a day for 14 days 28 capsule 04/26/20 Active Additional Information Patient not taking.Reported on 06/19/2025 senna-docusate (PERICOLACE) 8.6-50 mg 1-2 times daily as needed for constipation 60 tablet 1 04/26/20 Active Additional Information Patient not taking.Reported on 06/19/2025 HYDROcodone-acetam inophen (NORCO) 5-325 mg per tabletIndications: Pain Take 1-2 tablets by mouth every 4 (four) hours as needed for pain 40 tablet 05/10/20 Active Active Problems Problem Noted Date Diagnosed [...] no significant findings on echocardiogram, 30 day security monitor on discharge HLD (hyperlipidemia) 06/02/2021 Risk factors for obstructive sleep apnea 021 Primary osteoarthritis, left shoulder 04/30/2021 Overview (04/30/2021): Added automatically from request for surgery [id number] Multiple closed fractures of ribs of left [...] (12/19/2019): Added automatically from request for surgery [id number] Arthralgia of shoulder 08/26/2012 Duodenal ulcer Encounters Date Type Department Care Team Description 07/24/2025 8:00 AM SPORTS WRITER Therapy [facility] [place] [address] Robbin Adamson, PT Aftercare following right shoulder joint replacement surgery (Primary Dx); S/P reverse total shoulder arthroplasty, right 07/19/2025 10:30 AM SPORTS WRITER Therapy [facility] [place] [address] Robbin Adamson, PT Aftercare following right shoulder joint replacement surgery (Primary Dx); S/P reverse total shoulder arthroplasty, right 07/12/2025 8:00 AM SPORTS WRITER Therapy [facility] [place] [address] [address] Robbin Adamson, PT Aftercare following right shoulder joint replacement surgery (Primary Dx); S/P reverse total shoulder arthroplasty, right 07/05/2025 8:00 AM SPORTS WRITER Therapy [facility] [place] [address] Robbin Adamson, PT Aftercare following right shoulder joint replacement surgery (Primary Dx); S/P reverse total shoulder arthroplasty, right 06/26/2025 8:00 AM SPORTS WRITER Therapy [facility] Physical [place] [address] Robbin Adamson, PT Aftercare following right shoulder joint replacement surgery (Primary Dx); S/P reverse total shoulder arthroplasty, right 06/21/2025 8:00 AM SPORTS WRITER Therapy [facility] Physical [place] [address] Robbin Adamson, PT Aftercare following right shoulder joint replacement surgery 06/19/2025 9:00 AM SPORTS WRITER Office Visit [facility] Orthopedics and Sports Medicine [address] [facility] [address] [place] [address] Shun Burns NP Aftercare following right shoulder joint replacement surgery (Primary Dx) 06/19/2025 7:39 AM SPORTS WRITER - 06/19/2025 11:59 PM SPORTS WRITER Hospital Encounter [facility] Orthopedics and Sports [facility] [address] [place] [address] Discharge Disposition: Discharge to home or self care 06/14/2025 8:00 AM SPORTS WRITER Therapy [facility] Physical [place] [address] Bette Shrestha, SALOON KEEPER S/P reverse total shoulder arthroplasty, right (Primary Dx) 06/07/2025 11:15 AM SPORTS WRITER Therapy [facility] Physical [place] [address] Robbin Adamson, PT S/P reverse total shoulder arthroplasty, right (Primary Dx) 05/30/2025 8:45 AM CDT Therapy [facility] Physical [place] [address] Robbin Adamson, PT S/P reverse total shoulder arthroplasty, right (Primary Dx) 05/18/2025 11:15 AM CDT Therapy [facility] Physical Therapy [facility] [place] [address] Robbin Adamson, PT S/P reverse total shoulder arthroplasty, right (Primary Dx) 05/10/2025 1:20 PM CDT Ancillary Procedure [facility] Imaging at [address] [phone] Aftercare following right shoulder joint replacement surgery 05/10/2025 1:15 PM CDT Office Visit [facility] Orthopedic and Sports Medicine [address] [place] [phone] Carmina Farah PA Aftercare following right shoulder joint replacement surgery (Primary Dx) 05/09/2025 9:30 AM CDT Therapy [facility] [place] [address] Robbin Adamson, PT S/P reverse total shoulder arthroplasty, right 05/09/2025 Plan of Care Documentation [facility] [place] [address] 05/01/2025 [facility] Post Discharge Follow up phone call [facility] Surgery Care [address] [place] [address] Grecia Perry from Last 3 Months Immunizations Immunization Administration [...] on file Legal Sex Male 6:15 PM SPORTS WRITER Gender Identity Not on file Sexual Orientation Not on file Last Filed Vital Signs Vital Sign Reading Time Taken Comments Blood Pressure 150/70 06/19/2025 8:52 AM SPORTS WRITER Pulse 55 06/19/2025 8:52 AM SPORTS WRITER Temperature 36.5 C (97.7 F) 04/26/2025 7:33 AM CDT Respiratory Rate 18 04/26/2025 7:33 AM CDT Oxygen Saturation 97% 04/26/2025 7:33 AM CDT Inhaled Oxygen Concentration - - Weight 74.8 kg (165 lb) 06/19/2025 8:52 AM SPORTS WRITER Height 177.8 cm (5' 10) 06/19/2025 8:52 AM SPORTS WRITER Body Mass Index 23.68 06/19/2025 8:52 AM SPORTS WRITER Plan of Treatment Health Maintenance Due Date [...] 03/15/2023, 11/26/2018 Medical Devices Implanted Type Area Circular Knife Cutter Machine Device Identifier Shelf Expiration Date Model / Serial / Lot [employer] 6191-1-010 Simplex P Radiopaque Full Dose Cement Bone Sterile - [id number] Implanted:Qty: 1 on 06/03/2021 by Lino Granger MD at [facility] Bone Cement Left: Shoulder [employer] 09/01/2022 6191-1-0 10 / / [id number] Sldr 27x6mm Pegs Circular Glenoid W/ In-Line Peripheral - [id number] Implanted:Qty: 1 on 06/03/2021 by Lino Granger MD at [facility] Other - see comments Left: Shoulder Shoulder [employer] [id number] 10/10/2025 [id number] 06 / / [id number] [employer] Implant Pin Kit Glenoid Ar-9607s - Sn/A - [id number] Implanted:Qty: 1 on 04/25/2025 at [facility] Pin Right: Shoulder [employer] [id number] 11/29/2029 AR-9607S / N/A / [id number] Description:This item is not an implant. Plug Azur Vascular Embolization Medium - [id number] Implanted:Qty: 1 on 03/17/2021 at [facility] [employer]rose [id number] 09/01/2023 [id number] 0 / / [id number] [employer] Rbypod8 Debby Pod 8mm 60cm Complex Occulusion Device Coil Embolization - [id number] Implanted:Qty: 1 on 03/17/2021 at [facility] Pen[employer] Inc 04/23/2028 [id number] / / [id number] Vas[employer] Ltd Kclt-06 Device 6fr Closure Celt Acd Vascular Sterile Latex Free Disposable Ashkan - [id number] Implanted:Qty: 1 on 03/17/2021 at [facility] [employer]TD [id number] 08/12/2023 KCLT -06 / / [id number] Shoulder [employer]ations Llc [id number] Head Shoulder Offset Humeral 18mm X 44mm - [id number] Implanted:Qty: 1 on 06/03/2021 by Lino Granger MD at [facility] Left: Shoulder [employer]er [employer] [id number] 09/26/2025 [id number] / / [id number] Shoulder [employer] [id number] Stem Shoulder Porous Titanium Humeral Small - [id number] Implanted:Qty: 1 on 06/03/2021 by Lino Granger MD at [facility] Left: Shoulder Shoulder [employer] [id number] 03/10/2026 [id number] 20 / / [id number] Ar[employer] Univers Revers Biosync 39mm 24mm Glenosphere Taper Baseplate Zl-5548-2413 - [id number] Implanted:Qty: 1 on 04/25/2025 by Lino Nolan MD at [facility] Right: Shoulder [employer] [id number] 05/01/2029 AR-9564- 2439 / / [id number] [employer] Univers Revers 39mm Suture Shoulder Neutral Cup Humeral Sterile Db-4835w-35bpr - [id number] Implanted:Qty: 1 on 04/25/2025 by Lino Nolan MD at [facility] Right: Shoulder [employer] [id number] 09/29/2029 AR-9502F -39CPC / / [id number] [employer] Univers Revers Shoulder 10 Stem Humeral Sterile Ar-9501-10s - [id number] Implanted:Qty: 1 on 04/25/2025 by Lino Nolan MD at [facility] Right: Shoulder [employer] [id number] 11/29/2028 AR-9501- 10S / / [id number] [employer] Univers Revers 39mm Shoulder +3mm Medium Insert Humeral Sterile Ar-9503m-03 - [id number] Implanted:Qty: 1 on 04/25/2025 by Lino Nolan MD at [facility] Right: Shoulder [employer] [id number] 04/01/2029 AR-9503M - / / [id number] Ar[employer]rex Inc Component Glenoid Modular Post Reverse 20mm Ar-9582-20 - [id number] Implanted:Qty: 1 on 04/25/2025 by Lino Nolan MD at [facility] Right: Shoulder [employer] [id number] 05/01/2029 AR-9582- 20 / / [id number] [employer] Inc Baseplate 24mm 20 Deg Full Augment Oblique Uz-1319-7422 - [id number] Implanted:Qty: 1 on 04/25/2025 by Lino Nolan MD at [facility] Right: Shoulder [employer] [id number] 05/01/2029 AR-9580- 2420 / / [id number] [employer] Inc 5.5mm 28mm Lock Modular Glenoid Screw Bone Ar-9563-28 - [id number] Implanted:Qty: 1 on 04/25/2025 by Lino Nolan MD at [facility] Right: Shoulder [employer] [id number] 09/29/2029 AR-9563- 28 / / [id number] Ar[employer] 5.5mm 28mm Lock Modular Glenoid Screw Bone Ar-9563-28 - [id number] Implanted:Qty: 1 on 04/25/2025 by Lino Nolan MD at [facility] Right: Shoulder [employer] [id number] 11/29/2028 AR-9563- 28 / / [id number] Procedures Procedure Name Priority Date/Time Associated Diagnosis Comments XR SHOULDER RIGHT 2 OR MORE VIEWS Routine 06/19/2025 8:47 AM SPORTS WRITER Aftercare following right shoulder joint replacement surgery XR SHOULDER RIGHT 2 OR MORE VIEWS Schedule Routine, Read Routine (OP Routine) 05/10/2025 1:31 PM CDT Aftercare following right shoulder joint replacement surgery COLONOSCOPY IMAGES 06/21/2015 from Last 3 Months or Most Recently Relevant to Health Maintenance Results * XR Shoulder Right 2 or More Views (06/19/2025 8:47 AM SPORTS WRITER) Anatomical Region Laterality Modality Upper Extremities, Shoulder Right Digi sae Radiography Narrative 06/19/2025 9:26 AM SPORTS WRITER X-rays reviewed and interpreted by myself and in my opinion, demonstrate no acute fractures, subluxations or destructive lesions. Status post reverse total shoulder changes with implants in acceptable position. Shun Burns NP IMG XR PROCEDURES Final Result * XR Shoulder Right 2 or More Views (05/10/2025 1:31 PM CDT) Anatomical Region Laterality Modality Upper Extremities, Shoulder Right Digi sae Radiography Narrative 05/22/2025 8:43 PM CDT X-rays reviewed and interpreted by myself and in my opinion, demonstrate no acute fractures, subluxations or destructive lesions. Status post reverse total shoulder changes with implants in acceptable position. Carimna HAYDEN IMG XR PROCEDURES Final Result * COLONOSCOPY IMAGES (06/21/2015) Anatomical Region Laterality Modality Other Narrative 06/21/2015 Ordered by an unspecified provider. Historical Provider GI PROCEDURE ORDERABLES F inal Result from Last 3 Months or Most Recently Relevant to Health Maintenance Insurance [facility] MEDICARE [facility] MEDICARE [facility] Advance Directives For more information, please contact: [phone] * Full Code (Latest Code Status on [...] 10:02 AM 12/21/2019 7:52 PM Care Teams Drill Grinder Relationship Specialty Start Date End Date Ajay Rhodes MD PCP - General 12/19/19 Rosana Noyola MD Consulting Physician Gastroenterology 12/21/19 Carmina Farah PA [address] [place] [address] [place] [address] Physician Dust Box Tender Orthopedic Surgery 04/26/25
--- OUTSIDE RECORDS SUMMARY | 2025-07-30 12:45 | XMS_ITS | Encounter Summary ---
Author Organization [facility] Address [address] [place] [address] Care Team Providers Care Furniture Assembly Supervisor Name Role Phone Ajay Rhodes MD Primary Care Provider [phone] Encounter Details Date Type Department Care Team (Late Contact Info) Description 07/05/2006 Outpatient Historical [facility] Internal Medicine [address] [address] Ajay Rhodes MD [address] [place] [address] [address] [place] [address] Social History Tobacco Use Types Packs/Day Years Used Date Smoking Tobacco: Never Assessed Sex and Gender Information Value Date Recorded Sex Assigned at Not on file Legal Sex Male 4:14 AM DIRECTOR OF EMPLOYER SERVICES Gender Identity Not on file Sexual Orientation Not on file documented as of this encounter Plan of Treatment Upcoming Encounters Date Type Department Care Team (Late st Contact Info) Description 08/06/2025 11:15 AM DIRECTOR OF EMPLOYER SERVICES Office Visit [facility] Oncology and Hematology - [place] [address] [facility] [address] [place] [address] Randall Triplett MD [address] [facility] [address] [place] [address] 09/27/2025 11:20 AM DIRECTOR OF EMPLOYER SERVICES Office Visit [facility] Primary Care [address] [place] [address] Ajay Rhodes MD [address] [place] [address] [place] [address] documented as of this encounter Visit Diagnoses Not on filedocumented in this encounter Care Teams Furniture Assembly Supervisor Relationship Specialty Start Date End Date Ajay Rhodes MD PCP - General 01/19/08 documented as of this encounter
--- OUTSIDE RECORDS SUMMARY | 2025-07-30 12:45 | XMS_ITS | Encounter Summary ---
Author Organization [facility] Address [address] [place] [address] Care Team Providers Care Computer Tape Librarian Name Role Phone Ajay Rhodes MD Primary Care Provider [phone] Reason for Visit * Reason Comments Question Encounter Details Date Type Department Care Team (Late st Contact Info) Description 02/17/2024 Telephone [facility] Primary Care [address] [place] [address] Ajay Rhdoes MD [address] [facility] [address] [place] [address] Question Social History Tobacco Use [...] on file Legal Sex Male 4:14 AM SORTING COWS WORKER Gender Identity Not on file Sexual Orientation Not on file documented as of this encounter Miscellaneous Notes * Telephone Encounter - Marzena Faria I - 02/17/2024 10:29 AM CDT Appt set * Telephone Encounter - Tiffanie Ag - 02/17/2024 9:30 AM CDT Copied from [facility] #[id number]. Topic: Patient or Caregiver Communication Request >> Feb 17, 2024 9:25 AM Tiffanie Sapp wrote: Patient or Caregiver requesting advice Caller: Vinita gentile Patient/Caregiver Callback Number: [phone] Call Notes: Caller states the patient had [...] st Contact Info) Description 08/06/2025 11:15 AM SORTING COWS WORKER Office Visit [facility] Oncology and Hematology - [place] [address] [place] [address] Randall Triplett MD [address] [facility] [address] [place] [address] 09/27/2025 11:20 AM SORTING COWS WORKER Office Visit [facility] Primary Care [place] [address] [address] [facility] [place] [address] Ajay Rhodes MD [address] [place] [address] documented as of this encounter Visit Diagnoses Not on filedocumented in this encounter Care Teams Computer Tape Librarian Relationship Specialty Start Date End Date Ajay Rhodes MD PCP - General 01/19/08 documented as of this encounter
--- OUTSIDE RECORDS SUMMARY | 2025-07-30 12:45 | XMS_ITS | Encounter Summary ---
Author Organization [facility] Address [address] [place] [address] Care Team Providers Care Autocad Technician Name Role Phone Ajay Rhodes MD Primary Care Provider [phone] Encounter Details Date Type Department Care Team (Late st Contact Info) Description 08/05/2007 Outpatient Historical [facility] Internal Medicine [address] [address] Ajay Rhodes MD [address] [place] [address] [address] [place] [address] Social History Tobacco Use Types Packs/Day Years Used Date Smoking Tobacco: Never Assessed Sex and Gender Information Value Date Recorded Sex Assigned at Not on file Legal Sex Male 4:14 AM CAR MANAGER Gender Identity Not on file Sexual Orientation Not on file documented as of this encounter Plan of Treatment Upcoming Encounters Date Type Department Care Team (Late st Contact Info) Description 08/06/2025 11:15 AM CAR MANAGER Office Visit [facility] Oncology and Hematology - [place] [address] [facility] [address] [place] [address] Randall Triplett MD [address] [facility] [address] [place] [address] 09/27/2025 11:20 AM CAR MANAGER Office Visit [facility] Primary Care [address] [place] [address] Ajay Rhodes MD [address] [place] [address] [place] [address] documented as of this encounter Visit Diagnoses Not on filedocumented in this encounter Care Teams Autocad Technician Relationship Specialty Start Date End Date Ajay Rhodes MD PCP - General 01/19/08 documented as of this encounter
--- OUTSIDE RECORDS SUMMARY | 2025-07-30 12:45 | XMS_ITS | Encounter Summary ---
Author Organization [facility] Address [address] [place] [address] Care Team Providers Care Harp Maker Name Role Phone Ajay Rhodes MD Primary Care Provider [phone] Encounter Details Date Type Department Care Team (Late st Contact Info) Description 04/06/2007 Outpatient Historical [facility] Internal Medicine [address] [address] Ajay Rhodes MD [address] [place] [address] Social History Tobacco Use Types Packs/Day Years Used Date Smoking Tobacco: Never Assessed Sex and Gender Information Value Date Recorded Sex Assigned at Not on file Legal Sex Male 4:14 AM SAP BUSINESS OBJECTS DEVELOPER Gender Identity Not on file Sexual [...] st Contact Info) Description 08/06/2025 11:15 AM SAP BUSINESS OBJECTS DEVELOPER Office Visit [facility] Oncology and Hematology - [place] [address] [place] [address] Randall Triplett MD [address] [facility] [address] [place] [phone] 09/27/2025 11:20 AM SAP BUSINESS OBJECTS DEVELOPER Office Visit [facility] Primary Care [address] [place] [address] Ajay Rhodes MD [address] [place] [address] [address] [place] [address] documented as of this encounter Visit Diagnoses Not on filedocumented in this encounter Care Teams Harp Maker Relationship Specialty Start Date End Date Ajay Rhodes MD PCP - General 01/19/08 documented as of this encounter
--- OUTSIDE RECORDS SUMMARY | 2025-07-30 12:45 | XMS_ITS | Encounter Summary ---
Author Organization [facility] Address [address] [place] [address] Care Team Providers Care Risk Management Analyst Name Role Phone Phil Hancock MD Primary Care Provider [phone] Encounter Details Date Type Department Care Team (Late st Contact Info) Description 08/05/2007 Orders Only [facility] Internal Medicine [address] [address] Phil Hancock MD [address] [place] [address] Social History Tobacco Use Types Packs/Day Years Used Date Smoking Tobacco: Never Assessed Sex and Gender Information Value Date Recorded Sex Assigned at Not on file Legal Sex Male 4:14 AM AUTOMATED LOGISTICS SPECIALIST Gender Identity Not on file Sexual Orientation Not on file documented as of this encounter Progress Notes * Phil Hancock MD - 12/14/2007 4:48 PM CDT SPECIALIST REFERRAL REQUEST DATE: AUG 05, 2007 Note created by: Seema Jiang C 03:27 p Patient Name : LIBERTAD Winchester STEFANHAILEY Address: [address] [place] [address]. [address] D.O.B: 1955 N: [id number] Parent/Guardian if applicable: Patient Insurance: [employer] [facility] Policy#: [id number] Group #: Best To Call : [phone] Best Time to Call : ANYTIME. May We Leave Message At That Number : YES, LEAVE MESSAGE. Referring to: GASTROENTEROLOGY Dr. Khanh Hatfield ph: [phone] fax: [phone]. Dr[address] Rosana Noyola ph: [phone] fax: [phone]. Reason for referral: colonoscopy ORDERING PHYSICIAN : PHIL HANCOCK MD PRIORITY OF REFERRAL: AT PATIENT'S CONVENIENCE. OFFICE SECOND RIGGER & PHONE: Seema Jiang C FOR SCHEDULING [...] Right Arm Sitting NURSE NAME: Priyanka Marcelino Bernice TOBACCO USE Patient does not currently [...] SPECIALTY REFERRAL: GASTROENTEROLOGY Dr. Rosana Noyola ph: [phone] fax: [phone]. Dr. Khanh Hatfield ph: [phone] fax: [phone].colonoscopy Patient Education: Risks, benefits, and possible side [...] st Contact Info) Description 08/06/2025 11:15 AM AUTOMATED LOGISTICS SPECIALIST Office Visit [facility] Oncology and Hematology - [place] [address] [place] [address] [address] [place] [phone] [place] [address] [place] [address] [address] [place] [address] 09/27/2025 11:20 AM AUTOMATED LOGISTICS SPECIALIST Office Visit [facility] Primary Care [place] [address] [place] [address] Phil Hancock MD [address] [place] [address] [place] [address] documented as of this encounter Visit Diagnoses Not on filedocumented in this encounter Care Teams Risk Management Analyst Relationship Specialty Start Date End Date Phil Hancock MD PCP - General 01/19/08 documented as of this encounter
--- OUTSIDE RECORDS SUMMARY | 2025-07-30 12:45 | XMS_ITS | Encounter Summary ---
Author Organization [facility] Address [address] [place] [address] Care Team Providers Care Message Broker Developer Name Role Phone Ajay Rhodes MD Primary Care Provider [phone] Encounter Details Date Type Department Care Team (Late st Contact Info) Description 11/18/2006 Outpatient Historical [facility] Internal Medicine [address] [address] Ajay Rhodes MD [address] [place] [address] Social History Tobacco Use Types Packs/Day Years Used Date Smoking Tobacco: Never Assessed Sex and Gender Information Value Date Recorded Sex Assigned at Not on file Legal Sex Male 4:14 AM FILLER OPERATOR Gender Identity Not on file Sexual [...] st Contact Info) Description 08/06/2025 11:15 AM FILLER OPERATOR Office Visit [facility] Oncology and Hematology - [place] [address] [place] [address] Randall Triplett MD [address] [facility] [address] [place] [phone] 09/27/2025 11:20 AM FILLER OPERATOR Office Visit [facility] Primary Care [address] [place] [address] Ajay Rhodes MD [address] [place] [address] [address] [place] [address] documented as of this encounter Visit Diagnoses Not on filedocumented in this encounter Care Teams Message Broker Developer Relationship Specialty Start Date End Date Ajay Rhodes MD PCP - General 01/19/08 documented as of this encounter
--- OUTSIDE RECORDS SUMMARY | 2025-07-30 12:45 | XMS_ITS | Encounter Summary ---
Author Organization [facility] Address [address] [place] [address] Care Team Providers Care Elastic Cutter Name Role Phone Ajay Rhodes MD Primary Care Provider [phone] Encounter Details Date Type Department Care Team (Late st Contact Info) Description 02/28/2007 Orders Only [facility] Internal Medicine [address] [address] Ajay Rhodes MD [address] [place] [address] Social History Tobacco Use Types Packs/Day Years Used Date Smoking Tobacco: Never Assessed Sex and Gender Information Value Date Recorded Sex Assigned at Not on file Legal Sex Male 4:14 AM TUBE TEST TECHNICIAN Gender Identity Not on file Sexual Orientation Not on file documented as of this encounter Progress Notes * Ajay Rhodes MD - 12/21/2007 1:25 PM CDT TIME:10:40 am PATIENT`S HOME PHONE: PATIENT`S WORK PHONE: PATIENT`S INSURANCE: [place] [employer] [facility] WHO TOOK THE CALL: Luisa Brown J GENERAL INFORMATION LAST VISIT: 01/20/07 WHO CALLED: Pharmacy called. PHARMACY NUMBER: [phone] SECTION 1: REQUESTED ACTION issa 02/28/07 at 10:41 am: MEDICATION REQUEST: MEDICATION REQUEST: Patient requests a refill. gen vicodin #[id number] 02/04/07 DOCTOR`S RESPONSE: debby 02/28/07 at 12:40 pm prev note * Ajay Rhodes MD - 12/21/2007 1:22 PM CDT TIME:11:57 am PATIENT`S HOME PHONE: PATIENT`S WORK PHONE: PATIENT`S INSURANCE: [facility] WHO TOOK THE CALL: Lorrie Lynch C GENERAL INFORMATION WHO CALLED: Patient called. PHARMACY NUMBER: [phone] SECTION 1: PT NEVER TOOK SCRIPT IN [...] st Contact Info) Description 08/06/2025 11:15 AM TUBE TEST TECHNICIAN Office Visit [facility] Oncology and Hematology - [place] [address] [place] [address] Randall Triplett MD [address] [facility] [address] [place] [address] 09/27/2025 11:20 AM TUBE TEST TECHNICIAN Office Visit [facility] Primary Care [address] [place] [address] [place] [address] Ajay Rhodes MD [address] [place] [address] [place] [address] documented as of this encounter Visit Diagnoses Not on filedocumented in this encounter Care Teams Elastic Cutter Relationship Specialty Start Date End Date Ajay Rhodes MD PCP - General 01/19/08 documented as of this encounter
--- OUTSIDE RECORDS SUMMARY | 2025-07-30 12:45 | XMS_ITS | Encounter Summary ---
Author Organization [facility] Address [address] [place] [address] Care Team Providers Care Permaculture Contractor Name Role Phone Phil Hancock MD Primary Care Provider [phone] Encounter Details Date Type Department Care Team (Late st Contact Info) Description 01/20/2007 Orders Only [facility] Internal Medicine [address] [address] Phil Hancock MD [address] [place] [address] Social History Tobacco Use Types Packs/Day Years Used Date Smoking Tobacco: Never Assessed Sex and Gender Information Value Date Recorded Sex Assigned at Not on file Legal Sex Male 4:14 AM SHIPPER AND RECEIVING Gender Identity Not on file Sexual Orientation Not on file documented as of this encounter Progress Notes * Phil Hancock MD - 12/21/2007 4:44 PM CDT CENTRAL TEST SCHEDULING DATE: JAN 20, 2007 Note created by: Shruthi Hart E 03:13 p Patient Name : LIBERTAD Winchester ROSETTE Address: [address] [place] [address] [facility] [address] D.O.B: 1955 SSN: [id number] Parent/Guardian if applicable: Patient Insurance: [employer] ID#: [id number] Group#: ORDER(S) #: [id number] mri c spine BEST TO CALL CELL. [phone] BEST TIME TO CALL: ANYTIME. MAY WE LEAVE MESSAGE AT THAT NUMBER: YES, LEAVE MESSAGE. PLEASE SCHEDULE THE APPOINTMENT AT THE FOLLOWING LOCATION: [place] [phone]. TEST PRIORITY: 2 - 7 DAYS. SPECIAL SCHEDULING INSTRUCTIONS: needs prep ORDERING PHYSICIAN: PHIL HANCOCK MD OFFICE DIVISION TRAFFIC SUPERINTENDENT & PHONE: Shruthi Hart E ORDER PRINTED BY: Courtney Meza L FOR SCHEDULING USE ONLY: FIRST ATTEMPT Date:JAN 24, 2007 Norma Medrano T 03:02 p Left message on Recorder. SECOND ATTEMPT: Date:JAN 25, 2007 Noa Valentino 01:31 p Spoke with Patient. [place] [phone]. APPOINTMENT DATE : 02/03/2007 ( @ 4:00 pm) The appointment was scheduled by Noa Valentino at [phone] [facility] NN * Phil Hancock MD - 12/21/2007 4:44 PM CDT SPECIALIST REFERRAL REQUEST DATE: JAN 20, 2007 Note created by: Seema Jiang C 03:16 p Patient Name : LIBERTAD CORTES Address: [address] [place] [address] D.O.B: 1955 SSN: [id number] Parent/Guardian if applicable: Patient Insurance: [employer] Policy#: [id number] Group #: Best To Call : [phone] Best Time to Call : ANYTIME. May We Leave Message At That Number : YES, LEAVE MESSAGE. Referring to: PAIN MANAGEMENT Dr. Marcos Gorman ph: [phone]. Dr. Edmund Manriquez ph: [phone]. PATIENT DIAGNOSIS: . 723.1-NECK PAIN ORDERING PHYSICIAN : PHIL HANCOCK MD PRIORITY OF REFERRAL: AT PATIENT'S CONVENIENCE. OFFICE DIVISION TRAFFIC SUPERINTENDENT & PHONE: Seema Jiang C FOR SCHEDULING [...] SENT: Date JAN 28, 2007 Osorio Ontiveros Hannah 01:59 p Letter Sent to Patient. ADDITIONAL [...] palpable. MUSCULOSKELETAL EXAM: post neck tender central, lumber carrier ok, sensation ok, ls tender, left shoulder anttender but full rom ASSESSMENT/PLAN: 715.90-OSTEOARTHROSIS UNSPECIFIED discussed, check mri, pain mgt 723.1-NECK PAIN MEDICATIONS: VICODIN ES ORAL TABLET 7.5-750 MG, 1 Every Six Hours, As Needed, 90 Dispensed, 2 Fills, status: CONTINUED, 01/20/2007. LAB ORDERS: Order number: [id number] Test [facility] 461.9-SINUSITIS UNSPECIFIED add med MEDICATIONS: ZYRTEC ORAL TABLET 10 MG, 1 Every Day, 20 Dispensed, status: NEW PRESCRIPTION, 01/20/2007. NASONEX NASAL SUSPENSION 50 MCG/ACT, 2 Every Morning, 2 Dispensed, status: NEW PRESCRIPTION, 01/20/2007. SPECIALTY REFERRAL: PAIN MANAGEMENT Dr. Marcos Gorman ph: [phone]. Dr. Edmund Manriquez ph: [phone].[facility] RETURN VISIT : Instructed to call if not improving. Electronically Signed by: Phil Hancock MD on , January 20, 2007 documented in this encounter Plan of Treatment Upcoming Encounters Date Type Department Care Team (Late st Contact Info) Description 08/06/2025 11:15 AM SHIPPER AND RECEIVING Office Visit [facility] Oncology and Hematology - [place] [address] [place] [address] Randall Triplett MD [address] [facility] [address] [place] [address] 09/27/2025 11:20 AM SHIPPER AND RECEIVING Office Visit [facility] Primary Care [place] [address] [address] [place] [phone] Phil Hancock MD [address] [facility] [address] [place] [address] documented as of this encounter Visit Diagnoses Not on filedocumented in this encounter Care Teams Permaculture Contractor Relationship Specialty Start Date End Date Phil Hancock MD PCP - General 01/19/08 documented as of this encounter
--- OUTSIDE RECORDS SUMMARY | 2025-07-30 12:45 | XMS_ITS | Encounter Summary ---
Author Organization [facility] Address [address] [place] [address] Care Team Providers Care Masonry Inspector Name Role Phone Ajay Rhodes MD Primary Care Provider [phone] Encounter Details Date Type Department Care Team (Late Contact Info) Description 07/05/2006 Outpatient Historical [facility] Internal Medicine [address] [address] Ajay Rhodes MD [address] [place] [address] [address] [place] [address] Social History Tobacco Use Types Packs/Day Years Used Date Smoking Tobacco: Never Assessed Sex and Gender Information Value Date Recorded Sex Assigned at Not on file Legal Sex Male 4:14 AM SENIOR PRODUCER Gender Identity Not on file Sexual Orientation Not on file documented as of this encounter Plan of Treatment Upcoming Encounters Date Type Department Care Team (Late st Contact Info) Description 08/06/2025 11:15 AM SENIOR PRODUCER Office Visit [facility] Oncology and Hematology - [place] [address] [facility] [address] [place] [address] Randall Triplett MD [address] [facility] [address] [place] [address] 09/27/2025 11:20 AM SENIOR PRODUCER Office Visit [facility] Primary Care [address] [place] [address] Ajay Rhodes MD [address] [place] [address] [place] [address] documented as of this encounter Visit Diagnoses Not on filedocumented in this encounter Care Teams Masonry Inspector Relationship Specialty Start Date End Date Ajay Rhodes MD PCP - General 01/19/08 documented as of this encounter
--- OUTSIDE RECORDS SUMMARY | 2025-07-30 12:45 | XMS_ITS | Encounter Summary ---
Author Organization [facility] Address [address] [place] [address] Care Team Providers Care Distribution A Class Lineman Name Role Phone Ajay Rhodes MD Primary Care Provider [phone] Reason for Visit * Reason Comments Medication Assistance Encounter Details Date Type Department Care Team (Late st Contact Info) Description 02/28/2024 Telephone [facility] Primary Care [address] [place] [address] Ajay Rhodes MD [address] [facility] [address] [place] [address] Medication Assistance Social History Tobacco [...] file Legal Sex Male 4:14 AM SAND SLINGER Gender Identity Not on file Sexual Orientation Not on file documented as of this encounter Miscellaneous Notes * Telephone Encounter - Chelsey Singleton RN - 02/28/2024 11:53 AM CDT Date of last visit addressing condition(s) being treated: 02/23/24 Recent Visits Date Type Provider Dept 02/23/24 Office Visit Ajay Rhodes MD [facility] 10/21/23 Office Visit Ajay Rhodes MD [facility] 10/04/23 Office Visit Ajay Rhodes MD [facility] 03/31/23 Office Visit Ajay Rhodes MD [facility] 11/23/22 Office Visit Ajay Rhodes MD [facility] Showing recent visits within past 540 days with a meds authorizing provider and meeting all other requirements Future Appointments Date Type Provider Dept 04/11/24 Appointment Ajay Rhodes MD [facility] 05/17/24 Appointment Ajay Rhodes MD [facility] Showing future appointments within next 365 days with a meds authorizing provider and meeting all other requirements Correct Pharmacy: Yes Medication below pended for you. Medication (Ask patient/caregiver to spell if possible): HYDROcodone- acetaminophen (NORCO) 10-325 mg Tablet Preferred Pharmacy: [place] [id number] [place] [address] Patient/Caregiver Callback Number: [phone] (home) Call Notes: Requesting refill early will be leaving to go out of town this Wednesday please advise request HYDROcodone-acetaminophen (NORCO) 10-325 mg Tablet [facility] [id number] [place] [address] only this location Chelsey Singleton, RN * Telephone Encounter - Maira Lopez - 02/28/2024 11:24 AM CDT Copied from [facility] #[id number]. Topic: Medication Request >> Feb 28, 2024 11:22 AM Maira Yeh wrote: Caller is requesting: Medication - New Request (Not Currently Taking) Medication (Ask patient/caregiver to spell if possible): HYDROcodone- acetaminophen (NORCO) 10-325 mg Tablet Preferred Pharmacy: [facility] [id number] [place] [address] Patient/Caregiver Callback Number: [phone] (home) Call Notes: Requesting refill early will be leaving to go out of town this Wednesday please advise request HYDROcodone-acetaminophen (NORCO) 10-325 mg Tablet [facility] [address] [place] [address] only this location documented in this encounter Plan of Treatment Upcoming Encounters Date Type Department Care Team (Late st Contact Info) Description 08/06/2025 11:15 AM SAND SLINGER Office Visit [facility] Oncology and Hematology - [place] [address] [place] [address] [address] [place] [address] Randall Triplett MD [address] [facility] [address] [place] [address] 09/27/2025 11:20 AM SAND SLINGER Office Visit [facility] Care [address] [place] [address] Ajay Rhodes MD [address] [place] [phone] documented as of this encounter Visit Diagnoses Diagnosis Other osteoarthritis involving multiple joints documented in this encounter Care Teams Distribution A Class Lineman Relationship Specialty Start Date End Date Ajay Rhodes MD PCP - General 01/19/08 documented as of this encounter
--- OUTSIDE RECORDS SUMMARY | 2025-07-30 12:45 | XMS_ITS | Encounter Summary ---
Author Organization [facility] Address [address] [place] [address] Care Team Providers Care Breakdown Person Name Role Phone Ajay Rhodes MD Primary Care Provider [phone] Encounter Details Date Type Department Care Team (Late st Contact Info) Description 08/05/2007 Outpatient Historical [facility] Internal Medicine [address] [address] Ajay Rhodes MD [address] [place] [address] [address] [place] [address] Social History Tobacco Use Types Packs/Day Years Used Date Smoking Tobacco: Never Assessed Sex and Gender Information Value Date Recorded Sex Assigned at Not on file Legal Sex Male 4:14 AM DECONTAMINATION WORKER Gender Identity Not on file Sexual Orientation Not on file documented as of this encounter Plan of Treatment Upcoming Encounters Date Type Department Care Team (Late st Contact Info) Description 08/06/2025 11:15 AM DECONTAMINATION WORKER Office Visit [facility] Oncology and Hematology - [place] [address] [facility] [address] [place] [address] Randall Triplett MD [address] [facility] [address] [place] [address] 09/27/2025 11:20 AM DECONTAMINATION WORKER Office Visit [facility] Primary Care [address] [place] [address] Ajay Rhodes MD [address] [place] [address] [place] [address] documented as of this encounter Visit Diagnoses Not on filedocumented in this encounter Care Teams Breakdown Person Relationship Specialty Start Date End Date Ajay Rhodes MD PCP - General 01/19/08 documented as of this encounter
--- OUTSIDE RECORDS SUMMARY | 2025-07-30 12:45 | XMS_ITS | Encounter Summary ---
Author Organization [facility] Address [address] [place] [address] Care Team Providers Care Remotely Piloted Vehicle Controller Name Role Phone Ajay Rhodes MD Primary Care Provider [phone] Encounter Details Date Type Department Care Team (Late st Contact Info) Description 10/25/2007 Outpatient Historical [facility] Internal Medicine [address] [address] Ajay Rhodes MD [address] [place] [address] [address] [place] [address] Social History Tobacco Use Types Packs/Day Years Used Date Smoking Tobacco: Never Assessed Sex and Gender Information Value Date Recorded Sex Assigned at Not on file Legal Sex Male 4:14 AM INSULATION BLOWER Gender Identity Not on file Sexual Orientation Not on file documented as of this encounter Plan of Treatment Upcoming Encounters Date Type Department Care Team (Late st Contact Info) Description 08/06/2025 11:15 AM INSULATION BLOWER Office Visit [facility] Oncology and Hematology - [place] [address] [facility] [address] [place] [address] Randall Triplett MD [address] [facility] [address] [place] [address] 09/27/2025 11:20 AM INSULATION BLOWER Office Visit [facility] Primary Care [address] [place] [address] Ajay Rhodes MD [address] [place] [address] [place] [address] documented as of this encounter Visit Diagnoses Not on filedocumented in this encounter Care Teams Remotely Piloted Vehicle Controller Relationship Specialty Start Date End Date Ajay Rhodes MD PCP - General 01/19/08 documented as of this encounter
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
--- OUTSIDE RECORDS SUMMARY | 2025-07-30 12:45 | XMS_ITS | Encounter Summary ---
Author Organization [facility] Address [address] [place] [address] Care Team Providers Care House Wrecker Name Role Phone Ajay Rhodes MD Primary Care Provider [phone] Encounter Details Date Type Department Care Team (Late st Contact Info) Description 10/25/2007 Outpatient Historical [facility] Internal Medicine [address] [address] Ajay Rhodes MD [address] [place] [address] [address] [place] [address] Social History Tobacco Use Types Packs/Day Years Used Date Smoking Tobacco: Never Assessed Sex and Gender Information Value Date Recorded Sex Assigned at Not on file Legal Sex Male 4:14 AM PLAN EXAMINER Gender Identity Not on file Sexual Orientation Not on file documented as of this encounter Plan of Treatment Upcoming Encounters Date Type Department Care Team (Late st Contact Info) Description 08/06/2025 11:15 AM PLAN EXAMINER Office Visit [facility] Oncology and Hematology - [place] [address] [facility] [address] [place] [address] Randall Triplett MD [address] [facility] [address] [place] [address] 09/27/2025 11:20 AM PLAN EXAMINER Office Visit [facility] Primary Care [address] [place] [address] Ajay Rhodes MD [address] [place] [address] [place] [address] documented as of this encounter Visit Diagnoses Not on filedocumented in this encounter Care Teams House Wrecker Relationship Specialty Start Date End Date Ajay Rhodes MD PCP - General 01/19/08 documented as of this encounter
--- OUTSIDE RECORDS SUMMARY | 2025-07-30 12:45 | XMS_ITS | Encounter Summary ---
Author Organization [facility] Address [address] [place] [address] Care Team Providers Care Music Engineer Name Role Phone Ajay Rhodes MD Primary Care Provider [phone] Encounter Details Date Type Department Care Team (Late Contact Info) Description 07/05/2006 Outpatient Historical [facility] Internal Medicine [address] [address] Ajay Rhodes MD [address] [place] [address] [address] [place] [address] Social History Tobacco Use Types Packs/Day Years Used Date Smoking Tobacco: Never Assessed Sex and Gender Information Value Date Recorded Sex Assigned at Not on file Legal Sex Male 4:14 AM JUTE BAG CLIPPER Gender Identity Not on file Sexual Orientation Not on file documented as of this encounter Plan of Treatment Upcoming Encounters Date Type Department Care Team (Late st Contact Info) Description 08/06/2025 11:15 AM JUTE BAG CLIPPER Office Visit [facility] Oncology and Hematology - [place] [address] [facility] [address] [place] [address] Randall Triplett MD [address] [facility] [address] [place] [address] 09/27/2025 11:20 AM JUTE BAG CLIPPER Office Visit [facility] Primary Care [address] [place] [address] Ajay Rhodes MD [address] [place] [address] [place] [address] documented as of this encounter Visit Diagnoses Not on filedocumented in this encounter Care Teams Music Engineer Relationship Specialty Start Date End Date Ajay Rhodes MD PCP - General 01/19/08 documented as of this encounter
--- OUTSIDE RECORDS SUMMARY | 2025-07-30 12:45 | XMS_ITS | Encounter Summary ---
Author Organization [facility] Address [address] [place] [address] Care Team Providers Care Regional Facilities Manager Name Role Phone Ajay Rhodes MD Primary Care Provider [phone] Encounter Details Date Type Department Care Team (Late st Contact Info) Description 07/05/2006 Orders Only [facility] Internal Medicine [address] [address] Ajay Rhodes MD [address] [place] [address] Social History Tobacco Use Types Packs/Day Years Used Date Smoking Tobacco: Never Assessed Sex and Gender Information Value Date Recorded Sex Assigned at Not on file Legal Sex Male 4:14 AM CATHODIC PROTECTION TECHNICIAN Gender Identity Not on file Sexual [...] 07/05/2006. LAB ORDERS: 1 week Order number: [id number] Test Ordered: COMPREHENSIVE METABOLIC PANEL W/ GLOMERULAR FILTRATION RATE, ESTIMATED (EGFR) 75076 Order number: [id number] Test Ordered: LIPID PANEL 7600 Order number: [id number] Test Ordered: PSA 5363 Order number: [id number] Test Ordered: TSH 899 Order number: [id number] Test Ordered: CBC (INCLUDES DIFF/PLT) 6399 Order number: [id number] Test Ordered: URINALYSIS, COMPLETE W/REFLEX TO CULTURE 3020 Order number: [id number] Test Ordered: HEMOCCULT SINGLE 84935 Order number: [id number] Test Ordered: URINALYSIS W/O MICRO 30825 V70.0-ROUTINE GENERAL MEDICAL EXAMINATION discussed, check lab RETURN VISIT : Instructed to call if not improving. Electronically Signed by: Ajay Rhodes MD on Wednesday, July 05, 2006 * Ajay Rhodes MD - 2008 1:44 AM CDT NURSE NAME: Luisa Brown J documented in this encounter Plan of Treatment Upcoming Encounters Date Type Department Care Team (Late st Contact Info) Description 08/06/2025 11:15 AM CATHODIC PROTECTION TECHNICIAN Office Visit [facility] Oncology and Hematology - [place] [address] [facility] [address] [place] [address] Randall Triplett MD [address] [facility] [address] [place] [address] 09/27/2025 11:20 AM CATHODIC PROTECTION TECHNICIAN Office Visit [facility] Primary Care [address] [place] [address] Ajay Rhodes MD [address] [place] [address] [address] [place] [address] documented as of this encounter Visit Diagnoses Not on filedocumented in this encounter Care Teams Regional Facilities Manager Relationship Specialty Start Date End Date Ajay Rhodes MD PCP - General 01/19/08 documented as of this encounter
--- OUTSIDE RECORDS SUMMARY | 2025-07-30 12:45 | XMS_ITS | Encounter Summary ---
Author Organization [facility] Address [address] [place] [address] Care Team Providers Care Associate Professor Of Art History Name Role Phone Phil Hancock MD Primary Care Provider [phone] Encounter Details Date Type Department Care Team (Late st Contact Info) Description 04/06/2007 Orders Only [facility] Internal Medicine [address] [address] Phil Hancock MD [address] [place] [address] Social History Tobacco Use Types Packs/Day Years Used Date Smoking Tobacco: Never Assessed Sex and Gender Information Value Date Recorded Sex Assigned at Not on file Legal Sex Male 4:14 AM WELDING ENGINEER Gender Identity Not on file Sexual Orientation Not on file documented as of this encounter Progress Notes * Phil Hancock MD - 12/16/2007 4:10 PM CDT TIME:11:33 am PATIENT`S HOME PHONE: PATIENT`S WORK PHONE: PATIENT`S INSURANCE: [employer] WHO TOOK THE CALL: Priyanka Marcelino R GENERAL INFORMATION WHO CALLED: Pharmacy called. PHARMACY NUMBER: [phone] 04/06/07 Request refill of Hydrocodone 7.5/750 mg. #90 LF 02/28/07 SECTION 1: DOCTOR`S RESPONSE: debby 04/06/07 at 12:54 pm narcotic, needs appt FINAL ACTION: vamsialma delia 04/06/07 at 01:52 pm Spoke with patient 04/06/07 at 01:52 pm. Booked appointment: today Electronically Signed by: Lorrie Lynch on Friday, April 06, 2007 * Phil Hancock MD - 12/16/2007 4:07 PM CDT SPECIALIST REFERRAL REQUEST DATE: APR 06, 2007 Note created by: Seema Jiang C 03:00 p Patient Name : LIBERTAD CORTES Address: [address] [place], [place] [id number] D.O.B: 1955 SSN: [id number] Parent/Guardian if applicable: Patient Insurance: [employer] [facility] Policy#: [id number] Group #: Best To Call : [phone] Best Time to Call : ANYTIME. May We Leave Message At That Number : YES, LEAVE MESSAGE. Referring to: PHYSICAL THERAPY/REHAB [facility]- PH: [phone] PATIENT DIAGNOSIS: . 723.1-NECK PAIN ORDERING PHYSICIAN : PHIL HANCOCK MD PRIORITY OF REFERRAL: AT PATIENT'S CONVENIENCE. OFFICE NOUGAT CANDY MAKER HELPER & PHONE: Seema Jiang C FOR [...] st Contact Info) Description 08/06/2025 11:15 AM WELDING ENGINEER Office Visit [facility] Oncology and Hematology - [place] [address] [facility] [address] [place] [address] Randall Triplett MD [address] [facility] [address] [place] [address] 09/27/2025 11:20 AM WELDING ENGINEER Office Visit [facility] Primary Care [address] [place] [address] Phil Hancock MD [address] [place] [address] [place] [address] documented as of this encounter Visit Diagnoses Not on filedocumented in this encounter Care Teams Associate Professor Of Art History Relationship Specialty Start Date End Date Phil Hancock MD PCP - General 01/19/08 documented as of this encounter
--- OUTSIDE RECORDS SUMMARY | 2025-07-30 12:45 | XMS_ITS | Clinical Summary ---
Author Organization [facility] Address [address] [place] [address] Care Team Providers Care Car Refinisher Name Role Phone Ajay Rhodes MD Primary Care Provider [phone] Allergies Active Allergy Reactions Criticality Noted Date [...] daily. 90 Tablet 3 02/23/20 24 Active mometasone (ELOCON) 0.1 % Cream Apply to affected area daily. 45 Gram 1 07/06/20 24 Active neomycin-bacitrac in-polymyxin (Triple Antibiotic) 3.5mg-400 unit- 5,000 unit/gram Ointment Apply to affected area 2 times daily. 07/06/20 24 Active azelastine (ASTELIN) 137 mcg/actuation nasal spray Administer 2 Sprays in each nostril 2 times daily. 30 mL 6 08/07/19 25 Active silver sulfADIAZINE (SILVADENE) 1 % Cream Apply to affected area daily. 50 Gram 3 09/18/19 25 Active gabapentin (NEURONTIN) 300 mg capsule Take 1 Capsule (300 mg) by mouth 2 times daily. 180 Capsule 3 03/15/20 25 Active EPINEPHrine (EPIPEN) 0.3 mg/0.3 mL Auto-Injector Inject 0.3 mL (0.3 mg) by intramuscular injection 1 time daily as needed for Anaphylaxis. 1 Each 2 03/15/20 25 Active ondansetron (ZOFRAN ODT) 8 mg Tablet, Rapid Dissolve Dissolve 1 tablet on top of tongue then swallow with saliva every 8 hours as needed for nausea or vomiting 30 Tablet 1 03/26/20 25 Active temozolomide (TEMODAR) 5 mg capsule TAKE 1 CAP BY MOUTH ONCE A DAY BEFORE BREAKFAST W/ 20MG & 250MG FOR 5 DAYS EVERY 28 DAYS 5 Capsule 11 05/29/20 25 Active temozolomide (TEMODAR) 250 mg capsule TAKE 1 CAP BY MOUTH ONCE A DAY BEFORE BREAKFAST W/ 5MG & 20MG FOR 5 DAYS EVERY 28 DAYS 5 Capsule 11 05/29/20 25 Active temozolomide (TEMODAR) 20 mg capsule TAKE 1 CAP BY MOUTH ONCE A DAY BEFORE BREAKFAST W/ 5MG & 250MG FOR 5 DAYS EVERY 28 DAYS 5 Capsule 11 05/29/20 25 Active cyclobenzaprine (FLEXERIL) 10 mg tablet TAKE 1 TABLET BY MOUTH 3 TIMES DAILY NEEDED FOR SPASM. 30 Tablet 3 06/19/20 25 Active azelastine (ASTELIN) 137 mcg/actuation nasal spray ADMINISTER 2 SPRAYS IN EACH NOSTRIL 2 TIMES DAILY. 30 mL 3 06/28/20 25 Active HYDROcodone-aceta minophen (NORCO) 10-325 mg TabletIndications :Other osteoarthritis involving multiple joints Take 1 Tablet by mouth every 4 hours as needed (as needed for pain). DX Osteoarthritis multiple joints Max Daily Amount: 6 Tablets 180 Tablet 07/09/20 25 Active HYDROcodone-aceta minophen (NORCO) 10-325 mg TabletIndications :Other osteoarthritis involving multiple joints Take 1 Tablet by mouth every 4 hours as needed (as needed for pain). DX Osteoarthritis multiple joints Max Daily Amount: 6 Tablets 180 Tablet 06/11/20 25 025 Disconti nued(Reo rder) Active Problems [...] Date Type Department Care Team Description 07/24/2025 External Device Data ST[facility] ABSTRACTION Provider, Abstract 07/17/2025 External Device Data [facility] ABSTRACTION Provider, Abstract 07/09/2025 [place] [address] [address] [facility] [address] [address] Ajya Rhodes MD Other osteoarthritis involving multiple joints 06/28/2025 [place] [address] [address] [facility] [address] [place] [address] Ajay Rhodes MD 06/19/2025 [place] [address] [address] [facility] [address] [place] [address] Ajay Rhodes MD 06/11/2025 [place] [address] [address] [facility] [address] [place] [address] Ajay Rhodes MD Other osteoarthritis involving multiple joints 06/08/2025 Orders Only [facility] Oncology and Hematology - [place] [address] [place] [address] Randall Triplett MD 06/07/2025 9:30 AM DIAMOND SETTER Office Visit [facility] Oncology and Hematology - [place] [address] [place] [address] Randall Triplett MD GBM (glioblastoma multiforme) ([facility]/HCC) (Primary Dx) 06/04/2025 Orders Only [facility] Oncology and Hematology [facility] [address] [place] [phone] Randall Triplett MD GBM (glioblastoma multiforme) ([facility]/HCC) (Primary Dx) 06/01/2025 Orders Only [facility] Oncology and Hematology [facility] [address] [place] [address] Randall Triplett MD 05/29/2025 Refill [facility] Oncology and Hematology [facility] [address] [place] [address] Randall Triplett MD 05/14/2025 [facility] Primary Care [address] [address] Ajay Rhodes MD Other osteoarthritis involving multiple joints 05/09/2025 [facility] [address] [place] [address] Randall Triplett MD from Last 3 Months [...] COVID-19 VACCINE - EMERGENCY USE AUTHORIZATION, MRNA, [id number](PF) 30 MCG/0.3 ML IM SUSP 03/22/2021,11/18/2020 12/09/2020 (PREVNAR 20)(6 WKS UP) PNEUM OCOCCAL CONJUGATE VACCINE 20-VALENT (PCV20), POLYSACCHARIDE [id number] CONJUGATE, ADJUVANT 0.5 ML (PF) IM 05/25/2022 [...] on file Legal Sex Male 4:14 AM DIAMOND SETTER Gender Identity Not on file Sexual Orientation Not on file Last Filed Vital Signs Vital Sign Reading Time Taken Comments Blood Pressure 140/65 06/07/2025 9:07 AM DIAMOND SETTER Pulse 57 06/07/2025 9:07 AM DIAMOND SETTER Temperature 37.6 C (99.7 F) 06/07/2025 9:07 AM DIAMOND SETTER Respiratory Rate 14 06/07/2025 9:07 AM DIAMOND SETTER Oxygen Saturation 97% 06/07/2025 9:07 AM DIAMOND SETTER Inhaled Oxygen Concentration - - Weight 72.1 kg (159 lb) 06/07/2025 9:07 AM DIAMOND SETTER Height 177.8 cm (5' 10) 03/15/2025 9:48 AM CDT Body Mass Index 22.81 03/15/2025 9:48 AM CDT Plan of Treatment Upcoming Encounters Date Type Department Care Team (Late st Contact Info) Description 08/06/2025 11:15 AM DIAMOND SETTER Office Visit [facility] Oncology and Hematology - [place] [address] [place] [address] [address] [place] [address] Randall Triplett MD [address] [facility] [address] [place] [address] 09/27/2025 11:20 AM DIAMOND SETTER Office Visit [facility] Primary Care [address] [place] [address] Ajay Rhodes MD 7 [facility] [address] [place] [address] Health Maintenance Due Date Last [...] 03/15/2023, 11/26/2018 Medical Devices Implanted Type Area Automotive Worker Foreman Device Identifier Shelf Expiration Date Model / Serial / Lot Duragen + 3x3in Dp-1033 - [id number] Implanted:Qty : 1 on 03/02/2024 by Chelsey Bowens MD at [facility] Graft Left: Cranial [employer] [id number] 09/29/2026 [id number] / / [id number] Hemostatic Surgiflo 8ml W/ Thrombin 2994 - [id number] Implanted:Qty : 1 on 03/02/2024 by Chelsey Bowens MD at [facility] Hemostatic Left: Brain J&J- [employer] [id number] 05/01/2025 2994 / / [id number] Hemostatic Surgiflo 8ml W/ Thrombin 2994 - [id number] Implanted:Qty : 1 on 03/02/2024 by Chelsey Bowens MD at [facility] Hemostatic Left: Brain J&J- [employer] [id number] 04/01/2025 2994 / / [id number] Agent Hemostat Surgicel 4x8in 1952s - [id number] Implanted:Qty : 1 on 03/02/2024 by Chelsey Bowens MD at [facility] Hemostatic Left: Brain J&J- [employer] 07/01/2028 1952S / / [id number] Hemostatic Surgicel 1x2in 1960 - [id number] Implanted:Qty : 1 on 03/02/2024 by Chelsey Bowens MD at [facility] Hemostatic Left: Brain J&J- [employer] 09/01/20261 / / [id number] Hemostatic Surgifoam Sz100 1973 - [id number] Implanted:Qty : 1 on 03/02/2024 by Chelsey Bowens MD at [facility] Hemostatic Left: Brain J&J- [employer] 12/02/2027 1974 / / [id number] Mesh Ventralex 1.7in Sm Circ [id number] - [id number] Implanted:Qty : 1 on 01/21/2024 by Jimenez Linares MD at [facility] Mesh N/A: Umbilical BARD DAVOL [id number] 08/29/2025 [id number] / / [id number] Plate Matrxneuro Bur Hl Cvr 04.502.021 - Sno Load Or Sterilized Date On Horner Implanted:Qty : 1 on 03/02/2024 by Chelsey Bowens MD at [facility] Plate Left: Cranial J&J- DEPUY SYNTHES 04.502.021 / NO LOAD OR STERILIZED DATE ON HORNER / Plate Matrxneuro Cranial 04.502.062 - Sno Load Or Sterilized Date On Horner Implanted:Qty : 2 on 03/02/2024 by Chelsey Bowens MD at [facility] Plate Left: Cranial J&J- DEPUY SYNTHES 04.502.062 / NO LOAD OR STERILIZED DATE ON HORNER / Screw Matrixneuro Sd 04.503.103.01 - Sno Load Or Sterilized Date On Horner Implanted:Qty : 2 on 03/02/2024 by Chelsey Bowens MD at [facility] Screw Left: Cranial J&J- DEPUY SYNTHES 04.503.103. 01 / NO LOAD OR STERILIZED DATE ON HORNER / Description:All Synthes cran ial hardware, Requisition, [id number]. Screw Matrixneuro Sd 503.104.01 - Sno Load Or Sterilized Date On Horner Implanted:Qty : 4 on 03/02/2024 by Chelsey Bowens MD at [facility] Screw Left: Cranial J&J- DEPUY SYNTHES 04.503.104. 01 / NO LOAD OR STERILIZED DATE ON HORNER / Procedures Procedure Name Priority Date/Time Associated Diagnosis Comments CBC WITH AUTODIFFERENTIAL Routine 2024 1:36 PM DIAMOND SETTER MRI BRAIN W WO CONTRAST Routine 05/31/20 9:44 AM CDT ENDOSCOPY, COLON, SCREENING Routine 06/21/2015 POC OCCULT BLOOD UP TO 3 CARDS Routine 06/16/2010 Abdominal pain from Last 3 Months or Most Recently Relevant to Health Maintenance Results * CBC WITH AUTODIFFERENTIAL (06/07/2025 1:36 PM DIAMOND SETTER) Blood us Randall Triplett MD HEMATOLOGY ORDERABLES Final Res ult * MRI BRAIN W WO CONTRAST (05/31/2025 [...] Maintenance Insurance MEDICARE PART A AND B [facility] RX ALVARES PLANS (INTERNAL) [facility] Plans RX GENERIC COMMERCIAL Commercial RX ALLWIN DATA Medicare Part B MEDICARE PART A AND B [facility] Advance Directives For more information, please contact: [phone] Documents on File Type Date Recorded Patient Robot Operator Expl anation Advance Directive POA 03/07/2024 1:53 [...] 6:59 AM 03/18/2020 2:16 PM Care Teams Car Refinisher Relationship Specialty Start Date End Date Ajay Rhodes MD [facility] - General 01/19/08
--- OUTSIDE RECORDS SUMMARY | 2025-07-30 12:45 | XMS_ITS | Encounter Summary ---
Author Organization [facility] Address [address] [place] [address] Care Team Providers Care Battery Inspector Name Role Phone Ajay Rhodes MD Primary Care Provider [phone] Encounter Details Date Type Department Care Team (Late st Contact Info) Description 10/25/2007 Orders Only [facility] Internal Medicine [address] [address] Ajay Rhodes MD [address] [place] [address] Social History Tobacco Use Types Packs/Day Years Used Date Smoking Tobacco: Never Assessed Sex and Gender Information Value Date Recorded Sex Assigned at Not on file Legal Sex Male 4:14 AM CATERING SALES MANAGER Gender Identity Not on file Sexual [...] 10/25/2007. LAB ORDERS: 3 mo Order number: [id number] Test Ordered: COMPREHENSIVE METABOLIC PANEL & GFR 1112 Order number: [id number] Test Ordered: LIPID PANEL 1078 Order number: [id number] Test Ordered: PSA, TOTAL 1002 Patient Education: [...] st Contact Info) Description 08/06/2025 11:15 AM CATERING SALES MANAGER Office Visit [facility] Oncology and Hematology - [place] [facility] [address] [place] [address] Randall Triplett MD [address] [facility] [address] [place] [address] 09/27/2025 11:20 AM CATERING SALES MANAGER Office Visit [facility] Primary Care [address] [place] [address] Ajay Rhodes MD [address] [place] [address] [address] [place] [address] documented as of this encounter Visit Diagnoses Not on filedocumented in this encounter Care Teams Battery Inspector Relationship Specialty Start Date End Date Ajay Rhodes MD PCP - General 01/19/08 documented as of this encounter
--- OUTSIDE RECORDS SUMMARY | 2025-07-30 12:45 | XMS_ITS | Encounter Summary ---
Author Organization [facility] Address [address] [place] [address] Care Team Providers Care Remote Sensing Surveyor Name Role Phone Ajay Rhodes MD Primary Care Provider [phone] Encounter Details Date Type Department Care Team (Late st Contact Info) Description 05/12/2004 Outpatient Historical [facility] Internal Medicine [address] [address] Ajay Rhodes MD [address] [place] [address] Social History Tobacco Use Types Packs/Day Years Used Date Smoking Tobacco: Never Assessed Sex and Gender Information Value Date Recorded Sex Assigned at Not on file Legal Sex Male 4:14 AM DIRECTOR OF VOCATIONAL GUIDANCE Gender Identity Not on file Sexual Orientation [...] Info) Description 08/06/2025 11:15 AM DIRECTOR OF VOCATIONAL GUIDANCE Office Visit [facility] Oncology and Hematology - [place] [address] [place] [address] Randall Triplett MD [address] [facility] [address] [place] [phone] 09/27/2025 11:20 AM DIRECTOR OF VOCATIONAL GUIDANCE Office Visit [facility] Primary Care [address] [place] [address] [place] [address] Ajay Rhodes MD [address] [place] [address] [address] [place] [address] documented as of this encounter Visit Diagnoses Not on filedocumented in this encounter Care Teams Remote Sensing Surveyor Relationship Specialty Start Date End Date Ajay Rhodes MD PCP - General 01/19/08 documented as of this encounter
--- OUTSIDE RECORDS SUMMARY | 2025-07-30 12:45 | XMS_ITS | Encounter Summary ---
Author Organization [facility] Address [address] [place] [address] Care Team Providers Care Windsmith Name Role Phone Ajay Rhodes MD Primary Care Provider [phone] Encounter Details Date Type Department Care Team (Late Contact Info) Description 01/20/2007 Outpatient Historical [facility] Internal Medicine [address] [address] Ajay Rhodes MD [address] [place] [address] Social History Tobacco Use Types Packs/Day Years Used Date Smoking Tobacco: Never Assessed Sex and Gender Information Value Date Recorded Sex Assigned at Not on file Legal Sex Male 4:14 AM MANAGER LAUNDRY Gender Identity Not on file Sexual Orientation [...] st Contact Info) Description 08/06/2025 11:15 AM MANAGER LAUNDRY Office Visit [facility] Oncology and Hematology - [place] [address] [place] [address] Randall Triplett MD [address] [facility] [address] [place] [phone] 09/27/2025 11:20 AM MANAGER LAUNDRY Office Visit [facility] Primary Care [address] [place] [address] Ajay Rhodes MD [address] [place] [address] [address] [place] [address] documented as of this encounter Visit Diagnoses Not on filedocumented in this encounter Care Teams Windsmith Relationship Specialty Start Date End Date Ajay Rhodes MD PCP - General 01/19/08 documented as of this encounter
--- OUTSIDE RECORDS SUMMARY | 2025-07-30 12:45 | XMS_ITS | Encounter Summary ---
Author Organization [facility] Address [address] [place] [address] Care Team Providers Care Roller Mill Tender Name Role Phone Ajay Rhodes MD Primary Care Provider [phone] Encounter Details Date Type Department Care Team (Late st Contact Info) Description 02/04/[address] [facility] Internal Medicine [address] [address] Ajay Rhodes MD [address] [place] [address] Social History Tobacco Use Types Packs/Day Years Used Date Smoking Tobacco: Never Assessed Sex and Gender Information Value Date Recorded Sex Assigned at Not on file Legal Sex Male 4:14 AM SAFE DEPOSIT ATTENDANT Gender Identity Not on file Sexual Orientation Not on file documented as of this encounter Progress Notes * Ajay Rhodes MD - 12/21/2007 9:39 AM CDT TIME:09:29 am PATIENT`S HOME PHONE: PATIENT`S WORK PHONE: PATIENT`S INSURANCE: [employer] [facility] WHO TOOK THE CALL: Priyanka Marcelino R GENERAL INFORMATION WHO CALLED: Pharmacy called. PHARMACY NUMBER: [phone] 02/04/07 request refill of Hydrocodone/APAP 7.5/750 mg [...] st Contact Info) Description 08/06/2025 11:15 AM SAFE DEPOSIT ATTENDANT Office Visit [facility] Oncology and Hematology - [place] [address] [facility] [address] [place] [address] Randall Triplett MD [address] [facility] [address] [place] [address] 09/27/2025 11:20 AM SAFE DEPOSIT ATTENDANT Office Visit [facility] Primary Care [address] [place] [address] Ajay Rhodes MD [address] [place] [address] [address] [place] [address] documented as of this encounter Visit Diagnoses Not on filedocumented in this encounter Care Teams Roller Mill Tender Relationship Specialty Start Date End Date Ajay Rhodes MD PCP - General 01/19/08 documented as of this encounter
== END 2025-07-30 12:33 | disposition home or self-care (01) ==
PROVIDERS: PCP Internal Medicine; Visit Provider Internal Medicine Hematology & Oncology
DX: C71.9 Malignant neoplasm of brain, unspecified (principal)
CPT/HCPCS: 70553; A9577